=== PATIENT | female | born 1960 | race Caucasian/White ===

== ENCOUNTER 2016-04-20 18:03 | Emergency (ER) | payer SELFPAY ==
[~2016-04-20] VITALS: Ht 180.3 cm; Wt 70.0 kg
[2016-04-20 18:05] VITALS: BP 136/86; PULSE 90; RESP 18; TEMP 98.1; O2SAT 98
--- NOTE | 2016-04-20 19:15 | PD ---
HPI Chief Complaint: Skin Problem Time Seen by Provider: 19:10 Travel History International Travel<30 days: No Contact w/Intl Traveler<30days: No Traveled to known affect area: No History of Present Illness HPI Patient comes in complaining of possible fungal infection that began 4 weeks ago on her thighs while sitting on the ground with rescue cats. Patient's rash is pruritic in nature and has been spreading over both legs onto her right shoulder. Patient tried [id number] rid, nix, and other unknown ointment with no improvement of her symptoms. Patient denies any fevers, nausea, vomiting, abdominal pain, chest pain, shortness of breath, diarrhea, weight loss , or being around anyone else with similar. PFSH Past Medical History Arthritis: Yes Diminished Hearing: No : 1 Social History Alcohol Use: Yes (OCCASIONALLY) Tobacco Use: Yes (<1/2 PPD) Substance Use: No Allergies-Medications (Allergen,Severity, Reaction): Coded Allergies: No Known Allergies (Verified , 04/20/16) Reported Meds & Prescriptions Reported Meds & Active Scripts Active Bactrim DS (Sulfamethoxazole-Trimethoprim) 800-160 Mg Tab 1 Tab PO BID Terbinafine Topical 1 % Cream 1 Applic TOPICAL BID Review of Systems Except as stated in HPI: all other systems reviewed are Neg Physical Exam Narrative GENERAL: Well-developed, well nourished, in no acute distress, and non-ill appearing. SKIN: Warm and dry. Tinea corporis appearing rash noted bilateral lower extremities. There is no induration, fluctuation, or crepitus. There is some excoriation noted from where the patient has been scratching. Rash appears circular, erythematous, scaling patch that spreads centrifugally as well as having some ring-shaped plaques. HEAD: Atraumatic. Normocephalic. EYES: Pupils equal and round. EOMI. No scleral icterus. No injection or drainage. ENT: No nasal bleeding or discharge. Mucous membranes pink and moist. NECK: Trachea midline. Supple. No nuclear rigidity. RESPIRATORY: No accessory muscle use. No respiratory distress. MUSCULOSKELETAL: No obvious deformities. No clubbing. No cyanosis. No edema. Full range of motion. NEUROLOGICAL: Awake and alert. No obvious cranial nerve deficits. Motor grossly within normal limits. Normal speech. PSYCHIATRIC: Appropriate mood and affect; insight and judgment normal. Data Data Last Documented VS Vital Signs Date Time Temp Pulse Resp B/P Pulse Ox O2 Delivery O2 Flow Rate FiO2 04/20/16 18:05 98.1 90 18 136/86 98 MDM Medical Decision Making Medical Screen Exam Complete: Yes Emergency Medical Condition: Yes Differential Diagnosis Abscess, cellulitis, dermatophyte, other Narrative Course There were no blisters or bullae, target lesions, purpura or petechia, nor vesiculobullous or scarlatiniform lesions. The patient looks great and was non- ill appearing. There was no evidence to suggest scabies, cellulitis, folliculitis or abscess, Staph. Scalded Skin Syndrome, Toxic Shock, Toxic Epidermal necrolysis, Kawasakis, Measles, Rubella, cutaneous T cell lymphoma, Erythema Multiforme (minor or major). Plan of care was discussed with the patient and the patient is to follow up with their physician. The patient agreed with plan. This patient on prophylactic antibiotic secondary to excoriation to prevent secondary infection. Patient in no obvious distress upon re-evaluation. Patient was asked if they wanted to speak to my attending, which the patient did not wish to do at this time. Any questions/concerns in reference to patient diagnosis/condition discussed and clarified prior to patient's discharge. Reinforced sheer importance of close follow up with patient's primary physician or primary care clinic. Instructed patient to return to ED immediately, if symptoms return/ worsen. Pt showed understanding of above instructions. Further instructions and recommendations were detailed in discharge paperwork. Pt ambulated without difficulty out of ED at discharge. Diagnosis Primary Impression: Tinea corporis Referrals: [facility] Patient Instructions: General Instructions, Tinea Corporis (ED) Additional Instructions: Follow-up with your primary care physician next week for reevaluation. Take all medication as prescribed. Return to the emergency department if symptoms get worse. Med/Other Pt SpecificInfo: Prescription(s) given Scripts Sulfamethoxazole-Trimethoprim (Bactrim DS)800-160 Mg Tab1 Tab PO BID #14 TAB Ref 0 Prov:Richar Hannah MD 04/20/16 Terbinafine Topical 1 % Cream1 Applic TOPICAL BID #1 TUBE Ref 0 Prov:Richar Hannah MD 04/20/16 Disposition: 01 DISCHARGE HOME Condition: Stable Luis Jurado 9, 2017 19:15
[2016-04-20] MEDS ORDERED: TERB1CRE11 TOPICAL (19:16)
[2016-04-20] MEDS ORDERED: BACT800T5 PO (19:16)
== END 2016-04-20 19:34 | disposition home or self-care (01) ==
LOC: NEPB 18:03
DX: B35.4 Tinea corporis (principal); Z72.0 Tobacco use
CPT/HCPCS: 99283

== ENCOUNTER 2017-02-06 09:28 | Inpatient (IN) | payer SELFPAY ==
[2017-02-06] VITALS (7 sets, daily range): BP systolic 129–150; BP diastolic 81–108; PULSE 70–92; RESP 16–20; TEMP 97.5–98.3; O2SAT 95–100
[~2017-02-06] VITALS: Ht 180.3 cm; Wt 69.1 kg
[~2017-02-06 09:28] MED LIST: BACT800T5 PO; TERB1CRE11 TOPICAL
[2017-02-06] MEDS ORDERED: FAMOTIDINE 20 MG/2 ML VIAL IV PUSH ONE (10:00)
[2017-02-06] MEDS ORDERED: MORPHINE SULFATE 4 MG/ML INJ IV PUSH ONE (10:00)
[2017-02-06] MEDS ORDERED: SODIUM CHLORIDE 0.9% FLUSH 10 ML FLUSH IV FLUSH PRN ×2 (10:00→13:45)
[2017-02-06] MEDS ORDERED: ONDANSETRON HCL 4 MG/2 ML VIAL IVP ONE (10:00)
[2017-02-06 10:23] LABS: AUTOMATED NEUTROPHIL # 4.2 TH/MM3 (1.8-7.7); BASOPHIL % 0.3 % (0.0-2.0); HEMATOCRIT 36.2 % (35.0-46.0); HEMOGLOBIN 12.3 GM/DL (11.6-15.3); LYMPH % 8.2 % (9.0-44.0); LYMPHOCYTE # 0.4 TH/MM3 (1.0-4.8); MEAN CELL VOLUME 107.1 FL (80.0-100.0); MEAN CORPUSCULAR HEMOGLOBIN 36.5 PG (27.0-34.0); MEAN CORPUSCULAR HGB CONC 34.1 % (32.0-36.0); MEAN PLATELET VOLUME 9.6 FL (7.0-11.0); MONOCYTE # 0.3 TH/MM3 (0-0.9); NEUT % 85.5 % (16.0-70.0); PLATELET COUNT 123 TH/MM3 (150-450); RED BLOOD COUNT 3.38 MIL/MM3 (4.00-5.30); RED CELL DISTRIBUTION WIDTH 15.4 % (11.6-17.2); WHITE BLOOD COUNT 4.9 TH/MM3 (4.0-11.0)
[2017-02-06] MEDS ORDERED: MORPHINE SULFATE 2 MG/ML INJ IV PUSH ONE (10:30)
[2017-02-06] MEDS ORDERED: PANTOPRAZOLE INJ 80 MG in SODIUM CHLORIDE 0.9% INJ 35 ML IV ONE (10:30)
[2017-02-06 10:34] LABS: PROTHROMBIN TIME - PATIENT 10.5 SEC (9.8-11.6)
[2017-02-06 10:46] LABS: BICARBONATE 21.9 MEQ/L (21.0-32.0); CALCIUM 8.5 MG/DL (8.5-10.1); CREATININE 0.6 MG/DL (0.50-1.00)
[2017-02-06 11:17] LABS: ALBUMIN 2.7 GM/DL (3.4-5.0); DIRECT BILIRUBIN ADULT 0.3 MG/DL (0.0-0.2)
[2017-02-06 11:19] LABS: INDIRECT BILIRUBIN 0.8 MG/DL (0.0-0.8); TOTAL BILIRUBIN ADULT 1.1 MG/DL (0.2-1.0)
[2017-02-06] MEDS ORDERED: IOHEXOL 350 MG/ML 10 ML VIAL (for RAD DIAG) IVCONTRAST ONE (11:27)
[2017-02-06] MEDS: PANTOPRAZOLE INJ 80 MG in SODIUM CHLORIDE 0.9% INJ 100 ML IV SCH ×2 (11:34→23:19)
--- NOTE | 2017-02-06 11:46 | RADRPT ---
EXAM DATE/TIME: 02/06/2017 11:20 [place] COMPARISON: No previous studies available for comparison. INDICATIONS : Vomiting for 2 days. IV CONTRAST: 70 cc Omnipaque 350 (iohexol) IV ORAL CONTRAST: No oral contrast ingested. RADIATION DOSE: 7.90 CTDIvol (mGy) MEDICAL HISTORY : None SURGICAL HISTORY : None. ENCOUNTER: Initial ACUITY: 2 days PAIN SCALE: 0/10 LOCATION: anterior TECHNIQUE: Volumetric scanning of the abdomen and pelvis was performed. Using automated exposure control and ad justment of the mA and/or kV according to patient size, radiation dose was kept as low as reasonably achievable to obtain optimal diagnostic quality images. DICOM format image data is available electro nically for review and comparison. FINDINGS: LOWER LUNGS: The visualized lower lungs are clear. LIVER: Diffuse diminished attenuation consistent with steatosis. No focal mass or biliary ductal dilatation. SPLEEN: Normal size without lesion. PANCREAS: Within normal limits. KIDNEYS: Normal in size and shape. There is no mass, stone or hydronephrosis. ADRENAL GLANDS: Within normal limits. VASCULAR: There is no aortic aneurysm. BOWEL/MESENTERY: Moderate hiatal hernia. Fluid in the esophagus. The stomach, small bowel, and colon demonstrate no ac rupert abnormality. There is no free intraperitoneal air or fluid. ABDOMINAL WALL: Soft tissue density nodule with in the umbilicus is likely sister Vaishali Jaguar node RETROPERITONEUM: There is no lymphadenopathy. BLADDER: No wall thickening or mass. REPRODUCTIVE: There is a very large complex solid and cystic multilocular mass which appears to arise in the right adnexal region. The mass measures approximately 21 x 15 x 19.5 cm (sagittal x AP x transverse). There are findings of peritoneal carcinomatosis with nodular thickening of the omentum. There is moderate free ascites present INGUINAL: There is no lymphadenopathy or hernia. MUSCULOSKELETAL: Within normal limits for patient age. CONCLUSION: Enormous mass which appears to arise in the right adnexal region. Findings of peritoneal carcinomatos is. Adam Johnston MD on February 06, 2017 at 11:37 Board Certified Radiologist. This report was verified electronically.
[2017-02-06] MEDS ORDERED: METOCLOPRAMIDE INJ 10 MG in SODIUM CHLORIDE 0.9% INJ 50 ML IV ONE (12:00)
[2017-02-06] MEDS ORDERED: OCTREOTIDE INJ 50 MCG/ML AMP SQ ONE (12:15)
--- NOTE | 2017-02-06 12:51 | PD ---
HPI Chief Complaint: GI Complaint Time Seen by Provider: 09:53 Travel History International Travel<30 days: No Contact w/Intl Traveler<30days: No Traveled to known affect area: No History of Present Illness HPI She is a 56-year-old female who comes in complaining of nausea and vomiting and abdominal pain. Says this is been going on for the past 3 days. She reports vomiting dark black material. She says she has pain all over her abdomen. She says she drinks daily, but has not had a drink in 3 days. She denies recent weight loss. She has not noticed blood in her stool, but does report diarrhea. She reports fever. She has not taken anything for her symptoms. Nothing seems to make her symptoms better or worse. [facility] Past Medical History Arthritis: Yes Diminished Hearing: No Immunizations Current: Yes Tetanus Vaccination: > 5 Years Influenza Vaccination: No ?: Not : 1 Past Surgical History Surgical History: No Previous Surgery Social History Alcohol Use: Yes (OCCASIONALLY) Tobacco Use: Yes (<1/2 PPD) Substance Use: No Allergies-Medications (Allergen,Severity, Reaction): Coded Allergies: No Known Allergies (Verified Adverse Reaction, Unknown, 02/06/17) Reported Meds & Prescriptions Reported Meds & Active Scripts Active No Active Prescriptions or Reported Medications Review of Systems Except as stated in HPI: all other systems reviewed are Neg General / Constitutional: Positive: Fever Eyes: No: Blurred Vision HENT: No: Headaches, Lightheadedness Cardiovascular: No: Chest Pain or Discomfort Respiratory: No: Shortness of Breath Gastrointestinal: Positive: Nausea, Vomiting, Diarrhea, Abdominal Pain, Hematemesis Genitourinary: No: Dysuria Musculoskeletal: No: Myalgias, Edema Skin: No Change in Pigmentation Neurologic: No: Weakness, Dizziness Physical Exam Narrative GENERAL: Awake and alert, actively vomiting. SKIN: Focused skin assessment warm/dry. No wounds or signs of infection. HEAD: Atraumatic. Normocephalic. EYES: Pupils equal and round. No scleral icterus. ENT: Mucous membranes pink and moist. NECK: Trachea midline. No JVD. CARDIOVASCULAR: Regular rate and rhythm. No murmur appreciated. RESPIRATORY: No accessory muscle use. Clear to auscultation. Breath sounds equal bilaterally. GASTROINTESTINAL: Abdomen enlarged, diffusely tender to palpation. Ascites present. MUSCULOSKELETAL: No obvious deformities. No clubbing. No cyanosis. No edema. NEUROLOGICAL: Awake and alert. No obvious cranial nerve deficits. Motor grossly within normal limits. Normal speech. PSYCHIATRIC: Appropriate mood and affect; insight and judgment normal. Data Data Last Documented VS Vital Signs Date Time Temp Pulse Resp B/P (MAP) Pulse Ox O2 Delivery O2 Flow Rate FiO2 02/06/17 11:34 74 18 134/83 (100) 100 Room Air 02/06/17 09:43 98.3 Orders Orders Basic Metabolic Panel (Bmp) (02/06/17 09:58) Complete Blood Count With Diff (02/06/17 09:58) Lipase (02/06/17 09:58) Prothrombin Time / Inr (Pt) (02/06/17 09:58) Act Partial Throm Time (Ptt) (02/06/17 09:58) Urinalysis - C+S If Indicated (02/06/17 09:58) Ct Abd/Pel W Iv Contrast(Rout) (02/06/17 09:58) Iv Access Insert/Monitor (02/06/17 09:58) Ecg Monitoring (02/06/17 09:58) Oximetry (02/06/17 09:58) Morphine Inj (Morphine Inj) (02/06/17 10:00) Ondansetron Inj (Zofran Inj) (02/06/17 10:00) Sodium Chloride 0.9% Flush (Ns Flush) (02/06/17 10:00) Famotidine Inj (Pepcid Inj) (02/06/17 10:00) Morphine Inj (Morphine Inj) (02/06/17 10:30) Pantoprazole Inj (Protonix Inj) (02/06/17 10:30) Pantoprazole Inj (Protonix Inj) (02/06/17 10:30) Hepatic Functional Panel (02/06/17 10:28) Iohexol 350 Inj (Omnipaque 350 Inj) (02/06/17 11:27) Metoclopramide Inj (Reglan Inj) (02/06/17 12:00) Ng Gastric Tube Insert/Monitor (02/06/17 12:15) Octreotide Inj (Sandostatin Inj) (02/06/17 12:15) Admit Order (Ed Use Only) (02/06/17 ) Labs Laboratory Tests Test 02/06/17 10:15 White Blood Count 4.9 TH/MM3 Red Blood Count 3.38 MIL/MM3 Hemoglobin 12.3 GM/DL Hematocrit 36.2 % Mean Corpuscular Volume 107.1 FL Mean Corpuscular Hemoglobin 36.5 PG Mean Corpuscular Hemoglobin Concent 34.1 % Red Cell Distribution Width 15.4 % Platelet Count 123 TH/MM3 Mean Platelet Volume 9.6 FL Neutrophils (%) (Auto) 85.5 % Lymphocytes (%) (Auto) 8.2 % Monocytes (%) (Auto) 6.0 % Eosinophils (%) (Auto) 0.0 % Basophils (%) (Auto) 0.3 % Neutrophils # (Auto) 4.2 TH/MM3 Lymphocytes # (Auto) 0.4 TH/MM3 Monocytes # (Auto) 0.3 TH/MM3 Eosinophils # (Auto) 0.0 TH/MM3 Basophils # (Auto) 0.0 TH/MM3 CBC Comment DIFF FINAL Differential Comment Prothrombin Time 10.5 SEC Prothromb Time International Ratio 1.0 RATIO Activated Partial Thromboplast Time 24.3 SEC Blood Urea Nitrogen 10 MG/DL Creatinine 0.60 MG/DL Random Glucose 159 MG/DL Calcium Level 8.5 MG/DL Sodium Level 137 MEQ/L Potassium Level 3.0 MEQ/L Chloride Level 95 MEQ/L Carbon Dioxide Level 21.9 MEQ/L Anion Gap 20 MEQ/L Estimat Glomerular Filtration Rate 103 ML/MIN Total Bilirubin 1.1 MG/DL Direct Bilirubin 0.3 MG/DL Indirect Bilirubin 0.8 MG/DL Aspartate Amino Transf (AST/SGOT) 69 U/L Alanine Aminotransferase (ALT/SGPT) 19 U/L Alkaline Phosphatase 100 U/L Total Protein 8.0 GM/DL Albumin 2.7 GM/DL Lipase 350 U/L [facility] Medical Decision Making Medical Screen Exam Complete: Yes Emergency Medical Condition: Yes Medical Record Reviewed: Yes Differential Diagnosis ascites vs esophageal varices vs PUD vs colitis Narrative Course Patient is a 56 year old female who comes in complaining of nausea, vomiting, abdominal pain. She is actively vomiting coffee ground emesis. IV established , labs sent. Given Zofran, Protonix. Labs show Hgb of 12.3. Given Octreotide and Reglan for continued vomiting. She refused NG tube. CT abd/pelvis performed shows a large pelvic mass. Last 24 hours Impressions Abdomen/Pelvis CT 02/06/17 0958 Signed Impressions: Service Date/Time: Monday, February 06, 2017 11:20 - CONCLUSION: Enormous mass which appears to arise in the right adnexal region. Findings of peritoneal carcinomatosis. Adam Johnston MD Patient informed of these results. Admitted for further management. Diagnosis Primary Impression: Abdominal mass Qualified Codes: R19.07 - Generalized intra-abdominal and pelvic swelling, mass and lump Additional Impressions: Hypokalemia Hematemesis Qualified Codes: K92.0 - Hematemesis Admitting Information Admitting Physician Requests: Admit Scripts No Active Prescriptions or Reported Meds Linda Blake MD Feb 06, 2017 12:50
--- NOTE | 2017-02-06 13:23 | HHI.HP ---
[facility] Service Family Medicine Primary Care Physician No Primary Care Physician Admission Diagnosis GI bleed, abdominal mass Diagnoses: International Travel<30 Days: No Contact w/Intl Traveler<30days: No Known Affected Area: No History of Present Illness Patient is a 56-year-old female who denies any chronic illness who comes in today for vomiting blood. She reports that she's been vomiting for the past 3 days. Just this morning today to transition over to blood. She reports she has vomited approximately 25 times today, which includes spitting up small portions up to "large amounts which only happen a couple times, maybe half a cup ." She' s been unable to keep down food or fluids over these past 3 days. She reports that her abdominal pain as well as her nausea have been greatly improved following administration of medications in the ED. She did not take any medications while at home to aid with her nausea or vomiting, no NSAIDs. Currently endorses lightheadedness, dizziness, abdominal pain, darkened stools. In her stool she has not noted any chad blood, has been normal consistency, no diarrhea, constipation. Denies fevers, chills, chest pain, change in bladder habits other than darker urine. She states she typically drinks 1 pint of vodka a day which has been going on for "months or years" and states the last time she 's been able to drink was the day before she began vomiting. She has had withdrawal symptoms in the past, denies being hospitalized for it, does not believe she is having any similar symptoms at this point. No audio/visual hallucinations at this time. Further, she is curious about the large mass found in her abdomen via CT prior to the interview. She reports she has had approximately 5 pounds of weight loss over the past month, she has limited appetite however reports that she has always eaten very little, no change in bowel or bladder habits than that noted above, no abdominal pain prior to this episode of vomiting. Denies ever having had an EGD or colonoscopy in the past. Review of Systems Constitutional: COMPLAINS OF: Fatigue, Weight loss (5 pounds last month), Dizziness, Change in appetite (less), DENIES: Fever, Chills, Night Sweats Endocrine: DENIES: Polydipsia, Polyuria Eyes: DENIES: Blurred vision, Diplopia, Eye pain, Vision loss, Photosensitivity , Double Vision Ears, nose, mouth, throat: COMPLAINS OF: Throat pain, DENIES: Tinnitus, Hearing loss, Nasal discharge, Hoarseness, Ear Pain, Running Nose, Epistaxis, Sinus Pain, Toothache, Odynophagia Respiratory: COMPLAINS OF: Hemoptysis, DENIES: Apneas, Cough, Snoring, Wheezing , Sputum production, Shortness of breath Cardiovascular: DENIES: Chest pain, Palpitations, Syncope Gastrointestinal: COMPLAINS OF: Abdominal pain, Black stools, Nausea, Vomiting , Difficulty Swallowing, DENIES: Bloody stools, Constipation, Diarrhea Genitourinary: DENIES: Urgency, Hematuria, Dysuria, Nocturia Musculoskeletal: DENIES: Joint pain, Muscle aches, Stiffness Integumentary: COMPLAINS OF: Rash (allergic from cats), DENIES: Abnormal pigmentation Hematologic/lymphatic: DENIES: Bruising, Lymphadenopathy Immunologic/allergic: DENIES: Eczema, Urticaria Neurologic: DENIES: Abnormal gait, Headache, Localized weakness, Paresthesias, Seizures Psychiatric: DENIES: Anxiety, Confusion, Mood changes, Depression, Hallucinations, Suicidal Ideation, Homicidal Ideation Past Family Social History Past Medical History Reports none Past Surgical History No past surgeries Allergies: Coded Allergies: No Known Allergies (Verified Adverse Reaction, Unknown, 02/06/17) Family History Father: from bladder cancer at 41, Mother: alive, single mastectomy Sister: healthy Social History EtOH: Pint a day of vodka Tobacco: 1/2 pack for 10 years Drugs: When younger - cocaine, oxycodone Physical Exam Vital Signs Vital Signs Date Time Temp Pulse Resp B/P (MAP) Pulse Ox O2 Delivery O2 Flow Rate FiO2 02/06/17 11:34 74 18 134/83 (100) 100 Room Air 02/06/17 10:22 97 Room Air 02/06/17 09:43 98.3 78 20 150/108 (122) 100 Room Air Physical Exam GENERAL: This is a thin woman, older than her stated age, in no apparent distress. SKIN: No rashes, ecchymoses or lesions. Cool and dry. HEAD: Atraumatic. Normocephalic. No temporal or scalp tenderness. EYES: Pupils equal round and reactive. Extraocular motions intact. No scleral icterus. No injection or drainage. ENT: Nose without bleeding, purulent drainage or septal hematoma. No dry blood noted in nose. Throat without erythema, tonsillar hypertrophy or exudate. No blood noted in throat. Tongue darker red. Uvula midline. Airway patent. NECK: Trachea midline. No JVD or lymphadenopathy. Supple, nontender, no meningeal signs. CARDIOVASCULAR: Regular rate and rhythm without murmurs, gallops, or rubs. RESPIRATORY: Clear to auscultation. Breath sounds equal bilaterally. No wheezes , rales, or rhonchi. GASTROINTESTINAL: Abdomen soft, however with significant guarding especially on the right side. Mildly tender, mostly on the right. Unable to adequately palpate spleen, liver, other masses due to guarding. MUSCULOSKELETAL: Extremities without clubbing, cyanosis, or edema. No joint tenderness, effusion, or edema noted. No calf tenderness. Negative Homans sign bilaterally. NEUROLOGICAL: Awake and alert. Cranial nerves II through XII intact. Motor and sensory grossly within normal limits. Five out of 5 muscle strength in all muscle groups. Normal speech. Laboratory Laboratory Tests Test 02/06/17 10:15 White Blood Count 4.9 Red Blood Count 3.38 Hemoglobin 12.3 Hematocrit 36.2 Mean Corpuscular Volume 107.1 Mean Corpuscular Hemoglobin 36.5 Mean Corpuscular Hemoglobin Concent 34.1 Red Cell Distribution Width 15.4 Platelet Count 123 Mean Platelet Volume 9.6 Neutrophils (%) (Auto) 85.5 Lymphocytes (%) (Auto) 8.2 Monocytes (%) (Auto) 6.0 Eosinophils (%) (Auto) 0.0 Basophils (%) (Auto) 0.3 Neutrophils # (Auto) 4.2 Lymphocytes # (Auto) 0.4 Monocytes # (Auto) 0.3 Eosinophils # (Auto) 0.0 Basophils # (Auto) 0.0 CBC Comment DIFF FINAL Differential Comment Prothrombin Time 10.5 Prothromb Time International Ratio 1.0 Activated Partial Thromboplast Time 24.3 Blood Urea Nitrogen 10 Creatinine 0.60 Random Glucose 159 Calcium Level 8.5 Sodium Level 137 Potassium Level 3.0 Chloride Level 95 Carbon Dioxide Level 21.9 Anion Gap 20 Estimat Glomerular Filtration Rate 103 Total Bilirubin 1.1 Direct Bilirubin 0.3 Indirect Bilirubin 0.8 Aspartate Amino Transf (AST/SGOT) 69 Alanine Aminotransferase (ALT/SGPT) 19 Alkaline Phosphatase 100 Total Protein 8.0 Albumin 2.7 Lipase 350 Result Diagram: 02/06/17 1015 02/06/17 1015 Imaging Last 24 hours Impressions Abdomen/Pelvis CT 02/06/17 0958 Signed Impressions: Service Date/Time: Monday, February 06, 2017 11:20 - CONCLUSION: Enormous mass which appears to arise in the right adnexal region. Findings of peritoneal carcinomatosis. MD Tad Oliveira VTE Risk Assessment Caprini VTE Risk Assessment: Mod/High Risk (score >= 2) Caprini Risk Assessment Model Point Value = 1 Point Value = 2 Point Value = 3 Point Value = 5 Age 41-60 Minor surgery BMI > 25 kg/m2 Swollen legs Varicose veins or History of unexplained or recurrent spontaneous Oral contraceptives or hormone replacement Sepsis (< 1 month) Serious lung disease, including pneumonia (< 1 month) Abnormal pulmonary function Acute myocardial infarction Congestive heart failure (< 1 month) History of inflammatory bowel disease Medical patient at bed rest Age 61-74 Arthroscopic surgery Major open surgery (> 45 min) Laparoscopic surgery (> 45 min) Malignancy Confined to bed (> 72 hours) Immobilizing plaster cast Central venous access Age >= 75 History of VTE Family history of VTE Factor V Leiden Prothrombin [id number] Lupus anticoagulant Anticardiolipin antibodies Elevated serum homocysteine Heparin-induced thrombocytopenia Other congenital or acquired thrombophilia Stroke (< 1 month) Elective arthroplasty Hip, pelvis, or leg fracture Acute spinal cord injury (< 1 month) Prophylaxis Regimen Total Risk Factor Score Risk Level Prophylaxis Regimen 0-1 Low Early ambulation 2 Moderate Order ONE of the following: *Sequential Compression Device (SCD) *Heparin 5000 units SQ BID 3-4 Higher Order ONE of the following medications: *Heparin 5000 units SQ TID *Enoxaparin/Lovenox 40 mg SQ daily (WT < 150 kg, CrCl > 30 mL/min) *Enoxaparin/Lovenox 30 mg SQ daily (WT < 150 kg, CrCl > 10-29 mL/min) *Enoxaparin/Lovenox 30 mg SQ BID (WT < 150 kg, CrCl > 30 mL/min) AND/OR *Sequential Compression Device (SCD) 5 or more Highest Order ONE of the following medications: *Heparin 5000 units SQ TID (Preferred with Epidurals) *Enoxaparin/Lovenox 40 mg SQ daily (WT < 150 kg, CrCl > 30 mL/min) *Enoxaparin/Lovenox 30 mg SQ daily (WT < 150 kg, CrCl > 10-29 mL/min) *Enoxaparin/Lovenox 30 mg SQ BID (WT < 150 kg, CrCl > 30 mL/min) AND *Sequential Compression Device (SCD) Assessment and Plan Assessment and Plan 56-year-old female with past history of heavy alcohol consumption presenting with hematemesis. Vomiting for 3 days, vomiting blood only on day of admission. Lightheadedness and dizziness, hemoglobin 12.3. Large right abdominal mass 2[address] Problem List: (1) Hematemesis ICD Codes: K92.0 - Hematemesis Plan: Vomiting 3 days, hematemesis 1 day. Admitted without anemia. Well controlled on IV antiemetics. Past history of significant alcohol consumption. GI on consult. -Appreciate GI recommendations * EGD tomorrow * NPO * Serial H/H * Transfuse as needed * Continue Protonix gtt -Zofran when necessary vomiting (2) Abdominal mass ICD Codes: R19.00 - Intra-abdominal and pelvic swelling, mass and lump, unspecified site Plan: Large 865952.5 cm mass originating from the right adnexal area incidentally found on CT. 5 pounds of weight loss over the past month. Low appetite, patient states it's always been low. -Oncology consulted, follow-up recommendations -Observe for additional signs/symptoms, evidence of mass effect (3) Hypokalemia ICD Codes: E87.6 - Hypokalemia Plan: Potassium 3.0 on admission, chloride 95, likely secondary to vomiting. -Monitor and replete as needed (4) ETOH abuse ICD Codes: F10.10 - Alcohol abuse, uncomplicated Plan: States she drinks approximately 1 L of vodka a day. Reports withdrawal symptoms in the past, typically presented themselves within 24 hours. Last drank 3 days prior to admission. -[facility] protocol -Counseled on EtOH abuse (5) FEN Plan: Fluids: -Maintenance fluids at 110 mL per hour Electrolytes: -Monitor and replete as needed Nutrition: Nothing by mouth until GI clearance, likely EGD 02/07 Physician Certification 2 Midnight Certification Type: Admission for Inpatient Services Order for Inpatient Services The services are ordered in accordance with Medicare regulations or non- Medicare payer requirements, as applicable. In the case of services not specified as inpatient-only, they are appropriately provided as inpatient services in accordance with the 2-midnight benchmark. Estimated LOS (days): 2 2 days is the estimated time the patient will need to remain in the hospital, assuming treatment plan goals are met and no additional complications. Post-Hospital Plan: Home Tj Naidu MD R1 Feb 06, 2017 13:23
[2017-02-06] MEDS ORDERED: ONDANSETRON HCL 4 MG/2 ML VIAL IVP PRN (13:45)
[2017-02-06] MEDS ORDERED: SENNOSIDES 8.6 MG TAB PO PRN (13:45)
[2017-02-06] MEDS ORDERED: ACETAMINOPHEN 325 MG TAB PO PRN (13:45)
[2017-02-06] MEDS ORDERED: LORazepam 2 MG/ML VIAL IV PUSH PRN ×4 (13:45)
[2017-02-06] MEDS ORDERED: LORazepam 1 MG TAB PO PRN (13:45)
[2017-02-06] MEDS ORDERED: LACTULOSE SYRUP 20 GM/30 ML CUP PO PRN (13:45)
[2017-02-06] MEDS ORDERED: BISACODYL 10 MG SUPP RECTAL PRN (13:45)
[2017-02-06] MEDS ORDERED: LORazepam 2 MG TAB PO PRN (13:45)
[2017-02-06] MEDS ORDERED: FLUMAZENIL 0.5 MG/5 ML VIAL IV PUSH PRN (13:45)
[2017-02-06] MEDS ORDERED: MAGNESIUM HYDROXIDE SUSP 30 ML CUP PO PRN (13:45)
[2017-02-06] MEDS ORDERED: NALOXONE HCL 0.4 MG/ML AMP IV PUSH PRN (13:45)
--- NOTE | 2017-02-06 14:11 | PD.CONS ---
HPI History of Present Illness This is a 56 year old F patient who arrived to the emergency department today with complaints of multiple episodes of hematemesis that began this morning. She reports vomiting for the past three days, but denies any blood in the vomit until today. States approx 25 episodes since this morning. Denies symptoms of the same in the past. Does report stool has been darker than normal, she is not sure how long it has been like this. Denies BRB in stool. Denies ever having EGD or colonoscopy. Does report heavy ETOH use, approx 3/4 pint of vodka a day for the past ten years. Denies taking blood thinners or NSAID use. She does not follow up with a primary care doctor or GI doctor and she denies ever being diagnosed with any liver issues. Not currently on any home medication. CT scan abdomen/pelvis W IV contrast (02/06) --> Enormous mass which appears to arise in the right adnexal region. Findings of peritoneal carcinomatosis. Pt denies being told this in the past. Family history is significant for bladder cancer, she states her father was diagnosed at a young age, and it metastasized to his colon. (Ellen Wolf) PFSH Past Medical History ETOH abuse Past Surgical History Denies (Ellen Wolf) Coded Allergies: No Known Allergies (Verified Adverse Reaction, Unknown, 02/06/17) Medications Denies any home medication Family History Father-bladder cancer Mother- Mastectomy Social History ETOH- 3/4 pint of vodka a day for the past ten years Nicotine dependence- 1/2 pack of cigarettes a day for the past ten years, reports quitting three days ago when she started vomiting Illicit drug use- denies (Ellen Wolf) Review of Systems Constitutional: COMPLAINS OF: Fatigue, Dizziness Gastrointestinal: COMPLAINS OF: Abdominal pain, Nausea, Vomiting, Swelling of Abdomen, Hematemesis, DENIES: Black stools, Bloody stools, Constipation, Diarrhea, Difficulty Swallowing, Odynophagia (Ellen Wolf) GI Exam Vitals I&O Vital Signs Date Time Temp Pulse Resp B/P (MAP) Pulse Ox O2 Delivery O2 Flow Rate FiO2 02/06/17 11:34 74 18 134/83 (100) 100 Room Air 02/06/17 10:22 97 Room Air 02/06/17 09:43 98.3 78 20 150/108 (122) 100 Room Air Imaging Last Impressions Abdomen/Pelvis CT 02/06/17 0958 Signed Impressions: Service Date/Time: Monday, February 06, 2017 11:20 - CONCLUSION: Enormous mass which appears to arise in the right adnexal region. Findings of peritoneal carcinomatosis. Adam Johnston MD Laboratory Test 02/06/17 10:15 White Blood Count 4.9 TH/MM3 Red Blood Count 3.38 MIL/MM3 Hemoglobin 12.3 GM/DL Hematocrit 36.2 % Mean Corpuscular Volume 107.1 FL Mean Corpuscular Hemoglobin 36.5 PG Mean Corpuscular Hemoglobin Concent 34.1 % Red Cell Distribution Width 15.4 % Platelet Count 123 TH/MM3 Mean Platelet Volume 9.6 FL Neutrophils (%) (Auto) 85.5 % Lymphocytes (%) (Auto) 8.2 % Monocytes (%) (Auto) 6.0 % Eosinophils (%) (Auto) 0.0 % Basophils (%) (Auto) 0.3 % Neutrophils # (Auto) 4.2 TH/MM3 Lymphocytes # (Auto) 0.4 TH/MM3 Monocytes # (Auto) 0.3 TH/MM3 Eosinophils # (Auto) 0.0 TH/MM3 Basophils # (Auto) 0.0 TH/MM3 CBC Comment DIFF FINAL Differential Comment Prothrombin Time 10.5 SEC Prothromb Time International Ratio 1.0 RATIO Activated Partial Thromboplast Time 24.3 SEC Blood Urea Nitrogen 10 MG/DL Creatinine 0.60 MG/DL Random Glucose 159 MG/DL Calcium Level 8.5 MG/DL Sodium Level 137 MEQ/L Potassium Level 3.0 MEQ/L Chloride Level 95 MEQ/L Carbon Dioxide Level 21.9 MEQ/L Anion Gap 20 MEQ/L Estimat Glomerular Filtration Rate 103 ML/MIN Total Bilirubin 1.1 MG/DL Direct Bilirubin 0.3 MG/DL Indirect Bilirubin 0.8 MG/DL Aspartate Amino Transf (AST/SGOT) 69 U/L Alanine Aminotransferase (ALT/SGPT) 19 U/L Alkaline Phosphatase 100 U/L Total Protein 8.0 GM/DL Albumin 2.7 GM/DL Lipase 350 U/L Physical Examination HEENT: Normocephalic; atraumatic CHEST: Even/unlabored CARDIAC: RRR ABDOMEN: Firm, distended, diffuse TTP, bowel sounds active x 4. EXTREMITIES: No clubbing, cyanosis, or edema. SKIN: Normal; no rash; no jaundice. MANAGER FUND: No focal deficits; alert and oriented times three. (Ellen Wolf) Assessment and Plan Plan Assessment - Hematemesis- Vomiting for the past three days, reports noticing blood in vomit starting today. Approx 25 episodes. H/H stable 12.3/36.2. Denies nausea after receiving nausea medication in ER. CT abdomen pelvis W IV contrast (02/06) --> Enormous mass which appears to arise in the right adnexal region. Findings of peritoneal carcinomatosis. Pt denies history of this. Also seen on CT ( liver) --> Diffuse diminished attenuation consistent with steatosis. No focal mass or biliary duct dilation. She does not follow up with family doctor or GI doctor outpatient. Reports ETOH abuse, approx 3/4 pint of vodka a day for the past ten years. Has never been diagnosed with liver issues. Liver enzymes currently AST-69 ALT-19 T bili 1.1 Alk phos-100. Coagulation normal. Albumin 2.7. Octreotide in ER. Currently on Pantoprazole gtt. Plan for EGD tomorrow. - ETOH abuse- 3/4 pint of vodka a day for the past ten years - Nicotine dependence- half a pack a day of cigarettes for the past ten years Plan - EGD tomorrow - Obtain consent - NPO - Serial H/H - Transfuse as needed - NGT to LIWS if vomiting persists - Continue Protonix gtt - Nausea medication PRN - Supportive care - Further recommendations to follow based on results of above Pt has been seen and examined by myself and Dr. Anne and this note is written on his behalf (Ellen Wolf) Physician Comments Seen and examined, plan a above, EGD in AM. (Gustabo Anne MD) Ellen Wolf Feb 06, 2017 14:11 Gustabo Anne MD Feb 06, 2017 14:49
[2017-02-06] MEDS ORDERED: ACETAMINOPHEN/HYDROcodone 325 MG/5 MG TAB PO PRN (15:30)
[2017-02-06] MEDS: ACETAMINOPHEN/HYDROcodone 325 MG/10 MG TAB PO PRN ×2 (16:46→21:22)
[2017-02-06] MEDS: SODIUM CHLOR 0.9% 1000 ML INJ 1,000 ML IV SCH ×2 (16:47→23:06)
[2017-02-06] MEDS: POTASSIUM CHLOR 20 MEQ PREMIX 100 ML IV SCH ×2 (18:03→21:22)
[2017-02-06 19:40] LABS: HEMATOCRIT 36.3 % (35.0-46.0); HEMATOCRIT 36.8 % (35.0-46.0); HEMOGLOBIN 12.2 GM/DL (11.6-15.3)
[2017-02-06] MEDS ORDERED: CHLORHEXIDINE GLUCONATE 2 % 1 PACK (2 CLOTHS) TOPICAL PRN (19:45)
[2017-02-06] MEDS ORDERED: SODIUM CHLORID 0.9% 500 ML IV PRN (19:45)
[2017-02-06] MEDS ORDERED: POVIDONE IODINE 5% (ANTISEPSIS KIT) 4 APPLICATIONS EACH NARE PRN (19:45)
[2017-02-06] MEDS ORDERED: METOPROLOL TARTRATE 25 MG TAB PO PRN (19:45)
[2017-02-06] MEDS ORDERED: INSULIN HUMAN REGULAR 1,000 UNITS/10 ML VIAL SQ PRN (19:45)
[2017-02-06] MEDS ORDERED: LACTATED RINGER'S 1000 ML IV PRN (19:45)
[2017-02-06] MEDS: SODIUM CHLORIDE 0.9% FLUSH 10 ML FLUSH IV FLUSH SCH (21:00)
[2017-02-06] MEDS: DOCUSATE SODIUM 50 MG/SENNA 8.6 MG TAB PO SCH ×2 (21:00→21:22)
[2017-02-07] VITALS: BP 119/81; PULSE 74; RESP 20; TEMP 98.1; O2SAT 97
[2017-02-07] MEDS: ACETAMINOPHEN/HYDROcodone 325 MG/10 MG TAB PO PRN ×5 (01:06→20:15)
[2017-02-07 03:12] LABS: BACTERIA, URINE MANY /hpf; BILIRUBIN, URINE NEG (NEG); BLOOD, URINE TRACE (NEG); GLUCOSE,URINE NEG (NEG); KETONE, URINE 80 mg/dL (NEG); NITRITE,URINE POS (NEG); PH, URINE 7.5 (5.0-8.5); SQUAMOUS EPITHELIAL CELL URINE 3 /hpf (0-5); URINE COLOR YELLOW (YELLW/STRAW); URINE LEUKOCYTE ESTERASE NEG (NEG)
[2017-02-07 03:39] LABS: HEMATOCRIT 34.4 % (35.0-46.0); HEMOGLOBIN 11.5 GM/DL (11.6-15.3)
[2017-02-07 08:00] VITALS: BP 132/80; PULSE 73; RESP 16; RESP 20; TEMP 98.5; O2SAT 96
[2017-02-07] MEDS: SODIUM CHLOR 0.9% 1000 ML INJ 1,000 ML IV SCH ×2 (08:12→17:18)
--- NOTE | 2017-02-07 09:00 | GIPROC ---
[facility] [address] [facility]. [facility], [address] EGD PROCEDURE REPORT EXAM DATE: 02/07/2017 PATIENT NAME: Nikki Gomes MR #: [id number] BIRTHDATE: 1960 ATTENDING: Gustabo Anne MD ORDER #: [id number] WOOL HAT FINISHER: Tammy Nicolas and Haven Quintana STATUS: inpatient INDICATIONS: The patient is a 56 yr old female here for an EGD due to hematemesis PROCEDURE PERFORMED: EGD w/ biopsy MEDICATIONS: None and Per Anesthesia. TOPICAL ANESTHETIC: none CONSENT: The patient understands the risks and benefits of the procedure and understands that these risks include, but are not limited to: sedation, allergic reaction, infection, perforation and/or bleeding. Alternative means of evaluation and treatment include, among others: physical exam, x-rays, and/or surgical intervention. The patient elects to proceed with this endoscopic procedure. medical equipment was checked for proper function. Hand hygiene and appropriate measures for infection prevention was taken. After the risks, benefits and alternatives of the procedure were thoroughly explained, Informed consent was verified, confirmed and timeout was successfully executed by the treatment team. The patient was anesthetized with topical anesthesia and the Pentax [id number] endoscope was introduced through the mouth and advanced to the second portion of the duodenum. Retroflexed views revealed a hiatal hernia The gastroscope was then slowly withdrawn and removed. ESOPHAGUS: Multiple large non-bleeding, irregular shaped and clean-based ulcers were found in the lower third of the esophagus and middle third esophagus. Biopsies were taken at edge of the ulcers and at the center of the ulcers. STOMACH: There was erythematous severe and erosive gastritis in the entire examined stomach. Multiple biopsies were performed using cold forceps. Sample sent for histology. DUODENUM: Mild duodenal inflammation was found in the duodenal bulb. ADVERSE EVENTS: There were no complications. IMPRESSIONS: 1. Multiple large ulcers were found in the lower third of the esophagus and middle third esophagus; biopsies were taken 2. There was erythematous gastritis in the entire examined stomach; multiple biopsies were performed 3. Duodenal inflammation was found in the duodenal bulb 4. Retroflexed views revealed a hiatal hernia RECOMMENDATIONS: 1. Await biopsy results. Biopsy results will not be ready for 7-10 days. If you don't hear from us in two weeks, call our office for biopsy results. 2. Colonoscopy PATIENT CONDITION: stable DISPOSITION: Observation REPEAT EXAM: NONE Gustabo Anne MD eSigned: Gustabo Anne MD 02/07/2017 9:00 AM cc: PATIENT NAME: Nikki Gomes MR#: [id number]
[2017-02-07] MEDS ORDERED: DO NOT ADM ANY ANTICOAGULANT DRUGS PRN (09:03)
[2017-02-07] MEDS: DOCUSATE SODIUM 50 MG/SENNA 8.6 MG TAB PO SCH ×2 (10:55→20:14)
[2017-02-07] MEDS: SODIUM CHLORIDE 0.9% FLUSH 10 ML FLUSH IV FLUSH SCH ×2 (10:55→20:15)
[2017-02-07 12:00] VITALS: BP 138/85; PULSE 69; RESP 16; TEMP 97.5; O2SAT 95
[2017-02-07] MEDS ORDERED: LIDOCAINE HCL 1% PF 5 ML SYRINGE OTHER ONE (12:00)
[2017-02-07] MEDS ORDERED: PROPOFOL 200 MG/20 ML AMP IV ONE (12:00)
[2017-02-07] MEDS ORDERED: ONDANSETRON HCL 4 MG/2 ML VIAL IV PUSH ONE (12:00)
[2017-02-07] MEDS ORDERED: DEXAMETHASONE SOD PHOS 4 MG/ML VIAL IV ONE (12:00)
[2017-02-07] MEDS ORDERED: SUCCINYLCHOLINE CHLORIDE 100 MG/5 ML SYRINGE IV PUSH ONE (12:00)
--- NOTE | 2017-02-07 12:46 | HHI.FPPN ---
Subjective Remarks Patient seen and examined this morning following her EGD. She states that her vomiting has been well controlled on medications in the hospital. No further hematemesis. She continues to have some mild abdominal pain. No fever, chills, shortness of breath, chest pain, change in urinary or bowel habits. Is eager to begin eating food again. (Tj Naidu MD R1) Objective Vitals Vital Signs Date Time Temp Pulse Resp B/P (MAP) Pulse Ox O2 Delivery O2 Flow Rate FiO2 02/07/17 09:45 97.9 66 20 139/68 (91) 91 Nasal Cannula 2 02/07/17 09:30 73 20 137/59 (85) 94 Nasal Cannula 2 02/07/17 09:10 97.9 82 20 130/73 (92) 96 Nasal Cannula 2 02/07/17 08:00 98.5 73 16 132/80 (97) 96 02/07/17 08:00 98.5 73 20 132/80 (97) 96 02/07/17 00:00 98.1 74 20 119/81 (94) 97 02/06/17 20:00 97.5 76 20 129/88 (102) 98 02/06/17 16:00 97.6 70 16 142/81 (101) 99 02/06/17 14:07 02/06/17 13:59 72 18 131/83 (99) 95 Room Air 02/06/17 13:53 92 18 130/83 (99) 97 Room Air I/O 02/06/17 02/06/17 02/06/17 02/07/17 02/07/17 02/07/17 07:00 15:00 23:00 07:00 15:00 23:00 Intake Total 253.6 ml 158.4 ml 600 ml Balance 253.6 ml 158.4 ml 600 ml Intake Oral 0 ml 0 ml IV Total 253.6 ml 158.4 ml Other 600 ml # Voids 1 3 # Bowel Movements 0 (Tj Naidu MD R1) Result Diagram: 02/07/17 0310 02/06/17 1015 Imaging Last 48 hours Impressions Abdomen/Pelvis CT 02/06/17 0958 Signed Impressions: Service Date/Time: Monday, February 06, 2017 11:20 - CONCLUSION: Enormous mass which appears to arise in the right adnexal region. Findings of peritoneal carcinomatosis. Adam Johnston MD Objective Remarks GENERAL: This is a thin woman, older than her stated age, in no apparent distress. SKIN: No rashes, ecchymoses or lesions. Cool and dry. EYES: Pupils equal round and reactive. Extraocular motions intact. No scleral icterus. No injection or drainage. ENT: Nose without bleeding, purulent drainage or septal hematoma. No dry blood noted in nose. Throat without erythema, tonsillar hypertrophy or exudate. No blood noted in throat. Tongue darker red. Uvula midline. Airway patent. NECK: Trachea midline. No JVD or lymphadenopathy. Supple, nontender, no meningeal signs. CARDIOVASCULAR: Regular rate and rhythm without murmurs, gallops, or rubs. RESPIRATORY: Clear to auscultation. Breath sounds equal bilaterally. No wheezes , rales, or rhonchi. GASTROINTESTINAL: Abdomen soft, however with significant guarding especially on the right side. Mildly tender, mostly on the right. Difficult to palpate structures with active gaurding, however it feel as though there is a large mass on the right side. MUSCULOSKELETAL: Extremities without clubbing, cyanosis, or edema. No joint tenderness, effusion, or edema noted. No calf tenderness. Negative Homans sign bilaterally. NEUROLOGICAL: Awake and alert. Motor and sensory grossly within normal limits. Five out of 5 muscle strength in all muscle groups. Normal speech. Procedures EGD 02/07/17 (Tj Naidu MD R1) A/P Assessment and Plan 56-year-old female with past history of heavy alcohol consumption presenting with hematemesis. Vomiting for 3 days, vomiting blood only on day of admission. Lightheadedness and dizziness, hemoglobin 12.3. Large right abdominal mass 2115 19[address]. Discharge Planning Likely following GI clearance (Tj Naidu MD R1) Attending Attestation THIS CASE WAS DISCUSSED WITH THE RESIDENT PHYSICIANS. I HAVE REVIEWED THE RECORD , PATIENT SEEN AND EXAMINED, AND AGREE WITH THE ABOVE NOTE AND PLAN OF CARE WAS DISCUSSED. I HAVE AUTHORIZED THE ORDER FOR ADMISSION TO AN IN-PATIENT STATUS. (Vincent Patton MD) Problem List: (1) Hematemesis ICD Codes: K92.0 - Hematemesis Plan: Vomiting 3 days, hematemesis 1 day. Admitted without anemia. Well controlled on IV antiemetics. Past history of significant alcohol consumption. GI on consult. EGD 02/07. Serial H/H 12.3-->12.2-->11.5. -Decreased hemoglobin possibly secondary to dilution, follow-up morning labs -Follow up GI recommendations following EGD -Appreciate GI recommendations * Transfuse as needed * Continue Protonix gtt -Zofran when necessary for vomiting (2) Abdominal mass ICD Codes: R19.00 - Intra-abdominal and pelvic swelling, mass and lump, unspecified site Plan: Large 500992.5 cm mass originating from the right adnexal area incidentally found on CT. 5 pounds of weight loss over the past month. Low appetite, patient states it's always been low. -Oncology, ASSISTANT HALL DIRECTOR oncology consulted, follow-up recommendations -Observe for additional signs/symptoms, evidence of mass effect (3) Hypokalemia ICD Codes: E87.6 - Hypokalemia Plan: Potassium 3.0 on admission, chloride 95, likely secondary to vomiting. -Monitor and replete as needed (4) ETOH abuse ICD Codes: F10.10 - Alcohol abuse, uncomplicated Plan: States she drinks approximately 1 L of vodka a day. Reports withdrawal symptoms in the past, typically presented themselves within 24 hours. Last drank 3 days prior to admission. -[facility] protocol -Counseled on EtOH abuse (5) FEN Plan: Fluids: -Maintenance fluids at 110 mL per hour Electrolytes: -Monitor and replete as needed Nutrition: Nothing by mouth until GI clearance, likely EGD 02/07 (Tj Naidu MD R1) Problem Qualifiers (1) Hematemesis: Qualified Codes: K92.0 - Hematemesis (2) Abdominal mass: Qualified Codes: R19.07 - Generalized intra-abdominal and pelvic swelling, mass and lump Tj Naidu MD R1 Feb 07, 2017 12:46 Vincent Patton MD Feb 09, 2017 13:33
[2017-02-07] MEDS: PANTOPRAZOLE INJ 80 MG in SODIUM CHLORIDE 0.9% INJ 100 ML IV SCH ×2 (14:31→23:15)
--- NOTE | 2017-02-07 14:49 | EKG ---
Date Performed: 02/06/2017 Time Performed: 20:53:06 PTAGE: 56 years EKG: Sinus rhythm NORMAL ECG PREVIOUS TRACING : 01/29/2014 23.32 DOCTOR: Chico Oropeza Interpretating Date/Time 02/07/2017 14:48:53
[2017-02-07 15:09] LABS: HEMATOCRIT 36.8 % (35.0-46.0); HEMOGLOBIN 12.3 GM/DL (11.6-15.3)
[2017-02-07 15:11] LABS: AUTOMATED NEUTROPHIL # 5.6 TH/MM3 (1.8-7.7); BASOPHIL % 0.1 % (0.0-2.0); HEMATOCRIT 37.2 % (35.0-46.0); HEMOGLOBIN 12.4 GM/DL (11.6-15.3); LYMPH % 6.6 % (9.0-44.0); LYMPHOCYTE # 0.4 TH/MM3 (1.0-4.8); MEAN CELL VOLUME 108.8 FL (80.0-100.0); MEAN CORPUSCULAR HEMOGLOBIN 36.3 PG (27.0-34.0); MEAN CORPUSCULAR HGB CONC 33.3 % (32.0-36.0); MEAN PLATELET VOLUME 9.6 FL (7.0-11.0); MONO % 1.4 % (0.0-8.0); MONOCYTE # 0.1 TH/MM3 (0-0.9); NEUT % 91.9 % (16.0-70.0); PLATELET COUNT 124 TH/MM3 (150-450); RED BLOOD COUNT 3.42 MIL/MM3 (4.00-5.30); RED CELL DISTRIBUTION WIDTH 15.7 % (11.6-17.2); WHITE BLOOD COUNT 6.1 TH/MM3 (4.0-11.0)
[2017-02-07 15:36] LABS: ALBUMIN 2.8 GM/DL (3.4-5.0); ALT (GPT) 14 U/L (10-53); AST (GOT) 41 U/L (15-37); BICARBONATE 26.8 MEQ/L (21.0-32.0); BLOOD UREA NITROGEN 15 MG/DL (7-18); CALCIUM 8.3 MG/DL (8.5-10.1); CHLORIDE 99 MEQ/L (98-107); GLOMERULAR FILTRATION RATE 128 ML/MIN (>89); GLUCOSE,RANDOM 119 MG/DL (74-106); SODIUM (NA) 136 MEQ/L (136-145)
[2017-02-07 15:39] LABS: ALKALINE PHOSPHATASE 81 U/L (45-117); TOTAL BILIRUBIN ADULT 0.8 MG/DL (0.2-1.0); TOTAL PROTEIN 7.6 GM/DL (6.4-8.2)
[2017-02-07 16:00] VITALS: BP 126/82; PULSE 62; RESP 16; TEMP 97.7; O2SAT 93
[2017-02-07] MEDS ORDERED: PEG (High)/E-LYTE SOLN 4000 ML BTL PO ONE (16:00)
[2017-02-07 17:25] VITALS: O2SAT 93
[2017-02-07] MEDS ORDERED: BISACODYL EC 5 MG TABEC PO ONE (18:00)
[2017-02-07 20:00] VITALS: BP 134/93; PULSE 70; RESP 20; TEMP 98.1; O2SAT 97
[2017-02-08] VITALS (7 sets, daily range): BP systolic 99–136; BP diastolic 66–85; PULSE 63–73; RESP 16–20; TEMP 96.2–98.9; O2SAT 93–99
[2017-02-08] MEDS: PANTOPRAZOLE INJ 80 MG in SODIUM CHLORIDE 0.9% INJ 100 ML IV SCH (00:04)
[2017-02-08] MEDS: ACETAMINOPHEN/HYDROcodone 325 MG/10 MG TAB PO PRN ×6 (02:30→23:42)
[2017-02-08] MEDS ORDERED: LACTATED RINGER'S 1000 ML IV PRN (03:45)
[2017-02-08 04:56] LABS: HEMATOCRIT 34.4 % (35.0-46.0); HEMOGLOBIN 11.4 GM/DL (11.6-15.3); MEAN CELL VOLUME 108.6 FL (80.0-100.0); MEAN CORPUSCULAR HGB CONC 33.2 % (32.0-36.0); MEAN PLATELET VOLUME 9.4 FL (7.0-11.0); PLATELET COUNT 116 TH/MM3 (150-450); RED BLOOD COUNT 3.17 MIL/MM3 (4.00-5.30); RED CELL DISTRIBUTION WIDTH 15.3 % (11.6-17.2); WHITE BLOOD COUNT 5.6 TH/MM3 (4.0-11.0)
[2017-02-08 05:19] LABS: BICARBONATE 26.1 MEQ/L (21.0-32.0); CALCIUM 7.9 MG/DL (8.5-10.1); CREATININE 0.39 MG/DL (0.50-1.00)
[2017-02-08] MEDS ORDERED: POTASSIUM CHLORIDE 20 MEQ CONTROLLED RELEASE TAB PO ONE ×2 (05:45→09:00)
--- NOTE | 2017-02-08 08:51 | GIPROC ---
[facility] [address] [facility]. [facility], [address] COLONOSCOPY PROCEDURE REPORT EXAM DATE: 02/08/2017 PATIENT NAME: Nikki Gomes MR #: [id number] BIRTHDATE: 1960 ENDOSCOPIST: Gustabo Anne MD ORDER #: [id number] OPS MANAGER: Haven Quintana and Devora Lee STATUS: inpatient INDICATIONS: The patient is a 56 yr old female here for a colonoscopy due to an abnormal imaging results PROCEDURE PERFORMED: Colonoscopy with biopsy Colonoscopy with polypectomy MEDICATIONS: None and Per Anesthesia. PREP QUALITY: marginal PREP TYPE:GoLytely ESTIMATED BLOOD LOSS: None CONSENT: The patient understands the risks and benefits of the procedure and understands that these risks include, but are not limited to: sedation, allergic reaction, infection, perforation and/or bleeding. Alternative means of evaluation and treatment include, among others: physical exam, x-rays, and/or surgical intervention. The patient elects to proceed with this endoscopic procedure. medical equipment was checked for proper function. Hand hygiene and appropriate measures for infection prevention was taken. After the risks, benefits and alternatives of the procedure were thoroughly explained, Informed consent was verified, confirmed and timeout was successfully executed by the treatment team. A digital exam revealed no abnormalities of the rectum The Pentax [id number] endoscope was introduced through the anus and advanced to the cecum, which was identified by both the appendix and ileocecal valve. The instrument was then slowly withdrawn as the colon was fully examined. COLON FINDINGS: A medium sized patch of colitis was found in the sigmoid colon. The mucosa was erythematous and congested. Multiple biopsies were performed using cold forceps. A smooth sessile polyp ranging between 3-5mm in size was found in the sigmoid colon. A polypectomy was performed with cold forceps. The resection was complete and the polyp tissue was completely retrieved. A smooth sessile polyp ranging between 3-5mm in size was found in the ascending colon. A polypectomy was performed with cold forceps. The resection was complete and the polyp tissue was completely retrieved. Retroflexed views revealed internal hemorrhoids and Retroflexed views revealed medium internal hemorrhoids The scope was then completely withdrawn from the patient and the procedure terminated. PROCEDURE WITHDRAWAL TIME:8minutes ADVERSE EVENTS: There were no complications. IMPRESSIONS: 1. Medium sized colitis was found in the sigmoid colon; The mucosa was erythematous and congested; multiple biopsies were performed using cold forceps 2. A sessile polyp ranging between 3-5mm in size was found in the sigmoid colon; polypectomy was performed with cold forceps 3. A sessile polyp ranging between 3-5mm in size was found in the ascending colon; polypectomy was performed with cold forceps 4. Retroflexed views revealed internal hemorrhoids RECOMMENDATIONS: Await biopsy results. Biopsy results will not be ready for 7-10 days. If you don't hear from us in two weeks, call our office for results. RECALL: Return 1 year Colonoscopy Gustabo Anne MD eSigned: Gustabo Anne MD 02/08/2017 8:51 AM cc: PATIENT NAME: Nikki Gomes MR#: [id number]
[2017-02-08] MEDS: DOCUSATE SODIUM 50 MG/SENNA 8.6 MG TAB PO SCH ×3 (09:00→20:34)
[2017-02-08] MEDS: SODIUM CHLORIDE 0.9% FLUSH 10 ML FLUSH IV FLUSH SCH ×2 (09:00→20:33)
[2017-02-08] MEDS: SODIUM CHLOR 0.9% 1000 ML INJ 1,000 ML IV SCH ×2 (09:15→20:34)
--- NOTE | 2017-02-08 10:56 | HHI.FPPN ---
Subjective Remarks Patient seen and examined today after her colonoscopy. No acute events overnight. She reports feeling somewhat improved today. No vomiting today. Has tried a little food this morning. Endorses some weakness when walking around. Denies any other new symptoms, including fever/chills, chest pain, SOB, leg pain. Objective Vitals Vital Signs Date Time Temp Pulse Resp B/P (MAP) Pulse Ox O2 Delivery O2 Flow Rate FiO2 02/08/17 08:47 98.3 87 20 154/86 (108) 95 02/08/17 08:00 98.9 63 16 123/79 (94) 94 02/08/17 00:00 97.4 68 20 136/75 (95) 97 02/07/17 20:00 98.1 70 20 134/93 (107) 97 02/07/17 17:25 93 Nasal Cannula 2.00 02/07/17 17:24 18 02/07/17 16:00 97.7 62 16 126/82 (97) 93 02/07/17 12:00 97.5 69 16 138/85 (102) 95 I/O 02/07/17 02/07/17 02/07/17 02/08/17 02/08/17 02/08/17 07:00 15:00 23:00 07:00 15:00 23:00 Intake Total 158.4 ml 1040 ml 620 ml 100 ml 600 ml Balance 158.4 ml 1040 ml 620 ml 100 ml 600 ml Intake Oral 0 ml 620 ml 0 ml IV Total 158.4 ml 440 ml 100 ml Other 600 ml 600 ml # Voids 3 3 4 # Bowel Movements 0 4 Result Diagram: 02/08/17 0404 02/08/17 0404 Imaging Last Impressions Abdomen/Pelvis CT 02/06/17 0958 Signed Impressions: Service Date/Time: Monday, February 06, 2017 11:20 - CONCLUSION: Enormous mass which appears to arise in the right adnexal region. Findings of peritoneal carcinomatosis. Adam Johnston MD Objective Remarks GENERAL: This is a thin woman, older than her stated age, in no apparent distress. CARDIOVASCULAR: Regular rate and rhythm without murmurs, gallops, or rubs. RESPIRATORY: Clear to auscultation. Breath sounds equal bilaterally. No wheezes , rales, or rhonchi. GASTROINTESTINAL: Abdomen soft, however with significant guarding especially on the right side. Mildly tender, mostly on the right. Difficult to palpate structures with active gaurding, however it feel as though there is a large mass on the right side. MUSCULOSKELETAL: Extremities without clubbing, cyanosis, or edema. NEUROLOGICAL: Awake and alert. Procedures EGD 02/07/17 A/P Assessment and Plan 56-year-old female with past history of heavy alcohol consumption presenting with hematemesis. Vomiting for 3 days, vomiting blood only on day of admission. Lightheadedness and dizziness, hemoglobin 12.3. Large right abdominal mass 2[address] Discharge Planning After GI clearance and seen by oncology Problem List: (1) Hematemesis ICD Codes: K92.0 - Hematemesis Plan: Vomiting 3 days, hematemesis 1 day on admission. Improving symptoms. EGD & colonoscopy performed. -EGD: large ulcers in esophagus-biopsies pending -Colonoscopy: polpys present, repeat in 1 year -Follow CBC -Appreciate GI recommendations * Transfuse as needed * Continue Protonix gtt -Zofran when necessary for vomiting (2) Abdominal mass ICD Codes: R19.00 - Intra-abdominal and pelvic swelling, mass and lump, unspecified site Plan: Large 851145.5 cm mass originating from the right adnexal area incidentally found on CT. 5 pounds of weight loss over the past month. CA-125 elevated -TECHNICAL SERVICES ANALYST oncology consulted, follow-up recommendations -Observe for additional signs/symptoms, evidence of mass effect (3) Hypokalemia ICD Codes: E87.6 - Hypokalemia Plan: Potassium 3.0 on admission, chloride 95, likely secondary to vomiting. Potassium 2.9 this morning -Given 80meq total over this morning -Repeat BMP at 11 -Monitor and replete as needed (4) ETOH abuse ICD Codes: F10.10 - Alcohol abuse, uncomplicated Plan: States she drinks approximately 1 L of vodka a day. Reports withdrawal symptoms in the past, typically presented themselves within 24 hours. Last drank 3 days prior to admission. -[facility] protocol -Counseled on EtOH abuse (5) FEN Plan: Fluids: -Maintenance fluids at 110 mL per hour Electrolytes: -Monitor and replete as needed Nutrition: heart healthy diet DVT ppx: Lovenox daily Problem Qualifiers (1) Hematemesis: Qualified Codes: K92.0 - Hematemesis (2) Abdominal mass: Qualified Codes: R19.07 - Generalized intra-abdominal and pelvic swelling, mass and lump Layton Man MD, R2 Feb 08, 2017 10:56
[2017-02-08 11:50] LABS: BICARBONATE 27.4 MEQ/L (21.0-32.0); CALCIUM 8.2 MG/DL (8.5-10.1); CREATININE 0.41 MG/DL (0.50-1.00)
[2017-02-08] MEDS ORDERED: ENOXAPARIN SODIUM 40 MG/0.4 ML SYRINGE SQ SCH (12:00)
[2017-02-08] MEDS: POTASSIUM CHLOR 20 MEQ PREMIX 100 ML IV SCH ×2 (16:07→18:24)
[2017-02-08] MEDS: PANTOPRAZOLE SODIUM 40 MG VIAL IV PUSH SCH (16:11)
--- NOTE | 2017-02-08 17:43 | MB ---
cc: TOREY MARES M.D. DATE OF CONSULTATION 02/08/17 [address] Paez CHIEF COMPLAINT Dr. Paez requests a consultation for Ms. Gomes regarding right peritoneal carcinomatosis. HISTORY OF PRESENT ILLNESS Ms. Gomes is a 56-year-old woman with history of alcohol abuse. She drinks one pint of vodka daily for months and years. She lives with a friend and her and were disabled. She comes in with vomiting blood for three days. She denies any NSAID use. She reports abdominal pain and nausea. She had lightheadedness, dizziness, abdominal pain and dark stools. She denies any chad blood. She was found to have abdominal distension. A CT scan of the abdomen and pelvis was coordinated. The findings show a very large complex solid and cystic multi-loculated mass arising in the right adnexal region. It measures 21 x 15 x 19.5 cm. There is finding of peritoneal carcinomatosis with nodular thickening of the omentum. There is also free ascites noted. In light of the mass, Hematology/Oncology is consulted. GI is evaluating the patient for the GI bleed. Endoscopy showed large ulcer is in the lower third of the esophagus and middle third of the esophagus. There is erythematous gastritis. There is duodenal bulb inflammation. There is also a hiatal hernia. She had a decrease in hemoglobin to 11.4, MCV was 108.6. Her liver function on admission shows a slight elevation in AST, total bilirubin was 1.1. Sodium was decreased, potassium of 3.0. PTT was normal. She denies any significant weight loss. She notes the abdominal distension occurring over weeks. She denies any headaches, no vision changes. She reports that she is stopping drinking and smoking at this point. PAST MEDICAL HISTORY Alcoholic liver disease, alcohol abuse. PAST SURGICAL HISTORY None FAMILY HISTORY Father of bladder cancer in his 40s. Mother has a history of breast cancer in her 50s. Mother is doing well. SOCIAL HISTORY She drinks a pint of vodka a day. She smokes half a pack of cigarettes for the left 10 years. She denies any illicit drug use. She has used cocaine and oxycodone in the past. PHYSICAL EXAMINATION VITAL SIGNS: Temperature 97.8, heart rate 73, respiratory rate 16, blood pressure 99/63, saturation 93%. GENERAL: Ms. Gomes is a slender, well-developed woman who looks anxious. HEENT: Her pupils are round, reactive to light and accommodation. Oropharynx is clear. Dentition is poor. NECK: Supple with no adenopathy. LUNGS: Clear. CARDIOVASCULAR: Normal rate, rhythm. ABDOMEN: Distended. There is fluid wave. There is a mass noted in the right side of the abdomen. No inguinal adenopathy. LOWER EXTREMITIES: No edema. NEUROLOGIC: Nonfocal. LABORATORY DATA As described above. IMAGING STUDIES CT scan as described above. ASSESSMENT/PLAN Ms. Gomes is a 56-year-old woman with a history of alcohol abuse, chronic tobacco use. She is admitted with upper GI bleed secondary to ulcers and gastritis. We discussed the CT scan findings of adnexal mass and abdominal carcinomatosis. We discussed the diagnosis being contemplated that of advanced cancer. We discussed the risks and benefits of biopsy to confirm a diagnosis and follow up on outpatient basis. If it turns out to be a gynecologic tumor, she would benefit from consultation with gynecologic oncologist, Dr. Pilar Ortega. I am covering for Dr. Ortega who is out of town today. She is agreeable with the CT-guided biopsy. We will need to hold her low-molecular weight heparin, refer her to interventional radiology for a biopsy. Her CA-125 is elevated. The differential includes other cancer of the GI tract. Further recommendations depending on the results of the biopsy. From oncology standpoint, she may be discharged home and follow up on an outpatient basis once biopsy is performed. She is planning to abstain from alcohol and tobacco. She is encouraged to do so. MD OWEN Keene/ /3:46 PM /5:07 PM
[2017-02-08 20:02] LABS: BICARBONATE 27.8 MEQ/L (21.0-32.0); CALCIUM 8.1 MG/DL (8.5-10.1); CREATININE 0.59 MG/DL (0.50-1.00)
[2017-02-09] VITALS (7 sets, daily range): BP systolic 110–134; BP diastolic 71–77; PULSE 58–70; RESP 14–20; TEMP 96.7–98.3; O2SAT 94–99
[2017-02-09] MEDS: PANTOPRAZOLE SODIUM 40 MG VIAL IV PUSH SCH ×2 (02:34→16:21)
[2017-02-09] MEDS: ACETAMINOPHEN/HYDROcodone 325 MG/10 MG TAB PO PRN ×6 (03:25→20:58)
[2017-02-09] MEDS: SODIUM CHLOR 0.9% 1000 ML INJ 1,000 ML IV SCH ×3 (05:42→17:14)
[2017-02-09] MEDS ORDERED: POTASSIUM CHLORIDE 20 MEQ CONTROLLED RELEASE TAB PO ONE (08:00)
[2017-02-09 08:12] LABS: AUTOMATED NEUTROPHIL # 2.6 TH/MM3 (1.8-7.7); BASOPHIL % 0.5 % (0.0-2.0); EOSINOPHIL # 0.1 TH/MM3 (0-0.4); EOSINOPHIL % 1.5 % (0.0-4.0); HEMATOCRIT 32.9 % (35.0-46.0); HEMOGLOBIN 11.1 GM/DL (11.6-15.3); LYMPHOCYTE # 1.2 TH/MM3 (1.0-4.8); MEAN CORPUSCULAR HEMOGLOBIN 36.6 PG (27.0-34.0); MEAN CORPUSCULAR HGB CONC 33.9 % (32.0-36.0); MEAN PLATELET VOLUME 9.7 FL (7.0-11.0); MONOCYTE # 0.4 TH/MM3 (0-0.9); PLATELET COUNT 127 TH/MM3 (150-450); RED BLOOD COUNT 3.05 MIL/MM3 (4.00-5.30); WHITE BLOOD COUNT 4.3 TH/MM3 (4.0-11.0)
[2017-02-09 08:37] LABS: BICARBONATE 24.9 MEQ/L (21.0-32.0); CREATININE 0.34 MG/DL (0.50-1.00)
[2017-02-09] MEDS: DOCUSATE SODIUM 50 MG/SENNA 8.6 MG TAB PO SCH ×2 (09:09→20:01)
[2017-02-09] MEDS: SODIUM CHLORIDE 0.9% FLUSH 10 ML FLUSH IV FLUSH SCH ×2 (09:10→20:00)
--- NOTE | 2017-02-09 10:27 | HHI.FPPN ---
Subjective Remarks Seen and examined today. She states she is feeling better today. She is able to eat yesterday, believes she is less lightheaded, dizzy, able to ambulate well.. No nausea/vomiting, abdominal pain, chest pain, shortness of breath, change in bowel habits. She notes some mild lower abdominal bloating. She last passed a bowel movement yesterday, soft, brown, no black spots, no blood. No other complaints today. Objective Vitals Vital Signs Date Time Temp Pulse Resp B/P (MAP) Pulse Ox O2 Delivery O2 Flow Rate FiO2 02/09/17 08:58 98 Nasal Cannula 2.00 02/09/17 08:00 98.3 62 16 134/77 (96) 98 02/08/17 23:52 98.7 65 18 134/85 (101) 96 02/08/17 20:23 97 Nasal Cannula 2.00 02/08/17 20:00 96.2 68 18 108/74 (85) 99 02/08/17 16:00 97.5 68 16 124/80 (95) 98 02/08/17 12:00 97.8 73 16 99/66 (77) 93 I/O 02/08/17 02/08/17 02/08/17 02/09/17 02/09/17 02/09/17 07:00 15:00 23:00 07:00 15:00 23:00 Intake Total 100 ml 600 ml 820 ml 360 ml Balance 100 ml 600 ml 820 ml 360 ml Intake Oral 0 ml 720 ml 360 ml IV Total 100 ml 100 ml Other 600 ml # Voids 4 6 3 # Bowel Movements 4 3 0 Result Diagram: 02/09/17 0657 02/09/17 0657 Objective Remarks GENERAL: This is a thin woman, older than her stated age, in no apparent distress. CARDIOVASCULAR: Regular rate and rhythm without murmurs, gallops, or rubs. RESPIRATORY: Clear to auscultation. Breath sounds equal bilaterally. No wheezes , rales, or rhonchi. GASTROINTESTINAL: Abdomen soft, however with significant guarding especially on the right side. Mildly tender, mostly on the right. Difficult to palpate structures with active gaurding, however it feel as though there is a large mass on the right side. MUSCULOSKELETAL: Extremities without clubbing, cyanosis, or edema. NEUROLOGICAL: Awake and alert. Procedures EGD 02/07/17 colonoscopy 02/08 A/P Assessment and Plan 56-year-old female with past history of heavy alcohol consumption presenting with hematemesis. Vomiting for 3 days, vomiting blood only on day of admission. Lightheadedness and dizziness, hemoglobin 12.3. Large right abdominal mass 2[address] Discharge Planning Likely discharged today following biopsy. Problem List: (1) Hematemesis ICD Codes: K92.0 - Hematemesis Plan: Vomiting 3 days, hematemesis 1 day on admission. Improving symptoms. EGD & colonoscopy performed. -EGD: large ulcers in esophagus-biopsies pending -Colonoscopy: polpys present, repeat in 1 year -Follow CBC -Appreciate GI recommendations * Transfuse as needed * Continue Protonix gtt -Zofran when necessary for vomiting (2) Abdominal mass ICD Codes: R19.00 - Intra-abdominal and pelvic swelling, mass and lump, unspecified site Plan: Large 657555.5 cm mass originating from the right adnexal area incidentally found on CT. 5 pounds of weight loss over the past month. CA-125 elevated -FLUX TUBE ATTENDANT oncology consulted, follow-up recommendations * CT-guided biopsy to be performed today * CA-125 elevated, versus GI malignancy * May be discharged home following biopsy -Observe for additional signs/symptoms, evidence of mass effect (3) Hypokalemia ICD Codes: E87.6 - Hypokalemia Plan: Potassium 3.0 on admission, chloride 95, likely secondary to vomiting. Potassium 2.9 this morning -Given 80meq total over this morning -Repeat BMP at 11 -Monitor and replete as needed (4) ETOH abuse ICD Codes: F10.10 - Alcohol abuse, uncomplicated Plan: States she drinks approximately 1 L of vodka a day. Reports withdrawal symptoms in the past, typically presented themselves within 24 hours. Last drank 3 days prior to admission. -[facility] protocol -Counseled on EtOH abuse (5) FEN Plan: Fluids: -Maintenance fluids at 110 mL per hour Electrolytes: -Monitor and replete as needed Nutrition: heart healthy diet DVT ppx: Lovenox daily Problem Qualifiers (1) Hematemesis: Qualified Codes: K92.0 - Hematemesis (2) Abdominal mass: Qualified Codes: R19.07 - Generalized intra-abdominal and pelvic swelling, mass and lump Tj Naidu MD R1 Feb 09, 2017 10:27
--- NOTE | 2017-02-09 11:00 | PD.ONC.PN ---
Subjective Subjective Remarks Afebrile overnight. Patient resting in bed in nad. Eager to have biopsy and then go home. Continuing to have abdominal distension. Objective Data Date Time Temp Pulse Resp B/P (MAP) Pulse Ox O2 Delivery O2 Flow Rate FiO2 02/09/17 08:58 98 Nasal Cannula 2.00 02/09/17 08:00 98.3 62 16 134/77 (96) 98 02/08/17 23:52 98.7 65 18 134/85 (101) 96 02/08/17 20:23 97 Nasal Cannula 2.00 02/08/17 20:00 96.2 68 18 108/74 (85) 99 02/08/17 16:00 97.5 68 16 124/80 (95) 98 02/08/17 12:00 97.8 73 16 99/66 (77) 93 02/09/17 02/09/17 02/09/17 07:00 15:00 23:00 Intake Total 360 ml Balance 360 ml Result Diagram: 02/09/17 0657 02/09/17 0657 Laboratory Results Laboratory Tests Test 02/08/17 11:23 02/08/17 19:20 02/09/17 06:57 Blood Urea Nitrogen 10 MG/DL 8 MG/DL 6 MG/DL Creatinine 0.41 MG/DL 0.59 MG/DL 0.34 MG/DL Random Glucose 105 MG/DL 100 MG/DL 88 MG/DL Calcium Level 8.2 MG/DL 8.1 MG/DL 8.0 MG/DL Sodium Level 135 MEQ/L 133 MEQ/L 135 MEQ/L Potassium Level 3.0 MEQ/L 3.4 MEQ/L 3.3 MEQ/L Chloride Level 97 MEQ/L 97 MEQ/L 99 MEQ/L Carbon Dioxide Level 27.4 MEQ/L 27.8 MEQ/L 24.9 MEQ/L Anion Gap 11 MEQ/L 8 MEQ/L 11 MEQ/L Estimat Glomerular Filtration Rate 160 ML/MIN 105 ML/MIN 199 ML/MIN White Blood Count 4.3 TH/MM3 Red Blood Count 3.05 MIL/MM3 Hemoglobin 11.1 GM/DL Hematocrit 32.9 % Mean Corpuscular Volume 108.0 FL Mean Corpuscular Hemoglobin 36.6 PG Mean Corpuscular Hemoglobin Concent 33.9 % Red Cell Distribution Width 15.0 % Platelet Count 127 TH/MM3 Mean Platelet Volume 9.7 FL Neutrophils (%) (Auto) 61.0 % Lymphocytes (%) (Auto) 28.0 % Monocytes (%) (Auto) 9.0 % Eosinophils (%) (Auto) 1.5 % Basophils (%) (Auto) 0.5 % Neutrophils # (Auto) 2.6 TH/MM3 Lymphocytes # (Auto) 1.2 TH/MM3 Monocytes # (Auto) 0.4 TH/MM3 Eosinophils # (Auto) 0.1 TH/MM3 Basophils # (Auto) 0.0 TH/MM3 CBC Comment DIFF FINAL Differential Comment Culture Results Microbiology Date/Time Source Procedure Growth Status 02/07/17 02:55 Urine Clean Catch Urine Culture - Final Escherichia Coli Complete Administered Medications Medications (Trade) Dose Ordered Sig/Raquel Route PRN Reason Start Time Stop Time Status Last Admin Dose Admin Sodium Chloride 1,000 ml @ 110 mls/hr Q9H6M IV 02/06/17 14:00 02/08/17 20:34 Sodium Chloride (NS Flush) 2 ml BID IV FLUSH 02/06/17 21:00 02/09/17 09:10 Ondansetron HCl (Zofran Inj) 4 mg Q6H PRN IVP NAUSEA OR VOMITING 02/06/17 13:45 02/06/17 16:47 Senna/Docusate Sodium (Eryn-Colace) 1 tab BID PO 02/06/17 21:00 02/09/17 09:09 Acetaminophen/ Hydrocodone Bitart ([place] 10-325 Mg) 1 tab Q4H PRN PO PAIN SCALE 6 TO 10 02/06/17 15:30 02/09/17 09:10 Enoxaparin Sodium (Lovenox Inj) 40 mg Q24H SQ 02/08/17 12:00 Future Hold 02/08/17 14:50 Pantoprazole Sodium (Protonix Inj) 40 mg Q12H IV PUSH 02/08/17 16:00 02/09/17 02:34 Objective Remarks GENERAL: Pleasant middle aged female lying in bed in [facility]. SKIN: Warm and dry. HEAD: Normocephalic. EYES: No injection or drainage. NECK: Supple, trachea midline. CARDIOVASCULAR: Regular rate and rhythm RESPIRATORY: anterior ribeiro with occasional rhonchi. on 2L O2 via nc GASTROINTESTINAL: Abdomen distended, firm. EXTREMITIES: No cyanosis. NEUROLOGICAL: awake and alert, normal speech. moving all extremities. Assessment/Plan Problem List: (1) Abdominal mass ICD Codes: R19.00 - Intra-abdominal and pelvic swelling, mass and lump, unspecified site Plan: --CT abdomen and pelvis +large complex solid and cystic multi-loculated mass arising in the right adnexal region. 21 x 15 x 19.5 cm. +peritoneal carcinomatosis with nodular thickening of the omentum. +free ascites noted. --Endoscopy showed large ulcer in the lower third of the esophagus and middle third of the esophagus. --CA-125 is elevated. (2) Upper GI bleed ICD Codes: K92.2 - Gastrointestinal hemorrhage, unspecified Plan: --secondary to ulcers and gastritis. --GI following Assessment 56y/o female with abdominal mass and peritoneal carcinomatosis. h/o Alcoholic liver disease, alcohol abuse. Plan 1. ok to d/c after biopsy complete 2. face sheet faxed to new patient referrals for follow up after biopsy 3. monitor CBC Problem Qualifiers (1) Abdominal mass: Qualified Codes: R19.07 - Generalized intra-abdominal and pelvic swelling, mass and lump Berkley Álvarez Feb 09, 2017 11:00 Naye Sanders MD Feb 09, 2017 18:06
--- NOTE | 2017-02-09 12:07 | HHI.GIFU ---
Subjective Remarks Pt resting in bed. Waiting on biopsy of adnexal mass. Hungry. Otherwise no GI complaints. (Jannette Romero) Objective Vitals I&O Vital Signs Date Time Temp Pulse Resp B/P (MAP) Pulse Ox O2 Delivery O2 Flow Rate FiO2 02/09/17 08:58 98 Nasal Cannula 2.00 02/09/17 08:00 98.3 62 16 134/77 (96) 98 02/08/17 23:52 98.7 65 18 134/85 (101) 96 02/08/17 20:23 97 Nasal Cannula 2.00 02/08/17 20:00 96.2 68 18 108/74 (85) 99 02/08/17 16:00 97.5 68 16 124/80 (95) 98 I/O 02/08/17 02/08/17 02/08/17 02/09/17 02/09/17 02/09/17 07:00 15:00 23:00 07:00 15:00 23:00 Intake Total 100 ml 600 ml 820 ml 360 ml Balance 100 ml 600 ml 820 ml 360 ml Intake Oral 0 ml 720 ml 360 ml IV Total 100 ml 100 ml Other 600 ml # Voids 4 6 3 # Bowel Movements 4 3 0 Laboratory Laboratory Tests Test 02/08/17 19:20 02/09/17 06:57 Blood Urea Nitrogen 8 6 Creatinine 0.59 0.34 Random Glucose 100 88 Calcium Level 8.1 8.0 Sodium Level 133 135 Potassium Level 3.4 3.3 Chloride Level 97 99 Carbon Dioxide Level 27.8 24.9 Anion Gap 8 11 Estimat Glomerular Filtration Rate 105 199 White Blood Count 4.3 Red Blood Count 3.05 Hemoglobin 11.1 Hematocrit 32.9 Mean Corpuscular Volume 108.0 Mean Corpuscular Hemoglobin 36.6 Mean Corpuscular Hemoglobin Concent 33.9 Red Cell Distribution Width 15.0 Platelet Count 127 Mean Platelet Volume 9.7 Neutrophils (%) (Auto) 61.0 Lymphocytes (%) (Auto) 28.0 Monocytes (%) (Auto) 9.0 Eosinophils (%) (Auto) 1.5 Basophils (%) (Auto) 0.5 Neutrophils # (Auto) 2.6 Lymphocytes # (Auto) 1.2 Monocytes # (Auto) 0.4 Eosinophils # (Auto) 0.1 Basophils # (Auto) 0.0 CBC Comment DIFF FINAL Differential Comment Date/Time Source Procedure Growth Status 02/07/17 02:55 Urine Clean Catch Urine Culture - Final Escherichia Coli Complete Imaging Last Impressions Abdomen/Pelvis CT 02/06/17 0958 Signed Impressions: Service Date/Time: Monday, February 06, 2017 11:20 - CONCLUSION: Enormous mass which appears to arise in the right adnexal region. Findings of peritoneal carcinomatosis. Adam Johnston MD Physical Exam HEENT: PERRL; normocephalic; atraumatic; no jaundice. CHEST: CTA CARDIAC: RRR ABDOMEN: firmness palpated in right quadrants, distended, mild right side TTP; bowel sounds are present in all four quadrants. EXTREMITIES: No clubbing, cyanosis, or edema. SKIN: Normal; no rash; no jaundice. ALLIED HEALTH INSTRUCTOR: No focal deficits; alert and oriented times three. (Jannette Romero [facility]) Assessment and Plan Plan Assessment - Hematemesis- Vomiting for the past three days, reports noticing blood in vomit starting today. Approx 25 episodes. H/H stable 12.3/36.2. Denies nausea after receiving nausea medication in ER. CT abdomen pelvis W IV contrast (02/06) --> Enormous mass which appears to arise in the right adnexal region. Findings of peritoneal carcinomatosis. Pt denies history of this. Also seen on CT ( liver) --> Diffuse diminished attenuation consistent with steatosis. No focal mass or biliary duct dilation. She does not follow up with family doctor or GI doctor outpatient. Reports ETOH abuse, approx 3/4 pint of vodka a day for the past ten years. Has never been diagnosed with liver issues. s/p EGD found mult lg ulcers esophagus, colonoscopy found medium sized colitis , sessile polyp sigmoid and ascending colon. HH stable. - adnexal mass - oncology on case, going for bx today - ETOH abuse- 3/4 pint of vodka a day for the past ten years - Nicotine dependence- half a pack a day of cigarettes for the past ten years Plan - KATIANA after procedure today - await EGD/colonoscopy biopsies - await adnexal mass bx - continue BID protonix - monitor labs - Transfuse as needed - Nausea medication PRN - Supportive care Pt has been seen and examined by myself and Dr. Anne and this note is written on his behalf (Jannette Romero) Physician Comments Seen and examined, plan as above. Will check pathology results. (Gustabo Anne MD) Jannette Romero Feb 09, 2017 12:07 Gustabo Anne MD Feb 09, 2017 14:16
[2017-02-09] MEDS ORDERED: MIDAZOLAM HCL 2 MG/2 ML VIAL ONE (14:07)
[2017-02-09] MEDS ORDERED: LIDOCAINE HCL 1% 20 ML VIAL ONE (14:07)
--- NOTE | 2017-02-09 15:23 | PD.RAD ---
Post CT Procedure Prog Note Pre Procedure Diagnosis: (1) Abdominal mass Post Procedure Diagnosis: (1) Abdominal mass Procedure Date: Feb 09, 2017 Supervising Radiologist: Bar Stringer Anesthesia: Local, Conscious Sedation Plan of Activity Patient to Unit: Nursing Unit Patient Condition: Fair See PACS Report for procedural detail/treatment Biopsy Imaging Guidance: CT Side: Right Biopsy Procedure: Abdominal Mass Specimen: Core Biopsy Bar Stringer MD Feb 09, 2017 15:23
--- NOTE | 2017-02-09 15:42 | RADRPT ---
EXAM DATE/TIME: 02/09/2017 14:52 [facility] COMPARISON: No previous studies available for comparison. INDICATIONS : Abdominal mass. SEDATION TIME: 30 minutes BIOPSY SITE: Right abdomen MEDICATION(S): 1.) 3 mg midazolam (Versed) IV 2.) 150 mcg fentanyl (Sublimaze) IV DEVICE(S): 1.) 18 gauge Temno core biopsy needle 9cm MEDICAL HISTORY : None. SURGICAL HISTORY : None. ENCOUNTER: Initial ACUITY: 1 day PAIN SCORE: 0/10 LOCATION: Right anterior A total of five core specimen(s) were obtained and sent to the laboratory for pathologic evaluation. PROCEDURE: 1. CT guided abdomen biopsy. 2. Conscious sedation with continuous EKG and oximetry monitoring. Prior to the procedure informed consent was obtained. Any appropriate prior imaging studies were rev iewed. Using automated exposure control and adjustment of the mA and/or kV according to patient size, radiat ion dose was kept as low as reasonably achievable to obtain optimal diagnostic quality images. DICOM format image data is available electronically for review and comparison. The site was prepped in a sterile fashion. Full sterile technique was used, including cap, mask, tiffanie rile gloves and gown and a large sterile sheet. Hand hygiene and 2% chlorhexidine and/or betadine/al cohol prep was utilized per protocol for cutaneous antisepsis. The skin and subcutaneous tissues wer e infiltrated with local anesthetic solution. With CT guidance the previously identified target was localized. Biopsy was performed using the presc ribed needle as above. Adequate hemostasis was obtained with compression at the puncture site. Follow-up CT scan reveals no hemorrhage. The patient tolerated the procedure well and there were no complications. The patient was returned to the Radiology Outpatient Unit in stable condition. CONCLUSION: Uncomplicated CT guided biopsy. Bar Stringer MD on February 09, 2017 at 15:40 Board Certified Radiologist. This report was verified electronically.
[2017-02-09] MEDS: NITROFURANTOIN MONOHYD MACROCR 100 MG CAP PO SCH (17:08)
[2017-02-10] VITALS: BP 141/78; PULSE 62; RESP 20; TEMP 96.8; O2SAT 99
[2017-02-10 04:00] VITALS: BP 136/76; PULSE 61; RESP 20; TEMP 97.3; O2SAT 97
[2017-02-10] MEDS: PANTOPRAZOLE SODIUM 40 MG VIAL IV PUSH SCH (04:38)
[2017-02-10] MEDS: ACETAMINOPHEN/HYDROcodone 325 MG/10 MG TAB PO PRN ×3 (05:26→13:12)
[2017-02-10 06:51] LABS: HEMATOCRIT 33.7 % (35.0-46.0); HEMOGLOBIN 11.4 GM/DL (11.6-15.3); MEAN CORPUSCULAR HEMOGLOBIN 36.4 PG (27.0-34.0); MEAN CORPUSCULAR HGB CONC 33.7 % (32.0-36.0); PLATELET COUNT 158 TH/MM3 (150-450); RED BLOOD COUNT 3.12 MIL/MM3 (4.00-5.30)
[2017-02-10 07:19] LABS: BICARBONATE 26.7 MEQ/L (21.0-32.0); CALCIUM 8.2 MG/DL (8.5-10.1); CREATININE 0.5 MG/DL (0.50-1.00)
[2017-02-10 08:00] VITALS: BP 115/68; PULSE 63; RESP 16; TEMP 97.9; O2SAT 96
[2017-02-10] MEDS: NITROFURANTOIN MONOHYD MACROCR 100 MG CAP PO SCH (08:37)
[2017-02-10] MEDS: SODIUM CHLORIDE 0.9% FLUSH 10 ML FLUSH IV FLUSH SCH (08:37)
[2017-02-10] MEDS: SODIUM CHLOR 0.9% 1000 ML INJ 1,000 ML IV SCH (08:38)
[2017-02-10] MEDS: DOCUSATE SODIUM 50 MG/SENNA 8.6 MG TAB PO SCH (08:39)
[2017-02-10 12:00] VITALS: BP 113/71; PULSE 70; RESP 16; TEMP 96; O2SAT 97
[2017-02-10 13:49] VITALS: RESP 18
--- NOTE | 2017-02-10 14:06 | HHI.FPPN ---
Subjective Remarks Patient seen and examined this morning. States she continues to be without vomiting since admission. No nausea. Notes some lower abdominal cramping, more on the right side where her tumor is. She is Notes some mild pain at the location where her biopsy was done. No fever, chills, chest pain, shortness of breath, lightheadedness, dizziness. She is eager to head home. Her alcohol consumption was discussed, she notes she will attempt to continue her current abstinence from alcohol after going home. (Tj Naidu MD R1) Objective Vitals Vital Signs Date Time Temp Pulse Resp B/P (MAP) Pulse Ox O2 Delivery O2 Flow Rate FiO2 02/10/17 13:49 18 02/10/17 12:00 96.0 70 16 113/71 (85) 97 02/10/17 08:00 97.9 63 16 115/68 (84) 96 02/10/17 04:00 97.3 61 20 136/76 (96) 97 02/10/17 00:00 96.8 62 20 141/78 (99) 99 02/09/17 20:00 96.7 70 20 114/75 (88) 99 02/09/17 17:24 98 Nasal Cannula 2.00 02/09/17 15:45 98.0 60 20 113/77 (89) 98 02/09/17 15:30 98.0 65 20 110/75 (87) 94 I/O 02/09/17 02/09/17 02/09/17 02/10/17 02/10/17 02/10/17 07:00 15:00 23:00 07:00 15:00 23:00 Intake Total 360 ml 0 ml Balance 360 ml 0 ml Intake Oral 360 ml 0 ml # Voids 3 3 # Bowel Movements 0 (Tj Naidu MD R1) Result Diagram: 02/10/1744602/10/17446 Objective Remarks GENERAL: This is a thin woman, older than her stated age, in no apparent distress. CARDIOVASCULAR: Regular rate and rhythm without murmurs, gallops, or rubs. RESPIRATORY: Clear to auscultation. Breath sounds equal bilaterally. No wheezes , rales, or rhonchi. GASTROINTESTINAL: Abdomen soft, however with some guarding especially on the right side. Mildly tender, mostly on the right. Difficult to discern individual structures with active guarding, however it feel as though there is a large mass on the right side. MUSCULOSKELETAL: Extremities without clubbing, cyanosis, or edema. NEUROLOGICAL: Awake and alert. Procedures EGD 02/07/17 colonoscopy 02/08 CT-guided biopsy right adnexal mass 02/10 (Tj Naidu MD R1) A/P Assessment and Plan 56-year-old female with past history of heavy alcohol consumption presenting with hematemesis. Vomiting for 3 days, vomiting blood only on day of admission. Lightheadedness and dizziness, hemoglobin 12.3. Large right abdominal mass 2[address] Discharge Planning Likely discharge today following GI clearance (Tj Naidu MD R1) Problem List: (1) Hematemesis ICD Codes: K92.0 - Hematemesis Plan: Vomiting 3 days, hematemesis 1 day on admission. No vomiting since admission. EGD & colonoscopy performed. -EGD: large ulcers in esophagus-biopsies pending -Colonoscopy: polpys present, repeat in 1 year -Follow CBC -Appreciate GI recommendations * Transfuse as needed * Continue Protonix gtt * Awaiting biopsy results -Zofran when necessary for vomiting (2) Abdominal mass ICD Codes: R19.00 - Intra-abdominal and pelvic swelling, mass and lump, unspecified site Plan: Large 953823.5 cm mass originating from the right adnexal area incidentally found on CT. 5 pounds of weight loss over the past month. CA-125 elevated -ELECTRONIC DATA PROCESSING AUDITOR oncology consulted, follow-up recommendations * CT-guided biopsy to be performed today * CA-125 elevated, versus GI malignancy * May be discharged home following biopsy. * Follow-up with ELECTRONIC DATA PROCESSING AUDITOR/ONC outpatient -Observe for additional signs/symptoms, evidence of mass effect (3) Hypokalemia ICD Codes: E87.6 - Hypokalemia Plan: Potassium 3.0 on admission, chloride 95, likely secondary to vomiting. Potassium 3.6 this morning -Monitor and replete as needed (4) ETOH abuse ICD Codes: F10.10 - Alcohol abuse, uncomplicated Plan: States she drinks approximately 1 L of vodka a day. Reports withdrawal symptoms in the past, typically presented themselves within 24 hours. Last drank 3 days prior to admission. -[facility] protocol -Counseled on EtOH abuse, will attempt to continue her current abstinence following discharge (5) FEN Plan: Fluids: By mouth fluids Electrolytes: -Monitor and replete as needed Nutrition: heart healthy diet DVT ppx: Lovenox daily (Tj Naidu MD R1) Problem List: (1) Hematemesis ICD Codes: K92.0 - Hematemesis Plan: Vomiting 3 days, hematemesis 1 day on admission. No vomiting since admission. EGD & colonoscopy performed. -EGD: large ulcers in esophagus-biopsies pending -Colonoscopy: polpys present, repeat in 1 year -Follow CBC -Appreciate GI recommendations * Transfuse as needed * Continue Protonix gtt * Awaiting biopsy results -Zofran when necessary for vomiting (2) Abdominal mass ICD Codes: R19.00 - Intra-abdominal and pelvic swelling, mass and lump, unspecified site Plan: Large 009623.5 cm mass originating from the right adnexal area incidentally found on CT. 5 pounds of weight loss over the past month. CA-125 elevated -ELECTRONIC DATA PROCESSING AUDITOR oncology consulted, follow-up recommendations * CT-guided biopsy to be performed today * CA-125 elevated, versus GI malignancy * May be discharged home following biopsy. * Follow-up with ELECTRONIC DATA PROCESSING AUDITOR/ONC outpatient -Observe for additional signs/symptoms, evidence of mass effect (3) Hypokalemia ICD Codes: E87.6 - Hypokalemia Plan: Potassium 3.0 on admission, chloride 95, likely secondary to vomiting. Potassium 3.6 this morning -Monitor and replete as needed (4) ETOH abuse ICD Codes: F10.10 - Alcohol abuse, uncomplicated Plan: States she drinks approximately 1 L of vodka a day. Reports withdrawal symptoms in the past, typically presented themselves within 24 hours. Last drank 3 days prior to admission. -[facility] protocol -Counseled on EtOH abuse, will attempt to continue her current abstinence following discharge (5) FEN Plan: Fluids: By mouth fluids Electrolytes: -Monitor and replete as needed Nutrition: heart healthy diet DVT ppx: Lovenox daily See the residents documentation for details. I saw and evaluated the patient regarding the lewis portions of this evaluation and agree with the residents findings and plans as written. I have reviewed the patients past medical/surgical and social histories and updated as appropriate. Parts of this note were created using [employer] voice recognition software program. While efforts were made to correct any mistakes made by this software, some mistakes, errors, and omissions may remain in the final note that were not caught when the note was originally created. Plan of care was discussed and agreed upon with the patient as specifically documented in the above note. An opportunity to ask questions with explanation was provided. Patient voiced understanding on all information reviewed and discussed. (Lázaro Farnsworth MD) Problem Qualifiers (1) Hematemesis: Qualified Codes: K92.0 - Hematemesis (2) Abdominal mass: Qualified Codes: R19.07 - Generalized intra-abdominal and pelvic swelling, mass and lump Tj Naidu MD R1 Feb 10, 2017 14:06 Lázaro Farnsworth MD Feb 11, 2017 12:54
[2017-02-10] MEDS ORDERED: HYDR-3516 PO (14:57)
[2017-02-10] MEDS ORDERED: NITR100C4 PO (14:57)
[2017-02-10] MEDS ORDERED: PROT40TA PO (14:57)
--- NOTE | 2017-02-10 14:58 | HHI.DCPOC ---
Discharge Care Plan Diagnosis: (1) Upper GI bleed (2) Hypokalemia (3) Abdominal mass (4) Hematemesis Goals to Promote Your Health * To prevent worsening of your condition and complications * To maintain your health at the optimal level Directions to Meet Your Goals Take your medications as prescribed Follow your dietary instruction Follow activity as directed Keep your appointments as scheduled Take your immunizations and boosters as scheduled If your symptoms worsen call your PCP, if no PCP go to Urgent Care Center or Emergency Room Smoking is Dangerous to Your Health. Avoid second hand smoke Call the 24-hour hour crisis hotline for domestic abuse at See the residents documentation for details. I saw and evaluated the patient regarding the lewis portions of this evaluation and agree with the residents findings and plans as written. I have reviewed the patients past medical/surgical and social histories and updated as appropriate. Parts of this note were created using [employer] voice recognition software program. While efforts were made to correct any mistakes made by this software, some mistakes, errors, and omissions may remain in the final note that were not caught when the note was originally created. Plan of care was discussed and agreed upon with the patient as specifically documented in the above note. An opportunity to ask questions with explanation was provided. Patient voiced understanding on all information reviewed and discussed. Layton Man MD, R2 Feb 10, 2017 14:58 Lázaro Farnsworth MD Feb 11, 2017 12:56
== END 2017-02-10 15:45 | disposition home or self-care (01) | DRG 374 ==
LOC: NEPC 09:28 → NEDA 12:49 → N07A 14:23
PROVIDERS: ADMIT Family Medicine; ATTEND Family Medicine
PROC: 0DB38ZX Excision of Lower Esophagus, Via Natural or Artificial Opening Endoscopic, Diagnostic (ICD-10-PCS; 2017-02-07)
PROC: 0DB68ZX Excision of Stomach, Via Natural or Artificial Opening Endoscopic, Diagnostic (ICD-10-PCS; 2017-02-07)
PROC: 0DB28ZX Excision of Middle Esophagus, Via Natural or Artificial Opening Endoscopic, Diagnostic (ICD-10-PCS; 2017-02-07)
PROC: 0DBN8ZX Excision of Sigmoid Colon, Via Natural or Artificial Opening Endoscopic, Diagnostic (ICD-10-PCS; 2017-02-08)
PROC: 0DBK8ZZ Excision of Ascending Colon, Via Natural or Artificial Opening Endoscopic (ICD-10-PCS; 2017-02-08)
PROC: 0DBN8ZZ Excision of Sigmoid Colon, Via Natural or Artificial Opening Endoscopic (ICD-10-PCS; 2017-02-08)
PROC: 0DBU3ZX Excision of Omentum, Percutaneous Approach, Diagnostic (ICD-10-PCS; principal; 2017-02-09)
DX: C78.6 Secondary malignant neoplasm of retroperitoneum and peritoneum (principal); K29.71 Gastritis, unspecified, with bleeding; K22.11 Ulcer of esophagus with bleeding; R18.8 Other ascites; K70.9 Alcoholic liver disease, unspecified; E87.6 Hypokalemia; C26.9 Malignant neoplasm of ill-defined sites within the digestive system; K44.9 Diaphragmatic hernia without obstruction or gangrene; K52.9 Noninfective gastroenteritis and colitis, unspecified; K64.8 Other hemorrhoids; M19.90 Unspecified osteoarthritis, unspecified site; F10.10 Alcohol abuse, uncomplicated; F17.210 Nicotine dependence, cigarettes, uncomplicated; Z80.3 Family history of malignant neoplasm of breast; Z80.52 Family history of malignant neoplasm of bladder
CPT/HCPCS: 49180; 74177; 77012; 80048; 80053; 80076; 81001; 83690; 85014; 85018; 85025; 85027; 85610; 85730; 86304; 87077; 87086; 87186; 88305; 88307; 88312; 88341; 88342; 93005; 96365; 96368; 96375; 99152; 99153; C9113; J0330; J1100; J1650; J2250; J2270; J2354; J2405; J2765; J3010; J3480; J7030; Q9967

== ENCOUNTER 2017-03-03 14:05 | Inpatient (IN) | payer OTHER ==
[~2017-03-03] VITALS: Ht 177.8 cm; Wt 72.0 kg
[~2017-03-03 14:05] MED LIST changes: -BACT800T5 PO; +HYDR-3516 PO; +NITR100C4 PO; +PROT40TA PO; -TERB1CRE11 TOPICAL
[2017-03-03] MEDS ORDERED: IOHEXOL 350 MG/ML 10 ML VIAL (for RAD DIAG) IVCONTRAST ONE (14:06)
[2017-03-03 14:11] VITALS: BP 132/76; PULSE 105; RESP 20; TEMP 98.5; O2SAT 99
[2017-03-03 14:18] VITALS: BP 132/76; PULSE 105; RESP 20; TEMP 98.5; O2SAT 100
[2017-03-03] MEDS ORDERED: SODIUM CHLOR 0.9% 1000 ML INJ 1,000 ML IV SCH (14:19)
[2017-03-03 14:23] VITALS: O2SAT 100
[2017-03-03] MEDS ORDERED: SODIUM CHLORIDE 0.9% FLUSH 10 ML FLUSH IV FLUSH PRN (14:30)
[2017-03-03] MEDS ORDERED: ONDANSETRON HCL 4 MG/2 ML VIAL IVP ONE (14:30)
[2017-03-03] MEDS ORDERED: MORPHINE SULFATE 2 MG/ML INJ IV PUSH ONE ×2 (14:30)
[2017-03-03] MEDS ORDERED: PANTOPRAZOLE INJ 80 MG in SODIUM CHLORIDE 0.9% INJ 35 ML IV ONE (15:00)
[2017-03-03] MEDS ORDERED: PANTOPRAZOLE INJ 80 MG in SODIUM CHLORIDE 0.9% INJ 100 ML IV SCH (15:00)
[2017-03-03 15:06] LABS: AUTOMATED NEUTROPHIL # 13.7 TH/MM3 (1.8-7.7); BASOPHIL % 0.2 % (0.0-2.0); HEMATOCRIT 32.3 % (35.0-46.0); HEMOGLOBIN 10.8 GM/DL (11.6-15.3); LYMPHOCYTE # 1.3 TH/MM3 (1.0-4.8); MEAN CELL VOLUME 100.9 FL (80.0-100.0); MEAN CORPUSCULAR HEMOGLOBIN 33.9 PG (27.0-34.0); MEAN CORPUSCULAR HGB CONC 33.6 % (32.0-36.0); MEAN PLATELET VOLUME 8.6 FL (7.0-11.0); MONO % 4.8 % (0.0-8.0); MONOCYTE # 0.8 TH/MM3 (0-0.9); PLATELET COUNT 446 TH/MM3 (150-450); RED CELL DISTRIBUTION WIDTH 17.5 % (11.6-17.2); WHITE BLOOD COUNT 15.7 TH/MM3 (4.0-11.0)
[2017-03-03 15:07] LABS: BACTERIA, URINE MANY /hpf; BLOOD, URINE TRACE (NEG); GLUCOSE,URINE NEG (NEG); KETONE, URINE TRACE mg/dL (NEG); MUCUS URINE FEW /lpf (OCC); NITRITE,URINE NEG (NEG); PH, URINE 5.5 (5.0-8.5); SQUAMOUS EPITHELIAL CELL URINE <1 /hpf (0-5); URINE COLOR LIGHT-BROWN (YELLW/STRAW); URINE LEUKOCYTE ESTERASE LARGE (NEG)
[2017-03-03 15:08] LABS: BILIRUBIN, URINE NEG (NEG)
[2017-03-03] MEDS ORDERED: PROCHLORPERAZINE INJ 10 MG/2 ML VIAL IV PUSH ONE (15:15)
[2017-03-03 15:16] LABS: INTERNATIONAL NORMALIZED RATIO 1.1 RATIO; PROTHROMBIN TIME - PATIENT 11.4 SEC (9.8-11.6)
[2017-03-03 15:21] LABS: ALBUMIN 2.5 GM/DL (3.4-5.0); ALT (GPT) 13 U/L (10-53); AST (GOT) 33 U/L (15-37); BICARBONATE 27.8 MEQ/L (21.0-32.0); BLOOD UREA NITROGEN 16 MG/DL (7-18); CALCIUM 8.7 MG/DL (8.5-10.1); CHLORIDE 96 MEQ/L (98-107); CREATININE 0.76 MG/DL (0.50-1.00); GLOMERULAR FILTRATION RATE 79 ML/MIN (>89); GLUCOSE,RANDOM 134 MG/DL (74-106); SODIUM (NA) 133 MEQ/L (136-145)
[2017-03-03 15:23] LABS: ALKALINE PHOSPHATASE 84 U/L (45-117); TOTAL BILIRUBIN ADULT 0.9 MG/DL (0.2-1.0); TOTAL PROTEIN 7.9 GM/DL (6.4-8.2)
[2017-03-03] MEDS: PANTOPRAZOLE INJ 80 MG in SODIUM CHLORIDE 0.9% INJ 100 ML IV SCH (15:31)
[2017-03-03] MEDS ORDERED: cefTRIAXone INJ 1,000 MG in SODIUM CHLORIDE 0.9% INJ 100 ML IV ONE (17:00)
--- NOTE | 2017-03-03 17:05 | RADRPT ---
EXAM DATE/TIME: 03/03/2017 16:24 [facility] COMPARISON: No previous studies available for comparison. INDICATIONS : Altered mental status, general weakness. RADIATION DOSE: 51.23 CTDIvol (mGy) ; Patient motion MEDICAL HISTORY : Inflammatory bowel disease. SURGICAL HISTORY : None. ENCOUNTER: Initial ACUITY: 1 day PAIN SCALE: 0/10 LOCATION: cranial TECHNIQUE: Multiple contiguous axial images were obtained of the head. Using automated exposure control and adj ustment of the mA and/or kV according to patient size, radiation dose was kept as low as reasonably a chievable to obtain optimal diagnostic quality images. DICOM format image data is available electro nically for review and comparison. FINDINGS: CEREBRUM: Large area of low attenuation right parietal lobe. The ventricles are normal for age. No evidence of midline shift, mass lesion or, hemorrhage. No extra-axial fluid collections are seen. POSTERIOR FOSSA: The cerebellum and brainstem are intact. The 4th ventricle is midline. The cerebellopontine angle i s unremarkable. EXTRACRANIAL: The visualized portion of the orbits is intact. SKULL: The calvaria is intact. No evidence of skull fracture. CONCLUSION: Large air low attenuation right frontal lobe could be acute infarct versus edema from underlying mass . Contrast MRI recommended. Harmeet Best MD on March 03, 2017 at 16:57 Board Certified Radiologist. This report was verified electronically.
--- NOTE | 2017-03-03 17:10 | RADRPT ---
EXAM DATE/TIME: 03/03/2017 16:32 [facility] COMPARISON: CT ABDOMEN & PELVIS W CONTRAST, February 06, 2017, 11:20. INDICATIONS : Abdominal pain, vomiting. IV CONTRAST: 90 cc Omnipaque 350 (iohexol) IV ORAL CONTRAST: No oral contrast ingested. RADIATION DOSE: 14.21 CTDIvol (mGy) MEDICAL HISTORY : Irritiable bowel syndrome. SURGICAL HISTORY : None. ENCOUNTER: Initial ACUITY: 1 week PAIN SCALE: 6/10 LOCATION: Right lower quadrant TECHNIQUE: Volumetric scanning of the abdomen and pelvis was performed. Using automated exposure control and ad justment of the mA and/or kV according to patient size, radiation dose was kept as low as reasonably achievable to obtain optimal diagnostic quality images. DICOM format image data is available electro nically for review and comparison. FINDINGS: LOWER LUNGS: The visualized lower lungs are clear. LIVER: Homogeneous density with numerous low-density lesions. Large volume ascites.. There is no dilation o f the biliary tree. No calcified gallstones. SPLEEN: Normal size without lesion. PANCREAS: Within normal limits. KIDNEYS: Normal in size and shape. There is no mass, stone or hydronephrosis. ADRENAL GLANDS: Within normal limits. VASCULAR: There is no aortic aneurysm. BOWEL/MESENTERY: Moderate-sized hiatal hernia. Large amount of ascites. Multiple peritoneal and omental masses are see n. Cystic and solid lesions project from the pelvis. The mass measures approximately 15.5 x 13.8 cm l ikely underestimated. ABDOMINAL WALL: Within normal limits. RETROPERITONEUM: There is no lymphadenopathy. BLADDER: No wall thickening or mass. REPRODUCTIVE: Within normal limits. INGUINAL: There is no lymphadenopathy or hernia. MUSCULOSKELETAL: Within normal limits for patient age. CONCLUSION: 1. Large cystic and solid mass in the pelvis extending into the abdomen could be ovarian carcinoma. T here is peritoneal carcinomatosis and multiple low-density liver lesions likely metastatic disease. 2. Large volume ascites. Harmeet Best MD on March 03, 2017 at 17:05 Board Certified Radiologist. This report was verified electronically.
[2017-03-03] MEDS ORDERED: GADODIAMIDE PF 287 MG/ML 10 ML VIAL (for RAD MRI) IVCONTRAST ONE (18:37)
--- NOTE | 2017-03-03 19:01 | RADRPT ---
EXAM DATE/TIME: 03/03/2017 18:22 [facility] COMPARISON: No previous studies available for comparison. INDICATIONS : Mass. vs CVA CONTRAST: 14 cc Omniscan (gadodiamide) IV MEDICAL HISTORY : Carcinoma, not otherwise specified. SURGICAL HISTORY : None. ENCOUNTER: Initial ACUITY: 1 day PAIN SCORE: 0/10 LOCATION: cranial TECHNIQUE: Multiplanar, multisequence MRI of the brain was performed both prior to and following the administrat ion of paramagnetic contrast. FINDINGS: CEREBRUM: Large area of high flair abnormality within the right temporal and right parietal lobes. Minimal T2 s ignal intensities also seen within the left parietal lobe and right occipital lobe. A few scattered s ignal intensities are seen within the cerebellar hemispheres. The ventricles are normal for age. No evidence of midline shift, mass lesion, hemorrhage or acute infarction. No extraaxial fluid collecti ons are seen. The pituitary gland and suprasellar cistern are normal in configuration. WHITE MATTER: No significant signal abnormalities are seen in the white matter. POSTERIOR FOSSA: The brainstem is intact. The 4th ventricle is midline. The cerebellopontine angle is unremarkable. The cerebellar tonsils are normal in position. DIFFUSION IMAGING: Several focal areas of restricted diffusion are seen consistent with multifocal acute infarcts bilate rally corresponding to the areas of high flair abnormality mentioned above. EXTRACRANIAL: The visualized portions of the orbits and paranasal sinuses are unremarkable. POST-CONTRAST: No abnormal areas of parenchymal or dural enhancement. No evidence of blood-brain barrier breakdown. CONCLUSION: 1. Prominent infarct in the right parietal and right temporal lobe. No midline shift or mass effect. 2. A few scattered foci of acute infarcts are seen within the left parietal, right occipital and both vertebral hemispheres. Embolic source is suggested. Harmeet Best MD on March 03, 2017 at 18:55 Board Certified Radiologist. This report was verified electronically.
--- NOTE | 2017-03-03 19:15 | PD ---
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 She says this started this morning. She has appointments to follow-up for the cancer, but has not been to see the oncologist yet. She was also prescribed Macrobid and Protonix, which she has not been able to fill due to financial reasons. She also reports that when she woke up this morning, she felt like her left arm was "." She denies fever or chills. She does report some abdominal pain. PFSH Past Medical History Arthritis: Yes Cancer: Yes (just recently found mass) Cardiovascular Problems: No Diminished Hearing: No Endocrine: No Gastrointestinal Disorders: Yes Genitourinary: No Immune Disorder: No Musculoskeletal: Yes Neurologic: No Psychiatric: No Reproductive: No Respiratory: No Immunizations Current: Yes Tetanus Vaccination: > 5 Years Influenza Vaccination: No ?: Not : 1 Social History Alcohol Use: No (QUIT 2.5 MONTHS AGO) Tobacco Use: Yes Substance Use: No Allergies-Medications (Allergen,Severity, Reaction): Coded Allergies: No Known Allergies (Verified Allergy, Unknown, 02/14/17) Reported Meds & Prescriptions Reported Meds & Active Scripts Active Hydrocodone-Acetamin 5-325 mg (Hydrocodone/Acetaminophen) 5 Mg-325 Mg Tablet 1 Tab PO Q4H PRN Review of Systems Except as stated in HPI: all other systems reviewed are Neg General / Constitutional: No: Fever, Chills HENT: No: Headaches, Lightheadedness Cardiovascular: No: Chest Pain or Discomfort Respiratory: No: Shortness of Breath Gastrointestinal: Positive: Nausea, Vomiting, Abdominal Pain Musculoskeletal: No: Myalgias Skin: No Rash, No Change in Pigmentation Neurologic: Positive: Weakness, No: Syncope Physical Exam Narrative GENERAL: Awake and alert, in mild distress. SKIN: Focused skin assessment warm/dry. HEAD: Atraumatic. Normocephalic. EYES: Pupils equal and round. No scleral icterus. Extraocular movements intact. ENT: Mucous membranes pink and moist. NECK: Trachea midline. No JVD. CARDIOVASCULAR: Regular rate and rhythm. No murmur appreciated. RESPIRATORY: No accessory muscle use. Clear to auscultation. Breath sounds equal bilaterally. GASTROINTESTINAL: Abdomen soft, nondistended. Abdomen distended, mildly diffusely tender. MUSCULOSKELETAL: No obvious deformities. No clubbing. No cyanosis. No edema. NEUROLOGICAL: Awake and alert. No obvious cranial nerve deficits. Decreased movement of the left arm and leg, some neglect of the left arm. Normal speech. PSYCHIATRIC: Appropriate mood and affect; insight and judgment normal. Data Data Last Documented VS Vital Signs Date Time Temp Pulse Resp B/P (MAP) Pulse Ox O2 Delivery O2 Flow Rate FiO2 03/03/17 14:42 18 03/03/17 14:23 100 Room Air 03/03/17 14:18 98.5 105 Orders Orders Complete Blood Count With Diff (03/03/17 14:19) Comprehensive Metabolic Panel (03/03/17 14:19) Lipase (03/03/17 14:19) Lactic Acid (03/03/17 14:19) Prothrombin Time / Inr (Pt) (03/03/17 14:19) Act Partial Throm Time (Ptt) (03/03/17 14:19) Urinalysis - C+S If Indicated (03/03/17 14:19) Ct Abd/Pel W Iv Contrast(Rout) (03/03/17 14:19) Iv Access Insert/Monitor (03/03/17 14:19) Ecg Monitoring (03/03/17 14:19) Oximetry (03/03/17 14:19) Ondansetron Inj (Zofran Inj) (03/03/17 14:30) Sodium Chlor 0.9% 1000 Ml Inj (Ns 1000 M (03/03/17 14:19) Sodium Chloride 0.9% Flush (Ns Flush) (03/03/17 14:30) Morphine Inj (Morphine Inj) (03/03/17 14:30) Morphine Inj (Morphine Inj) (03/03/17 14:30) Ct Brain W/O Iv Contrast(Rout) (03/03/17 ) Pantoprazole Inj (Protonix Inj) (03/03/17 15:00) Pantoprazole Inj (Protonix Inj) (03/03/17 15:00) Urine Culture (03/03/17 14:33) Prochlorperazine Inj (Compazine Inj) (03/03/17 15:15) Ceftriaxone Inj (Rocephin Inj) (03/03/17 17:00) Iohexol 350 Inj (Omnipaque 350 Inj) (03/03/17 14:06) Mri Brain W&W/O Contrast (03/03/17 ) Admit Order (Ed Use Only) (03/03/17 ) Labs Laboratory Tests Test 03/03/17 14:30 03/03/17 14:33 White Blood Count 15.7 TH/MM3 Red Blood Count 3.20 MIL/MM3 Hemoglobin 10.8 GM/DL Hematocrit 32.3 % Mean Corpuscular Volume 100.9 FL Mean Corpuscular Hemoglobin 33.9 PG Mean Corpuscular Hemoglobin Concent 33.6 % Red Cell Distribution Width 17.5 % Platelet Count 446 TH/MM3 Mean Platelet Volume 8.6 FL Neutrophils (%) (Auto) 87.0 % Lymphocytes (%) (Auto) 8.0 % Monocytes (%) (Auto) 4.8 % Eosinophils (%) (Auto) 0.0 % Basophils (%) (Auto) 0.2 % Neutrophils # (Auto) 13.7 TH/MM3 Lymphocytes # (Auto) 1.3 TH/MM3 Monocytes # (Auto) 0.8 TH/MM3 Eosinophils # (Auto) 0.0 TH/MM3 Basophils # (Auto) 0.0 TH/MM3 CBC Comment DIFF FINAL Differential Comment Prothrombin Time 11.4 SEC Prothromb Time International Ratio 1.1 RATIO Activated Partial Thromboplast Time 28.4 SEC Blood Urea Nitrogen 16 MG/DL Creatinine 0.76 MG/DL Random Glucose 134 MG/DL Total Protein 7.9 GM/DL Albumin 2.5 GM/DL Calcium Level 8.7 MG/DL Alkaline Phosphatase 84 U/L Aspartate Amino Transf (AST/SGOT) 33 U/L Alanine Aminotransferase (ALT/SGPT) 13 U/L Total Bilirubin 0.9 MG/DL Sodium Level 133 MEQ/L Potassium Level 3.9 MEQ/L Chloride Level 96 MEQ/L Carbon Dioxide Level 27.8 MEQ/L Anion Gap 9 MEQ/L Estimat Glomerular Filtration Rate 79 ML/MIN Lactic Acid Level 2.2 mmol/L Lipase 41 U/L Urine Color LIGHT-BROWN Urine Turbidity HAZY Urine pH 5.5 Urine Specific [place] 1.024 Urine Protein 30 mg/dL Urine Glucose (UA) NEG mg/dL Urine Ketones TRACE mg/dL Urine Occult Blood TRACE Urine Nitrite NEG Urine Bilirubin NEG Urine Urobilinogen 2.0 MG/DL Urine Leukocyte Esterase LARGE Urine RBC 2 /hpf Urine WBC 3 /hpf Urine Squamous Epithelial Cells <1 /hpf Urine Bacteria MANY /hpf Urine Mucus FEW /lpf Microscopic Urinalysis Comment CATH-CULTURE IND MDM Medical Decision Making Medical Screen Exam Complete: Yes Emergency Medical Condition: Yes Medical Record Reviewed: Yes Differential Diagnosis Small bowel obstruction versus GI bleed versus intracranial pathology Narrative Course Patient is a 56-year-old female comes in complaining of nausea and vomiting. She is found to have left-sided weakness on exam. She says this was there when she woke up. IV established, labs sent. Labs show an elevated white blood cell count. Urinalysis is positive for UTI. Patient given Rocephin. CT head concerning for infarct versus mass. MRI ordered. Last 24 hours Impressions Abdomen/Pelvis CT 03/03/17 1419 Signed Impressions: Service Date/Time: Friday, March 03, 2017 16:32 - CONCLUSION: 1. Large cystic and solid mass in the pelvis extending into the abdomen could be ovarian carcinoma. There is peritoneal carcinomatosis and multiple low-density liver lesions likely metastatic disease. 2. Large volume ascites. Harmeet Best MD Head CT 03/03/17 0000 Signed Impressions: Service Date/Time: Friday, March 03, 2017 16:24 - CONCLUSION: Large air low attenuation right frontal lobe could be acute infarct versus edema from underlying mass. Contrast MRI recommended. Harmeet Best MD Brain MRI 03/03/17 0000 Signed Impressions: Service Date/Time: Friday, March 03, 2017 18:22 - CONCLUSION: 1. Prominent infarct in the right parietal and right temporal lobe. No midline shift or mass effect. 2. A few scattered foci of acute infarcts are seen within the left parietal, right occipital and both vertebral hemispheres. Embolic source is suggested. Harmeet Best MD Patient given IV fluids, Zofran, Compazine, morphine. Given Protonix due to coffee ground emesis. Neurology consulted. Dr. Montanez suggest an aspirin, echo, MRA brain, carotids , head of bed flat. Patient admitted for further management. Diagnosis Primary Impression: Hematemesis Qualified Codes: K92.0 - Hematemesis Additional Impressions: Upper GI bleed Stroke Qualified Codes: I63.10 - Cerebral infarction due to embolism of unspecified precerebral artery Admitting Information Admitting Physician Requests: it Linda Blake MD Mar 03, 2017 19:15
[2017-03-03 19:19] VITALS: BP 110/68; PULSE 90; RESP 16; O2SAT 98
[2017-03-03] MEDS ORDERED: ASPIRIN 325 MG TAB PO ONE (19:30)
[2017-03-03] MEDS: SODIUM CHLOR 0.9% 1000 ML INJ 1,000 ML IV SCH (19:40)
[2017-03-03] MEDS ORDERED: GLUCAGON 1 MG/ML VIAL OTHER PRN (20:15)
[2017-03-03] MEDS ORDERED: DEXTROSE 50% IN WATER 50 ML VIAL(D50) IV PUSH PRN (20:15)
[2017-03-03 20:20] VITALS: O2SAT 96
[2017-03-03] MEDS: INSULIN ASPART SUPPLEMENTAL SCALE SQ SCH (21:00)
[2017-03-03] MEDS ORDERED: GADODIAMIDE PF 287 MG/ML 20 ML VIAL (for RAD MRI) IVCONTRAST ONE (21:20)
--- NOTE | 2017-03-03 21:52 | RADRPT ---
EXAM DATE/TIME: 03/03/2017 21:13 [facility] COMPARISON: No previous studies available for comparison. INDICATIONS : CVA. MEDICAL HISTORY : Carcinoma, not otherwise specified. SURGICAL HISTORY : None. ENCOUNTER: Initial ACUITY: 1 day PAIN SCORE: 0/10 LOCATION: cranial Please note a normal MRA of the brain does not entirely exclude the possibility of a small aneurysm, nor the possibility of distal intracranial vessel disease. TECHNIQUE: 3D time of flight MRA was performed. Source images, multiplanar STS MIP, and 3D volume MIP reconstru ctions were reviewed. FINDINGS: There is excellent visualization of the major intracranial arteries out to the second-order branch ve ssels. There is no evidence for aneurysm, vessel truncation or stenosis, and no evidence for vascula r malformation. Small anterior to indicating artery. Persistent circulation or posterior cerebr al arteries.. CONCLUSION: 1. No large vessel stenosis or aneurysm. 2. Normal variant as described above. Harmeet Best MD on March 03, 2017 at 21:47 Board Certified Radiologist. This report was verified electronically.
--- NOTE | 2017-03-03 21:53 | RADRPT ---
EXAM DATE/TIME: 03/03/2017 21:13 [facility] COMPARISON: No previous studies available for comparison. INDICATIONS : CVA. CONTRAST: 20 cc Omniscan (gadodiamide) IV MEDICAL HISTORY : Carcinoma, not otherwise specified. SURGICAL HISTORY : None. ENCOUNTER: Initial ACUITY: 1 day PAIN SCORE: 0/10 LOCATION: neck Percent stenosis is calculated using the diameter of the stenotic region over the diameter of the nor mal distal internal carotid artery. TECHNIQUE: Bolus infused MRA of the extracranial circulation was performed using a neurovascular coil. Post pro cessing was performed including rotating subvolume maximum intensity projections of each carotid cecilio ry, rotating full volume maximum intensity projections of both carotid arteries, sagittal and coronal sliding thin slab reformations of each carotid artery, and left oblique sliding thin slab reformatio n through the aortic arch to include the origin of the arch branch vessels. FINDINGS: AORTIC ARCH: There is a three vessel origin of the great vessels from the aorta. No evidence of ostial narrowing. RIGHT CAROTID: The common carotid artery is intact. The carotid bulb has a normal configuration without ulceration or narrowing. The internal carotid artery lumen is smooth without stenosis. The external carotid ar allen is intact. LEFT CAROTID: The common carotid artery is intact. The carotid bulb has a normal configuration without ulceration or narrowing. The internal carotid artery lumen is smooth without stenosis. The external carotid ar allen is intact. VERTEBRALS: The vertebral arteries have a symmetric diameter. No stenotic lesions are seen. CONCLUSION: 1. Multiple carotid arteries. Harmeet Best MD on March 03, 2017 at 21:50 Board Certified Radiologist. This report was verified electronically.
--- NOTE | 2017-03-03 22:07 | HHI.HP ---
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 Patient states for the last 2 days she has been unable to walk she has had multiple falls and has been crawling around her house. Today she felt very nauseous and began to have left upper extremity weakness with confusion. She complains of abdominal pain, dull burning pain 4/10 with no radiation or associated symptoms. She states the pain is not new but has been there since they discovered the mass in her abdomen. She has not followed up with an oncologist yet but states she will after she has the mass removed by her GI physician and then she will begin chemotherapy. Past Family Social History Past Medical History abdominal cancer Arthritis Past Surgical History Patient denies any surgical history Reported Medications Reported Meds & Active Scripts Active Hydrocodone-Acetamin 5-325 mg (Hydrocodone/Acetaminophen) 5 Mg-325 Mg Tablet 1 Tab PO Q4H PRN Allergies: Coded Allergies: No Known Allergies (Verified Allergy, Unknown, 02/14/17) Active Ordered Medications Current Medications Medications (Trade) Dose Ordered Sig/Raquel Route Start Time Stop Time Status Last Admin (NS Flush) 2 ml UNSCH PRN IV FLUSH 03/03/17 14:30 Pantoprazole Sodium 80 mg/ Sodium Chloride 100 ml @ 10 mls/hr Q10H IV 03/03/17 15:00 03/04/17 02:10 Sodium Chloride 1,000 ml @ 70 mls/hr [id number] IV 03/03/17 19:30 03/03/17 19:40 (NS Flush) 2 ml BID IV FLUSH 03/03/17 21:00 (NS Flush) 2 ml UNSCH PRN IV FLUSH 03/03/17 20:15 (Aspirin) 325 mg DAILY PO 03/04/17 09:00 (Pravachol) 40 mg HS PO 03/03/17 21:00 (NovoLOG SUPPLEMENTAL SCALE) 1 ACHS SQ 03/03/17 21:00 (D50w (Vial) Inj) 50 ml UNSCH PRN IV PUSH 03/03/17 20:15 (Glucagon Inj) 1 mg UNSCH PRN OTHER 03/03/17 20:15 Family History Dad: bladder Social History Tobacco use: Quit 2 months ago, 1/2 PPD Alcohol use:Quit 2 months ago, 1 pint a day prior Physical Exam Vital Signs Vital Signs Date Time Temp Pulse Resp B/P (MAP) Pulse Ox O2 Delivery O2 Flow Rate FiO2 03/03/17 20:20 96 03/03/17 19:19 90 16 110/68 (82) 98 Room Air 03/03/17 14:42 18 03/03/17 14:42 18 03/03/17 14:23 100 Room Air 03/03/17 14:18 98.5 105 20 132/76 (94) 100 Room Air 03/03/17 14:18 20 03/03/17 14:11 98.5 105 20 132/76 (94) 99 Physical Exam GENERAL: This is a well-nourished, well-developed patient, unkept patient SKIN: No rashes, ecchymoses or lesions. Cool and dry. HEAD: Atraumatic. Normocephalic. Left sided facial droop EYES: Pupils equal round and reactive. Extraocular motions intact. ENT: Nose without bleeding, purulent drainage or septal hematoma. Airway patent. NECK: Trachea midline. No JVD or lymphadenopathy. CARDIOVASCULAR: Regular rate and rhythm without murmurs, gallops, or rubs. RESPIRATORY: Clear to auscultation. Breath sounds equal bilaterally. No wheezes , rales, or rhonchi. GASTROINTESTINAL: Abdomen soft, non-tender, nondistended. No guarding. MUSCULOSKELETAL: Extremities without clubbing, cyanosis, or edema. No joint tenderness, effusion, or edema noted. No calf tenderness. NEUROLOGICAL: Awake and alert. Bilateral lower extremity flaccid, left upper extremity weaker 4 out of 5. Left upper extremity drift. Normal speech. Laboratory Laboratory Tests Test 03/03/17 14:30 03/03/17 14:33 White Blood Count 15.7 Red Blood Count 3.20 Hemoglobin 10.8 Hematocrit 32.3 Mean Corpuscular Volume 100.9 Mean Corpuscular Hemoglobin 33.9 Mean Corpuscular Hemoglobin Concent 33.6 Red Cell Distribution Width 17.5 Platelet Count 446 Mean Platelet Volume 8.6 Neutrophils (%) (Auto) 87.0 Lymphocytes (%) (Auto) 8.0 Monocytes (%) (Auto) 4.8 Eosinophils (%) (Auto) 0.0 Basophils (%) (Auto) 0.2 Neutrophils # (Auto) 13.7 Lymphocytes # (Auto) 1.3 Monocytes # (Auto) 0.8 Eosinophils # (Auto) 0.0 Basophils # (Auto) 0.0 CBC Comment DIFF FINAL Differential Comment Prothrombin Time 11.4 Prothromb Time International Ratio 1.1 Activated Partial Thromboplast Time 28.4 Blood Urea Nitrogen 16 Creatinine 0.76 Random Glucose 134 Total Protein 7.9 Albumin 2.5 Calcium Level 8.7 Alkaline Phosphatase 84 Aspartate Amino Transf (AST/SGOT) 33 Alanine Aminotransferase (ALT/SGPT) 13 Total Bilirubin 0.9 Sodium Level 133 Potassium Level 3.9 Chloride Level 96 Carbon Dioxide Level 27.8 Anion Gap 9 Estimat Glomerular Filtration Rate 79 Lactic Acid Level 2.2 Lipase 41 Urine Color LIGHT-BROWN Urine Turbidity HAZY Urine pH 5.5 Urine Specific [place] 1.024 Urine Protein 30 Urine Glucose (UA) NEG Urine Ketones TRACE Urine Occult Blood TRACE Urine Nitrite NEG Urine Bilirubin NEG Urine Urobilinogen 2.0 Urine Leukocyte Esterase LARGE Urine RBC 2 Urine WBC 3 Urine Squamous Epithelial Cells <1 Urine Bacteria MANY Urine Mucus FEW Microscopic Urinalysis Comment CATH-CULTURE IND Date/Time Source Procedure Growth Status 03/03/17 14:33 Urine Catheterized Urine Urine Culture Pending Received Result Diagram: 03/03/17 1430 03/03/17 1430 Imaging Last Impressions Abdomen/Pelvis CT 03/03/17 1419 Signed Impressions: Service Date/Time: Friday, March 03, 2017 16:32 - CONCLUSION: 1. Large cystic and solid mass in the pelvis extending into the abdomen could be ovarian carcinoma. There is peritoneal carcinomatosis and multiple low-density liver lesions likely metastatic disease. 2. Large volume ascites. Harmeet Best MD Neck Magnetic Resonance Angiography 03/03/17 0000 Signed Impressions: Service Date/Time: Friday, March 03, 2017 21:13 - CONCLUSION: 1. Multiple carotid arteries. Harmeet Best MD Head Magnetic Resonance Angiography 03/03/17 0000 Signed Impressions: Service Date/Time: Friday, March 03, 2017 21:13 - CONCLUSION: 1. No large vessel stenosis or aneurysm. 2. Normal variant as described above. Harmeet Best MD Head CT 03/03/17 0000 Signed Impressions: Service Date/Time: Friday, March 03, 2017 16:24 - CONCLUSION: Large air low attenuation right frontal lobe could be acute infarct versus edema from underlying mass. Contrast MRI recommended. Harmeet Best MD Brain MRI 03/03/17 0000 Signed Impressions: Service Date/Time: Friday, March 03, 2017 18:22 - CONCLUSION: 1. Prominent infarct in the right parietal and right temporal lobe. No midline shift or mass effect. 2. A few scattered foci of acute infarcts are seen within the left parietal, right occipital and both vertebral hemispheres. Embolic source is suggested. Harmeet Best MD Caprini VTE Risk Assessment Caprini VTE Risk Assessment: Mod/High Risk (score >= 2) VTE Pharm Contraindication: High risk for bleeding Caprini Risk Assessment Model Point Value = 1 Point Value = 2 Point Value = 3 Point Value = 5 Age 41-60 Minor surgery BMI > 25 kg/m2 Swollen legs Varicose veins or History of unexplained or recurrent spontaneous Oral contraceptives or hormone replacement Sepsis (< 1 month) Serious lung disease, including pneumonia (< 1 month) Abnormal pulmonary function Acute myocardial infarction Congestive heart failure (< 1 month) History of inflammatory bowel disease Medical patient at bed rest Age 61-74 Arthroscopic surgery Major open surgery (> 45 min) Laparoscopic surgery (> 45 min) Malignancy Confined to bed (> 72 hours) Immobilizing plaster cast Central venous access Age >= 75 History of VTE Family history of VTE Factor V Leiden Prothrombin [id number] Lupus anticoagulant Anticardiolipin antibodies Elevated serum homocysteine Heparin-induced thrombocytopenia Other congenital or acquired thrombophilia Stroke (< 1 month) Elective arthroplasty Hip, pelvis, or leg fracture Acute spinal cord injury (< 1 month) Prophylaxis Regimen Total Risk Factor Score Risk Level Prophylaxis Regimen 0-1 Low Early ambulation 2 Moderate Order ONE of the following: *Sequential Compression Device (SCD) *Heparin 5000 units SQ BID 3-4 Higher Order ONE of the following medications: *Heparin 5000 units SQ TID *Enoxaparin/Lovenox 40 mg SQ daily (WT < 150 kg, CrCl > 30 mL/min) *Enoxaparin/Lovenox 30 mg SQ daily (WT < 150 kg, CrCl > 10-29 mL/min) *Enoxaparin/Lovenox 30 mg SQ BID (WT < 150 kg, CrCl > 30 mL/min) AND/OR *Sequential Compression Device (SCD) 5 or more Highest Order ONE of the following medications: *Heparin 5000 units SQ TID (Preferred with Epidurals) *Enoxaparin/Lovenox 40 mg SQ daily (WT < 150 kg, CrCl > 30 mL/min) *Enoxaparin/Lovenox 30 mg SQ daily (WT < 150 kg, CrCl > 10-29 mL/min) *Enoxaparin/Lovenox 30 mg SQ BID (WT < 150 kg, CrCl > 30 mL/min) AND *Sequential Compression Device (SCD) Assessment and Plan Problem List: (1) Stroke ICD Code: I63.9 - Cerebral infarction, unspecified Status: Acute (2) Hematemesis ICD Code: K92.0 - Hematemesis (3) Abdominal mass ICD Code: R19.00 - Intra-abdominal and pelvic swelling, mass and lump, unspecified site (4) Upper GI bleed ICD Code: K92.2 - Gastrointestinal hemorrhage, unspecified Assessment and Plan 56-year-old female with a 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 CVA, acute Brain MRI shows prominent infarct in the right parietal and right temporal lobe , no midline shift or mass effect. A few scattered foci of acute infarcts are seen within the left parietal, right occipital and both vertebral hemispheres. -Consult neurology -Head of bed flat -Aspirin 325mg daily -PT/OT/ST ordered -Lipid panel ordered, pravastatin at bedtime -Hemoglobin A1c ordered -2-D echo ordered -MRA of the carotids ordered, no significant Blockage UTI with leukocytosis WBC 15.7, UA with large leukocyte esterase and increase protein -Rocephin daily IV -Urine culture pending Anemia, patient with coffee-ground emesis, questionable GI bleed HGB 10.8 -Protonix IV drip -Consult gastroenterology for recommendations -CBC in a.m. ADENOCARCINOMA, chronic -Patient will need outpatient follow-up with oncology DVT prophylaxis: SCDs Discussed Condition With Patient and RN Physician Certification 2 Midnight Certification Type: Admission for Inpatient Services Order for Inpatient Services The services are ordered in accordance with Medicare regulations or non- Medicare payer requirements, as applicable. In the case of services not specified as inpatient-only, they are appropriately provided as inpatient services in accordance with the 2-midnight benchmark. Estimated LOS (days): 3 days is the estimated time the patient will need to remain in the hospital, assuming treatment plan goals are met and no additional complications. Post-Hospital Plan: Home Problem Qualifiers (1) Stroke: Qualified Codes: I63.10 - Cerebral infarction due to embolism of unspecified precerebral artery (2) Hematemesis: Qualified Codes: K92.0 - Hematemesis Mary Anne Leyva Mar 03, 2017 22:07
[2017-03-03] MEDS: SODIUM CHLORIDE 0.9% FLUSH 10 ML FLUSH IV FLUSH SCH (23:15)
[2017-03-03] MEDS: PRAVASTATIN SOD 40 MG TAB PO SCH (23:16)
[2017-03-03 23:24] VITALS: BP 107/65; PULSE 89; PULSE 91; RESP 18; O2SAT 99
[2017-03-04] VITALS (8 sets, daily range): BP systolic 93–110; BP diastolic 53–70; PULSE 72–83; RESP 16–18; TEMP 97.9–99.4; O2SAT 97–100
[2017-03-04] MEDS: PANTOPRAZOLE INJ 80 MG in SODIUM CHLORIDE 0.9% INJ 100 ML IV SCH ×2 (02:10→23:22)
[2017-03-04 05:37] LABS: CHOLESTEROL/ HDL RATIO 3.82 RATIO; HDL CHOLESTEROL 21.2 MG/DL (40.0-60.0)
[2017-03-04] MEDS ORDERED: PANTOPRAZOLE INJ 80 MG in SODIUM CHLORIDE 0.9% INJ 100 ML IV SCH (07:00)
[2017-03-04] MEDS: ACETAMINOPHEN/HYDROcodone 325 MG/5 MG TAB PO PRN ×3 (07:00→20:24)
[2017-03-04] MEDS: INSULIN ASPART SUPPLEMENTAL SCALE SQ SCH ×4 (08:00→20:30)
[2017-03-04] MEDS: SODIUM CHLORIDE 0.9% FLUSH 10 ML FLUSH IV FLUSH SCH ×2 (09:00→20:24)
--- NOTE | 2017-03-04 11:04 | MB ---
cc: CHRISTIN CALLE M.D. DATE OF CONSULTATION: 03/04/2017. HISTORY OF PRESENT ILLNESS: A 56-year-old right-handed woman with a history of seizures many years ago, she is not sure why. Otherwise, she has been healthy except for the last three months she has had some abdominal distention and was diagnosed with cancer; she is not exactly sure what type, but it was in her abdomen. She woke up yesterday with left-sided weakness and subsequently was brought into the hospital. She has had some adenocarcinoma of the abdomen, had nausea and vomiting. She was on Macrobid and Protonix. MEDICATIONS AT HOME: As noted, also: 1. Oxycodone. 2. She does not take an aspirin a day. ALLERGIES: HYDROCODONE. CURRENT MEDICATIONS: 1. She is on 325 aspirin. 2. Ceftriaxone. 3. Protonix. 4. Some PRN morphine. 5. Hydrocodone. 6. Pravastatin. SOCIAL HISTORY: She quit smoking 2-1/2 months ago, drinking, and then also lives with a friend who she usually takes care of. 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 FAMILY HISTORY: Negative for cancer, seizure or stroke. REVIEW OF SYSTEMS: She had a mild headache but no chest pain or palpitations. She denies any hypertension, diabetes, hypercholesterolemia, myocardial infarction, CABG, cardiac arrhythmia, stents, angioplasty, atrial fibrillation, coumadin, renal, hepatic, or pulmonary disease, thyroid disease, lupus, ulcer or stroke. PHYSICAL EXAMINATION: VITAL SIGNS: No atrial fibrillation overnight according to the nursing staff. 99.2, 80, 16, 94/63 to 110/68. NECK: There are no carotid bruits. HEART: Regular rhythm. I do not detect a murmur. NEUROLOGICAL EXAMINATION: Pupils are equal. Visual ribeiro are actually full. She can count fingers well. Extraocular movements intact without nystagmus. No visual gaze preference. She has a minimal left facial droop, which she moves symmetrically with decreased sensation on the left side compared to the right. Tongue was midline. She had normal strength and right upper and lower extremities. The left upper lobe is about a 2/5. She can wiggle her fingers a little bit. The triceps itself was probably about a 5-/5. She can pick her leg up off the bed minimally on the left, obviously very weak there, I would say overall though probably a 2/5. The left toe was up, the right was down. DTRs are trace throughout. She has a probable what appears to be a left hemisensory loss. She is awake and alert. Speech is fluent. She is not aphasic. In a good mood. LABS: Her white count was 15,000, hematocrit 32, platelet count is 446,000. She had a normal white count on 02/10/17. Urinalysis with large amount of leukocyte esterase, 3 white cells, many squamous cells. Basic metabolic profile: Sodium was 133 (had been 132 at the end of last year). Lactic acid 2.2. Liver function tests normal. LDL cholesterol 44. Her LDL was normal. CA-125 was elevated at the end of last year to 90. Coags normal. IMAGING STUDIES: MRI of the brain shows an acute right posterior middle cerebral artery infarct and multiple bilateral cerebellar small infarcts. There is a moderate-sized right infarct. No hemorrhages noted. No hemorrhage is noted. No enhancement is seen. CT scan of the abdomen and pelvis shows a large cystic and solid mass in the pelvis extending into the abdomen, could be ovarian carcinoma. Multiple likely metastases in the liver. She had an MRA of the [place] and neck which was normal. MRA of the carotids is normal. The vertebrobasilar system looks fine. MRA of the [place] shows some decreased branching on the right. I expect she occluded the posterior branch of the right middle cerebral artery. EKGS: EKG was sinus rhythm. IMPRESSION: Multiple infarcts, likely cardioembolic, probably from a hypercoagulable state. RECOMMENDATIONS / PLAN: 1. At this point, I would recommend her being on coumadin and we can start her on some subcutaneous heparin and coumadin. 2. Will check an echocardiogram and also a troponin, her thyroid. 3. Have physical therapy get her up and ambulating. She is at a fall risk to the left without a doubt. MD MIRELLA Albert/EDILBERTO /10:26 AM /10:44 AM
[2017-03-04] MEDS: SODIUM CHLOR 0.9% 1000 ML INJ 1,000 ML IV SCH (11:27)
[2017-03-04] MEDS: ASPIRIN 325 MG TAB PO SCH (11:29)
--- NOTE | 2017-03-04 12:21 | EKG ---
Date Performed: 03/03/2017 Time Performed: 22:25:28 PTAGE: 56 years EKG: Sinus rhythm NORMAL ECG Since PREVIOUS TRACING , no significant change noted PREVIOUS TRACIN02/06/2017 20.53 DOCTOR: Tdod Marie Interpretating Date/Time 03/04/2017 12:19:58
--- NOTE | 2017-03-04 12:46 | PD.CONS ---
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 Patient was found to have ischemic stroke. Neurology on the case and recommended Coumadin and heparin. GI consulted for hematemesis, coffee ground. She had approx. 3 episodes today, no more episodes. States she has quit smoking and drinking sine last hospital visit. She complains of abdominal pain, dull burning, Ascites noted. Patient is s/p EGD 02/07/17 EGD found multi lg ulcers esophagus , colonoscopy 02/08/17 found medium sized colitis, sessile polyp sigmoid and ascending colon. BX from EGD Demonstrated adenocarcinoma, bx from colon benign. CT of abd/pel 03/03/17 showed large cystic and solid mass in the pelvis extending into the abdomen could be ovarian carcinoma, There is peritoneal carcinomatosis and multiple low density liver lesions like metastatic dx, large volume ascites. Denies melena or hematochezia. Patient demonstrating confusion, she is on a rampage going off the subject and wondering to different topics. (Ed Skaggs) PFSH Past Medical History abdominal cancer Arthritis Past Surgical History Patient denies any surgical history (Ed Skaggs) Coded Allergies: No Known Allergies (Verified Allergy, Unknown, 02/14/17) Medications Current Medications Medications (Trade) Dose Ordered Sig/Raquel Route Start Time Stop Time Status Last Admin (NS Flush) 2 ml UNSCH PRN IV FLUSH 03/03/17 14:30 Sodium Chloride 1,000 ml @ 70 mls/hr [id number] IV 03/03/17 19:30 03/04/17 11:27 (NS Flush) 2 ml BID IV FLUSH 03/03/17 21:00 (NS Flush) 2 ml UNSCH PRN IV FLUSH 03/03/17 20:15 (Aspirin) 325 mg DAILY PO 03/04/17 09:00 03/04/17 11:29 (Pravachol) 40 mg HS PO 03/03/17 21:00 (NovoLOG SUPPLEMENTAL SCALE) 1 ACHS SQ 03/03/17 21:00 (D50w (Vial) Inj) 50 ml UNSCH PRN IV PUSH 03/03/17 20:15 (Glucagon Inj) 1 mg UNSCH PRN OTHER 03/03/17 20:15 Ceftriaxone Sodium 1000 mg/ Sodium Chloride 100 ml @ 200 mls/hr Q24H IV 03/04/17 17:00 Pantoprazole Sodium 80 mg/ Sodium Chloride 100 ml @ 10 mls/hr CONTINUOUS IV 03/04/17 07:00 03/04/17 12:03 (Morphine Inj) 2 mg Q3H PRN IV PUSH 03/04/17 06:45 ([place] 5-325 Mg) 1 tab Q4H PRN PO 03/04/17 06:45 03/04/17 07:00 (Heparin Inj) 5,000 units Q12HR SQ 03/04/17 21:00 (Coumadin) 5 mg DAILY@1600 PO 03/04/17 16:00 Family History Dad: bladder Social History Tobacco use: Quit 2 months ago, 1/2 PPD Alcohol use:Quit 2 months ago, 1 pint a day prior (Ed Skaggs) Review of Systems Constitutional: COMPLAINS OF: Fatigue Endocrine: DENIES: Polyuria Eyes: DENIES: Double Vision Ears, nose, mouth, throat: DENIES: Hoarseness Respiratory: DENIES: Shortness of breath Cardiovascular: DENIES: Lower Extremity Edema Gastrointestinal: COMPLAINS OF: Abdominal pain, Nausea, Vomiting, Swelling of Abdomen, Heartburn, Hematemesis, DENIES: Black stools, Bloody stools, Constipation, Diarrhea, Anorexia, Odynophagia Genitourinary: DENIES: Hematuria Musculoskeletal: DENIES: Neck pain Integumentary: DENIES: Jaundice Immunologic/allergic: DENIES: Eczema Neurologic: COMPLAINS OF: Abnormal gait Psychiatric: COMPLAINS OF: Confusion, DENIES: Anxiety (Ed Skaggs) GI Exam Vitals I&O Vital Signs Date Time Temp Pulse Resp B/P (MAP) Pulse Ox O2 Delivery O2 Flow Rate FiO2 03/04/17 11:15 98.4 72 16 106/56 (73) 03/04/17 08:09 99.1 83 16 93/53 (66) 98 03/04/17 05:44 99.2 80 16 94/63 (73) 99 03/03/17 23:24 91 03/03/17 23:24 89 18 107/65 (79) 99 03/03/17 23:15 03/03/17 20:20 96 03/03/17 19:19 90 16 110/68 (82) 98 Room Air 03/03/17 14:42 18 03/03/17 14:42 18 03/03/17 14:23 100 Room Air 03/03/17 14:18 98.5 105 20 132/76 (94) 100 Room Air 03/03/17 14:18 20 03/03/17 14:11 98.5 105 20 132/76 (94) 99 I/O 03/03/17 03/03/17 03/03/17 03/04/17 03/04/17 03/04/17 07:00 15:00 23:00 07:00 15:00 23:00 Intake Total 1035 ml 1175 ml Balance 1035 ml 1175 ml Intake IV Total 1035 ml 1175 ml # Voids 1 Imaging Last Impressions Abdomen/Pelvis CT 03/03/17 1419 Signed Impressions: Service Date/Time: Friday, March 03, 2017 16:32 - CONCLUSION: 1. Large cystic and solid mass in the pelvis extending into the abdomen could be ovarian carcinoma. There is peritoneal carcinomatosis and multiple low-density liver lesions likely metastatic disease. 2. Large volume ascites. Harmeet Best MD Neck Magnetic Resonance Angiography 03/03/17 0000 Signed Impressions: Service Date/Time: Friday, March 03, 2017 21:13 - CONCLUSION: 1. Multiple carotid arteries. Harmeet Best MD Head Magnetic Resonance Angiography 03/03/17 0000 Signed Impressions: Service Date/Time: Friday, March 03, 2017 21:13 - CONCLUSION: 1. No large vessel stenosis or aneurysm. 2. Normal variant as described above. Harmeet Best MD Head CT 03/03/17 0000 Signed Impressions: Service Date/Time: Friday, March 03, 2017 16:24 - CONCLUSION: Large air low attenuation right frontal lobe could be acute infarct versus edema from underlying mass. Contrast MRI recommended. Harmeet Best MD Brain MRI 03/03/17 0000 Signed Impressions: Service Date/Time: Friday, March 03, 2017 18:22 - CONCLUSION: 1. Prominent infarct in the right parietal and right temporal lobe. No midline shift or mass effect. 2. A few scattered foci of acute infarcts are seen within the left parietal, right occipital and both vertebral hemispheres. Embolic source is suggested. Harmeet Best MD Laboratory Test 03/03/17 14:00 03/03/17 14:30 03/03/17 14:33 03/04/17 03:25 Urine Opiates Screen POS Urine Barbiturates Screen NEG Urine Amphetamines Screen NEG Urine Benzodiazepines Screen POS Urine Cocaine Screen NEG Urine Cannabinoids Screen NEG White Blood Count 15.7 TH/MM3 Red Blood Count 3.20 MIL/MM3 Hemoglobin 10.8 GM/DL Hematocrit 32.3 % Mean Corpuscular Volume 100.9 FL Mean Corpuscular Hemoglobin 33.9 PG Mean Corpuscular Hemoglobin Concent 33.6 % Red Cell Distribution Width 17.5 % Platelet Count 446 TH/MM3 Mean Platelet Volume 8.6 FL Neutrophils (%) (Auto) 87.0 % Lymphocytes (%) (Auto) 8.0 % Monocytes (%) (Auto) 4.8 % Eosinophils (%) (Auto) 0.0 % Basophils (%) (Auto) 0.2 % Neutrophils # (Auto) 13.7 TH/MM3 Lymphocytes # (Auto) 1.3 TH/MM3 Monocytes # (Auto) 0.8 TH/MM3 Eosinophils # (Auto) 0.0 TH/MM3 Basophils # (Auto) 0.0 TH/MM3 CBC Comment DIFF FINAL Differential Comment Prothrombin Time 11.4 SEC Prothromb Time International Ratio 1.1 RATIO Activated Partial Thromboplast Time 28.4 SEC Blood Urea Nitrogen 16 MG/DL Creatinine 0.76 MG/DL Random Glucose 134 MG/DL Total Protein 7.9 GM/DL Albumin 2.5 GM/DL Calcium Level 8.7 MG/DL Alkaline Phosphatase 84 U/L Aspartate Amino Transf (AST/SGOT) 33 U/L Alanine Aminotransferase (ALT/SGPT) 13 U/L Total Bilirubin 0.9 MG/DL Sodium Level 133 MEQ/L Potassium Level 3.9 MEQ/L Chloride Level 96 MEQ/L Carbon Dioxide Level 27.8 MEQ/L Anion Gap 9 MEQ/L Estimat Glomerular Filtration Rate 79 ML/MIN Lactic Acid Level 2.2 mmol/L Lipase 41 U/L Urine Color LIGHT-BROWN Urine Turbidity HAZY Urine pH 5.5 Urine Specific [place] 1.024 Urine Protein 30 mg/dL Urine Glucose (UA) NEG mg/dL Urine Ketones TRACE mg/dL Urine Occult Blood TRACE Urine Nitrite NEG Urine Bilirubin NEG Urine Urobilinogen 2.0 MG/DL Urine Leukocyte Esterase LARGE Urine RBC 2 /hpf Urine WBC 3 /hpf Urine Squamous Epithelial Cells <1 /hpf Urine Bacteria MANY /hpf Urine Mucus FEW /lpf Microscopic Urinalysis Comment CATH-CULTURE IND Triglycerides Level 77 MG/DL Cholesterol Level 81 MG/DL LDL Cholesterol 44 MG/DL HDL Cholesterol 21.2 MG/DL Cholesterol/HDL Ratio 3.82 RATIO Date/Time Source Procedure Growth Status 03/03/17 14:33 Urine Catheterized Urine Urine Culture - Preliminary Gram Negative [facility]esh [employer] D Enterococcus Resulted Physical Examination HEENT: normocephalic; atraumatic; no jaundice. CHEST: Chest is clear to auscultation and percussion. CARDIAC: Regular rate and rhythm with no murmur gallop or rubs. ABDOMEN: Soft, large ascites, bowel sounds are present in all four quadrants. EXTREMITIES: No clubbing, cyanosis, or edema. SKIN: Normal; no rash; no jaundice. TOOL DISPATCHER: alert and oriented. 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 BX from EGD Demonstrated adenocarcinoma, bx from colon benign. CT of abd/pel 03/03/17 showed large cystic and solid mass in the pelvis extending into the abdomen could be ovarian carcinoma, There is peritoneal carcinomatosis and multiple low density liver lesions like metastatic dx, large volume ascites. - Hematemesis/coffee ground emesis- She had approx. 3 episodes today, no more episodes. States she has quit smoking and drinking sine last hospital visit. PPI drip, hh 10.8/32.3. Denies melena or hematochezia - CT above demonstrated cancer with mets to liver and pelvis - Ischemic stroke- Neurology on the case and recommended Coumadin and heparin. - Ascites- no candidate for diuretics now in light of stroke, LFTs wnl Plan: - Diet per attending - EGD once pt is medically stable, for now EGD only on emergent basis - Consult oncology - Cont. PPI Gtt - Monitor hh - Transfuse as needed - Notify GI for active bleed - Poor prognosis - Consider palliative care - Patient seen and examined by Dr. Zaragoza and myself and this note is written on his behalf. (Ed Skaggs) Physician Comments Patient seen and examined Agree with above Continue with current supportive care Monitor labs Await oncology evaluation (Mathieu Zaragoza MD) Ed Skaggs Mar 04, 2017 12:46 Mathieu Zaragoza MD Mar 04, 2017 21:18
[2017-03-04 12:48] LABS: HEMOGLOBIN A1C 5.1 % (4.3-6.0)
--- NOTE | 2017-03-04 13:00 | HHI.PR ---
Subjective Remarks Follow-up multiple infarcts/Hematemesis/adenocarcinoma of GI 03/04/17-patient seen and examined, denies currently any more upper GI bleed. Left-sided weakness with Objective Vitals Vital Signs Date Time Temp Pulse Resp B/P (MAP) Pulse Ox O2 Delivery O2 Flow Rate FiO2 03/04/17 11:15 98.4 72 16 106/56 (73) 03/04/17 08:09 99.1 83 16 93/53 (66) 98 03/04/17 05:44 99.2 80 16 94/63 (73) 99 03/03/17 23:24 91 03/03/17 23:24 89 18 107/65 (79) 99 03/03/17 23:15 03/03/17 20:20 96 03/03/17 19:19 90 16 110/68 (82) 98 Room Air 03/03/17 14:42 18 03/03/17 14:42 18 03/03/17 14:23 100 Room Air 03/03/17 14:18 98.5 105 20 132/76 (94) 100 Room Air 03/03/17 14:18 20 03/03/17 14:11 98.5 105 20 132/76 (94) 99 I/O 03/03/17 03/03/17 03/03/17 03/04/17 03/04/17 03/04/17 07:00 15:00 23:00 07:00 15:00 23:00 Intake Total 1035 ml 1175 ml Balance 1035 ml 1175 ml Intake IV Total 1035 ml 1175 ml # Voids 1 Result Diagram: 03/03/17 1430 03/03/17 1430 Imaging Last Impressions Abdomen/Pelvis CT 03/03/17 1419 Signed Impressions: Service Date/Time: Friday, March 03, 2017 16:32 - CONCLUSION: 1. Large cystic and solid mass in the pelvis extending into the abdomen could be ovarian carcinoma. There is peritoneal carcinomatosis and multiple low-density liver lesions likely metastatic disease. 2. Large volume ascites. Harmeet Best MD Neck Magnetic Resonance Angiography 03/03/17 0000 Signed Impressions: Service Date/Time: Friday, March 03, 2017 21:13 - CONCLUSION: 1. Multiple carotid arteries. Harmeet Best MD Head Magnetic Resonance Angiography 03/03/17 0000 Signed Impressions: Service Date/Time: Friday, March 03, 2017 21:13 - CONCLUSION: 1. No large vessel stenosis or aneurysm. 2. Normal variant as described above. Harmeet Best MD Head CT 03/03/17 0000 Signed Impressions: Service Date/Time: Friday, March 03, 2017 16:24 - CONCLUSION: Large air low attenuation right frontal lobe could be acute infarct versus edema from underlying mass. Contrast MRI recommended. Harmeet Best MD Brain MRI 03/03/17 0000 Signed Impressions: Service Date/Time: Friday, March 03, 2017 18:22 - CONCLUSION: 1. Prominent infarct in the right parietal and right temporal lobe. No midline shift or mass effect. 2. A few scattered foci of acute infarcts are seen within the left parietal, right occipital and both vertebral hemispheres. Embolic source is suggested. Harmeet Best MD Objective Remarks GENERAL: NAD with left sided weakness SKIN: Warm and dry. HEAD: Normocephalic. EYES: No scleral icterus. No injection or drainage. NECK: Supple, trachea midline. No JVD or lymphadenopathy. CARDIOVASCULAR: Regular rate and rhythm without murmurs, gallops, or rubs. RESPIRATORY: Breath sounds equal bilaterally. No accessory muscle use. GASTROINTESTINAL: Abdomen soft, non-tender, nondistended. MUSCULOSKELETAL: No cyanosis, or edema. Left UE hemiparesis BACK: Nontender without obvious deformity. No CVA tenderness. A/P Problem List: (1) Stroke ICD Code: I63.9 - Cerebral infarction, unspecified Status: Acute (2) Hematemesis ICD Code: K92.0 - Hematemesis (3) Abdominal mass ICD Code: R19.00 - Intra-abdominal and pelvic swelling, mass and lump, unspecified site (4) Upper GI bleed ICD Code: K92.2 - Gastrointestinal hemorrhage, unspecified Assessment and Plan 56-year-old female with CVA, acute Brain MRI shows prominent infarct in the right parietal and right temporal lobe , no midline shift or mass effect. A few scattered foci of acute infarcts are seen within the left parietal, right occipital and both vertebral hemispheres. -Appreciate input from neurology -Currently on Heparin subcutaneous bridge and Coumadin -Continue with Pravachol and aspirin -PT/OT/ST -Hemoglobin A1c pending -2-D echo pending and place Holter monitoring -MRA of the carotids ordered, no significant Blockage UTI -Continue with Rocephin daily IV pending urine culture Anemia, patient with coffee-ground emesis, questionable GI bleed HGB 10.8 -Continue with Protonix IV -Appreciate input from gastroenterology pending EGD Although patient has a questionable GI bleed, will continue with aspirin and oral anticoagulation secondary to patient with increased risk of repeat stroke ADENOCARCINOMA, chronic -Consult oncology DVT prophylaxis: SCDs Problem Qualifiers (1) Stroke: Qualified Codes: I63.10 - Cerebral infarction due to embolism of unspecified precerebral artery (2) Hematemesis: Qualified Codes: K92.0 - Hematemesis Harmeet Guillen MD Mar 04, 2017 13:00
[2017-03-04 15:48] LABS: FOLATE 5.3 NG/ML (3.1-17.5); FREE T4 1.26 NG/DL (0.76-1.46); TROPONIN I 0.1 NG/ML (0.02-0.05)
[2017-03-04 15:50] LABS: % SATURATION IRON PROFILE 12.2 % (20-50); IRON (FE) 23 MCG/DL (50-170); TOTAL IRON BINDING CAPACITY 189 MCG/DL (250-450)
[2017-03-04] MEDS: WARFARIN SOD 5 MG TAB PO SCH (16:02)
--- NOTE | 2017-03-04 16:14 | MB ---
cc: MELI SHARPE MD DATE OF CONSULTATION 03/04/2017 DATE OF 1960 CHIEF COMPLAINT 1. Peritoneal carcinomatosis. 2. Ascites. 3. 15.5 x 13.8 cm adnexal mass. HISTORY OF PRESENT ILLNESS Ms. Gomes is a 56-year-old lady with a history of arthritis, past alcohol and tobacco use, alcoholic liver disease who was recently hospitalized in January of 2017. At that point in time she was found to have bloody vomit as well as peritoneal carcinomatosis and large adnexal mass. She underwent endoscopy procedures with an EGD showing duodenal inflammation, erythematous and severe erosive gastritis in the entirety of the stomach. Multiple biopsies were performed using cold forceps. Esophagus with a large, non bleeding, irregular shape, clean based ulcers in the lower third of the esophagus and middle third of the esophagus. Biopsies were taken at the edge of the ulcers and at the center of the ulcer. Colonoscopy also showed medium sized colitis and sessile polyps. These biopsies returned in the colon as two adenomatous polyps and one colonic mucosa without significant histopathologic abnormality. Stomach biopsy showed mild chronic gastritis, negative for H. pylori and esophagus biopsy showed a severe acute ulcerative esophagitis with no fungal organisms. CA-125 is elevated. She is returning to the hospital today with left hand weakness and nausea as well as multiple falls at home that are new over the past few days. Brain MRI with prominent infarct in the right parietal and right temporal lobe with no midline shift or mass effect. She was started on aspirin. Neurology team was consulted and recommended anticoagulation and physical therapy. Thought the stroke was due to multiple infarcts likely cardioembolic in nature. Head MRI with no large vessel stenosis or aneurysm. Neck MRA with normal carotid arteries. Brain MRI with a prominent infarct in the right parietal lobe and right temporal lobe. No midline shift or mass effect. Few scattered foci is acute infarcts are seen within the left parietal and right occipital and both vertebral hemispheres. Embolic source is suggested. The right parietal lobe, right temporal lobe no midline shift or mass effect few scattered phlebitis acute infarcts were seen within the left parietal right occipital lobe for tubal hemisphere is embolic source is suggested. Echocardiogram was ordered and is pending. The patient is currently on heparin. Other studies that are pending include PEEWEE, TSH, free T4, SPEP, vitamin B1, vitamin B12, folate. PAST MEDICAL HISTORY 1. Abdominal malignancy. 2. Arthritis. 3. Past tobacco and alcohol use. PAST SURGICAL HISTORY None. MEDICATIONS None. ALLERGIES No known drug allergies. FAMILY HISTORY Father with history of bladder cancer. Mother with a history of breast cancer. SOCIAL HISTORY The patient reports past tobacco, alcohol use. However, she quit 2 months ago. ROS as in HPI, all others negative PHYSICAL EXAMINATION VITAL SIGNS: Temperature of 98.4, pulse 72, respiratory rate 16, blood pressure 106/56. GENERAL: Thin and chronically ill-appearing lady in no distress. RESPIRATORY: Clear to auscultation bilaterally. CARDIOVASCULAR: Regular rate and rhythm with no murmurs. ABDOMEN: Protuberant. Abdomen soft. Bowel sounds present. EXTREMITIES: No edema of lower or upper extremities. NEUROLOGIC: Minimal left facial droop. ASSESSMENT/PLAN 1. Abdominal malignancy with elevated CA-125 and pathology from biopsy partially necrotic invasive moderately differentiated adenocarcinoma pending consultation workup by gynecologic oncology. While inpatient would consult gynecologic oncology 2. Embolic stroke. Echocardiogram pending currently on heparin converting to warfarin therapy. 3. Anemia. We will check iron profile. We will follow-up results ordered by neurology team. Likely some degree of iron deficiency anemia with ulcers and inflammation with chronic medical conditions contributing. MD MANJIT Killian/PEPE /2:49 PM /3:41 PM MTDNydia
--- NOTE | 2017-03-04 16:21 | ECHRPT ---
Indication: CVA/TIA CONCLUSIONS Normal left ventricular size. Wall thickness is normal. The left ventricular systolic function is normal with an estimated ejection fraction in the range of 55-60%. BP: / HR: Rhythm: Technical Quality:Good FINDINGS LEFT VENTRICLE Normal left ventricular size. Wall thickness is normal. The left ventricular systolic function is normal with an estimated ejection fraction in the range of 55-60%. RIGHT VENTRICLE Normal right ventricular size and systolic function. LEFT ATRIUM The left atrial size is normal. RIGHT ATRIUM The right atrial size is normal. ATRIAL SEPTUM Normal atrial septal thickness without atrial level shunting by limited color doppler interrogation. AORTA The aortic root and proximal ascending aorta are normal in size on limited imaging. MITRAL VALVE Structurally normal mitral valve. No mitral valve stenosis or regurgitation. AORTIC VALVE Trileaflet aortic valve. No aortic valve stenosis or regurgitation. TRICUSPID VALVE Structurally normal tricuspid valve. No tricuspid valve stenosis or regurgitation. PULMONARY VALVE The pulmonary valve is not well visualized. VESSELS The inferior vena cava is normal in size. PERICARDIUM No pericardial effusion. Todd Marie MD (Electronically Signed) Final Date:04 March 2017 16:20
[2017-03-04] MEDS: cefTRIAXone INJ 1,000 MG in SODIUM CHLORIDE 0.9% INJ 100 ML IV SCH (17:21)
[2017-03-04] MEDS: PRAVASTATIN SOD 40 MG TAB PO SCH (20:23)
[2017-03-04] MEDS: HEPARIN SODIUM - SQ 10,000 UNITS/ML VIAL SQ SCH (20:24)
[2017-03-04] MEDS ORDERED: ATORVASTATIN 10 MG TAB PO SCH (21:00)
[2017-03-05] VITALS (13 sets, daily range): BP systolic 100–103; BP diastolic 70–78; PULSE 68–83; RESP 16–18; TEMP 97.9–98.8; O2SAT 97–100
[2017-03-05] MEDS: ACETAMINOPHEN/HYDROcodone 325 MG/5 MG TAB PO PRN (00:59)
[2017-03-05] MEDS: MORPHINE SULFATE 2 MG/ML INJ IV PUSH PRN (03:04)
[2017-03-05] MEDS: ACETAMINOPHEN/HYDROcodone 325 MG/10 MG TAB PO PRN ×4 (05:10→21:00)
[2017-03-05] MEDS: INSULIN ASPART SUPPLEMENTAL SCALE SQ SCH ×4 (08:00→20:59)
--- NOTE | 2017-03-05 08:21 | HHI.PR ---
Objective Vital Signs Date Time Temp Pulse Resp B/P (MAP) Pulse Ox O2 Delivery O2 Flow Rate FiO2 03/05/17 04:17 68 03/05/17 03:11 97.9 72 16 102/73 (83) 100 03/05/17 00:01 74 03/04/17 23:26 99.4 73 18 103/63 (76) 100 03/04/17 22:04 97 21 03/04/17 20:54 83 03/04/17 19:53 97.9 81 18 110/70 (83) 100 03/04/17 15:59 98.5 79 16 103/60 (74) 98 03/04/17 11:15 98.4 72 16 106/56 (73) I/O 03/04/17 03/04/17 03/04/17 03/05/17 03/05/17 03/05/17 06:59 14:59 22:59 06:59 14:59 22:59 Intake Total 1175 ml 480 ml 1060 ml Balance 1175 ml 480 ml 1060 ml Intake Oral 480 ml 120 ml IV Total 1175 ml 940 ml # Voids 1 3 # Bowel Movements 0 Result Diagram: 03/03/17 1430 03/03/17 1430 Objective Remarks awake alert can bulk picker left arm a nd leg Assessment and Plan Assessment and Plan imp bilat cva coumdain echo nl holter pend hypercoag pend follow inr oob CA [place] hypercoag from that Bala Johnson MD Mar 05, 2017 08:21
[2017-03-05 08:50] LABS: INTERNATIONAL NORMALIZED RATIO 1.2 RATIO; PROTHROMBIN TIME - PATIENT 12.2 SEC (9.8-11.6)
[2017-03-05] MEDS: HEPARIN SODIUM - SQ 10,000 UNITS/ML VIAL SQ SCH ×2 (08:58→21:00)
[2017-03-05] MEDS: PANTOPRAZOLE INJ 80 MG in SODIUM CHLORIDE 0.9% INJ 100 ML IV SCH ×2 (08:58→19:26)
[2017-03-05] MEDS: ASPIRIN 325 MG TAB PO SCH (08:58)
[2017-03-05] MEDS: SODIUM CHLORIDE 0.9% FLUSH 10 ML FLUSH IV FLUSH SCH ×2 (08:59→19:29)
--- NOTE | 2017-03-05 09:32 | HHI.PR ---
Subjective Remarks Follow-up for CVA and possible GI bleed Patient denies any GI bleed. She stated that she vomited when she came here but has not had any GI bleeding at all. She stated that she is not concerned. Patient also feels like she is doing better. She stated that she is moving more but she continues to have left-sided deficits. Patient's nurse at the bedside during the interview. She also had no complaints and did not see any GI bleed. Patient stated that she is tolerating oral intake and does not have any pain. She is very talkative and able to answer questions appropriately. She could not tell me the location. She was able to me that she was at [place] but stated that she is in [place]. Patient also able to give me her first and last name. Objective Vitals Vital Signs Date Time Temp Pulse Resp B/P (MAP) Pulse Ox O2 Delivery O2 Flow Rate FiO2 03/05/17 09:10 98.6 82 18 100/78 (85) 100 03/05/17 04:17 68 03/05/17 03:11 97.9 72 16 102/73 (83) 100 03/05/17 00:01 74 03/04/17 23:26 99.4 73 18 103/63 (76) 100 03/04/17 22:04 97 21 03/04/17 20:54 83 03/04/17 19:53 97.9 81 18 110/70 (83) 100 03/04/17 15:59 98.5 79 16 103/60 (74) 98 03/04/17 11:15 98.4 72 16 106/56 (73) I/O 03/04/17 03/04/17 03/04/17 03/05/17 03/05/17 03/05/17 07:00 15:00 23:00 07:00 15:00 23:00 Intake Total 1175 ml 480 ml 1060 ml Balance 1175 ml 480 ml 1060 ml Intake Oral 480 ml 120 ml IV Total 1175 ml 940 ml # Voids 1 3 # Bowel Movements 0 Result Diagram: 03/03/17 1430 03/03/17 1430 Objective Remarks GENERAL: on NAD found sitting in bed. CARDIOVASCULAR: Regular rate and rhythm without murmurs, gallops, or rubs. RESPIRATORY: Breath sounds equal bilaterally. No accessory muscle use. GASTROINTESTINAL: Abdomen soft, non-tender, nondistended. NEURO: 2-3/5 left sided strength. Strength on right side intact. Medications and IVs Current Medications Ondansetron HCl (Zofran Inj) 4 mg ONCE ONCE IVP Last administered on at 14:38; Start 03/03/17 at 14:30; Stop 03/03/17 at 14:31; Status DC Sodium Chloride 1,000 ml @ 1,000 mls/hr Q1H IV Last administered on 03/03/17at 14:37; Start 03/03/17 at 14:19; Stop 03/03/17 at 15:18; Status DC Sodium Chloride (NS Flush) 2 ml UNSCH PRN IV FLUSH FLUSH AFTER USING IV ACCESS ; Start 03/03/17 at 14:30; Stop 03/04/17 at 22:57; Status DC Morphine Sulfate (Morphine Inj) 2 mg ONCE ONCE IV PUSH Last administered on at 14:37; Start 03/03/17 at 14:30; Stop 03/03/17 at 14:31; Status DC Morphine Sulfate (Morphine Inj) 2 mg ONCE ONCE IV PUSH Last administered on at 14:38; Start 03/03/17 at 14:30; Stop 03/03/17 at 14:31; Status DC Pantoprazole Sodium 80 mg/ Sodium Chloride 100 ml @ 10 mls/hr CONTINUOUS IV ; Start 03/03/17 at 15:00; Status Cancel Pantoprazole Sodium 80 mg/ Sodium Chloride 35 ml @ 420 mls/hr BOLUS ONCE IV Last administered on 03/03/17at 15:31; Start 03/03/17 at 15:00; Stop 03/03/17 at 15:04; Status DC Pantoprazole Sodium 80 mg/ Sodium Chloride 100 ml @ 10 mls/hr Q10H IV Last administered on 03/04/17at 02:10; Start 03/03/17 at 15:00; Stop 03/04/17 at 05:39 ; Status DC Prochlorperazine Edisylate (Compazine Inj) 10 mg ONCE ONCE IV PUSH Last administered on 03/03/17at 15:55; Start 03/03/17 at 15:15; Stop 03/03/17 at 15:16 ; Status DC Ceftriaxone Sodium 1000 mg/ Sodium Chloride 100 ml @ 200 mls/hr ONCE ONCE IV Last administered on 03/03/17at 17:39; Start 03/03/17 at 17:00; Stop 03/03/17 at 17:29; Status DC Iohexol (Omnipaque 350 Inj) 90 ml STK-MED ONCE IVCONTRAST Last administered on 03/03/17at 14:06; Start 03/03/17 at 14:06; Stop 03/03/17 at 16:56; Status DC Gadodiamide (Omniscan Pf Inj) 14 ml STK-MED ONCE IVCONTRAST Last administered on 03/03/17at 18:37; Start 03/03/17 at 18:37; Stop 03/03/17 at 18:40; Status DC Aspirin (Aspirin) 325 mg ONCE ONCE PO Last administered on 03/03/17at 19:40; Start 03/03/17 at 19:30; Stop 03/03/17 at 19:31; Status DC Sodium Chloride 1,000 ml @ 70 mls/hr [id number] IV Last administered on at 11:27; Start 03/03/17 at 19:30; Stop 03/04/17 at 12:57; Status DC Sodium Chloride (NS Flush) 2 ml BID IV FLUSH Last administered on 03/05/17at 08: 59; Start 03/03/17 at 21:00 Sodium Chloride (NS Flush) 2 ml UNSCH PRN IV FLUSH FLUSH AFTER USING IV ACCESS ; Start 03/03/17 at 20:15 Aspirin (Aspirin) 325 mg DAILY PO Last administered on 03/05/17at 08:58; Start 03/04/17 at 09:00 Pravastatin Sodium (Pravachol) 40 mg HS PO Last administered on 03/04/17at 20:23 ; Start 03/03/17 at 21:00 Insulin Aspart (NovoLOG SUPPLEMENTAL SCALE) 1 ACHS SQ ; Start 03/03/17 at 21:00 Dextrose (D50w (Vial) Inj) 50 ml UNSCH PRN IV PUSH HYPOGLYCEMIA-SEE COMMENTS; Start 03/03/17 at 20:15 Glucagon (Glucagon Inj) 1 mg UNSCH PRN OTHER HYPOGLYCEMIA-SEE COMMENTS; Start 03/03/17 at 20:15 Gadodiamide (Omniscan Pf Inj) 14 ml STK-MED ONCE IVCONTRAST Last administered on 03/03/17at 21:20; Start 03/03/17 at 21:20; Stop 03/03/17 at 21:21; Status DC Ceftriaxone Sodium 1000 mg/ Sodium Chloride 100 ml @ 200 mls/hr Q24H IV Last administered on 03/04/17at 17:21; Start 03/04/17 at 17:00 Pantoprazole Sodium 80 mg/ Sodium Chloride 100 ml @ 10 mls/hr CONTINUOUS IV Last administered on 03/04/17at 12:03; Start 03/04/17 at 07:00; Stop 03/04/17 at 22:31; Status DC Morphine Sulfate (Morphine Inj) 2 mg Q3H PRN IV PUSH breakthrough Last administered on 03/05/17at 03:04; Start 03/04/17 at 06:45 Acetaminophen/ Hydrocodone Bitart ([place] 5-325 Mg) 1 tab Q4H PRN PO pain 1-5 Last administered on 03/05/17at 00:59; Start 03/04/17 at 06:45 Heparin Sodium (Porcine) (Heparin Inj) 5,000 units Q12HR SQ Last administered on 03/05/17at 08:58; Start 03/04/17 at 21:00 Warfarin Sodium (Coumadin) 5 mg DAILY@1600 PO Last administered on 03/04/17at 16 :02; Start 03/04/17 at 16:00 Atorvastatin Calcium (Lipitor) 10 mg HS PO ; Start 03/04/17 at 21:00; Stop 03/04 at 21:00; Status DC Pantoprazole Sodium 80 mg/ Sodium Chloride 100 ml @ 10 mls/hr Q10H IV Last administered on 03/05/17at 08:58; Start 03/04/17 at 22:45 Acetaminophen/ Hydrocodone Bitart ([place] 10-325 Mg) 1 tab Q4H PRN PO pain 6-10 Last administered on 03/05/17at 05:10; Start 03/05/17 at 03:00 Pharmacy Profile Note 0 ml @ 0 mls/hr UNSCH OTHER ; Start 03/05/17 at 08:30 A/P Problem List: (1) Stroke ICD Code: I63.9 - Cerebral infarction, unspecified Status: Acute (2) Hematemesis ICD Code: K92.0 - Hematemesis (3) Abdominal mass ICD Code: R19.00 - Intra-abdominal and pelvic swelling, mass and lump, unspecified site (4) Upper GI bleed ICD Code: K92.2 - Gastrointestinal hemorrhage, unspecified Assessment and Plan 56-year-old female with CVA, acute Brain MRI shows prominent infarct in the right parietal and right temporal lobe , no midline shift or mass effect. A few scattered foci of acute infarcts are seen within the left parietal, right occipital and both vertebral hemispheres. -Appreciate input from neurology -Currently on Heparin subcutaneous bridge and Coumadin -Continue with Pravachol and aspirin -PT/OT/ST -Hemoglobin A1c 5.1. LDL 44. 2-D echo within normal limits. MRA of the carotids ordered, no significant Blockage -Pending Holter and hypercoagulable workup. UTI -Continue with Rocephin daily IV. Urine culture shows gram-negative clemente and enterococcus so far. Pending sensitivities and final cultures. Anemia, patient with coffee-ground emesis, questionable GI bleed HGB 10.8 -Continue with Protonix IV -Appreciate input from gastroenterology per GI will only scope if it is emergent. -No active GI bleed witnessed as far. Will repeat CBC today to see if hemoglobin dropped. ADENOCARCINOMA, chronic -Pending [facility] consult. DVT prophylaxis: SCDs Discharge Planning Due to the complexity of patient's case she would be a great candidate for inpatient rehabilitation. Discussed case with patient's nurse. Will have case management look into this. Problem Qualifiers (1) Stroke: Qualified Codes: I63.10 - Cerebral infarction due to embolism of unspecified precerebral artery (2) Hematemesis: Qualified Codes: K92.0 - Hematemesis Imelda Wiggins MD Mar 05, 2017 09:32
--- NOTE | 2017-03-05 09:58 | PD.CONS ---
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 MRI of the brain shown a prominent infarct in the right parietal and right temporal lobe. No midline shift or mass effect. She was admitted for further evaluation and treatment. Ms. Gomes was admitted several weeks ago for upper GI bleed and was found to have large complex pelvic mass, carcinomatosis, ascites and elevated CA 125. Oncology was consulted and biopsy obtained shown a moderately differentiated adenocarcinoma of possible GI origin along with other possible primary sites. GI performed BX to esophagus. stomach and colon. Colon polyps were without significant histopathological abnormalities. Stomach biopsy shown gastritis and neg for H pylori, esophagus biopsy shown ulcerative esophagitis. She was instructed to follow up with oncology upon discharge from the hospital but failed to do so. Patient was unable to give me a clear answer as to why she did not follow up as out patient. Patient denies any post menopausal bleeding and she can not clarify how long it has been since her last physical exam. Review of Systems ROS Limitations: Altered Mental Status Gastrointestinal: COMPLAINS OF: Abdominal pain Neurologic: COMPLAINS OF: Abnormal gait, Localized weakness, Poor Balance Psychiatric: COMPLAINS OF: Anxiety, Confusion Except as stated in HPI: all other systems reviewed are Neg Past Family Social History Allergies: Coded Allergies: No Known Allergies (Verified Allergy, Unknown, 02/14/17) Past Medical History alcoholism arthritis mod differentiated adenocarcinoma, DX per BX pelvic mass 01/28 Past Surgical History denies Reported Medications per EMR Active Ordered Medications Current Medications Ondansetron HCl (Zofran Inj) 4 mg ONCE ONCE IVP Last administered on at 14:38; Start 03/03/17 at 14:30; Stop 03/03/17 at 14:31; Status DC Sodium Chloride 1,000 ml @ 1,000 mls/hr Q1H IV Last administered on 03/03/17at 14:37; Start 03/03/17 at 14:19; Stop 03/03/17 at 15:18; Status DC Sodium Chloride (NS Flush) 2 ml UNSCH PRN IV FLUSH FLUSH AFTER USING IV ACCESS ; Start 03/03/17 at 14:30; Stop 03/04/17 at 22:57; Status DC Morphine Sulfate (Morphine Inj) 2 mg ONCE ONCE IV PUSH Last administered on at 14:37; Start 03/03/17 at 14:30; Stop 03/03/17 at 14:31; Status DC Morphine Sulfate (Morphine Inj) 2 mg ONCE ONCE IV PUSH Last administered on at 14:38; Start 03/03/17 at 14:30; Stop 03/03/17 at 14:31; Status DC Pantoprazole Sodium 80 mg/ Sodium Chloride 100 ml @ 10 mls/hr CONTINUOUS IV ; Start 03/03/17 at 15:00; Status Cancel Pantoprazole Sodium 80 mg/ Sodium Chloride 35 ml @ 420 mls/hr BOLUS ONCE IV Last administered on 03/03/17at 15:31; Start 03/03/17 at 15:00; Stop 03/03/17 at 15:04; Status DC Pantoprazole Sodium 80 mg/ Sodium Chloride 100 ml @ 10 mls/hr Q10H IV Last administered on 03/04/17at 02:10; Start 03/03/17 at 15:00; Stop 03/04/17 at 05:39 ; Status DC Prochlorperazine Edisylate (Compazine Inj) 10 mg ONCE ONCE IV PUSH Last administered on 03/03/17at 15:55; Start 03/03/17 at 15:15; Stop 03/03/17 at 15:16 ; Status DC Ceftriaxone Sodium 1000 mg/ Sodium Chloride 100 ml @ 200 mls/hr ONCE ONCE IV Last administered on 03/03/17at 17:39; Start 03/03/17 at 17:00; Stop 03/03/17 at 17:29; Status DC Iohexol (Omnipaque 350 Inj) 90 ml STK-MED ONCE IVCONTRAST Last administered on 03/03/17at 14:06; Start 03/03/17 at 14:06; Stop 03/03/17 at 16:56; Status DC Gadodiamide (Omniscan Pf Inj) 14 ml STK-MED ONCE IVCONTRAST Last administered on 03/03/17at 18:37; Start 03/03/17 at 18:37; Stop 03/03/17 at 18:40; Status DC Aspirin (Aspirin) 325 mg ONCE ONCE PO Last administered on 03/03/17at 19:40; Start 03/03/17 at 19:30; Stop 03/03/17 at 19:31; Status DC Sodium Chloride 1,000 ml @ 70 mls/hr [id number] IV Last administered on at 11:27; Start 03/03/17 at 19:30; Stop 03/04/17 at 12:57; Status DC Sodium Chloride (NS Flush) 2 ml BID IV FLUSH Last administered on 03/05/17at 08: 59; Start 03/03/17 at 21:00 Sodium Chloride (NS Flush) 2 ml UNSCH PRN IV FLUSH FLUSH AFTER USING IV ACCESS ; Start 03/03/17 at 20:15 Aspirin (Aspirin) 325 mg DAILY PO Last administered on 03/05/17at 08:58; Start 03/04/17 at 09:00 Pravastatin Sodium (Pravachol) 40 mg HS PO Last administered on 03/04/17at 20:23 ; Start 03/03/17 at 21:00 Insulin Aspart (NovoLOG SUPPLEMENTAL SCALE) 1 ACHS SQ ; Start 03/03/17 at 21:00 Dextrose (D50w (Vial) Inj) 50 ml UNSCH PRN IV PUSH HYPOGLYCEMIA-SEE COMMENTS; Start 03/03/17 at 20:15 Glucagon (Glucagon Inj) 1 mg UNSCH PRN OTHER HYPOGLYCEMIA-SEE COMMENTS; Start 03/03/17 at 20:15 Gadodiamide (Omniscan Pf Inj) 14 ml STK-MED ONCE IVCONTRAST Last administered on 03/03/17at 21:20; Start 03/03/17 at 21:20; Stop 03/03/17 at 21:21; Status DC Ceftriaxone Sodium 1000 mg/ Sodium Chloride 100 ml @ 200 mls/hr Q24H IV Last administered on 03/04/17at 17:21; Start 03/04/17 at 17:00 Pantoprazole Sodium 80 mg/ Sodium Chloride 100 ml @ 10 mls/hr CONTINUOUS IV Last administered on 03/04/17at 12:03; Start 03/04/17 at 07:00; Stop 03/04/17 at 22:31; Status DC Morphine Sulfate (Morphine Inj) 2 mg Q3H PRN IV PUSH breakthrough Last administered on 03/05/17at 03:04; Start 03/04/17 at 06:45 Acetaminophen/ Hydrocodone Bitart ([place] 5-325 Mg) 1 tab Q4H PRN PO pain 1-5 Last administered on 03/05/17at 00:59; Start 03/04/17 at 06:45 Heparin Sodium (Porcine) (Heparin Inj) 5,000 units Q12HR SQ Last administered on 03/05/17at 08:58; Start 03/04/17 at 21:00 Warfarin Sodium (Coumadin) 5 mg DAILY@1600 PO Last administered on 03/04/17at 16 :02; Start 03/04/17 at 16:00 Atorvastatin Calcium (Lipitor) 10 mg HS PO ; Start 03/04/17 at 21:00; Stop 03/04 at 21:00; Status DC Pantoprazole Sodium 80 mg/ Sodium Chloride 100 ml @ 10 mls/hr Q10H IV Last administered on 03/05/17at 08:58; Start 03/04/17 at 22:45 Acetaminophen/ Hydrocodone Bitart ([place] 10-325 Mg) 1 tab Q4H PRN PO pain 6-10 Last administered on 03/05/17at 05:10; Start 03/05/17 at 03:00 Pharmacy Profile Note 0 ml @ 0 mls/hr UNSCH OTHER ; Start 03/05/17 at 08:30 Social History nulliparas mom lives [place] single Physical Exam Vital Signs Vital Signs Date Time Temp Pulse Resp B/P (MAP) Pulse Ox O2 Delivery O2 Flow Rate FiO2 03/05/17 04:17 68 03/05/17 03:11 97.9 72 16 102/73 (83) 100 03/05/17 00:01 74 03/04/17 23:26 99.4 73 18 103/63 (76) 100 03/04/17 22:04 97 21 03/04/17 20:54 83 03/04/17 19:53 97.9 81 18 110/70 (83) 100 03/04/17 15:59 98.5 79 16 103/60 (74) 98 03/04/17 11:15 98.4 72 16 106/56 (73) Physical Exam GENERAL: Thin patient, in no apparent distress. SKIN: No rashes, ecchymoses or lesions. Cool and dry. HEAD: Atraumatic. Normocephalic. No temporal or scalp tenderness. EYES: Pupils equal round and reactive. Extraocular motions intact. No scleral icterus. No injection or drainage. NECK: Trachea midline. CARDIOVASCULAR: Regular rate and rhythm without murmurs, gallops, or rubs. RESPIRATORY: Clear to auscultation. Breath sounds equal bilaterally. No wheezes , rales, or rhonchi. GASTROINTESTINAL: Abdomen firm and distended, pain to right lower quad MUSCULOSKELETAL: Extremities without clubbing, cyanosis, or edema. weakness to left upper and lower ext NEUROLOGICAL: Awake and alert. confused with flight of ideas, weakness to left upper and lower ext Laboratory Laboratory Tests Test 03/04/17 14:49 03/05/17 05:35 Iron Level 23 Total Iron Binding Capacity 189 Percent Iron Saturation 12.2 Total Creatine Kinase 168 Troponin I 0.10 Total Protein 7.0 Vitamin B12 Level 486 Folate 5.3 Free Thyroxine 1.26 Thyroid Stimulating Hormone 3rd Gen 2.670 Prothrombin Time 12.2 Prothromb Time International Ratio 1.2 Date/Time Source Procedure Growth Status 03/03/17 14:33 Urine Catheterized Urine Urine Culture - Preliminary Gram Negative [facility] D Enterococcus Resulted Result Diagram: 03/03/17 1430 03/03/17 1430 Imaging Last Impressions Abdomen/Pelvis CT 03/03/17 1419 Signed Impressions: Service Date/Time: Friday, March 03, 2017 16:32 - CONCLUSION: 1. Large cystic and solid mass in the pelvis extending into the abdomen could be ovarian carcinoma. There is peritoneal carcinomatosis and multiple low-density liver lesions likely metastatic disease. 2. Large volume ascites. Harmeet Best MD Neck Magnetic Resonance Angiography 03/03/17 0000 Signed Impressions: Service Date/Time: Friday, March 03, 2017 21:13 - CONCLUSION: 1. Multiple carotid arteries. Harmeet Best MD Head Magnetic Resonance Angiography 03/03/17 0000 Signed Impressions: Service Date/Time: Friday, March 03, 2017 21:13 - CONCLUSION: 1. No large vessel stenosis or aneurysm. 2. Normal variant as described above. Harmeet Best MD Head CT 03/03/17 0000 Signed Impressions: Service Date/Time: Friday, March 03, 2017 16:24 - CONCLUSION: Large air low attenuation right frontal lobe could be acute infarct versus edema from underlying mass. Contrast MRI recommended. Harmeet Best MD Brain MRI 03/03/17 0000 Signed Impressions: Service Date/Time: Friday, March 03, 2017 18:22 - CONCLUSION: 1. Prominent infarct in the right parietal and right temporal lobe. No midline shift or mass effect. 2. A few scattered foci of acute infarcts are seen within the left parietal, right occipital and both vertebral hemispheres. Embolic source is suggested. Harmeet Best MD Assessment and Plan Problem List: (1) Abdominal mass ICD Codes: R19.00 - Intra-abdominal and pelvic swelling, mass and lump, unspecified site Plan: BX of abdominal mass performed during prior hospitalization shown moderately differentiated adenocarcinoma. attempted to discuss IV chemotherapy with Ms. Gomes but she seemed confused and unable to concentrate on our discussion having flight of ideas. Ms. Gomes is a poor surgical candidate at this time given recent stroke and extent of disease with mets to liver. I explained to her that no matter what treatment is agreed on that it would be palliative, unlikely curative given the extent of disease with probable mets to the liver. She agreed to Palliative Care consult to help clarify goals, establish DNR status and help with obtaining health care surrogate in case she is unable to make medical decisions for herself. She would have to be cleared from a neurology standpoint to consider IV chemotherapy given her recent stroke with resulting left sided weakness. (2) Stroke ICD Codes: I63.9 - Cerebral infarction, unspecified Status: Acute Plan: neurology following Coumadin PT/OT fall risk (3) ETOH abuse ICD Codes: F10.10 - Alcohol abuse, uncomplicated Plan: patient states that she quit drinking and smoking after her last admission Problem Qualifiers (1) Stroke: Qualified Codes: I63.10 - Cerebral infarction due to embolism of unspecified precerebral artery (2) Abdominal mass: Qualified Codes: R19.07 - Generalized intra-abdominal and pelvic swelling, mass and lump Swapnil Vázquez Mar 05, 2017 09:58
--- NOTE | 2017-03-05 10:40 | PD.ONC.PN ---
Subjective Subjective Remarks Afebrile overnight. Patient resting in room, anxious. reports some improvement in strength of left arm. Endorses abdominal pain. Objective Data Date Time Temp Pulse Resp B/P (MAP) Pulse Ox O2 Delivery O2 Flow Rate FiO2 03/05/17 09:10 98.6 82 18 100/78 (85) 100 03/05/17 04:17 68 03/05/17 03:11 97.9 72 16 102/73 (83) 100 03/05/17 00:01 74 03/04/17 23:26 99.4 73 18 103/63 (76) 100 03/04/17 22:04 97 21 03/04/17 20:54 83 03/04/17 19:53 97.9 81 18 110/70 (83) 100 03/04/17 15:59 98.5 79 16 103/60 (74) 98 03/04/17 11:15 98.4 72 16 106/56 (73) 03/05/17 03/05/17 03/05/17 07:00 15:00 23:00 Intake Total 1060 ml Balance 1060 ml Result Diagram: 03/03/17 1430 03/03/17 1430 Laboratory Results Laboratory Tests Test 03/04/17 14:49 03/05/17 05:35 Iron Level 23 MCG/DL Total Iron Binding Capacity 189 MCG/DL Percent Iron Saturation 12.2 % Total Creatine Kinase 168 U/L Troponin I 0.10 NG/ML Total Protein 7.0 GM/DL Vitamin B12 Level 486 PG/ML Folate 5.3 NG/ML Free Thyroxine 1.26 NG/DL Thyroid Stimulating Hormone 3rd Gen 2.670 uIU/ML Rapid Plasma Reagin NON-REACTIVE Prothrombin Time 12.2 SEC Prothromb Time International Ratio 1.2 RATIO Culture Results Microbiology Date/Time Source Procedure Growth Status 03/03/17 14:33 Urine Catheterized Urine Urine Culture - Preliminary Gram Negative Rajesh Group D Enterococcus Resulted Administered Medications Medications (Trade) Dose Ordered Sig/Raquel Route PRN Reason Start Time Stop Time Status Last Admin Dose Admin Sodium Chloride (NS Flush) 2 ml BID IV FLUSH 03/03/17 21:00 03/05/17 08:59 Aspirin (Aspirin) 325 mg DAILY PO 03/04/17 09:00 03/05/17 08:58 Pravastatin Sodium (Pravachol) 40 mg HS PO 03/03/17 21:00 03/04/17 20:23 Ceftriaxone Sodium 1000 mg/ Sodium Chloride 100 ml @ 200 mls/hr Q24H IV 03/04/17 17:00 03/04/17 17:21 Morphine Sulfate (Morphine Inj) 2 mg Q3H PRN IV PUSH breakthrough 03/04/17 06:45 03/05/17 03:04 Acetaminophen/ Hydrocodone Bitart ([place] 5-325 Mg) 1 tab Q4H PRN PO pain 1-5 03/04/17 06:45 03/05/17 00:59 Heparin Sodium (Porcine) (Heparin Inj) 5,000 units Q12HR SQ 03/04/17 21:00 03/05/17 08:58 Warfarin Sodium (Coumadin) 5 mg DAILY@1600 PO 03/04/17 16:00 03/04/17 16:02 Pantoprazole Sodium 80 mg/ Sodium Chloride 100 ml @ 10 mls/hr Q10H IV 03/04/17 22:45 03/05/17 08:58 Acetaminophen/ Hydrocodone Bitart ([place] 10-325 Mg) 1 tab Q4H PRN PO pain 6-10 03/05/17 03:00 03/05/17 10:24 Objective Remarks GENERAL: chronically ill appearing female, lying in bed resting. SKIN: Warm and dry. HEAD: Normocephalic. EYES: No injection or drainage. NECK: Supple, trachea midline. CARDIOVASCULAR: Regular rate and rhythm RESPIRATORY: Breath sounds equal bilaterally. No accessory muscle use. GASTROINTESTINAL: abdomen is distended, tender to palpation throughout. EXTREMITIES: No cyanosis NEUROLOGICAL: awake and alert, normal speech. left sided weakness. Assessment/Plan Problem List: (1) Stroke ICD Codes: I63.9 - Cerebral infarction, unspecified Status: Acute Plan: --on heparin prophylaxis and coumadin 5mg PO daily --Brain MRI with prominent infarct in the right parietal and right temporal lobe with no midline shift or mass effect. --started on aspirin. --Neurology team recommends anticoagulation and physical therapy. 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 --check CBC today Assessment 56y/o female admitted with embolic stroke. h/o Peritoneal carcinomatosis. Ascites. 15.5 x 13.8 cm adnexal mass. elevated CA 125 h/o alcoholic liver disease Plan 1. consult [facility] oncology 2. check CBC today Attending Statement The exam, history, and the medical decision-making described in the above note were completed with the assistance of the mid-level provider. I reviewed and agree with the findings presented. I attest that I had a [id number] encounter with the patient on the same day, and personally performed and documented my assessment and findings in the medical record. Pt seen and examined. Left sided weakness. Cont on Coumadin as secondary prophylaxis. Pending consult w/ Dr. Ortega. Interested in palliative treatment, discussed that she needs to be relatively strong and fit to benefit from chemo. Noted GI evaluation negative, however, bx of pelvic mass suggest GI primary, does not r/o [facility] origin. Neurology consulting. Defer to Dr. Ortega palliative tx. Problem Qualifiers (1) Stroke: Qualified Codes: I63.10 - Cerebral infarction due to embolism of unspecified precerebral artery Berkley Álvarez Mar 05, 2017 10:40 Malika Jeter MD Mar 05, 2017 17:55
[2017-03-05 11:42] LABS: HEMATOCRIT 24.7 % (35.0-46.0); HEMOGLOBIN 8.4 GM/DL (11.6-15.3); MEAN CELL VOLUME 100.7 FL (80.0-100.0); MEAN CORPUSCULAR HEMOGLOBIN 34.3 PG (27.0-34.0); MEAN CORPUSCULAR HGB CONC 34.1 % (32.0-36.0); MEAN PLATELET VOLUME 8.6 FL (7.0-11.0); PLATELET COUNT 476 TH/MM3 (150-450); RED BLOOD COUNT 2.45 MIL/MM3 (4.00-5.30); RED CELL DISTRIBUTION WIDTH 18.2 % (11.6-17.2); WHITE BLOOD COUNT 8.8 TH/MM3 (4.0-11.0)
--- NOTE | 2017-03-05 11:46 | HHI.GIFU ---
Subjective Remarks Pt resting in bed in NAD, napping with lunch menu. SHe denies any GI bleeding, abd pain, n/v. Goes off on tangents but I was able to converse with her. (Jannette Romero) Objective Vitals I&O Vital Signs Date Time Temp Pulse Resp B/P (MAP) Pulse Ox O2 Delivery O2 Flow Rate FiO2 03/05/17 09:10 98.6 82 18 100/78 (85) 100 03/05/17 04:17 68 03/05/17 03:11 97.9 72 16 102/73 (83) 100 03/05/17 00:01 74 03/04/17 23:26 99.4 73 18 103/63 (76) 100 03/04/17 22:04 97 21 03/04/17 20:54 83 03/04/17 19:53 97.9 81 18 110/70 (83) 100 03/04/17 15:59 98.5 79 16 103/60 (74) 98 I/O 03/04/17 03/04/17 03/04/17 03/05/17 03/05/17 03/05/17 07:00 15:00 23:00 07:00 15:00 23:00 Intake Total 1175 ml 480 ml 1060 ml Balance 1175 ml 480 ml 1060 ml Intake Oral 480 ml 120 ml IV Total 1175 ml 940 ml # Voids 1 3 # Bowel Movements 0 Laboratory Laboratory Tests Test 03/04/17 14:49 03/05/17 05:35 03/05/17 11:15 Iron Level 23 Total Iron Binding Capacity 189 Percent Iron Saturation 12.2 Total Creatine Kinase 168 Troponin I 0.10 Total Protein 7.0 Vitamin B12 Level 486 Folate 5.3 Free Thyroxine 1.26 Thyroid Stimulating Hormone 3rd Gen 2.670 Rapid Plasma Reagin NON-REACTIVE Prothrombin Time 12.2 Prothromb Time International Ratio 1.2 Date/Time Source Procedure Growth Status 03/03/17 14:33 Urine Catheterized Urine Urine Culture - Preliminary Escherichia Coli Group D Enterococcus Resulted Imaging Last Impressions Abdomen/Pelvis CT 03/03/17 4694 Signed Impressions: Service Date/Time: Friday, March 03, 2017 16:32 - CONCLUSION: 1. Large cystic and solid mass in the pelvis extending into the abdomen could be ovarian carcinoma. There is peritoneal carcinomatosis and multiple low-density liver lesions likely metastatic disease. 2. Large volume ascites. Harmeet Best MD Neck Magnetic Resonance Angiography 03/03/17 0000 Signed Impressions: Service Date/Time: Friday, March 03, 2017 21:13 - CONCLUSION: 1. Multiple carotid arteries. Harmeet Best MD Head Magnetic Resonance Angiography 03/03/17 0000 Signed Impressions: Service Date/Time: Friday, March 03, 2017 21:13 - CONCLUSION: 1. No large vessel stenosis or aneurysm. 2. Normal variant as described above. Harmeet Best MD Head CT 03/03/17 0000 Signed Impressions: Service Date/Time: Friday, March 03, 2017 16:24 - CONCLUSION: Large air low attenuation right frontal lobe could be acute infarct versus edema from underlying mass. Contrast MRI recommended. Harmeet Best MD Brain MRI 03/03/17 0000 Signed Impressions: Service Date/Time: Friday, March 03, 2017 18:22 - CONCLUSION: 1. Prominent infarct in the right parietal and right temporal lobe. No midline shift or mass effect. 2. A few scattered foci of acute infarcts are seen within the left parietal, right occipital and both vertebral hemispheres. Embolic source is suggested. Harmeet Best MD Physical Exam HEENT: PERRL; normocephalic; atraumatic; no jaundice. CHEST: expiratory wheezing CARDIAC: RRR ABDOMEN: semifirm, distended, nontender; no hepatosplenomegaly; bowel sounds are present in all four quadrants. EXTREMITIES: No clubbing, cyanosis, or edema. SKIN: Normal; no rash; no jaundice. 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 BX from EGD Demonstrated adenocarcinoma, bx from colon benign. CT of abd/pel 03/03/17 showed large cystic and solid mass in the pelvis extending into the abdomen could be ovarian carcinoma, There is peritoneal carcinomatosis and multiple low density liver lesions like metastatic dx, large volume ascites. - Hematemesis/coffee ground emesis- She had approx. 3 episodes today, no more episodes. States she has quit smoking and drinking sine last hospital visit. PPI drip, hh 10.8/32.3. Denies melena or hematochezia - CT above demonstrated cancer with mets to liver and pelvis - Ischemic stroke- Neurology on the case and recommended Coumadin and heparin. - Ascites- no candidate for diuretics now in light of stroke, LFTs wnl 03/05/17 - no n/v, bleeding today. todays HH is pending. 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 could do palliative chemo if neuro clearance. palliative care has been consulted. has bilat CVA per neurology Plan: - Diet per attending - EGD on emergent basis - protonix gtt - Monitor hh - Transfuse as needed - Notify GI for active bleed - Poor prognosis - Patient seen and examined by Dr. Oates and myself and this note is written on his behalf. (Jannette Romero) Physician Comments Seen and examined with [facility], no active bleeding at this time. Monitor labs. Repeat egd if further bleeding. Last egd showed esophageal ulcers. 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 Protonix. Will follow. (Ben Oates MD) Jannette Romero Mar 05, 2017 11:46 Ben Oates MD Mar 05, 2017 17:35
--- NOTE | 2017-03-05 15:43 | PD.CONS ---
Consult Service Palliative Care . Consult Requested By Dr. Ortega/ EVERTON Watters . Primary Care Physician Unknown . Reason for Consultation a. To assist with evaluation and management of symptoms including: abdominal pain. b. To assist medical decision maker(s) with: better understanding of current medical conditions; weighing benefits/burdens of medical treatment options; making medical treatment decisions. . (JovonClaudia) HPI History of Present Illness Miss Gomes is a 56 year old female with past medical history of seizures, alcoholic liver disease, arthritis and prior alcohol abuse (stopped recently). She was recently admitted for G.I. bleed. 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 GI performed BX to esophagus. stomach and colon. Colon polyps were without significant histopathological abnormalities. Stomach biopsy shown gastritis and neg for H pylori, esophagus biopsy shown ulcerative esophagitis. CA-125 was elevated at 89.8. Patient was discharged with instructions to follow up with oncology, though failed to do so (reasons unclear). She was discharged on Macrobid and Protonix, was unable to fill due to financial reasons. Patient presented to [facility] emergency department on 03/03/17 with left- sided weakness, increasing abdominal pain and vomiting for 3 days. Additional findings: * MRA neck - carotid arteries without stenosis. * MRA head - no large vessel stenosis or aneurysm. * MRI of the brain - prominent infarct in the right parietal and right temporal lobe, no midline shift or mass effect, few scattered foci of acute infarcts are also seen within the left parietal, right occipital and both vertebral hemispheres, embolic source suggested. * CT abdomen/pelvis - large cystic and solid mass (15.5 x 13.8) in the pelvis extending into the abdomen, peritoneal carcinomatosis (multiple peritoneal and elemental masses) and multiple low-density liver lesions likely metastatic disease, large volume ascites. * Echocardiogram - EF 55 60% [address] Montanez, neurologist was consulted for multiple infarcts, likely cardioembolic, probably secondary to hypercoagulable state, recommended Coumadin. Gastroenterology was consulted for abnormal CT findings, vomiting and prior G.I. bleed with recommendations for possible EGD. Medical oncology, Dr. Sanders was consulted for peritoneal carcinomatosis, adnexal mass, ascites with recommendation for [facility] [facility] oncology consultation. [facility] oncology, Dr. Ortega consulted, notes indicate she is not a candidate for surgical resection given recent stroke and advanced disease. She does not appear to be a good candidate for a palliative chemotherapy given recent stroke, social circumstances, inability to afford medication and make follow-up appointments. Palliative care was consulted to assist with further clarification of treatment goals, to establish DNR and healthcare surrogate designation. . Function/Cognitive Trajectory Patient lives with her roommate Hank for the past 17 years. She reports that they take care of each other and make sure they get to their appointments. She has had some ongoing financial issues making obtaining medications difficult. . (Claudia Sigala) Review of Systems Constitutional: COMPLAINS OF: Fatigue, Change in appetite (decreased), Generalized weakness Respiratory: COMPLAINS OF: Shortness of breath Gastrointestinal: COMPLAINS OF: Abdominal pain, Nausea, Vomiting, Anorexia, Dyspepsia or heartburn, Bloating, Vomiting blood Hematologic/Lymphatics: COMPLAINS OF: Bruising Neurologic: COMPLAINS OF: Localized weakness (left-sided weakness) Psychiatric: COMPLAINS OF: Anxiety (Claudia Sigala) Past Family Social History Coded Allergies: No Known Allergies (Verified Allergy, Unknown, 02/14/17) Past Medical History abdominal cancer Arthritis seizures alcohol abuse alcoholic liver disease . Past Surgical History Patient denies any surgical history Reported Medications Reported Meds & Active Scripts Active Hydrocodone-Acetamin 5-325 mg (Hydrocodone/Acetaminophen) 5 Mg-325 Mg Tablet 1 Tab PO Q4H PRN . Current Medications Medications (Trade) Dose Ordered Sig/Raquel Route Start Time Stop Time Status Last Admin (NS Flush) 2 ml BID IV FLUSH 03/03/17 21:00 03/05/17 08:59 (NS Flush) 2 ml UNSCH PRN IV FLUSH 03/03/17 20:15 (Aspirin) 325 mg DAILY PO 03/04/17 09:00 03/05/17 08:58 (Pravachol) 40 mg HS PO 03/03/17 21:00 03/04/17 20:23 (NovoLOG SUPPLEMENTAL SCALE) 1 ACHS SQ 03/03/17 21:00 (D50w (Vial) Inj) 50 ml UNSCH PRN IV PUSH 03/03/17 20:15 (Glucagon Inj) 1 mg UNSCH PRN OTHER 03/03/17 20:15 Ceftriaxone Sodium 1000 mg/ Sodium Chloride 100 ml @ 200 mls/hr Q24H IV 03/04/17 17:00 03/04/17 17:21 (Morphine Inj) 2 mg Q3H PRN IV PUSH 03/04/17 06:45 03/05/17 03:04 (Hamlet 5-325 Mg) 1 tab Q4H PRN PO 03/04/17 06:45 03/05/17 00:59 (Heparin Inj) 5,000 units Q12HR SQ 03/04/17 21:00 03/05/17 08:58 (Coumadin) 5 mg DAILY@1600 PO 03/04/17 16:00 03/04/17 16:02 Pantoprazole Sodium 80 mg/ Sodium Chloride 100 ml @ 10 mls/hr Q10H IV 03/04/17 22:45 03/05/17 08:58 (Hamlet 10-325 Mg) 1 tab Q4H PRN PO 03/05/17 03:00 03/05/17 14:31 Pharmacy Profile Note 0 ml @ 0 mls/hr UNSCH OTHER 03/05/17 08:30 Family History Father with history of bladder cancer. Mother with history of breast cancer, mother is still alive. . Substance Use Tobacco: quit smoking 2 months ago, previously smoked 1/2 PPD. Alcohol: quit drinking 2 months ago, previously drank 1 pint daily. Prescription med abuse: has ordered PRN hydrocodone. Illicits: none. . (Claudia Sigala) Psychosocial History Ms. Gomes is originally from [place], never been and has no children. Mother and sister still live in [place] and remain in contact. Ms. Gomes has lived with her best friend, Hank Conn, for the past 17 years. Reports they took care of one another to ensure they went to their medical appointments. She had a boyfriend on hospice services and reports this was a positive experience for him and for her. States she really enjoyed riding her bicycle when she was still able to do so. . Spiritual/Cultural Factors None known. . (Dacia Ragsdale GROUP THERAPY COUNSELOR, CAR BUILDER) Health Care Surrogate: Copy in medical record Family/friends goals: Patient requested she have time to speak with her mother before palliative care contacts her, agreed we can call her on 03/06/17. . Ethical and Legal Issues Patient is currently capacitated to make her own health care decisions. Should she lose this capacity, patient has designated her mother Ana Laura Dudley as Primary Health Care Surrogate and her friend, Hank Conn as alternate Health Care Surrogate. . (Claudia Sigala) Living Will: Never completed Health Care Surrogate: Copy in medical record Durable Power of Rn Complex Care: Never completed Date completed: 03/05/17 . Health Care Surrogate(s): Primary Health Care Surrogate: Ana Laura Dudley, mother: [phone] Alternate Health Care Surrogate: Hank Conn, friend: [phone] . Today's verbally stated goals: Ms. Gomes would like to hear from oncology team, Dr. Ortega and Swapnil Vázquez regarding her potential ability to tolerate and benefit from possible treatment options. Considering CODE STATUS, will benefit from ongoing conversations and to hear from the medical team on such. Also wishing to speak with her mother to further discuss. . (Dacia Ragsdale GROUP THERAPY COUNSELOR, CAR BUILDER) Physical Exam Vital Signs Date Time Temp Pulse Resp B/P (MAP) Pulse Ox O2 Delivery O2 Flow Rate FiO2 03/05/17 12:44 98.8 74 16 100/70 (80) 100 03/05/17 12:30 83 03/05/17 09:10 98.6 82 18 100/78 (85) 100 03/05/17 04:17 68 03/05/17 03:11 97.9 72 16 102/73 (83) 100 03/05/17 00:01 74 03/04/17 23:26 99.4 73 18 103/63 (76) 100 03/04/17 22:04 97 21 03/04/17 20:54 83 03/04/17 19:53 97.9 81 18 110/70 (83) 100 03/04/17 15:59 98.5 79 16 103/60 (74) 98 Exam CONSTITUTIONAL/GENERAL: This is a thin female patient, somewhat manic in her speech/ though process. TUBES/LINES/DRAINS: PIV. SKIN: No jaundice, rashes, or lesions. Ecchymoses on upper extremities. No wounds seen anteriorly. Skin temperature appropriate. Not diaphoretic. HEAD: Atraumatic. Normocephalic. EYES: Pupils equal and round and reactive. No scleral icterus. No injection or drainage. ENT: Hearing grossly normal. Nose without bleeding or purulent drainage. Throat without visible erythema, exudates, masses, or lesions. NECK: Trachea midline. CARDIOVASCULAR: Regular rate and rhythm without murmurs, gallops, or rubs. No JVD. Peripheral pulses symmetric. RESPIRATORY/CHEST: Symmetric, unlabored respirations. Clear to auscultation. Breath sounds equal bilaterally. No wheezes, rales, or rhonchi. GASTROINTESTINAL: Abdomen firm, tender right LQ and umbilical area, distended. Palpable masses. Bowel sounds present. GENITOURINARY: Without palpable bladder distension. MUSCULOSKELETAL: Left upper extremity weakness, some movement noted of hand, left LE weakness able to move slowing. No mottling or clubbing. NEUROLOGICAL: Awake and alert. Manic. has insight and judgement to illness, able to explain her illness and option of chemo vs hospice. PSYCHIATRIC: Speech rapid. . (Claudia Sigala) Diagnostic Tests Laboratory Laboratory Tests Test 03/03/17 14:00 03/03/17 14:30 03/03/17 14:33 03/04/17 03:25 Urine Opiates Screen POS (NEG) Urine Barbiturates Screen NEG (NEG) Urine Amphetamines Screen NEG (NEG) Urine Benzodiazepines Screen POS (NEG) Urine Cocaine Screen NEG (NEG) Urine Cannabinoids Screen NEG (NEG) White Blood Count 15.7 TH/MM3 (4.0-11.0) Red Blood Count 3.20 MIL/MM3 (4.00-5.30) Hemoglobin 10.8 GM/DL (11.6-15.3) Hematocrit 32.3 % (35.0-46.0) Mean Corpuscular Volume 100.9 FL (80.0-100.0) Mean Corpuscular Hemoglobin 33.9 PG (27.0-34.0) Mean Corpuscular Hemoglobin Concent 33.6 % (32.0-36.0) Red Cell Distribution Width 17.5 % (11.6-17.2) Platelet Count 446 TH/MM3 (150-450) Mean Platelet Volume 8.6 FL (7.0-11.0) Neutrophils (%) (Auto) 87.0 % (16.0-70.0) Lymphocytes (%) (Auto) 8.0 % (9.0-44.0) Monocytes (%) (Auto) 4.8 % (0.0-8.0) Eosinophils (%) (Auto) 0.0 % (0.0-4.0) Basophils (%) (Auto) 0.2 % (0.0-2.0) Neutrophils # (Auto) 13.7 TH/MM3 (1.8-7.7) Lymphocytes # (Auto) 1.3 TH/MM3 (1.0-4.8) Monocytes # (Auto) 0.8 TH/MM3 (0-0.9) Eosinophils # (Auto) 0.0 TH/MM3 (0-0.4) Basophils # (Auto) 0.0 TH/MM3 (0-0.2) CBC Comment DIFF FINAL Differential Comment Prothrombin Time 11.4 SEC (9.8-11.6) Prothromb Time International Ratio 1.1 RATIO Activated Partial Thromboplast Time 28.4 SEC (24.3-30.1) Blood Urea Nitrogen 16 MG/DL (7-18) Creatinine 0.76 MG/DL (0.50-1.00) Random Glucose 134 MG/DL (74-106) Total Protein 7.9 GM/DL (6.4-8.2) Albumin 2.5 GM/DL (3.4-5.0) Calcium Level 8.7 MG/DL (8.5-10.1) Alkaline Phosphatase 84 U/L (45-117) Aspartate Amino Transf (AST/SGOT) 33 U/L (15-37) Alanine Aminotransferase (ALT/SGPT) 13 U/L (10-53) Total Bilirubin 0.9 MG/DL (0.2-1.0) Sodium Level 133 MEQ/L (136-145) Potassium Level 3.9 MEQ/L (3.5-5.1) Chloride Level 96 MEQ/L (98-107) Carbon Dioxide Level 27.8 MEQ/L (21.0-32.0) Anion Gap 9 MEQ/L (5-15) Estimat Glomerular Filtration Rate 79 ML/MIN (>89) Hemoglobin A1c 5.1 % (4.3-6.0) Lactic Acid Level 2.2 mmol/L (0.4-2.0) Lipase 41 U/L (73-393) Urine Color LIGHT-BROWN (YELLW/STRAW) Urine Turbidity HAZY (CLEAR) Urine pH 5.5 (5.0-8.5) Urine Specific [place] 1.024 (1.002-1.035) Urine Protein 30 mg/dL (NEG-TRACE) Urine Glucose (UA) NEG mg/dL (NEG) Urine Ketones TRACE mg/dL (NEG) Urine Occult Blood TRACE (NEG) Urine Nitrite NEG (NEG) Urine Bilirubin NEG (NEG) Urine Urobilinogen 2.0 MG/DL (LESS THAN Urine Leukocyte Esterase LARGE (NEG) Urine RBC 2 /hpf (0-3) Urine WBC 3 /hpf (0-5) Urine Squamous Epithelial Cells <1 /hpf (0-5) Urine Bacteria MANY /hpf (NONE) Urine Mucus FEW /lpf (OCC) Microscopic Urinalysis Comment CATH-CULTURE IND Triglycerides Level 77 MG/DL (42-150) Cholesterol Level 81 MG/DL (120-200) LDL Cholesterol 44 MG/DL (0-99) HDL Cholesterol 21.2 MG/DL (40.0-60.0) Cholesterol/HDL Ratio 3.82 RATIO Test 03/04/17 14:49 03/05/17 05:35 03/05/17 11:15 Iron Level 23 MCG/DL (50-170) Total Iron Binding Capacity 189 MCG/DL (250-450) Percent Iron Saturation 12.2 % (20-50) Total Creatine Kinase 168 U/L (26-192) Troponin I 0.10 NG/ML (0.02-0.05) Total Protein 7.0 GM/DL (6.0-7.6) Vitamin B12 Level 486 PG/ML (193-986) Folate 5.3 NG/ML (3.1-17.5) 5.6 NG/ML (3.1-17.5) Free Thyroxine 1.26 NG/DL (0.76-1.46) Thyroid Stimulating Hormone 3rd Gen 2.670 uIU/ML (0.358-3.740) Rapid Plasma Reagin NON-REACTIVE (NON-REACTVE) Prothrombin Time 12.2 SEC (9.8-11.6) Prothromb Time International Ratio 1.2 RATIO White Blood Count 8.8 TH/MM3 (4.0-11.0) Red Blood Count 2.45 MIL/MM3 (4.00-5.30) Hemoglobin 8.4 GM/DL (11.6-15.3) Hematocrit 24.7 % (35.0-46.0) Mean Corpuscular Volume 100.7 FL (80.0-100.0) Mean Corpuscular Hemoglobin 34.3 PG (27.0-34.0) Mean Corpuscular Hemoglobin Concent 34.1 % (32.0-36.0) Red Cell Distribution Width 18.2 % (11.6-17.2) Platelet Count 476 TH/MM3 (150-450) Mean Platelet Volume 8.6 FL (7.0-11.0) Ferritin 1092 NG/ML (8-252) Beta HCG, Qualitative 62 MIU/ML (0-5) (Claudia Sigala) Result Diagram: 03/05/17 1115 03/03/17 1430 Microbiology Microbiology Date/Time Source Procedure Growth Status 03/03/17 14:33 Urine Catheterized Urine Urine Culture - Preliminary Escherichia Coli Enterococcus Faecalis Resulted Imaging Last Impressions Abdomen/Pelvis CT 03/03/17 1419 Signed Impressions: Service Date/Time: Friday, March 03, 2017 16:32 - CONCLUSION: 1. Large cystic and solid mass in the pelvis extending into the abdomen could be ovarian carcinoma. There is peritoneal carcinomatosis and multiple low-density liver lesions likely metastatic disease. 2. Large volume ascites. Harmeet Best MD Neck Magnetic Resonance Angiography 03/03/17 0000 Signed Impressions: Service Date/Time: Friday, March 03, 2017 21:13 - CONCLUSION: 1. Multiple carotid arteries. Harmeet Best MD Head Magnetic Resonance Angiography 03/03/17 0000 Signed Impressions: Service Date/Time: Friday, March 03, 2017 21:13 - CONCLUSION: 1. No large vessel stenosis or aneurysm. 2. Normal variant as described above. Harmeet Best MD Head CT 03/03/17 0000 Signed Impressions: Service Date/Time: Friday, March 03, 2017 16:24 - CONCLUSION: Large air low attenuation right frontal lobe could be acute infarct versus edema from underlying mass. Contrast MRI recommended. Harmeet Best MD Brain MRI 03/03/17 0000 Signed Impressions: Service Date/Time: Friday, March 03, 2017 18:22 - CONCLUSION: 1. Prominent infarct in the right parietal and right temporal lobe. No midline shift or mass effect. 2. A few scattered foci of acute infarcts are seen within the left parietal, right occipital and both vertebral hemispheres. Embolic source is suggested. Harmeet Best MD (Claudia Sigala) Patient/Family Conference Present at Family Conference: Met with patient, also present Dacia Ragsdale LCSW. . Family Conference Time (mins): 90 Family Conference Location: Bedside Issues Discussed: * Palliative care role, purpose, approach * Additional medical, psychosocial, and spiritual history * Patients general health, functional status, and cognitive changes in the months leading up to the current hospitalization * Patient/family understanding of the current medical problems * Patient/family understanding of prognosis * Patients goals of care as best understood from advance directives and/or conversations and/or values * Current medical treatment options and benefits/burdens of those options * Likely scenarios comparing ongoing aggressive care with a transition to comfort measures only * Questions answered to the best of my ability * Palliative care contact information provided Considering her options, including code status, chemo vs hospice. She needs to speak with her mother, Ana Laura. Patient requests I not call her mother until she has had a chance to speak with her. . (Claudia Sigala) Assessment and Plan Disease Oriented Problem List: (1) Peritoneal carcinomatosis (2) Macrocytic anemia (3) Abdominal mass (4) Stroke Symptom Scale: (1) Abdominal pain 0-10 Scale: 8 Comment: sharp, constant pain in right abdomen "due to tumor" Pertinent Non-Medical Issues Psychosocial: Spiritual: Legal: Ethical issues impacting care: Important Contacts * Primary Health Care Surrogate: Ana Laura Dudley, mother: [phone] * Alternate Health Care Surrogate: Hank Conn, friend: [phone] . Prognosis Overall prognosis is poor given advanced cancer, recent stroke and left sided weakness. . Code Status: Full Code Plan * Decision Maker: Patient appears capacitated to make her healthcare decisions. Completed designation of healthcare surrogate naming her mother, Ana Laura as primary HCS and friend Hank as alternate HCS in the event she loses capacity. * FULL CODE - patient considering code status, would like to speak with her mother prior to making this decision. * Palliative care met with patient. Also present Dacia Ragsdale LCSW. Patient is considering her treatment options, seems like she would consider chemotherapy if doctors could tell her it was going to provide benefit. Alternatively if the oncologist told her that it would not provide any benefit she is also open to hospice services. Patient's boyfriend on [facility] in [facility], she remembers this as positive experience for this patient. SYMPTOMS: Pain: in abdomen due to mets cancer, ascites, large pelvic mass, peritoneal carcinomatosis, liver disease and recent stroke. Has PRN Hydrocodone 10/325 every 4 hours PRN pain available. Has had 3 doses today, will monitor need and effect. No new recommendations at this time. * Palliative care will continue to follow throughout hospital course to assist with symptom management and clarification of goals as needed. (Claudia Sigala) Thank you for the opportunity to participate in the care of Ms. Gomes. (Claudia Sigala) Attestation To help prompt me to consider important information that might be impacting today's encounter and assessment, information from prior notes written by myself or my colleagues may have been "brought forward" into today's note. My signature on this note, however, is an attestation that I personally performed the exam, history, and/or decision-making noted today, and, unless otherwise indicated, the interactions with patient, family, and staff as well as the review of records all occurred today. I also attest that the listed assessment and stated plan reflect my best clinical judgment today based on the combination of historical information, prior notes, and today's exam/ interactions. When time spent is documented, it refers only to time spent today by the signer, or if indicated, combined time spent today by collaborating physician/nurse practitioner. (Claudia Sigala) Claudia Sigala Mar 05, 2017 15:43 Dacia Ragsdale GROUP THERAPY COUNSELOR, CAR BUILDER Mar 05, 2017 15:55
[2017-03-05 16:23] LABS: ANA SCREEN NEG (NEG)
[2017-03-05 16:41] LABS: CARCINOEMBRYONIC ANTIGEN 20.9 NG/ML (0.2-5.0)
[2017-03-05 17:28] LABS: CA 15-3 22.5 U/ML (0.0-32.4)
[2017-03-05] MEDS: cefTRIAXone INJ 1,000 MG in SODIUM CHLORIDE 0.9% INJ 100 ML IV SCH (18:49)
[2017-03-05] MEDS: WARFARIN SOD 5 MG TAB PO SCH (18:49)
--- NOTE | 2017-03-05 19:35 | MB ---
cc: [place] SUBRAMANIAN MD, LYDIA T. MD DEVERAS,TOREY Lane M.D. DATE OF CONSULTATION 03/05/2017 [employer]DEL BUIL[employer]PLAY oncology consult REQUESTING PHYSICIAN Dr. Imelda Wiggins REASON FOR CONSULTATION Intraperitoneal carcinomatosis, multiple masses, ascites, multifocal liver nodules suspicious for metastatic disease. This patient is seen. Her findings are reviewed. She is counseled by me and examined by me in conjunction with our nurse practitioner ( Swapnil Vázquez ) I agree with her findings, assessment and plan of care. This is a 56-year-old female who was admitted due to signs and symptoms of a stroke. Imaging has confirmed stroke and she has left-sided neuromuscular deficit predominately that has shown some improvement by her report since admission but still with marked deficit. Apparently she was seen recently at [facility] where found to have a mass-like effects in the pelvis, abdomen, ascites, intraperitoneal carcinomatosis, omental tumor, liver nodules suspicious for extensive disease and given the pelvic mass (masses) there is concern about possible gynecologic origin of her tumor. She was to followup with me as an outpatient, however, she had not yet made it to our office. She is seen now admitted to the hospital after having acute changes of stroke. She is admitted now for further evaluation and recommendations. Additional information CT scan was repeated abdomen and pelvis which confirms the aforementioned findings. She has also had a central imaging that confirms a recent stroke including a brain MRI which shows a prominent infarct in the right parietal and right temporal lobe. No midline shift or mass effect. There are a few scattered foci of acute infarction seen in the left parietal, right occipital and both vertebral hemispheres embolic source is suggested. LABORATORY DATA None of her tumor markers are profoundly elevated. There is modest elevation of her CEA at 20.9, CA 15-3 is 22.5. CA19-9 pending. Beta hCG modestly elevated 62. CA-125 modest elevation at 80. She reportedly had an upper and lower endoscopy with no overt source of tumor originating in the GI tract, although part of her symptomatology is that of upper GI bleeding as well. She is seen now in consultation. She is admitted to the hospital for further evaluation and management. Biopsy has been obtained via interventional radiology that shows a moderately differentiated adenocarcinoma partially necrotic. PAST MEDICAL HISTORY As documented in the chart. I have no additional information to add to that. PAST SURGICAL HISTORY As documented in the chart. I have no additional information to add to that. MEDICATIONS As documented in the chart. I have no additional information to add to that. ALLERGIES As documented in the chart. I have no additional information to add to that. REVIEW OF SYSTEMS As documented in the chart. I have no additional information to add to that. PHYSICAL EXAMINATION VITAL SIGNS: She is afebrile, pulse ranging 68-83, respirations 16-18, blood pressure 100-102 over 70-78, O2 saturations 100%. GENERAL: She is in bright spirits, has good sense of humor despite how she must be feeling poorly. She has been talkative and a bit pressured in her speech, perhaps manic but seems to understand the pertinent aspects of our discussion and the findings in her case. She can point out the abnormalities in her abdomen and how she is feeling poorly. She can demonstrate the limited motor function on her left side. She can recall the bleeding. She explained how, she shows the scrapes on her knees and lower legs where she was crawling to get help after she had fallen after the stroke and can recall that it was her neighbor's boyfriend that helped her call emergency services demonstrating a fair understanding and recall. PHYSICAL EXAMINATION GENERAL: She is alert, seemingly alert and oriented x3. Pupils equal, round and reactive to light. There is no overt adenopathy. LUNGS: Clear. CARDIOVASCULAR: Regular rate and rhythm. BACK: No CVA tenderness or spinal point tenderness. ABDOMEN: Profoundly abnormal, distended, tense, has a positive fluid wave. There is solid masses palpable in the lower midabdomen also another mass near the umbilicus and nodularity throughout including the epigastrium suggestive of omental tumor. GYNECOLOGIC: Exam is deferred until more optimal setting (but she denies any [employer]DEL [employer]PLAY symptomatology. No bleeding discharge). EXTREMITIES: Are notable for a diminished motor function and coordination in the left upper extremity and left lower extremity. The skin is palpably warm. The peripheral pulses are intact. Motor strength is diminished to perhaps 1-2/5 upper and lower extremity right side seems to be uncompromised. SKIN: Her skin shows some recent scrapes and abrasions on her knees and lower legs as noted above. Time is spent in discussion with her reviewing the findings in her case to date. The reason for [employer] oncology consultation is explained. She is also aware that the biopsies have shown a cancer and she knows the extent of it based on CT scan. I explained that this is not a problem that surgery can fix and if treatment is ever to be considered systemic treatment such as chemotherapy would be recommended. The origin of the cancer is uncertain. There is a large burden of tumor in the pelvis but also throughout the abdomen and within the liver and none of the tumor markers are specific and the pathology and immunohistochemistry are not specific. Whereas this may be a tumor of gynecologic origin based on information we have at the present time, it is most actively described as an adenocarcinoma of uncertain origin. It is hoped that she will improve to the point where she could consider treatment if that is in keeping with her wishes and in our preliminary discussion, she seems to be in favor of considering treatment. She has also been seen by palliative care team and I am very grateful for the excellent medical care and for the input from palliative care. Her case has been discussed also with Dr. Torey Jeter who is familiar with her in seeing her and we will continue to try to evaluate her. If this cannot clearly be delineated as to the site of origin of tumor we may need to continue to classify her as an adenocarcinoma of uncertain origin and Dr. Jeter has graciously agreed to oversee her treatment if she gets to point where she would consider treatment in that situation. Discussion ensued, questions were answered. She expressed good understanding and agreed. ASSESSMENT 1. Extensive intraperitoneal carcinomatosis, ascites, pelvic abdominal tumor, multiple liver nodules suspicious for metastatic disease. 2. 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 3. Recent stroke, GI bleed and other medical issues that need acute attention prior to considering any intervention from an oncology standpoint. PLAN 1. Continue present management to provide supportive care, fix, reverse and improve those problems that can be improved. 2. Ongoing evaluation to consider if she is ever to a point where she may be a candidate for systemic chemotherapy. Thank you for the consultation. We will follow along in her care. MD SASHA Devries/PEPE /6:24 PM /6:53 PM BHAVANA
[2017-03-05] MEDS: PRAVASTATIN SOD 40 MG TAB PO SCH (21:00)
[2017-03-05 21:57] LABS: ALB/GLOB RATIO (SPE) 0.61 (1.39-2.23)
[2017-03-05 23:16] LABS: CA 19-9 18157.8 U/ML (0.0-35.0)
[2017-03-06] VITALS (30 sets, daily range): BP systolic 97–128; BP diastolic 68–81; PULSE 64–84; RESP 16–20; TEMP 97.5–98.7; O2SAT 96–100
[2017-03-06] MEDS: ONDANSETRON HCL 4 MG/2 ML VIAL IV PUSH PRN (02:54)
[2017-03-06] MEDS: PANTOPRAZOLE INJ 80 MG in SODIUM CHLORIDE 0.9% INJ 100 ML IV SCH (05:34)
[2017-03-06 06:48] LABS: HEMOGLOBIN 8.6 GM/DL (11.6-15.3); MEAN CELL VOLUME 99.9 FL (80.0-100.0); MEAN CORPUSCULAR HEMOGLOBIN 34.4 PG (27.0-34.0); MEAN CORPUSCULAR HGB CONC 34.4 % (32.0-36.0); MEAN PLATELET VOLUME 8.6 FL (7.0-11.0); PLATELET COUNT 501 TH/MM3 (150-450); RED CELL DISTRIBUTION WIDTH 18.6 % (11.6-17.2); WHITE BLOOD COUNT 8.6 TH/MM3 (4.0-11.0)
[2017-03-06 06:56] LABS: INTERNATIONAL NORMALIZED RATIO 1.9 RATIO; PROTHROMBIN TIME - PATIENT 19.7 SEC (9.8-11.6)
[2017-03-06 07:11] LABS: BICARBONATE 22.2 MEQ/L (21.0-32.0); CALCIUM 7.7 MG/DL (8.5-10.1); CREATININE 0.5 MG/DL (0.50-1.00)
[2017-03-06] MEDS: INSULIN ASPART SUPPLEMENTAL SCALE SQ SCH ×3 (08:00→16:27)
--- NOTE | 2017-03-06 08:04 | HHI.PR ---
Objective Vital Signs Date Time Temp Pulse Resp B/P (MAP) Pulse Ox O2 Delivery O2 Flow Rate FiO2 03/06/17 07:00 64 03/06/17 05:09 67 03/06/17 05:05 98.5 71 16 104/68 (80) 97 03/06/17 04:01 80 03/06/17 03:03 74 03/06/17 02:04 73 03/06/17 01:04 70 03/06/17 00:34 98.7 75 16 97/73 (81) 99 03/06/17 00:08 77 03/05/17 23:04 75 03/05/17 22:04 71 03/05/17 21:08 77 03/05/17 20:03 78 03/05/17 19:34 98.3 79 16 103/71 (82) 97 03/05/17 19:30 97 21 03/05/17 19:00 80 03/05/17 12:44 98.8 74 16 100/70 (80) 100 03/05/17 12:30 83 03/05/17 09:10 98.6 82 18 100/78 (85) 100 I/O 03/05/17 03/05/17 03/05/17 03/06/17 03/06/17 03/06/17 07:00 15:00 23:00 07:00 15:00 23:00 Intake Total 1060 ml 705 ml 580 ml Output Total 350 ml 250 ml Balance 1060 ml 355 ml 330 ml Intake Oral 120 ml 600 ml 480 ml IV Total 940 ml 105 ml 100 ml Output Urine Total 350 ml 250 ml # Voids 3 # Bowel Movements 0 0 Result Diagram: 03/06/17 0625 03/06/17 0625 Objective Remarks awake alert can pick up worker left arm a nd leg no change Assessment and Plan Assessment and Plan imp bilat cva coumdain echo nl holter pend hypercoag pend inr 1.9 hold coumdain very sensative to it oob CA likley hypercoag from that stable neuro Bala Johnson MD Mar 06, 2017 08:04
[2017-03-06] MEDS: ACETAMINOPHEN/HYDROcodone 325 MG/10 MG TAB PO PRN ×4 (08:23→20:44)
[2017-03-06] MEDS: SODIUM CHLORIDE 0.9% FLUSH 10 ML FLUSH IV FLUSH SCH ×2 (08:40→19:16)
--- NOTE | 2017-03-06 09:22 | PD.ONC.PN ---
Subjective Subjective Remarks Afebrile overnight. Patient has been doing exercises to her left arm, trying to improve her strength. No complaints. Has decided she wants to pursue chemotherapy once she is stronger. Objective Data Date Time Temp Pulse Resp B/P (MAP) Pulse Ox O2 Delivery O2 Flow Rate FiO2 03/06/17 08:31 98.1 75 20 107/74 (85) 100 03/06/17 08:17 98 21 03/06/17 07:00 64 03/06/17 05:09 67 03/06/17 05:05 98.5 71 16 104/68 (80) 97 03/06/17 04:01 80 03/06/17 03:03 74 03/06/17 02:04 73 03/06/17 01:04 70 03/06/17 00:34 98.7 75 16 97/73 (81) 99 03/06/17 00:08 77 03/05/17 23:04 75 03/05/17 22:04 71 03/05/17 21:08 77 03/05/17 20:03 78 03/05/17 19:34 98.3 79 16 103/71 (82) 97 03/05/17 19:30 97 21 03/05/17 19:00 80 03/05/17 12:44 98.8 74 16 100/70 (80) 100 03/05/17 12:30 83 03/06/17 03/06/17 03/06/17 07:00 15:00 23:00 Intake Total 580 ml Output Total 250 ml Balance 330 ml Result Diagram: 03/06/1762403/06/1725 Laboratory Results Laboratory Tests Test 03/05/17 11:15 03/05/17 15:50 03/06/17 06:25 White Blood Count 8.8 TH/MM3 8.6 TH/MM3 Red Blood Count 2.45 MIL/MM3 2.50 MIL/MM3 Hemoglobin 8.4 GM/DL 8.6 GM/DL Hematocrit 24.7 % 25.0 % Mean Corpuscular Volume 100.7 FL 99.9 FL Mean Corpuscular Hemoglobin 34.3 PG 34.4 PG Mean Corpuscular Hemoglobin Concent 34.1 % 34.4 % Red Cell Distribution Width 18.2 % 18.6 % Platelet Count 476 TH/MM3 501 TH/MM3 Mean Platelet Volume 8.6 FL 8.6 FL Ferritin 1092 NG/ML Folate 5.6 NG/ML Beta HCG, Qualitative 62 MIU/ML Carcinoembryonic Antigen 20.9 NG/ML CA 15-3 Antigen 22.5 U/ML CA 19-9 Antigen 37652.8 U/ML Prothrombin Time 19.7 SEC Prothromb Time International Ratio 1.9 RATIO Blood Urea Nitrogen 8 MG/DL Creatinine 0.50 MG/DL Random Glucose 96 MG/DL Calcium Level 7.7 MG/DL Sodium Level 134 MEQ/L Potassium Level 3.7 MEQ/L Chloride Level 103 MEQ/L Carbon Dioxide Level 22.2 MEQ/L Anion Gap 9 MEQ/L Estimat Glomerular Filtration Rate 128 ML/MIN Culture Results Microbiology Date/Time Source Procedure Growth Status 03/03/17 14:33 Urine Catheterized Urine Urine Culture - Final Escherichia Coli Enterococcus Faecalis Complete Administered Medications Medications (Trade) Dose Ordered Sig/Raquel Route PRN Reason Start Time Stop Time Status Last Admin Dose Admin Sodium Chloride (NS Flush) 2 ml BID IV FLUSH 03/03/17 21:00 03/05/17 19:29 Pravastatin Sodium (Pravachol) 40 mg HS PO 03/03/17 21:00 03/05/17 21:00 Ceftriaxone Sodium 1000 mg/ Sodium Chloride 100 ml @ 200 mls/hr Q24H IV 03/04/17 17:00 03/05/17 18:49 Morphine Sulfate (Morphine Inj) 2 mg Q3H PRN IV PUSH breakthrough 03/04/17 06:45 03/05/17 03:04 Acetaminophen/ Hydrocodone Bitart ([place] 5-325 Mg) 1 tab Q4H PRN PO pain 1-5 03/04/17 06:45 03/05/17 00:59 Pantoprazole Sodium 80 mg/ Sodium Chloride 100 ml @ 10 mls/hr Q10H IV 03/04/17 22:45 03/06/17 05:34 Acetaminophen/ Hydrocodone Bitart ([place] 10-325 Mg) 1 tab Q4H PRN PO pain 6-10 03/05/17 03:00 03/06/17 08:23 Ondansetron HCl (Zofran Inj) 4 mg Q6HR PRN IV PUSH NAUSEA OR VOMITING 03/06/17 03:00 03/06/17 02:54 Objective Remarks GENERAL: Pleasant, animated female, sitting up in bed, talking excitedly. SKIN: Warm and dry. HEAD: Normocephalic. EYES: No injection or drainage. NECK: Supple, trachea midline. CARDIOVASCULAR: Regular rate and rhythm RESPIRATORY: Breath sounds equal bilaterally. No accessory muscle use. GASTROINTESTINAL: abdomen distended EXTREMITIES: No cyanosis NEUROLOGICAL: awake and alert, normal speech. +left sided partial paralysis. Assessment/Plan Problem List: (1) Stroke ICD Codes: I63.9 - Cerebral infarction, unspecified Status: Acute Plan: --INR 1.9--coumadin d/c today by neurology --Brain MRI with prominent infarct in the right parietal and right temporal lobe with no midline shift or mass effect. --Neurology team recommends anticoagulation and physical therapy. 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 Assessment 56y/o female admitted with embolic stroke. h/o Peritoneal carcinomatosis. Ascites. 15.5 x 13.8 cm adnexal mass. elevated CA 125 h/o alcoholic liver disease Plan 1. monitor CBC 2. plan for follow up in clinic after rehab--face sheet faxed to new patient referrals. Attending Statement The exam, history, and the medical decision-making described in the above note were completed with the assistance of the mid-level provider. I reviewed and agree with the findings presented. I attest that I had a [id number] encounter with the patient on the same day, and personally performed and documented my assessment and findings in the medical record. Pt with thromboembolic CVA, residual L sided weakness. She needs workup for carcinoma unknown primary, histology suggest GI source. GI workup was neg but increase CA19.9 may suggest biliary or pancreas. Discussed chemotherapy for palliation w/ Carbo/Taxol. Cont w/ Pt assistance application. Complete staging as out pt. Consult w/ General surgery on their thoughts for port placement in lieu recent CVA. Case management consulted pt w/ poor support, friend who she lived with is also in hospital. Appreciate psychiatry consult, pt able to make decision appear to be super motivated. Problem Qualifiers (1) Stroke: Qualified Codes: I63.10 - Cerebral infarction due to embolism of unspecified precerebral artery Berkley Álvarez Mar 06, 2017 09:22 Malika Jeter MD Mar 06, 2017 19:14
--- NOTE | 2017-03-06 11:03 | HHI.PR ---
Subjective Remarks Follow-up for CVA and intraperitoneal carcinomatosis Patient very eccentric. She is very talkative. I spoke to patient and regards to palliative chemotherapy and she stated that she understands and that she wants to pursue therapy Otherwise she has no complaints. Deny any GI bleeding. She feels like she is doing stronger. Objective Vitals Vital Signs Date Time Temp Pulse Resp B/P (MAP) Pulse Ox O2 Delivery O2 Flow Rate FiO2 03/06/17 08:31 98.1 75 20 107/74 (85) 100 03/06/17 08:17 98 21 03/06/17 07:00 64 03/06/17 05:09 67 03/06/17 05:05 98.5 71 16 104/68 (80) 97 03/06/17 04:01 80 03/06/17 03:03 74 03/06/17 02:04 73 03/06/17 01:04 70 03/06/17 00:34 98.7 75 16 97/73 (81) 99 03/06/17 00:08 77 03/05/17 23:04 75 03/05/17 22:04 71 03/05/17 21:08 77 03/05/17 20:03 78 03/05/17 19:34 98.3 79 16 103/71 (82) 97 03/05/17 19:30 97 21 03/05/17 19:00 80 03/05/17 12:44 98.8 74 16 100/70 (80) 100 03/05/17 12:30 83 I/O 03/05/17 03/05/17 03/05/17 03/06/17 03/06/17 03/06/17 07:00 15:00 23:00 07:00 15:00 23:00 Intake Total 1060 ml 705 ml 580 ml Output Total 350 ml 250 ml Balance 1060 ml 355 ml 330 ml Intake Oral 120 ml 600 ml 480 ml IV Total 940 ml 105 ml 100 ml Output Urine Total 350 ml 250 ml # Voids 3 # Bowel Movements 0 0 Result Diagram: 03/06/1762403/06/17624 Objective Remarks GENERAL: on NAD found sitting in bed. CARDIOVASCULAR: Regular rate and rhythm without murmurs, gallops, or rubs. RESPIRATORY: Breath sounds equal bilaterally. No accessory muscle use. GASTROINTESTINAL: Abdomen soft, non-tender, nondistended. NEURO: 1-2/ 5 upper left and 2/5 lower left sided strength. Strength on right side intact. Medications and IVs Current Medications Ondansetron HCl (Zofran Inj) 4 mg ONCE ONCE IVP Last administered on at 14:38; Start 03/03/17 at 14:30; Stop 03/03/17 at 14:31; Status DC Sodium Chloride 1,000 ml @ 1,000 mls/hr Q1H IV Last administered on 03/03/17at 14:37; Start 03/03/17 at 14:19; Stop 03/03/17 at 15:18; Status DC Sodium Chloride (NS Flush) 2 ml UNSCH PRN IV FLUSH FLUSH AFTER USING IV ACCESS ; Start 03/03/17 at 14:30; Stop 03/04/17 at 22:57; Status DC Morphine Sulfate (Morphine Inj) 2 mg ONCE ONCE IV PUSH Last administered on at 14:37; Start 03/03/17 at 14:30; Stop 03/03/17 at 14:31; Status DC Morphine Sulfate (Morphine Inj) 2 mg ONCE ONCE IV PUSH Last administered on at 14:38; Start 03/03/17 at 14:30; Stop 03/03/17 at 14:31; Status DC Pantoprazole Sodium 80 mg/ Sodium Chloride 100 ml @ 10 mls/hr CONTINUOUS IV ; Start 03/03/17 at 15:00; Status Cancel Pantoprazole Sodium 80 mg/ Sodium Chloride 35 ml @ 420 mls/hr BOLUS ONCE IV Last administered on 03/03/17at 15:31; Start 03/03/17 at 15:00; Stop 03/03/17 at 15:04; Status DC Pantoprazole Sodium 80 mg/ Sodium Chloride 100 ml @ 10 mls/hr Q10H IV Last administered on 03/04/17at 02:10; Start 03/03/17 at 15:00; Stop 03/04/17 at 05:39 ; Status DC Prochlorperazine Edisylate (Compazine Inj) 10 mg ONCE ONCE IV PUSH Last administered on 03/03/17at 15:55; Start 03/03/17 at 15:15; Stop 03/03/17 at 15:16 ; Status DC Ceftriaxone Sodium 1000 mg/ Sodium Chloride 100 ml @ 200 mls/hr ONCE ONCE IV Last administered on 03/03/17at 17:39; Start 03/03/17 at 17:00; Stop 03/03/17 at 17:29; Status DC Iohexol (Omnipaque 350 Inj) 90 ml STK-MED ONCE IVCONTRAST Last administered on 03/03/17at 14:06; Start 03/03/17 at 14:06; Stop 03/03/17 at 16:56; Status DC Gadodiamide (Omniscan Pf Inj) 14 ml STK-MED ONCE IVCONTRAST Last administered on 03/03/17at 18:37; Start 03/03/17 at 18:37; Stop 03/03/17 at 18:40; Status DC Aspirin (Aspirin) 325 mg ONCE ONCE PO Last administered on 03/03/17at 19:40; Start 03/03/17 at 19:30; Stop 03/03/17 at 19:31; Status DC Sodium Chloride 1,000 ml @ 70 mls/hr [id number] IV Last administered on at 11:27; Start 03/03/17 at 19:30; Stop 03/04/17 at 12:57; Status DC Sodium Chloride (NS Flush) 2 ml BID IV FLUSH Last administered on 03/05/17at 19: 29; Start 03/03/17 at 21:00 Sodium Chloride (NS Flush) 2 ml UNSCH PRN IV FLUSH FLUSH AFTER USING IV ACCESS ; Start 03/03/17 at 20:15 Aspirin (Aspirin) 325 mg DAILY PO Last administered on 03/05/17at 08:58; Start 03/04/17 at 09:00; Stop 03/06/17 at 08:03; Status DC Pravastatin Sodium (Pravachol) 40 mg HS PO Last administered on 03/05/17at 21:00 ; Start 03/03/17 at 21:00 Insulin Aspart (NovoLOG SUPPLEMENTAL SCALE) 1 ACHS SQ ; Start 03/03/17 at 21:00 Dextrose (D50w (Vial) Inj) 50 ml UNSCH PRN IV PUSH HYPOGLYCEMIA-SEE COMMENTS; Start 03/03/17 at 20:15 Glucagon (Glucagon Inj) 1 mg UNSCH PRN OTHER HYPOGLYCEMIA-SEE COMMENTS; Start 03/03/17 at 20:15 Gadodiamide (Omniscan Pf Inj) 14 ml STK-MED ONCE IVCONTRAST Last administered on 03/03/17at 21:20; Start 03/03/17 at 21:20; Stop 03/03/17 at 21:21; Status DC Ceftriaxone Sodium 1000 mg/ Sodium Chloride 100 ml @ 200 mls/hr Q24H IV Last administered on 03/05/17at 18:49; Start 03/04/17 at 17:00; Stop 03/06/17 at 09:59 ; Status DC Pantoprazole Sodium 80 mg/ Sodium Chloride 100 ml @ 10 mls/hr CONTINUOUS IV Last administered on 03/04/17at 12:03; Start 03/04/17 at 07:00; Stop 03/04/17 at 22:31; Status DC Morphine Sulfate (Morphine Inj) 2 mg Q3H PRN IV PUSH breakthrough Last administered on 03/05/17at 03:04; Start 03/04/17 at 06:45 Acetaminophen/ Hydrocodone Bitart ([place] 5-325 Mg) 1 tab Q4H PRN PO pain 1-5 Last administered on 03/05/17at 00:59; Start 03/04/17 at 06:45 Heparin Sodium (Porcine) (Heparin Inj) 5,000 units Q12HR SQ Last administered on 03/05/17at 21:00; Start 03/04/17 at 21:00; Stop 03/06/17 at 08:03; Status DC Warfarin Sodium (Coumadin) 5 mg DAILY@1600 PO Last administered on 03/05/17at 18 :49; Start 03/04/17 at 16:00; Stop 03/06/17 at 08:03; Status DC Atorvastatin Calcium (Lipitor) 10 mg HS PO ; Start 03/04/17 at 21:00; Stop 03/04 at 21:00; Status DC Pantoprazole Sodium 80 mg/ Sodium Chloride 100 ml @ 10 mls/hr Q10H IV Last administered on 03/06/17at 05:34; Start 03/04/17 at 22:45; Stop 03/06/17 at 09:59 ; Status DC Acetaminophen/ Hydrocodone Bitart ([place] 10-325 Mg) 1 tab Q4H PRN PO pain 6-10 Last administered on 03/06/17at 08:23; Start 03/05/17 at 03:00 Pharmacy Profile Note 0 ml @ 0 mls/hr UNSCH OTHER ; Start 03/05/17 at 08:30; Stop 03/06/17 at 08:39; Status DC Ondansetron HCl (Zofran Inj) 4 mg Q6HR PRN IV PUSH NAUSEA OR VOMITING Last administered on 03/06/17at 02:54; Start 03/06/17 at 03:00 Magnesium Hydroxide (Milk Of [place] Liq) 30 ml DAILY PO ; Start 03/06/17 at 09 :00 Linezolid (Zyvox) 600 mg Q12HR PO ; Start 03/06/17 at 10:30 Amoxicillin/ Clavulanate Potassium (Augmentin) 875 mg Q12HR PO ; Start 03/06/17 at 11:00 Pantoprazole Sodium (Protonix) 40 mg DAILY PO ; Start 03/06/17 at 10:00 A/P Problem List: (1) Stroke ICD Code: I63.9 - Cerebral infarction, unspecified Status: Acute (2) Hematemesis ICD Code: K92.0 - Hematemesis (3) Abdominal mass ICD Code: R19.00 - Intra-abdominal and pelvic swelling, mass and lump, unspecified site (4) Upper GI bleed ICD Code: K92.2 - Gastrointestinal hemorrhage, unspecified Assessment and Plan 56-year-old female with CVA, acute Brain MRI shows prominent infarct in the right parietal and right temporal lobe , no midline shift or mass effect. A few scattered foci of acute infarcts are seen within the left parietal, right occipital and both vertebral hemispheres. -Appreciate input from neurology -Currently on Heparin subcutaneous bridge and Coumadin. INR went from 1.2- 1.9. Coumadin held. Most likely patient is very sensitive to Coumadin. -Continue with Pravachol and aspirin -PT/OT/ST -Hemoglobin A1c 5.1. LDL 44. 2-D echo within normal limits. MRA of the carotids ordered, no significant Blockage -Pending Holter and hypercoagulable workup. UTI -Continue with Rocephin daily IV. urine cultures grew enterococcus facelis and E coli. will d/c Rocephin and start linezolid and augmentin. Anemia, patient with coffee-ground emesis, questionable GI bleed HGB 10.8 -Continue with Protonix IV -Appreciate input from gastroenterology per GI will only scope if it is emergent. -No active bleeding and patient is asymptomatic. Will discontinue protonic gtt and start oral Protonix. ADENOCARCINOMA, chronic -Patient will need rehabilitation prior to getting IV palliative chemotherapy. Discussed case with KERA Kuhn during MDR. DVT prophylaxis: SCDs Discharge Planning Difficult placement since patient is self paid. She will need to be in a rehabilitation facility. Will have PT work with patient every day. Problem Qualifiers (1) Stroke: Qualified Codes: I63.10 - Cerebral infarction due to embolism of unspecified precerebral artery (2) Hematemesis: Qualified Codes: K92.0 - Hematemesis (3) Abdominal mass: Qualified Codes: R19.07 - Generalized intra-abdominal and pelvic swelling, mass and lump Imelda Wiggins MD Mar 06, 2017 11:03
[2017-03-06] MEDS: PANTOPRAZOLE SOD 40 MG DELAYED RELEASE TAB PO SCH (12:03)
[2017-03-06] MEDS: MAGNESIUM HYDROXIDE SUSP 30 ML CUP PO SCH (12:03)
[2017-03-06] MEDS: LINEZOLID 600 MG TAB PO SCH ×2 (12:04→20:43)
[2017-03-06] MEDS: AMOXICILLIN/CLAVULANATE K 875 MG TAB PO SCH ×2 (12:28→20:43)
--- NOTE | 2017-03-06 14:57 | PD.PSY.CON ---
Provisional Diagnosis Admission Date Mar 03, 2017 at 18:05 [place] I. Delirium due to underlying medical conditions, psychological factors affecting a medical condition [place] II. 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 Brain MRI shows prominent infarct in the right parietal and right temporal lobe, no midline shift or mass effect, UTI and peritoneal carcinoma. Consulted to psychiatry for assessment of decision-making capacity. On psychiatric evaluation the patient is calm, cooperative, very pleasant. The patient at times seems to be very histrionic, very talkative and eccentric, but she is not pressured. He is logical, coherent and relevant. Oriented 3. Without any shifting attention or fluctuation of consciousness at this moment. The patient says that she understands that she has cancer, but she is ready to fight for her life and get the treatment. Patient denies that she had ever refuses treatment "that will not be me". Patient says that she is motivated to follow medical direction and to get her treatment as recommended. She reports good mood, denies anhedonia, denies hopelessness, denies helplessness, she denies suicidal and homicidal ideation, she denies visual and auditory hallucinations. Review of Systems Constitutional: DENIES: Diaphoretic episodes, Fatigue, Fever, Weight gain, Weight loss, Chills, Dizziness, Change in appetite, Night Sweats Endocrine: DENIES: Abnorml menstrual pattern, Heat/cold intolerance, Polydipsia , Polyuria, Polyphagia Eyes: DENIES: Blurred vision, Diplopia, Eye inflammation, Eye pain, Vision loss , Photosensitivity, Double Vision Ears, nose, mouth, throat: DENIES: Tinnitus, Hearing loss, Vertigo, Nasal discharge, Oral lesions, Throat pain, Hoarseness, Ear Pain, Running Nose, Epistaxis, Sinus Pain, Toothache, Odynophagia Respiratory: DENIES: Apneas, Cough, Snoring, Wheezing, Hemoptysis, Sputum production, Shortness of breath Cardiovascular: DENIES: Chest pain, Palpitations, Syncope, Dyspnea on Exertion , PND, Lower Extremity Edema, Orthopnea, Claudication Gastrointestinal: DENIES: Abdominal pain, Black stools, Bloody stools, Constipation, Diarrhea, Nausea, Vomiting, Difficulty Swallowing, Anorexia Genitourinary: DENIES: Abnormal vaginal bleeding, Dysmenorrhea, Dyspareunia, Sexual dysfunction, Urinary frequency, Urinary incontinence, Urgency, Hematuria , Dysuria, Nocturia, Vaginal discharge Musculoskeletal: DENIES: Joint pain, Muscle aches, Stiffness, Joint Swelling, Back pain, Neck pain Integumentary: DENIES: Abnormal pigmentation, Pruritus, Rash, Nail changes, Breast masses, Breast skin changes, Nipple discharge Hematologic/lymphatic: DENIES: Bruising, Lymphadenopathy Immunologic/allergic: DENIES: Eczema, Urticaria Neurologic: DENIES: Abnormal gait, Headache, Localized weakness, Paresthesias, Seizures, Speech Problems, Tremor, Poor Balance Psychiatric: DENIES: Anxiety, Confusion, Mood changes, Depression, Hallucinations, Agitation, Suicidal Ideation, Homicidal Ideation, Delusions Past Family Social History Coded Allergies: No Known Allergies (Verified Allergy, Unknown, 02/14/17) Active Scripts Hydrocodone/Acetaminophen (Hydrocodone-Acetamin 5-325 mg) 5 Mg-325 Mg Tablet, 1 TAB PO Q4H Y for PAIN SCALE 1 TO 10, #20 Prov:Layton Man MD 02/10/17 Discontinued Scripts Pantoprazole (Protonix) 40 Mg Tab, 40 MG PO DAILY for Reflux, #30 TAB 0 Refills Prov:Layton Man MD 02/10/17 Nitrofurantoin Monohydrate Macrocrystals (Nitrofurantoin Monohydrate Macrocrystals) 100 Mg Cap, 100 MG PO BIDPC, #18 CAP Prov:Layton Man MD 02/10/17 Current Medications Medications (Trade) Dose Ordered Sig/Raquel Route Start Time Stop Time Status Last Admin (NS Flush) 2 ml BID IV FLUSH 03/03/17 21:00 03/05/17 19:29 (NS Flush) 2 ml UNSCH PRN IV FLUSH 03/03/17 20:15 (Pravachol) 40 mg HS PO 03/03/17 21:00 03/05/17 21:00 (NovoLOG SUPPLEMENTAL SCALE) 1 ACHS SQ 03/03/17 21:00 (D50w (Vial) Inj) 50 ml UNSCH PRN IV PUSH 03/03/17 20:15 (Glucagon Inj) 1 mg UNSCH PRN OTHER 03/03/17 20:15 (Morphine Inj) 2 mg Q3H PRN IV PUSH 03/04/17 06:45 03/05/17 03:04 ([place] 5-325 Mg) 1 tab Q4H PRN PO 03/04/17 06:45 03/05/17 00:59 ([place] 10-325 Mg) 1 tab Q4H PRN PO 03/05/17 03:00 03/06/17 12:15 (Zofran Inj) 4 mg Q6HR PRN IV PUSH 03/06/17 03:00 03/06/17 02:54 (Milk Of Magnesia Liq) 30 ml DAILY PO 03/06/17 09:00 03/06/17 12:03 (Zyvox) 600 mg Q12HR PO 03/06/17 10:30 03/06/17 12:04 (Augmentin) 875 mg Q12HR PO 03/06/17 11:00 03/06/17 12:28 (Protonix) 40 mg DAILY PO 03/06/17 10:00 03/06/17 12:03 Family Psych History She denies family psychiatric history Social History Patient was born and raised in [place], she lives in [place] a friend, single, 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, her highest level of education is high school Physical Exam Vital Signs Vital Signs Date Time Temp Pulse Resp B/P (MAP) Pulse Ox O2 Delivery O2 Flow Rate FiO2 03/06/17 12:16 97.6 77 18 104/81 (89) 96 03/06/17 08:17 21 03/03/17 19:19 Room Air I/O 03/06/17 03/06/17 03/07/17 08:00 16:00 00:00 Intake Total 580 ml 35 ml Output Total 250 ml Balance 330 ml 35 ml Lab Results Test 03/05/17 15:50 03/06/17 06:25 Carcinoembryonic Antigen 20.9 NG/ML CA 15-3 Antigen 22.5 U/ML CA 19-9 Antigen 90323.8 U/ML White Blood Count 8.6 TH/MM3 Red Blood Count 2.50 MIL/MM3 Hemoglobin 8.6 GM/DL Hematocrit 25.0 % Mean Corpuscular Volume 99.9 FL Mean Corpuscular Hemoglobin 34.4 PG Mean Corpuscular Hemoglobin Concent 34.4 % Red Cell Distribution Width 18.6 % Platelet Count 501 TH/MM3 Mean Platelet Volume 8.6 FL Prothrombin Time 19.7 SEC Prothromb Time International Ratio 1.9 RATIO Blood Urea Nitrogen 8 MG/DL Creatinine 0.50 MG/DL Random Glucose 96 MG/DL Calcium Level 7.7 MG/DL Sodium Level 134 MEQ/L Potassium Level 3.7 MEQ/L Chloride Level 103 MEQ/L Carbon Dioxide Level 22.2 MEQ/L Anion Gap 9 MEQ/L Estimat Glomerular Filtration Rate 128 ML/MIN Date/Time Source Procedure Growth Status 03/03/17 14:33 Urine Catheterized Urine Urine Culture - Final Escherichia Coli Enterococcus Faecalis Complete Mental Status Examination Appearance: Appropriate Consciousness: Alert Orientation: x4 Motor Activity: Normal gait Speech: Unremarkable Language: Adequate Fund of Knowledge: Adequate Attention and Concentration: Adequate Memory: Unremarkable Mood: Appropriate Affect: Appropriate Thought Process & Associations: Intact Thought Content: Appropriate Hallucination Type: None Delusion Type: None Suicidal Ideation: No Suicidal Plan: No Suicidal Intention: No Homicidal Ideation: No Homicidal Plan: No Homicidal Intention: No Insight: Adequate Judgment: Adequate Assessment & Plan Problem List: (1) Psychological factors affecting medical condition ICD Codes: F54 - Psychological and behavioral factors associated with disorders or diseases classified elsewhere Assessment & Plan: On psychiatric evaluation today the patient does not present any significant, concerning or acute evidence of subjective or objective symptomatology of depression, anxiety, gissel or psychosis. She denies suicidal and homicidal ideation, she denies visual and auditory hallucinations. Patient is fully oriented 3, without attention deficit, no fluctuation of consciousness, no gross cognitive impairment. She reports that she is motivated to continue her medical treatment, and follow medical recommendations. She seems to have a fair understanding of the nature of her medical condition and prognosis. I did not see any reason to the private the patient of her decision making capacity. Even though, I understand that the patient is a high risk for delirium and altered mental status due to her recent CVA and underlying medical conditions. But, at this point the patient all her decision making capacity. Support, motivation and psychoeducation provided. Consult appreciated. Assessment & Plan Estimated LOS: Nicolas Dietrich MD Mar 06, 2017 14:57
--- NOTE | 2017-03-06 15:41 | HHI.GIFU ---
Subjective Remarks Pt sitting up in bed, visiting with friend. 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 Eating ok. No bleeding. (Jannette Romero) Objective Vitals I&O Vital Signs Date Time Temp Pulse Resp B/P (MAP) Pulse Ox O2 Delivery O2 Flow Rate FiO2 03/06/17 12:16 97.6 77 18 104/81 (89) 96 03/06/17 08:31 98.1 75 20 107/74 (85) 100 03/06/17 08:17 98 21 03/06/17 07:00 64 03/06/17 05:09 67 03/06/17 05:05 98.5 71 16 104/68 (80) 97 03/06/17 04:01 80 03/06/17 03:03 74 03/06/17 02:04 73 03/06/17 01:04 70 03/06/17 00:34 98.7 75 16 97/73 (81) 99 03/06/17 00:08 77 03/05/17 23:04 75 03/05/17 22:04 71 03/05/17 21:08 77 03/05/17 20:03 78 03/05/17 19:34 98.3 79 16 103/71 (82) 97 03/05/17 19:30 97 21 03/05/17 19:00 80 I/O 03/05/17 03/05/17 03/05/17 03/06/17 03/06/17 03/06/17 07:00 15:00 23:00 07:00 15:00 23:00 Intake Total 1060 ml 705 ml 580 ml 35 ml Output Total 350 ml 250 ml Balance 1060 ml 355 ml 330 ml 35 ml Intake Oral 120 ml 600 ml 480 ml IV Total 940 ml 105 ml 100 ml 35 ml Output Urine Total 350 ml 250 ml # Voids 3 # Bowel Movements 0 0 Laboratory Laboratory Tests Test 03/05/17 15:50 03/06/17 06:25 Carcinoembryonic Antigen 20.9 CA 15-3 Antigen 22.5 CA 19-9 Antigen 44677.8 White Blood Count 8.6 Red Blood Count 2.50 Hemoglobin 8.6 Hematocrit 25.0 Mean Corpuscular Volume 99.9 Mean Corpuscular Hemoglobin 34.4 Mean Corpuscular Hemoglobin Concent 34.4 Red Cell Distribution Width 18.6 Platelet Count 501 Mean Platelet Volume 8.6 Prothrombin Time 19.7 Prothromb Time International Ratio 1.9 Blood Urea Nitrogen 8 Creatinine 0.50 Random Glucose 96 Calcium Level 7.7 Sodium Level 134 Potassium Level 3.7 Chloride Level 103 Carbon Dioxide Level 22.2 Anion Gap 9 Estimat Glomerular Filtration Rate 128 Date/Time Source Procedure Growth Status 03/03/17 14:33 Urine Catheterized Urine Urine Culture - Final Escherichia Coli Enterococcus Faecalis Complete Imaging Last Impressions Abdomen/Pelvis CT 03/03/17 1419 Signed Impressions: Service Date/Time: Friday, March 03, 2017 16:32 - CONCLUSION: 1. Large cystic and solid mass in the pelvis extending into the abdomen could be ovarian carcinoma. There is peritoneal carcinomatosis and multiple low-density liver lesions likely metastatic disease. 2. Large volume ascites. Harmeet Best MD Neck Magnetic Resonance Angiography 03/03/17 0000 Signed Impressions: Service Date/Time: Friday, March 03, 2017 21:13 - CONCLUSION: 1. Multiple carotid arteries. Harmeet Best MD Head Magnetic Resonance Angiography 03/03/17 0000 Signed Impressions: Service Date/Time: Friday, March 03, 2017 21:13 - CONCLUSION: 1. No large vessel stenosis or aneurysm. 2. Normal variant as described above. Harmeet Best MD Head CT 03/03/17 0000 Signed Impressions: Service Date/Time: Friday, March 03, 2017 16:24 - CONCLUSION: Large air low attenuation right frontal lobe could be acute infarct versus edema from underlying mass. Contrast MRI recommended. Harmeet Best MD Brain MRI 03/03/17 0000 Signed Impressions: Service Date/Time: Friday, March 03, 2017 18:22 - CONCLUSION: 1. Prominent infarct in the right parietal and right temporal lobe. No midline shift or mass effect. 2. A few scattered foci of acute infarcts are seen within the left parietal, right occipital and both vertebral hemispheres. Embolic source is suggested. Harmeet Best MD Physical Exam HEENT: PERRL; normocephalic; atraumatic; no jaundice. CHEST: expiratory wheezing CARDIAC: RRR ABDOMEN: semifirm, distended, nontender; no hepatosplenomegaly; bowel sounds are present in all four quadrants. EXTREMITIES: No clubbing, cyanosis, or edema. SKIN: Normal; no rash; no jaundice. DIRECTOR OF LAND: alert (Jannette Romero) Assessment and Plan Plan - adenocarcinoma of the abdomen that was just recently diagnosed and she has yet to follow up with an oncologist Patient is s/p EGD 02/07/17 EGD found multi lg ulcers esophagus, colonoscopy 02/08/17 found medium sized colitis, and polyps sessile polyp sigmoid and ascending colon. BX from EGD Demonstrated adenocarcinoma, bx from colon benign. CT of abd/pel 03/03/17 showed large cystic and solid mass in the pelvis extending into the abdomen could be ovarian carcinoma, There is peritoneal carcinomatosis and multiple low density liver lesions like metastatic dx, large volume ascites. - Hematemesis/coffee ground emesis- She had approx. 3 episodes today, no more episodes. States she has quit smoking and drinking sine last hospital visit. PPI drip, hh 10.8/32.3. Denies melena or hematochezia - CT above demonstrated cancer with mets to liver and pelvis - Ischemic stroke- Neurology on the case and recommended Coumadin and heparin. - Ascites- no candidate for diuretics now in light of stroke, LFTs wnl 03/05/17 - no n/v, bleeding today. todays HH is pending. per private pilot onco she is poor surgical candidate. could do palliative chemo if neuro clearance. palliative care has been consulted. has bilat CVA per neurology 03/06/17 - no GI complaints. eating. HH stable. pt desirous of pursuing ca tx. per psych competent to make decisions. Plan: - Diet per attending - EGD on emergent basis - protonix gtt - Monitor hh - Transfuse as needed - Notify GI for active bleed - Patient seen and examined by Dr. Oates and myself and this note is written on his behalf. (Jannette Romero) Physician Comments Seen and examined with LEAF STAMPER, no active bleeding reported. [place] in progress for metastatic Cancer. Gi will sign off. Continue protonix. Thank you (Ben Oates MD) Jannette Romero Mar 06, 2017 15:41 Ben Oates MD Mar 06, 2017 17:29
[2017-03-06 16:17] LABS: CARDIOLIPIN IGG AB <9.4 GPL; CARDIOLIPIN IGM AB <9.4 MPL
--- NOTE | 2017-03-06 16:48 | HHI.HCPN ---
Reason for visit a. To assist with evaluation and management of symptoms including: abdominal pain. b. To assist medical decision maker(s) with: better understanding of current medical conditions; weighing benefits/burdens of medical treatment options; making medical treatment decisions. . Subjective/Interval History Patient seen and examined in room. Also present Dacia Ragsdale LCSW. Patient is awake and alert, seems to remember us from prior visit on 03/05/17. Friends at bedside, who both indicate they have had prior strokes without residual effects with prolonged hospitalizations. Afebrile. Vital signs stable. Labs relatively stable. CEA was 20, CA 15-3 was 22.5, CA 19-9 was 18,157.8. Psychiatry, Dr. Sheffield consulted who agrees patient is incapacitated to make her own health care decisions. Patient is interested in pursuing chemotherapy, rehabilitation hopes that chemotherapy can provide some benefit. She understands she may still be faced with need for hospice in the future if needed. Spoke with nurse to ask if someone could bring her to see her friend/ alternate HCS, Hank Conn in room 248. . Family/friend interactions Friends at bedside. See interval note. . Advance Directives Living Will: Never completed Health Care Surrogate: Copy in medical record Durable Power of Project Product Manager: Never completed Advance Directive Specifics Date completed: Significant change in goals: FULL CODE. Goals remain aggressive, she hopes to pursue rehab and chemotherapy. . Objective Vital Signs Date Time Temp Pulse Resp B/P (MAP) Pulse Ox O2 Delivery O2 Flow Rate FiO2 03/06/17 16:23 97.5 75 20 105/76 (86) 98 03/06/17 16:03 74 03/06/17 15:00 68 03/06/17 14:00 69 03/06/17 13:00 66 03/06/17 12:16 97.6 77 18 104/81 (89) 96 03/06/17 12:00 74 03/06/17 11:00 71 03/06/17 10:00 76 03/06/17 09:00 73 03/06/17 08:31 98.1 75 20 107/74 (85) 100 03/06/17 08:17 98 21 03/06/17 07:00 64 03/06/17 05:09 67 03/06/17 05:05 98.5 71 16 104/68 (80) 97 03/06/17 04:01 80 03/06/17 03:03 74 03/06/17 02:04 73 03/06/17 01:04 70 03/06/17 00:34 98.7 75 16 97/73 (81) 99 03/06/17 00:08 77 03/05/17 23:04 75 03/05/17 22:04 71 03/05/17 21:08 77 03/05/17 20:03 78 03/05/17 19:34 98.3 79 16 103/71 (82) 97 03/05/17 19:30 97 21 03/05/17 19:00 80 Intake & Output 03/06/17 03/06/17 07:00 19:00 Intake Total 685 ml 35 ml Output Total 600 ml Balance 85 ml 35 ml Intake Oral 480 ml IV Total 205 ml 35 ml Output Urine Total 600 ml # Bowel Movements 0 Physical Exam CONSTITUTIONAL/GENERAL: This is a thin female patient, somewhat manic in her speech/ though process. TUBES/LINES/DRAINS: PIV. SKIN: Ecchymoses on upper extremities and bilateral knees. Skin temperature appropriate. ENT: Sore in mouth. CARDIOVASCULAR: Regular rate and rhythm without murmurs, gallops, or rubs. No JVD. Peripheral pulses symmetric. RESPIRATORY/CHEST: Symmetric, unlabored respirations. Clear to auscultation. Breath sounds equal bilaterally. No wheezes, rales, or rhonchi. GASTROINTESTINAL: Abdomen firm, tender right LQ and umbilical area, distended. Palpable masses. Bowel sounds present. GENITOURINARY: Without palpable bladder distension. MUSCULOSKELETAL: Left upper extremity weakness, some movement noted of hand, left LE weakness able to move slowing. No mottling or clubbing. NEUROLOGICAL: Awake and alert. Manic. has insight and judgement to illness, able to explain her illness and option of chemo vs hospice. PSYCHIATRIC: Speech rapid. . Diagnostic Tests Laboratory Laboratory Tests Test 03/04/17 03:25 03/04/17 14:49 03/05/17 05:35 03/05/17 11:15 Triglycerides Level 77 MG/DL (42-150) Cholesterol Level 81 MG/DL (120-200) LDL Cholesterol 44 MG/DL (0-99) HDL Cholesterol 21.2 MG/DL (40.0-60.0) Cholesterol/HDL Ratio 3.82 RATIO Iron Level 23 MCG/DL (50-170) Total Iron Binding Capacity 189 MCG/DL (250-450) Percent Iron Saturation 12.2 % (20-50) Total Creatine Kinase 168 U/L (26-192) Troponin I 0.10 NG/ML (0.02-0.05) Total Protein 7.0 GM/DL (6.0-7.6) Albumin 2.65 GM/DL (3.50-5.00) Albumin/Globulin Ratio 0.61 (1.39-2.23) Ycnrj-6-Altvatlcc 0.55 GM/DL (0.11-0.29) Uuhnf-6-Ipgzbzyza 1.09 GM/DL (0.22-1.00) Beta Globulins 0.97 GM/DL (0.53-1.03) Gamma Globulins 1.76 GM/DL (0.50-1.39) Vitamin B12 Level 486 PG/ML (193-986) Folate 5.3 NG/ML (3.1-17.5) 5.6 NG/ML (3.1-17.5) Free Thyroxine 1.26 NG/DL (0.76-1.46) Thyroid Stimulating Hormone 3rd Gen 2.670 uIU/ML (0.358-3.740) Anti-Nuclear Antibody Screen NEG (NEG) Rapid Plasma Reagin NON-REACTIVE (NON-REACTVE) Prothrombin Time 12.2 SEC (9.8-11.6) Prothromb Time International Ratio 1.2 RATIO White Blood Count 8.8 TH/MM3 (4.0-11.0) Red Blood Count 2.45 MIL/MM3 (4.00-5.30) Hemoglobin 8.4 GM/DL (11.6-15.3) Hematocrit 24.7 % (35.0-46.0) Mean Corpuscular Volume 100.7 FL (80.0-100.0) Mean Corpuscular Hemoglobin 34.3 PG (27.0-34.0) Mean Corpuscular Hemoglobin Concent 34.1 % (32.0-36.0) Red Cell Distribution Width 18.2 % (11.6-17.2) Platelet Count 476 TH/MM3 (150-450) Mean Platelet Volume 8.6 FL (7.0-11.0) Ferritin 1092 NG/ML (8-252) Beta HCG, Qualitative 62 MIU/ML (0-5) Phospholipid IgG Antibody <9.4 GPL Phospholipid IgM Antibody <9.4 MPL Test 03/05/17 15:50 03/06/17 06:25 Carcinoembryonic Antigen 20.9 NG/ML (0.2-5.0) CA 15-3 Antigen 22.5 U/ML (0.0-32.4) CA 19-9 Antigen 98079.8 U/ML (0.0-35.0) White Blood Count 8.6 TH/MM3 (4.0-11.0) Red Blood Count 2.50 MIL/MM3 (4.00-5.30) Hemoglobin 8.6 GM/DL (11.6-15.3) Hematocrit 25.0 % (35.0-46.0) Mean Corpuscular Volume 99.9 FL (80.0-100.0) Mean Corpuscular Hemoglobin 34.4 PG (27.0-34.0) Mean Corpuscular Hemoglobin Concent 34.4 % (32.0-36.0) Red Cell Distribution Width 18.6 % (11.6-17.2) Platelet Count 501 TH/MM3 (150-450) Mean Platelet Volume 8.6 FL (7.0-11.0) Prothrombin Time 19.7 SEC (9.8-11.6) Prothromb Time International Ratio 1.9 RATIO Blood Urea Nitrogen 8 MG/DL (7-18) Creatinine 0.50 MG/DL (0.50-1.00) Random Glucose 96 MG/DL (74-106) Calcium Level 7.7 MG/DL (8.5-10.1) Sodium Level 134 MEQ/L (136-145) Potassium Level 3.7 MEQ/L (3.5-5.1) Chloride Level 103 MEQ/L (98-107) Carbon Dioxide Level 22.2 MEQ/L (21.0-32.0) Anion Gap 9 MEQ/L (5-15) Estimat Glomerular Filtration Rate 128 ML/MIN (>89) Result Diagram: 03/06/1725 03/06/1725 Microbiology Microbiology Date/Time Source Procedure Growth Status 03/03/17 14:33 Urine Catheterized Urine Urine Culture - Final Escherichia Coli Enterococcus Faecalis Complete Imaging Last Impressions Abdomen/Pelvis CT 03/03/17 1419 Signed Impressions: Service Date/Time: Friday, March 03, 2017 16:32 - CONCLUSION: 1. Large cystic and solid mass in the pelvis extending into the abdomen could be ovarian carcinoma. There is peritoneal carcinomatosis and multiple low-density liver lesions likely metastatic disease. 2. Large volume ascites. Harmeet Best MD Neck Magnetic Resonance Angiography 03/03/17 0000 Signed Impressions: Service Date/Time: Friday, March 03, 2017 21:13 - CONCLUSION: 1. Multiple carotid arteries. Harmeet Best MD Head Magnetic Resonance Angiography 03/03/17 0000 Signed Impressions: Service Date/Time: Friday, March 03, 2017 21:13 - CONCLUSION: 1. No large vessel stenosis or aneurysm. 2. Normal variant as described above. Harmeet Best MD Head CT 03/03/17 0000 Signed Impressions: Service Date/Time: Friday, March 03, 2017 16:24 - CONCLUSION: Large air low attenuation right frontal lobe could be acute infarct versus edema from underlying mass. Contrast MRI recommended. Harmeet Best MD Brain MRI 03/03/17 0000 Signed Impressions: Service Date/Time: Friday, March 03, 2017 18:22 - CONCLUSION: 1. Prominent infarct in the right parietal and right temporal lobe. No midline shift or mass effect. 2. A few scattered foci of acute infarcts are seen within the left parietal, right occipital and both vertebral hemispheres. Embolic source is suggested. Harmeet Best MD Assessment and Plan Disease Oriented Problem List: (1) Peritoneal carcinomatosis (2) Macrocytic anemia (3) Abdominal mass (4) Stroke Symptom Scale: (1) Abdominal pain 0-10 Scale: 8 Comment: sharp, constant pain in right abdomen "due to tumor" Pertinent Non-Medical Issues Psychosocial: Single. No children. Lives with roommate, Hank for 17 years. Spiritual: unknown. Legal: Patient appears capacitated to make her healthcare decisions. Completed designation of healthcare surrogate naming her mother, Ana Laura as primary HCS and friend Hank as alternate HCS in the event she loses capacity. Ethical issues impacting care: No known concerns. . Important Contacts * Primary Health Care Surrogate: Ana Laura Dudley, mother: [phone] * Alternate Health Care Surrogate: Hank Conn, friend: [phone] * Sister, Sonal in [place]: [phone] . Prognosis Overall prognosis is poor given advanced cancer, recent stroke and left sided weakness. . Code Status: Full Code Plan * Decision Maker: Patient appears capacitated to make her healthcare decisions. Completed designation of healthcare surrogate naming her mother, Ana Laura as primary HCS and friend Hank as alternate HCS in the event she loses capacity. * FULL CODE * Palliative care met with patient. Also present Dacia Ragsdale LCSW. Patient wants to pursue aggressive care, chemotherapy and rehab. She desires FULL CODE. Open to hospice in future if chemotherapy does not provide benefit. * SYMPTOMS: Pain: in abdomen due to mets cancer, ascites, large pelvic mass, peritoneal carcinomatosis, liver disease and recent stroke. Has PRN Hydrocodone 10/325 every 4 hours PRN pain available. Has had 3 doses today, will monitor need and effect. No new recommendations at this time. * Palliative care will continue to follow throughout hospital course to assist with symptom management and clarification of goals as needed. . Attestation To help prompt me to consider important information that might be impacting today's encounter and assessment, information from prior notes written by myself or my colleagues may have been "brought forward" into today's note. My signature on this note, however, is an attestation that I personally performed the exam, history, and/or decision-making noted today, and, unless otherwise indicated, the interactions with patient, family, and staff as well as the review of records all occurred today. I also attest that the listed assessment and stated plan reflect my best clinical judgment today based on the combination of historical information, prior notes, and today's exam/ interactions. When time spent is documented, it refers only to time spent today by the signer, or if indicated, combined time spent today by collaborating physician/nurse practitioner. Claudia Sigala Mar 06, 2017 16:48
[2017-03-06] MEDS: MORPHINE SULFATE 2 MG/ML INJ IV PUSH PRN (19:15)
[2017-03-06] MEDS: PRAVASTATIN SOD 40 MG TAB PO SCH (20:44)
--- NOTE | 2017-03-06 22:47 | HM ---
Date Performed: 03/04/2017 Time Performed: 16:27:00 HOOKUP DATE: 03/04/17 04:27:00 PM Sun ANALYSIS START TIME: 03/04/2017 4:32:00 PM ANALYSIS END TIME: 03/05/2017 3:56:13 PM PATIENT AGE: 56 PATIENT HEIGHT PATIENT WEIGHT DRUG LIST PATIENT DIAGNOSIS: metastatic cancer TEST NARRATIVE: The patient's average heart rate was 77 BPM. No episodes of tachycardia wer e noted. No episodes of bradycardia were noted. No pauses exceeding 2.0 seconds were noted. 491 ventricular ectopics, which represented 1% of the total beat count, were noted. The highest vent ricular ectopic frequency occurred from 10:00 AM to 11:00 AM Mon. During this time 174 VE(s) occurre d. Ventricular ectopics were observed as 367 isolated beat(s), as 45 couplet(s) and as 11 run(s). S ome of the ventricular beats occurred in bigeminal cycles. 20 supraventricular ectopics, which re presented < 1% of the total beat count, were noted. The highest supraventricular ectopic frequency o ccurred from 06:00 PM to 07:00 PM Sun. During this time 5 SVE(s) occurred. No episodes of ST dep ression (defined as -1.0 mm or more) were noted in channel 1. No episodes of ST depression (defined as -1.0 mm or more) were noted in channel 2. No episodes of ST depression (defined as -1.0 mm or mor e) were noted in channel 3. no diary given to patient POOR QUALITY TRACING TEST INTERPRETATION: Sinus rhythm Reccurent PVCs No pause No vetricular tachycardia No supraventricular tachycardia observed There is no entry to the diary Signed by : Woo Ashby
[2017-03-07] VITALS (26 sets, daily range): BP systolic 103–118; BP diastolic 71–75; PULSE 58–92; RESP 16–20; TEMP 97.2–99.5; O2SAT 95–100
[2017-03-07] MEDS: ACETAMINOPHEN/HYDROcodone 325 MG/10 MG TAB PO PRN ×4 (01:15→13:03)
[2017-03-07 06:41] LABS: HEMATOCRIT 27.6 % (35.0-46.0); HEMOGLOBIN 9.2 GM/DL (11.6-15.3); INTERNATIONAL NORMALIZED RATIO 2.6 RATIO; MEAN CELL VOLUME 100.9 FL (80.0-100.0); MEAN CORPUSCULAR HEMOGLOBIN 33.5 PG (27.0-34.0); MEAN CORPUSCULAR HGB CONC 33.2 % (32.0-36.0); MEAN PLATELET VOLUME 8.4 FL (7.0-11.0); PLATELET COUNT 552 TH/MM3 (150-450); PROTHROMBIN TIME - PATIENT 26.5 SEC (9.8-11.6); RED BLOOD COUNT 2.74 MIL/MM3 (4.00-5.30); RED CELL DISTRIBUTION WIDTH 18.6 % (11.6-17.2); WHITE BLOOD COUNT 9.5 TH/MM3 (4.0-11.0)
--- NOTE | 2017-03-07 07:48 | PD.ONC.PN ---
Subjective Subjective Remarks office asst/onc progress note patient sleeping, awakens to voice no complaints anxious to get stronger and start chemo explained that her CA 19-9 was remarkably elevated this could possibly be malignancy arising from pancreas or biliary origin she will continue under the care of Dr. Jeter Objective Data Date Time Temp Pulse Resp B/P (MAP) Pulse Ox O2 Delivery O2 Flow Rate FiO2 03/07/17 07:04 63 03/07/17 06:04 74 03/07/17 05:00 70 03/07/17 04:27 98.4 76 16 103/71 (82) 96 03/07/17 04:03 73 03/07/17 03:00 68 03/07/17 02:00 75 03/07/17 01:02 78 03/07/17 00:04 74 03/07/17 00:00 16 03/06/17 23:27 98.0 84 18 119/80 (93) 98 03/06/17 23:00 67 03/06/17 22:04 70 03/06/17 21:04 70 03/06/17 20:01 75 03/06/17 19:21 98.0 83 18 128/75 (92) 96 03/06/17 19:03 76 03/06/17 18:00 73 03/06/17 17:00 72 03/06/17 16:23 97.5 75 20 105/76 (86) 98 03/06/17 16:03 74 03/06/17 15:00 68 03/06/17 14:00 69 03/06/17 13:00 66 03/06/17 12:16 97.6 77 18 104/81 (89) 96 03/06/17 12:00 74 03/06/17 11:00 71 03/06/17 10:00 76 03/06/17 09:00 73 03/06/17 08:31 98.1 75 20 107/74 (85) 100 03/06/17 08:17 98 21 03/07/17 03/07/17 03/07/17 07:00 15:00 23:00 Intake Total 480 ml Output Total 400 ml Balance 80 ml Result Diagram: 03/07/17 0540 03/06/17 0625 Laboratory Results Laboratory Tests Test 03/07/17 05:40 White Blood Count 9.5 TH/MM3 Red Blood Count 2.74 MIL/MM3 Hemoglobin 9.2 GM/DL Hematocrit 27.6 % Mean Corpuscular Volume 100.9 FL Mean Corpuscular Hemoglobin 33.5 PG Mean Corpuscular Hemoglobin Concent 33.2 % Red Cell Distribution Width 18.6 % Platelet Count 552 TH/MM3 Mean Platelet Volume 8.4 FL Prothrombin Time 26.5 SEC Prothromb Time International Ratio 2.6 RATIO Administered Medications Medications (Trade) Dose Ordered Sig/Raquel Route PRN Reason Start Time Stop Time Status Last Admin Dose Admin Sodium Chloride (NS Flush) 2 ml BID IV FLUSH 03/03/17 21:00 03/06/17 19:16 Pravastatin Sodium (Pravachol) 40 mg HS PO 03/03/17 21:00 03/06/17 20:44 Morphine Sulfate (Morphine Inj) 2 mg Q3H PRN IV PUSH breakthrough 03/04/17 06:45 03/06/17 19:15 Acetaminophen/ Hydrocodone Bitart ([place] 5-325 Mg) 1 tab Q4H PRN PO pain 1-5 03/04/17 06:45 03/05/17 00:59 Acetaminophen/ Hydrocodone Bitart ([place] 10-325 Mg) 1 tab Q4H PRN PO pain 6-10 03/05/17 03:00 03/07/17 05:14 Ondansetron HCl (Zofran Inj) 4 mg Q6HR PRN IV PUSH NAUSEA OR VOMITING 03/06/17 03:00 03/06/17 02:54 Magnesium Hydroxide (Milk Of Magnesia Liq) 30 ml DAILY PO 03/06/17 09:00 03/06/17 12:03 Linezolid (Zyvox) 600 mg Q12HR PO 03/06/17 10:30 03/06/17 20:43 Amoxicillin/ Clavulanate Potassium (Augmentin) 875 mg Q12HR PO 03/06/17 11:00 03/06/17 20:43 Pantoprazole Sodium (Protonix) 40 mg DAILY PO 03/06/17 10:00 03/06/17 12:03 Objective Remarks GENERAL: thin SKIN: Warm and dry. HEAD: Normocephalic. EYES: No scleral icterus. No injection or drainage. NECK: Supple, CARDIOVASCULAR: Regular rate and rhythm without murmurs. RESPIRATORY: Breath sounds equal bilaterally. No accessory muscle use. GASTROINTESTINAL: Abdomen firm and generalized tenderness EXTREMITIES: No cyanosis, or edema. MUSCULOSKELETAL: Adequate muscle tone. NEUROLOGICAL: left upper and lower ext weakness, Awake, alert, and oriented x3. PSYCHIATRIC: pressed speech, manic in thought Assessment/Plan Problem List: (1) Stroke ICD Codes: I63.9 - Cerebral infarction, unspecified Status: Acute Plan: --INR 1.9--coumadin d/c today by neurology --Brain MRI with prominent infarct in the right parietal and right temporal lobe with no midline shift or mass effect. --Neurology team recommends anticoagulation and physical therapy. 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 Dr. Jeter and Dr. Ortega agree likely cancer of GI/pancreas/ biliary origin with remarkably elevated CA 19-9 Care and treatment will be under the direction of Dr. Jeter Palliative Care following appreciate assistance in care of Ms. Gomes treatment palliative, will most likely need hospice in future (3) Macrocytic anemia ICD Codes: D53.9 - Nutritional anemia, unspecified Plan: --no B12 deficiency --iron studies all low, which is more consistent with anemia of chronic disease , will obtain ferritin as well. Assessment 56y/o female admitted with embolic stroke. h/o Peritoneal carcinomatosis. Ascites. 15.5 x 13.8 cm adnexal mass. elevated CA 125 h/o alcoholic liver disease 03/07/17: elevated CA 19-9 Plan 1. monitor CBC 2. plan for follow up in clinic after rehab--face sheet faxed to new patient referrals. 03/07/17: patient lives with a friend (who is currently in the hospital), little support at home she is planning on rehab and is concerned that she will not have the support she needs during chemotherapy. Problem Qualifiers (1) Stroke: Qualified Codes: I63.10 - Cerebral infarction due to embolism of unspecified precerebral artery Swapnil Vázquez Mar 07, 2017 07:48
--- NOTE | 2017-03-07 08:10 | HHI.PR ---
Objective Vital Signs Date Time Temp Pulse Resp B/P (MAP) Pulse Ox O2 Delivery O2 Flow Rate FiO2 03/07/17 07:04 63 03/07/17 06:04 74 03/07/17 05:00 70 03/07/17 04:27 98.4 76 16 103/71 (82) 96 03/07/17 04:03 73 03/07/17 03:00 68 03/07/17 02:00 75 03/07/17 01:02 78 03/07/17 00:04 74 03/07/17 00:00 16 03/06/17 23:27 98.0 84 18 119/80 (93) 98 03/06/17 23:00 67 03/06/17 22:04 70 03/06/17 21:04 70 03/06/17 20:01 75 03/06/17 19:21 98.0 83 18 128/75 (92) 96 03/06/17 19:03 76 03/06/17 18:00 73 03/06/17 17:00 72 03/06/17 16:23 97.5 75 20 105/76 (86) 98 03/06/17 16:03 74 03/06/17 15:00 68 03/06/17 14:00 69 03/06/17 13:00 66 03/06/17 12:16 97.6 77 18 104/81 (89) 96 03/06/17 12:00 74 03/06/17 11:00 71 03/06/17 10:00 76 03/06/17 09:00 73 03/06/17 08:31 98.1 75 20 107/74 (85) 100 03/06/17 08:17 98 21 I/O 03/06/17 03/06/17 03/06/17 03/07/17 03/07/17 03/07/17 07:00 15:00 23:00 07:00 15:00 23:00 Intake Total 580 ml 35 ml 480 ml 480 ml Output Total 250 ml 100 ml 400 ml Balance 330 ml 35 ml 380 ml 80 ml Intake Oral 480 ml 480 ml 480 ml IV Total 100 ml 35 ml Output Urine Total 250 ml 100 ml 400 ml # Voids 3 1 # Bowel Movements 0 0 Result Diagram: 03/07/17 0540 03/06/17 0625 Objective Remarks awake alert can picker feeder left arm a nd leg no change Assessment and Plan Assessment and Plan imp bilat cva coumdain echo nl holter pend hypercoag pend inr 1.9 hold coumdain very sensative to it ocornelio yepez hypercoag from that stable neuro 03/07/17 inr 2.6 today echo and holter nl 1 mg coumadin today she is ready for rehab neurowise a little down about cancer situation Bala Johnson MD Mar 07, 2017 08:10
--- NOTE | 2017-03-07 08:47 | MB ---
cc: [place] [employer] MD,MELI JESUS,CORNELIA Torres M.D. DATE OF CONSULTATION 03/07/2017 REASON FOR CONSULTATION Dmjccj-H-Pzep placement for metastatic cancer. 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 She has been in the hospital, Dr. Jeter asked me to see her for timing of Npkcxf-F-Nbgc placement. Presently she is in the room comfortable, tolerating a diet. She has a history of ulcers from drinking too much and has some sequelae from her alcohol use. She has had blood transfusions in the past and psychiatric problems. OTHER HISTORY In the computer as she does not appear to be too reliable and is somewhat of a poor historian. PHYSICAL EXAM On exam, she is a thin. She has flight of ideas and it is difficult to hold her down in conversation. NECK: Supple. CHEST: Clear. ABDOMEN: Protuberant. EXTREMITIES: Thin. NEUROLOGIC: She cannot stay on target and has tangential speech. LABORATORY DATA Her white count is 9, H&H of 9 and 27. Coags show an INR of 2.6. Chemistries are essentially normal. Her CEA is 20, CA19-9 is 18,157 and CA 15-3 is 22. Her albumin was 2.6 and LFTs earlier were all normal. IMAGING CT of the abdomen shows a solid mass in the pelvis thought to be ovarian carcinoma with massive ascites. The brain MRI on the shows infarct. ASSESSMENT This is a 56-year-old female with what appears to be ovarian cancer with a previous stroke on Coumadin, elevated INR, anemia. PLAN AT THIS TIME The patient wanted to think about the Pppmag-Y-Mpxt. I talked to her about the Mpoqwq-G-Fmza. I could certainly put it in tomorrow, but she did not want to do that. We need to get her INR in a more normal range. We will stand by when the patient decides she wants me to place an Mjjdhr-B-Cvtt, we certainly can. MD KARLA Grimm/MICHELLE /8:29 AM /8:38 AM
[2017-03-07] MEDS: LINEZOLID 600 MG TAB PO SCH ×2 (08:56→20:18)
[2017-03-07] MEDS: AMOXICILLIN/CLAVULANATE K 875 MG TAB PO SCH ×2 (08:56→20:16)
[2017-03-07] MEDS: PANTOPRAZOLE SOD 40 MG DELAYED RELEASE TAB PO SCH (08:56)
[2017-03-07] MEDS: MAGNESIUM HYDROXIDE SUSP 30 ML CUP PO SCH (08:57)
[2017-03-07] MEDS: SODIUM CHLORIDE 0.9% FLUSH 10 ML FLUSH IV FLUSH SCH ×2 (08:57→20:18)
--- NOTE | 2017-03-07 10:29 | HHI.PR ---
Subjective Remarks Follow up for CVA Patient was not as talkative today. She stated that she does not know if the chemotherapy will help her. Patient also stated that she is very motivated to get better. Patient asked for an x-ray of her left foot. She stated that when she tried to get up and walk she had left foot pain and was told that she was given x-ray. Otherwise patient has no complaints. Patient asking for a rehabilitation facility. Objective Vitals Vital Signs Date Time Temp Pulse Resp B/P (MAP) Pulse Ox O2 Delivery O2 Flow Rate FiO2 03/07/17 10:00 67 03/07/17 09:00 65 03/07/17 08:49 97.2 75 20 118/74 (89) 100 03/07/17 08:00 78 03/07/17 07:04 63 03/07/17 06:04 74 03/07/17 05:00 70 03/07/17 04:27 98.4 76 16 103/71 (82) 96 03/07/17 04:03 73 03/07/17 03:00 68 03/07/17 02:00 75 03/07/17 01:02 78 03/07/17 00:04 74 03/07/17 00:00 16 03/06/17 23:27 98.0 84 18 119/80 (93) 98 03/06/17 23:00 67 03/06/17 22:04 70 03/06/17 21:04 70 03/06/17 20:01 75 03/06/17 19:21 98.0 83 18 128/75 (92) 96 03/06/17 19:03 76 03/06/17 18:00 73 03/06/17 17:00 72 03/06/17 16:23 97.5 75 20 105/76 (86) 98 03/06/17 16:03 74 03/06/17 15:00 68 03/06/17 14:00 69 03/06/17 13:00 66 03/06/17 12:16 97.6 77 18 104/81 (89) 96 03/06/17 12:00 74 03/06/17 11:00 71 I/O 03/06/17 03/06/17 03/06/17 03/07/17 03/07/17 03/07/17 07:00 15:00 23:00 07:00 15:00 23:00 Intake Total 580 ml 35 ml 480 ml 480 ml Output Total 250 ml 100 ml 400 ml Balance 330 ml 35 ml 380 ml 80 ml Intake Oral 480 ml 480 ml 480 ml IV Total 100 ml 35 ml Output Urine Total 250 ml 100 ml 400 ml # Voids 3 1 # Bowel Movements 0 0 Result Diagram: 03/07/17 0540 03/06/17 0625 Objective Remarks GENERAL: on NAD found sitting in bed. CARDIOVASCULAR: Regular rate and rhythm without murmurs, gallops, or rubs. RESPIRATORY: Breath sounds equal bilaterally. No accessory muscle use. GASTROINTESTINAL: Abdomen soft, non-tender, nondistended. NEURO: 5/ 5 upper left and 2/5 lower left sided strength. Strength on right side intact. Medications and IVs Current Medications Ondansetron HCl (Zofran Inj) 4 mg ONCE ONCE IVP Last administered on at 14:38; Start 03/03/17 at 14:30; Stop 03/03/17 at 14:31; Status DC Sodium Chloride 1,000 ml @ 1,000 mls/hr Q1H IV Last administered on 03/03/17at 14:37; Start 03/03/17 at 14:19; Stop 03/03/17 at 15:18; Status DC Sodium Chloride (NS Flush) 2 ml UNSCH PRN IV FLUSH FLUSH AFTER USING IV ACCESS ; Start 03/03/17 at 14:30; Stop 03/04/17 at 22:57; Status DC Morphine Sulfate (Morphine Inj) 2 mg ONCE ONCE IV PUSH Last administered on at 14:37; Start 03/03/17 at 14:30; Stop 03/03/17 at 14:31; Status DC Morphine Sulfate (Morphine Inj) 2 mg ONCE ONCE IV PUSH Last administered on at 14:38; Start 03/03/17 at 14:30; Stop 03/03/17 at 14:31; Status DC Pantoprazole Sodium 80 mg/ Sodium Chloride 100 ml @ 10 mls/hr CONTINUOUS IV ; Start 03/03/17 at 15:00; Status Cancel Pantoprazole Sodium 80 mg/ Sodium Chloride 35 ml @ 420 mls/hr BOLUS ONCE IV Last administered on 03/03/17at 15:31; Start 03/03/17 at 15:00; Stop 03/03/17 at 15:04; Status DC Pantoprazole Sodium 80 mg/ Sodium Chloride 100 ml @ 10 mls/hr Q10H IV Last administered on 03/04/17at 02:10; Start 03/03/17 at 15:00; Stop 03/04/17 at 05:39 ; Status DC Prochlorperazine Edisylate (Compazine Inj) 10 mg ONCE ONCE IV PUSH Last administered on 03/03/17at 15:55; Start 03/03/17 at 15:15; Stop 03/03/17 at 15:16 ; Status DC Ceftriaxone Sodium 1000 mg/ Sodium Chloride 100 ml @ 200 mls/hr ONCE ONCE IV Last administered on 03/03/17at 17:39; Start 03/03/17 at 17:00; Stop 03/03/17 at 17:29; Status DC Iohexol (Omnipaque 350 Inj) 90 ml STK-MED ONCE IVCONTRAST Last administered on 03/03/17at 14:06; Start 03/03/17 at 14:06; Stop 03/03/17 at 16:56; Status DC Gadodiamide (Omniscan Pf Inj) 14 ml STK-MED ONCE IVCONTRAST Last administered on 03/03/17at 18:37; Start 03/03/17 at 18:37; Stop 03/03/17 at 18:40; Status DC Aspirin (Aspirin) 325 mg ONCE ONCE PO Last administered on 03/03/17at 19:40; Start 03/03/17 at 19:30; Stop 03/03/17 at 19:31; Status DC Sodium Chloride 1,000 ml @ 70 mls/hr [id number] IV Last administered on at 11:27; Start 03/03/17 at 19:30; Stop 03/04/17 at 12:57; Status DC Sodium Chloride (NS Flush) 2 ml BID IV FLUSH Last administered on 03/07/17at 08: 57; Start 03/03/17 at 21:00 Sodium Chloride (NS Flush) 2 ml UNSCH PRN IV FLUSH FLUSH AFTER USING IV ACCESS ; Start 03/03/17 at 20:15 Aspirin (Aspirin) 325 mg DAILY PO Last administered on 03/05/17at 08:58; Start 03/04/17 at 09:00; Stop 03/06/17 at 08:03; Status DC Pravastatin Sodium (Pravachol) 40 mg HS PO Last administered on 03/06/17at 20:44 ; Start 03/03/17 at 21:00 Insulin Aspart (NovoLOG SUPPLEMENTAL SCALE) 1 ACHS SQ ; Start 03/03/17 at 21:00 ; Stop 03/06/17 at 19:47; Status DC Dextrose (D50w (Vial) Inj) 50 ml UNSCH PRN IV PUSH HYPOGLYCEMIA-SEE COMMENTS; Start 03/03/17 at 20:15; Stop 03/06/17 at 19:47; Status DC Glucagon (Glucagon Inj) 1 mg UNSCH PRN OTHER HYPOGLYCEMIA-SEE COMMENTS; Start 03/03/17 at 20:15; Stop 03/06/17 at 19:47; Status DC Gadodiamide (Omniscan Pf Inj) 14 ml STK-MED ONCE IVCONTRAST Last administered on 03/03/17at 21:20; Start 03/03/17 at 21:20; Stop 03/03/17 at 21:21; Status DC Ceftriaxone Sodium 1000 mg/ Sodium Chloride 100 ml @ 200 mls/hr Q24H IV Last administered on 03/05/17at 18:49; Start 03/04/17 at 17:00; Stop 03/06/17 at 09:59 ; Status DC Pantoprazole Sodium 80 mg/ Sodium Chloride 100 ml @ 10 mls/hr CONTINUOUS IV Last administered on 03/04/17at 12:03; Start 03/04/17 at 07:00; Stop 03/04/17 at 22:31; Status DC Morphine Sulfate (Morphine Inj) 2 mg Q3H PRN IV PUSH breakthrough Last administered on 03/06/17at 19:15; Start 03/04/17 at 06:45 Acetaminophen/ Hydrocodone Bitart ([place] 5-325 Mg) 1 tab Q4H PRN PO pain 1-5 Last administered on 03/05/17at 00:59; Start 03/04/17 at 06:45 Heparin Sodium (Porcine) (Heparin Inj) 5,000 units Q12HR SQ Last administered on 03/05/17at 21:00; Start 03/04/17 at 21:00; Stop 03/06/17 at 08:03; Status DC Warfarin Sodium (Coumadin) 5 mg DAILY@1600 PO Last administered on 03/05/17at 18 :49; Start 03/04/17 at 16:00; Stop 03/06/17 at 08:03; Status DC Atorvastatin Calcium (Lipitor) 10 mg HS PO ; Start 03/04/17 at 21:00; Stop 03/04 at 21:00; Status DC Pantoprazole Sodium 80 mg/ Sodium Chloride 100 ml @ 10 mls/hr Q10H IV Last administered on 03/06/17at 05:34; Start 03/04/17 at 22:45; Stop 03/06/17 at 09:59 ; Status DC Acetaminophen/ Hydrocodone Bitart ([place] 10-325 Mg) 1 tab Q4H PRN PO pain 6-10 Last administered on 03/07/17at 08:57; Start 03/05/17 at 03:00 Pharmacy Profile Note 0 ml @ 0 mls/hr UNSCH OTHER ; Start 03/05/17 at 08:30; Stop 03/06/17 at 08:39; Status DC Ondansetron HCl (Zofran Inj) 4 mg Q6HR PRN IV PUSH NAUSEA OR VOMITING Last administered on 03/06/17at 02:54; Start 03/06/17 at 03:00 Magnesium Hydroxide (Milk Of Magnesia Liq) 30 ml DAILY PO Last administered on 03/07/17at 08:57; Start 03/06/17 at 09:00 Linezolid (Zyvox) 600 mg Q12HR PO Last administered on 03/07/17at 08:56; Start 03/06/17 at 10:30 Amoxicillin/ Clavulanate Potassium (Augmentin) 875 mg Q12HR PO Last administered on 03/07/17at 08:56; Start 03/06/17 at 11:00 Pantoprazole Sodium (Protonix) 40 mg DAILY PO Last administered on 03/07/17at 08 :56; Start 03/06/17 at 10:00 A/P Problem List: (1) Stroke ICD Code: I63.9 - Cerebral infarction, unspecified Status: Acute (2) Hematemesis ICD Code: K92.0 - Hematemesis (3) Abdominal mass ICD Code: R19.00 - Intra-abdominal and pelvic swelling, mass and lump, unspecified site (4) Upper GI bleed ICD Code: K92.2 - Gastrointestinal hemorrhage, unspecified Assessment and Plan 56-year-old female with CVA, acute Brain MRI shows prominent infarct in the right parietal and right temporal lobe , no midline shift or mass effect. A few scattered foci of acute infarcts are seen within the left parietal, right occipital and both vertebral hemispheres. -Appreciate input from neurology -Currently on Heparin subcutaneous bridge and Coumadin. today INR 2.6. Management per Dr. Johnson. -Continue with Pravachol and aspirin -PT/OT/ST -Hemoglobin A1c 5.1. LDL 44. 2-D echo within normal limits. MRA of the carotids ordered, no significant Blockage -Pending hypercoagulable workup. UTI -Rocephin DC on 03/06. urine cultures grew enterococcus facelis and E coli. on linezolid and augmentin. Left foot pain with ambulation -Will get an x-ray. Anemia, patient with coffee-ground emesis, questionable GI bleed HGB 10.8 -Appreciate input from gastroenterology per GI will only scope if it is emergent. -No active bleeding and patient is asymptomatic. Continue with oral Protonix. ADENOCARCINOMA, chronic - GI/pancreas/biliary origin with remarkably elevated CA 19-9 -Patient will need rehabilitation prior to getting IV palliative chemotherapy. Dr. Jeter will be managing. Gen. surgeon consulted. DVT prophylaxis: SCDs Discharge Planning Difficult placement since patient is self paid. She will need to be in a rehabilitation facility. Order already placed for PT to work with patient every day. Problem Qualifiers (1) Stroke: Qualified Codes: I63.10 - Cerebral infarction due to embolism of unspecified precerebral artery (2) Hematemesis: Qualified Codes: K92.0 - Hematemesis (3) Abdominal mass: Qualified Codes: R19.07 - Generalized intra-abdominal and pelvic swelling, mass and lump Imelda Wiggins MD Mar 07, 2017 10:28
--- NOTE | 2017-03-07 11:18 | RADRPT ---
EXAM DATE/TIME: 03/07/2017 10:36 [facility] COMPARISON: No previous studies available for comparison. INDICATIONS : Left foot pain. MEDICAL HISTORY : None. SURGICAL HISTORY : None. ENCOUNTER: Initial ACUITY: 2 months PAIN SCORE: 4/10 LOCATION: Left anterior foot. FINDINGS: Healing fracture distal fifth metacarpal with some fracture callus. Degenerative changes carpometaca rpal joint. Anatomic alignment. CONCLUSION: Healing fracture distal fifth metacarpal. Low Kenny MD FACR on March 07, 2017 at 11:15 Board Certified Radiologist. This report was verified electronically.
[2017-03-07 11:51] LABS: DRVVT 1:1 MIX ND (CORRECTED); DRVVT CONFIRM NEGATIVE (NEGATIVE); HEXAGONAL PHASE CONFIRM POSITIVE (NEGATIVE)
--- NOTE | 2017-03-07 13:14 | PD.ONC.PN ---
Subjective Subjective Remarks Afebrile overnight. Patient very anxious. She doesn't know if she wants to get any treatment for her cancer. She is worried about where she will go after she leaves the hospital as her roommate is currently in the hospital as well and she has no support system. She has continued pain in her abdomen and states the Lortab is not working. She describes the pain as a pulling sensation. Objective Data Date Time Temp Pulse Resp B/P (MAP) Pulse Ox O2 Delivery O2 Flow Rate FiO2 03/07/17 12:56 98.0 79 18 115/74 (88) 100 03/07/17 12:00 58 03/07/17 11:00 62 03/07/17 10:00 67 03/07/17 09:00 65 03/07/17 08:49 97.2 75 20 118/74 (89) 100 03/07/17 08:00 78 03/07/17 07:04 63 03/07/17 06:04 74 03/07/17 05:00 70 03/07/17 04:27 98.4 76 16 103/71 (82) 96 03/07/17 04:03 73 03/07/17 03:00 68 03/07/17 02:00 75 03/07/17 01:02 78 03/07/17 00:04 74 03/07/17 00:00 16 03/06/17 23:27 98.0 84 18 119/80 (93) 98 03/06/17 23:00 67 03/06/17 22:04 70 03/06/17 21:04 70 03/06/17 20:01 75 03/06/17 19:21 98.0 83 18 128/75 (92) 96 03/06/17 19:03 76 03/06/17 18:00 73 03/06/17 17:00 72 03/06/17 16:23 97.5 75 20 105/76 (86) 98 03/06/17 16:03 74 03/06/17 15:00 68 03/06/17 14:00 69 03/07/17 03/07/17 03/07/17 07:00 15:00 23:00 Intake Total 480 ml Output Total 400 ml Balance 80 ml Result Diagram: 03/07/17 0540 03/06/17 0625 Laboratory Results Laboratory Tests Test 03/07/17 05:40 White Blood Count 9.5 TH/MM3 Red Blood Count 2.74 MIL/MM3 Hemoglobin 9.2 GM/DL Hematocrit 27.6 % Mean Corpuscular Volume 100.9 FL Mean Corpuscular Hemoglobin 33.5 PG Mean Corpuscular Hemoglobin Concent 33.2 % Red Cell Distribution Width 18.6 % Platelet Count 552 TH/MM3 Mean Platelet Volume 8.4 FL Prothrombin Time 26.5 SEC Prothromb Time International Ratio 2.6 RATIO Imaging Studies Last 24 hours Impressions Foot X-Ray 03/07/17 0000 Signed Impressions: Service Date/Time: Tuesday, March 07, 2017 10:36 - CONCLUSION: Healing fracture distal fifth metacarpal. Low Kenny MD FACR Administered Medications Medications (Trade) Dose Ordered Sig/Raquel Route PRN Reason Start Time Stop Time Status Last Admin Dose Admin Sodium Chloride (NS Flush) 2 ml BID IV FLUSH 03/03/17 21:00 03/07/17 08:57 Pravastatin Sodium (Pravachol) 40 mg HS PO 03/03/17 21:00 03/06/17 20:44 Morphine Sulfate (Morphine Inj) 2 mg Q3H PRN IV PUSH breakthrough 03/04/17 06:45 03/06/17 19:15 Acetaminophen/ Hydrocodone Bitart ([place] 5-325 Mg) 1 tab Q4H PRN PO pain 1-5 03/04/17 06:45 03/05/17 00:59 Acetaminophen/ Hydrocodone Bitart ([place] 10-325 Mg) 1 tab Q4H PRN PO pain 6-10 03/05/17 03:00 03/07/17 13:03 Ondansetron HCl (Zofran Inj) 4 mg Q6HR PRN IV PUSH NAUSEA OR VOMITING 03/06/17 03:00 03/06/17 02:54 Magnesium Hydroxide (Milk Of Magnesia Liq) 30 ml DAILY PO 03/06/17 09:00 03/07/17 08:57 Linezolid (Zyvox) 600 mg Q12HR PO 03/06/17 10:30 03/07/17 08:56 Amoxicillin/ Clavulanate Potassium (Augmentin) 875 mg Q12HR PO 03/06/17 11:00 03/07/17 08:56 Pantoprazole Sodium (Protonix) 40 mg DAILY PO 03/06/17 10:00 03/07/17 08:56 Objective Remarks GENERAL: Anxious female, sitting up in bed. SKIN: Warm and dry. HEAD: Normocephalic. EYES: No injection or drainage. NECK: Supple, trachea midline. CARDIOVASCULAR: Regular rate and rhythm RESPIRATORY: Breath sounds equal bilaterally. No accessory muscle use. GASTROINTESTINAL: abdomen distended, tender to palpation. EXTREMITIES: No cyanosis NEUROLOGICAL: awake, alert. normal speech. left sided paralysis. Assessment/Plan Assessment 56y/o female admitted with embolic stroke. h/o Peritoneal carcinomatosis. Ascites. 15.5 x 13.8 cm adnexal mass. elevated CA 125 h/o alcoholic liver disease 03/07/17: elevated CA 19-9 Plan 1. change Hydrocodone to Oxycodone 2. add PRN ativan for anxiety Attending Statement The exam, history, and the medical decision-making described in the above note were completed with the assistance of the mid-level provider. I reviewed and agree with the findings presented. I attest that I had a [id number] encounter with the patient on the same day, and personally performed and documented my assessment and findings in the medical record. PT seen and examined. Appreciate Dr. Barber consult. INR just therapeutic now. Social support poor, pt has not family to help her at home, uninsured to go to rehab. Discussed issue of hospice, from my conversation with pt she is desirous of pursing active treatment, however many barriers to get there. She is not subscribing to the philosophy of hospice at present. Her rapid fire speech and flight of ideas are difficult to follow, it's clear she should like to slow down her cancer. She has insight to know at some point she will need hospice care, she hopes it is not soon. Continue with plans for safe DC - fu in oncology clinic. Berkley Álvarez Mar 07, 2017 13:14 Malika Jeter MD Mar 07, 2017 18:46
[2017-03-07] MEDS ORDERED: LORazepam 2 MG/ML VIAL IV PUSH ONE (13:15)
[2017-03-07 13:27] LABS: METHYLMALONIC ACID 0.16 nmol/mL (<=0.40)
[2017-03-07 17:51] LABS: FACTOR VIII(8) ACTIVITY 157 (50-180)
[2017-03-07 18:57] LABS: PROTEIN C ACTIVITY 42 % (70 - 150); PROTEIN S ACTIVITY 98 % (65 - 160)
[2017-03-07] MEDS: PRAVASTATIN SOD 40 MG TAB PO SCH (20:16)
[2017-03-07 23:51] LABS: ANTI-THROMBIN III ACT 77 (80-120)
[2017-03-08] VITALS (7 sets, daily range): BP systolic 93–114; BP diastolic 58–79; PULSE 71–91; RESP 16–18; TEMP 98–99; O2SAT 95–98
[2017-03-08 06:44] LABS: INTERNATIONAL NORMALIZED RATIO 2.3 RATIO; PROTHROMBIN TIME - PATIENT 23.5 SEC (9.8-11.6)
[2017-03-08] MEDS: PANTOPRAZOLE SOD 40 MG DELAYED RELEASE TAB PO SCH (09:01)
[2017-03-08] MEDS: AMOXICILLIN/CLAVULANATE K 875 MG TAB PO SCH ×2 (09:01→21:05)
[2017-03-08] MEDS: LINEZOLID 600 MG TAB PO SCH (09:01)
[2017-03-08] MEDS: SODIUM CHLORIDE 0.9% FLUSH 10 ML FLUSH IV FLUSH SCH ×2 (09:02→21:08)
[2017-03-08] MEDS: MAGNESIUM HYDROXIDE SUSP 30 ML CUP PO SCH (09:02)
--- NOTE | 2017-03-08 10:15 | PD.ONC.PN ---
Subjective Subjective Remarks Afebrile overnight. Patient reports pain better controlled with oxycodone. she has decided to proceed with port placement. waiting to go to OR. Objective Data Date Time Temp Pulse Resp B/P (MAP) Pulse Ox O2 Delivery O2 Flow Rate FiO2 03/08/17 04:08 98.2 80 16 114/76 (89) 98 03/08/17 00:09 99.0 80 18 107/79 (88) 98 03/07/17 20:42 100 03/07/17 20:15 77 03/07/17 20:15 99.5 92 18 115/75 (88) 100 03/07/17 17:58 67 03/07/17 16:05 97.9 71 18 110/75 (87) 95 03/07/17 16:00 74 03/07/17 15:00 87 03/07/17 14:00 86 03/07/17 13:40 100 03/07/17 13:00 72 03/07/17 12:56 98.0 79 18 115/74 (88) 100 03/07/17 12:00 58 03/07/17 11:00 62 03/08/17 03/08/17 03/08/17 07:00 15:00 23:00 Output Total 400 ml Balance -400 ml Result Diagram: 03/07/17 0540 03/06/17 0625 Laboratory Results Laboratory Tests Test 03/08/17 05:22 Prothrombin Time 23.5 SEC Prothromb Time International Ratio 2.3 RATIO Administered Medications Medications (Trade) Dose Ordered Sig/Raquel Route PRN Reason Start Time Stop Time Status Last Admin Dose Admin Sodium Chloride (NS Flush) 2 ml BID IV FLUSH 03/03/17 21:00 03/08/17 09:02 Pravastatin Sodium (Pravachol) 40 mg HS PO 03/03/17 21:00 03/07/17 20:16 Morphine Sulfate (Morphine Inj) 2 mg Q3H PRN IV PUSH breakthrough 03/04/17 06:45 03/06/17 19:15 Ondansetron HCl (Zofran Inj) 4 mg Q6HR PRN IV PUSH NAUSEA OR VOMITING 03/06/17 03:00 03/06/17 02:54 Magnesium Hydroxide (Milk Of Magnesia Liq) 30 ml DAILY PO 03/06/17 09:00 03/08/17 09:02 Linezolid (Zyvox) 600 mg Q12HR PO 03/06/17 10:30 03/08/17 09:01 Amoxicillin/ Clavulanate Potassium (Augmentin) 875 mg Q12HR PO 03/06/17 11:00 03/08/17 09:01 Pantoprazole Sodium (Protonix) 40 mg DAILY PO 03/06/17 10:00 03/08/17 09:01 Oxycodone HCl (Roxicodone) 10 mg Q4H PRN PO pain1-10 03/07/17 13:15 03/08/17 09:02 Objective Remarks GENERAL: Chronically ill appearing female, supine in bed resting.. SKIN: Warm and dry. HEAD: Normocephalic. EYES: No injection or drainage. NECK: Supple, trachea midline. CARDIOVASCULAR: Regular rate and rhythm RESPIRATORY: Breath sounds equal bilaterally. No accessory muscle use. GASTROINTESTINAL: abdomen distended and ttp, especially in right upper and lower abdomen. EXTREMITIES: No cyanosis NEUROLOGICAL: awake, alert. normal speech. weakness, left arm and leg. Assessment/Plan Problem List: (1) Stroke ICD Codes: I63.9 - Cerebral infarction, unspecified Status: Acute Plan: --Brain MRI with prominent infarct in the right parietal and right temporal lobe with no midline shift or mass effect. --Neurology team recommends anticoagulation and physical therapy. --stroke likely due to multiple infarcts likely cardioembolic in nature Assessment 56y/o female admitted with embolic stroke. h/o Peritoneal carcinomatosis. Ascites. 15.5 x 13.8 cm adnexal mass. elevated CA 125 h/o alcoholic liver disease 03/07/17: elevated CA 19-9 Plan 1. continue Oxycodone. 2. port placement today. 3. once discharged, will plan follow up in the clinic and start chemotherapy in clinic. Attending Statement The exam, history, and the medical decision-making described in the above note were completed with the assistance of the mid-level provider. I reviewed and agree with the findings presented. I attest that I had a [id number] encounter with the patient on the same day, and personally performed and documented my assessment and findings in the medical record. Pending port placement. Making arrangement for home, a family member stepped up to help. L foot in a boot. Intent on continue path for treatment, inquiring about [facility] and [facility] as ways to get to clinic. Problem Qualifiers (1) Stroke: Qualified Codes: I63.10 - Cerebral infarction due to embolism of unspecified precerebral artery Berkley Álvarez Mar 08, 2017 10:15 Malika Jeter MD Mar 08, 2017 19:01
--- NOTE | 2017-03-08 11:15 | HHI.PR ---
Subjective Remarks Follow-up for CVA Patient stated she is in a very good mood today. She stated that when she leaves the hospital that she will be living with her stepson. She stated that she spoke to her mom yesterday and her stepson and they stated that she can come live with him and that he will take care of her. Patient stated that she is so grateful to have help from family. She stated that her foot pain has improved and that she has been moving a lot more. Patient stated that she does her exercises in bed. She did complain of right mid to lower back pain Otherwise she has no other complaints. Objective Vitals Vital Signs Date Time Temp Pulse Resp B/P (MAP) Pulse Ox O2 Delivery O2 Flow Rate FiO2 03/08/17 08:00 98.0 79 18 108/66 (80) 97 03/08/17 04:08 98.2 80 16 114/76 (89) 98 03/08/17 00:09 99.0 80 18 107/79 (88) 98 03/07/17 20:42 100 03/07/17 20:15 77 03/07/17 20:15 99.5 92 18 115/75 (88) 100 03/07/17 17:58 67 03/07/17 16:05 97.9 71 18 110/75 (87) 95 03/07/17 16:00 74 03/07/17 15:00 87 03/07/17 14:00 86 03/07/17 13:40 100 03/07/17 13:00 72 03/07/17 12:56 98.0 79 18 115/74 (88) 100 03/07/17 12:00 58 I/O 03/07/17 03/07/17 03/07/17 03/08/17 03/08/17 03/08/17 07:00 15:00 23:00 07:00 15:00 23:00 Intake Total 480 ml 550 ml Output Total 400 ml 375 ml 400 ml Balance 80 ml 175 ml -400 ml Intake Oral 480 ml 550 ml Output Urine Total 400 ml 375 ml 400 ml # Voids 1 2 # Bowel Movements 0 Result Diagram: 03/07/17 0540 03/06/17 0625 Objective Remarks GENERAL: on NAD found sitting in bed. CARDIOVASCULAR: Regular rate and rhythm without murmurs, gallops, or rubs. RESPIRATORY: Breath sounds equal bilaterally. No accessory muscle use. GASTROINTESTINAL: Abdomen soft, non-tender, nondistended. NEURO: 5/ 5 upper left and 5/5 lower left sided strength. She is grossly moving her left side. Strength on right side intact. Medications and IVs Current Medications Ondansetron HCl (Zofran Inj) 4 mg ONCE ONCE IVP Last administered on at 14:38; Start 03/03/17 at 14:30; Stop 03/03/17 at 14:31; Status DC Sodium Chloride 1,000 ml @ 1,000 mls/hr Q1H IV Last administered on 03/03/17at 14:37; Start 03/03/17 at 14:19; Stop 03/03/17 at 15:18; Status DC Sodium Chloride (NS Flush) 2 ml UNSCH PRN IV FLUSH FLUSH AFTER USING IV ACCESS ; Start 03/03/17 at 14:30; Stop 03/04/17 at 22:57; Status DC Morphine Sulfate (Morphine Inj) 2 mg ONCE ONCE IV PUSH Last administered on at 14:37; Start 03/03/17 at 14:30; Stop 03/03/17 at 14:31; Status DC Morphine Sulfate (Morphine Inj) 2 mg ONCE ONCE IV PUSH Last administered on at 14:38; Start 03/03/17 at 14:30; Stop 03/03/17 at 14:31; Status DC Pantoprazole Sodium 80 mg/ Sodium Chloride 100 ml @ 10 mls/hr CONTINUOUS IV ; Start 03/03/17 at 15:00; Status Cancel Pantoprazole Sodium 80 mg/ Sodium Chloride 35 ml @ 420 mls/hr BOLUS ONCE IV Last administered on 03/03/17at 15:31; Start 03/03/17 at 15:00; Stop 03/03/17 at 15:04; Status DC Pantoprazole Sodium 80 mg/ Sodium Chloride 100 ml @ 10 mls/hr Q10H IV Last administered on 03/04/17at 02:10; Start 03/03/17 at 15:00; Stop 03/04/17 at 05:39 ; Status DC Prochlorperazine Edisylate (Compazine Inj) 10 mg ONCE ONCE IV PUSH Last administered on 03/03/17at 15:55; Start 03/03/17 at 15:15; Stop 03/03/17 at 15:16 ; Status DC Ceftriaxone Sodium 1000 mg/ Sodium Chloride 100 ml @ 200 mls/hr ONCE ONCE IV Last administered on 03/03/17at 17:39; Start 03/03/17 at 17:00; Stop 03/03/17 at 17:29; Status DC Iohexol (Omnipaque 350 Inj) 90 ml STK-MED ONCE IVCONTRAST Last administered on 03/03/17at 14:06; Start 03/03/17 at 14:06; Stop 03/03/17 at 16:56; Status DC Gadodiamide (Omniscan Pf Inj) 14 ml STK-MED ONCE IVCONTRAST Last administered on 03/03/17at 18:37; Start 03/03/17 at 18:37; Stop 03/03/17 at 18:40; Status DC Aspirin (Aspirin) 325 mg ONCE ONCE PO Last administered on 03/03/17at 19:40; Start 03/03/17 at 19:30; Stop 03/03/17 at 19:31; Status DC Sodium Chloride 1,000 ml @ 70 mls/hr [id number] IV Last administered on at 11:27; Start 03/03/17 at 19:30; Stop 03/04/17 at 12:57; Status DC Sodium Chloride (NS Flush) 2 ml BID IV FLUSH Last administered on 03/08/17at 09: 02; Start 03/03/17 at 21:00 Sodium Chloride (NS Flush) 2 ml UNSCH PRN IV FLUSH FLUSH AFTER USING IV ACCESS ; Start 03/03/17 at 20:15 Aspirin (Aspirin) 325 mg DAILY PO Last administered on 03/05/17at 08:58; Start 03/04/17 at 09:00; Stop 03/06/17 at 08:03; Status DC Pravastatin Sodium (Pravachol) 40 mg HS PO Last administered on 03/07/17at 20:16 ; Start 03/03/17 at 21:00 Insulin Aspart (NovoLOG SUPPLEMENTAL SCALE) 1 ACHS SQ ; Start 03/03/17 at 21:00 ; Stop 03/06/17 at 19:47; Status DC Dextrose (D50w (Vial) Inj) 50 ml UNSCH PRN IV PUSH HYPOGLYCEMIA-SEE COMMENTS; Start 03/03/17 at 20:15; Stop 03/06/17 at 19:47; Status DC Glucagon (Glucagon Inj) 1 mg UNSCH PRN OTHER HYPOGLYCEMIA-SEE COMMENTS; Start 03/03/17 at 20:15; Stop 03/06/17 at 19:47; Status DC Gadodiamide (Omniscan Pf Inj) 14 ml STK-MED ONCE IVCONTRAST Last administered on 03/03/17at 21:20; Start 03/03/17 at 21:20; Stop 03/03/17 at 21:21; Status DC Ceftriaxone Sodium 1000 mg/ Sodium Chloride 100 ml @ 200 mls/hr Q24H IV Last administered on 03/05/17at 18:49; Start 03/04/17 at 17:00; Stop 03/06/17 at 09:59 ; Status DC Pantoprazole Sodium 80 mg/ Sodium Chloride 100 ml @ 10 mls/hr CONTINUOUS IV Last administered on 03/04/17at 12:03; Start 03/04/17 at 07:00; Stop 03/04/17 at 22:31; Status DC Morphine Sulfate (Morphine Inj) 2 mg Q3H PRN IV PUSH breakthrough Last administered on 03/06/17at 19:15; Start 03/04/17 at 06:45 Acetaminophen/ Hydrocodone Bitart (Arden 5-325 Mg) 1 tab Q4H PRN PO pain 1-5 Last administered on 03/05/17at 00:59; Start 03/04/17 at 06:45; Stop 03/07/17 at 13:09; Status DC Heparin Sodium (Porcine) (Heparin Inj) 5,000 units Q12HR SQ Last administered on 03/05/17at 21:00; Start 03/04/17 at 21:00; Stop 03/06/17 at 08:03; Status DC Warfarin Sodium (Coumadin) 5 mg DAILY@1600 PO Last administered on 03/05/17at 18 :49; Start 03/04/17 at 16:00; Stop 03/06/17 at 08:03; Status DC Atorvastatin Calcium (Lipitor) 10 mg HS PO ; Start 03/04/17 at 21:00; Stop 03/04 at 21:00; Status DC Pantoprazole Sodium 80 mg/ Sodium Chloride 100 ml @ 10 mls/hr Q10H IV Last administered on 03/06/17 05:34; Start 03/04/17 at 22:45; Stop 03/06/17 at 09:59 ; Status DC Acetaminophen/ Hydrocodone Bitart (Arden 10-325 Mg) 1 tab Q4H PRN PO pain 6-10 Last administered on 03/07/17 13:03; Start 03/05/17 at 03:00; Stop 03/07/17 at 13:09; Status DC Pharmacy Profile Note 0 ml @ 0 mls/hr UNSCH OTHER ; Start 03/05/17 at 08:30; Stop 03/06/17 at 08:39; Status DC Ondansetron HCl (Zofran Inj) 4 mg Q6HR PRN IV PUSH NAUSEA OR VOMITING Last administered on 03/06/17 02:54; Start 03/06/17 at 03:00 Magnesium Hydroxide (Milk Of Magnesia Liq) 30 ml DAILY PO Last administered on 03/08/17 09:02; Start 03/06/17 at 09:00 Linezolid (Zyvox) 600 mg Q12HR PO Last administered on 03/08/17 09:01; Start 03/06/17 at 10:30 Amoxicillin/ Clavulanate Potassium (Augmentin) 875 mg Q12HR PO Last administered on 03/08/17 09:01; Start 03/06/17 at 11:00 Pantoprazole Sodium (Protonix) 40 mg DAILY PO Last administered on 03/08/17 09 :01; Start 03/06/17 at 10:00 Oxycodone HCl (Roxicodone) 10 mg Q4H PRN PO pain1-10 Last administered on 09:02; Start 03/07/17 at 13:15 Lorazepam (Ativan) 0.5 mg Q8H PRN PO anxiety/agitation; Start 03/07/17 at 13:15 Lorazepam (Ativan Inj) 0.5 mg STAT ONCE IV PUSH Last administered on 13:53; Start 03/07/17 at 13:15; Stop 03/07/17 at 13:45; Status DC A/P Problem List: (1) Stroke ICD Code: I63.9 - Cerebral infarction, unspecified Status: Acute (2) Hematemesis ICD Code: K92.0 - Hematemesis (3) Abdominal mass ICD Code: R19.00 - Intra-abdominal and pelvic swelling, mass and lump, unspecified site (4) Upper GI bleed ICD Code: K92.2 - Gastrointestinal hemorrhage, unspecified Assessment and Plan 56-year-old female with CVA, acute Brain MRI shows prominent infarct in the right parietal and right temporal lobe , no midline shift or mass effect. A few scattered foci of acute infarcts are seen within the left parietal, right occipital and both vertebral hemispheres. -Appreciate input from neurology -Currently on Heparin subcutaneous bridge and Coumadin. today INR 2.3. Management per Dr. Johnson. -Continue with Pravachol and aspirin -PT/OT/ST -Hemoglobin A1c 5.1. LDL 44. 2-D echo within normal limits. MRA of the carotids ordered, no significant Blockage -Pending hypercoagulable workup. UTI -Rocephin DC on 03/06. urine cultures grew enterococcus facelis and E coli. on linezolid and augmentin. Discussed case with pharmacist and he stated that Augmentin will cover both species. Will DC the linezolid. Will treat for total 7 days. Left foot pain with ambulation -Foot x-ray shows healing metatarsal. Will give a fracture boot. Anemia, patient with coffee-ground emesis, questionable GI bleed HGB 10.8 -Appreciate input from gastroenterology per GI will only scope if it is emergent. -No active bleeding and patient is asymptomatic. Continue with oral Protonix. ADENOCARCINOMA, chronic - GI/pancreas/biliary origin with remarkably elevated CA 19-9 -Patient will need rehabilitation prior to getting IV palliative chemotherapy. Dr. Jeter will be managing. Gen. surgeon consulted. DVT prophylaxis: SCDs Discharge Planning Difficult placement since patient is self paid. She will need to be in a rehabilitation facility. In terms of strength deficits are improving drastically. Continue with daily PT. [facility] that she will be residing there. Discussed case with case management. Problem Qualifiers (1) Stroke: Qualified Codes: I63.10 - Cerebral infarction due to embolism of unspecified precerebral artery (2) Hematemesis: Qualified Codes: K92.0 - Hematemesis (3) Abdominal mass: Qualified Codes: R19.07 - Generalized intra-abdominal and pelvic swelling, mass and lump Imelda Wiggins MD Mar 08, 2017 11:15
[2017-03-08] MEDS ORDERED: POLYETHYLENE GLYCOL 17 GM PKG PO ONE (11:45)
[2017-03-08] MEDS: DOCUSATE SODIUM 50 MG/SENNA 8.6 MG TAB PO SCH ×2 (12:30→21:05)
[2017-03-08] MEDS ORDERED: PROPOFOL 200 MG/20 ML AMP ONE (13:01)
[2017-03-08] MEDS ORDERED: HEPARIN SODIUM - SQ 10,000 UNITS/ML VIAL ONE (13:15)
[2017-03-08] MEDS ORDERED: SODIUM CHLORIDE 0.9% 20 ML VIAL ONE (13:15)
[2017-03-08] MEDS ORDERED: VANCOMYCIN 500 MG VIAL ONE (13:16)
[2017-03-08] MEDS ORDERED: ceFAZolin INJ 1,000 MG VIAL ONE (13:16)
[2017-03-08] MEDS ORDERED: HEPARIN SODIUM - IV 10,000 UNITS/10 ML VIAL ONE (13:16)
[2017-03-08] MEDS ORDERED: SODIUM BICARBONATE 8.4% INJ 50 MEQ/50 ML SYR ONE (13:16)
[2017-03-08] MEDS ORDERED: LIDOCAINE 2%/EPINEPHrine PF 1:200,000 20ML SDV ONE (13:17)
[2017-03-08] MEDS ORDERED: BUPIVACAINE/EPINEPHRINE 0.25% 50 ML VIAL ONE (13:17)
[2017-03-08] MEDS ORDERED: MIDAZOLAM HCL 2 MG/2 ML VIAL ONE (14:19)
--- NOTE | 2017-03-08 14:27 | HHI.PR ---
cc: Cornelia Jesus MD Subjective Subjective Notes DAILY PROGRESS NOTE FOR SURGICAL ATTENDING, DR. CORNELIA JESUS Patient has decided to proceed with [id number] placement Objective Vitals/I&O Vital Signs Date Time Temp Pulse Resp B/P (MAP) Pulse Ox O2 Delivery O2 Flow Rate FiO2 03/08/17 13:56 98.1 73 18 93/73 (80) 95 03/06/17 08:17 21 Labs Laboratory Tests Test 03/08/17 05:22 Prothrombin Time 23.5 Prothromb Time International Ratio 2.3 Date/Time Source Procedure Growth Status 03/03/17 14:33 Urine Catheterized Urine Urine Culture - Final Escherichia Coli Enterococcus Faecalis Complete Radiology Last Impressions Foot X-Ray 03/07/17 0000 Signed Impressions: Service Date/Time: Tuesday, March 07, 2017 10:36 - CONCLUSION: Healing fracture distal fifth metacarpal. Low Kenny MD FACR Abdomen/Pelvis CT 03/03/17 1419 Signed Impressions: Service Date/Time: Friday, March 03, 2017 16:32 - CONCLUSION: 1. Large cystic and solid mass in the pelvis extending into the abdomen could be ovarian carcinoma. There is peritoneal carcinomatosis and multiple low-density liver lesions likely metastatic disease. 2. Large volume ascites. Harmeet Best MD Neck Magnetic Resonance Angiography 03/03/17 0000 Signed Impressions: Service Date/Time: Friday, March 03, 2017 21:13 - CONCLUSION: 1. Multiple carotid arteries. Harmeet Best MD Head Magnetic Resonance Angiography 03/03/17 0000 Signed Impressions: Service Date/Time: Friday, March 03, 2017 21:13 - CONCLUSION: 1. No large vessel stenosis or aneurysm. 2. Normal variant as described above. Harmeet Best MD Head CT 03/03/17 0000 Signed Impressions: Service Date/Time: Friday, March 03, 2017 16:24 - CONCLUSION: Large air low attenuation right frontal lobe could be acute infarct versus edema from underlying mass. Contrast MRI recommended. Harmeet Best MD Brain MRI 03/03/17 0000 Signed Impressions: Service Date/Time: Friday, March 03, 2017 18:22 - CONCLUSION: 1. Prominent infarct in the right parietal and right temporal lobe. No midline shift or mass effect. 2. A few scattered foci of acute infarcts are seen within the left parietal, right occipital and both vertebral hemispheres. Embolic source is suggested. Harmeet Best MD Cardiovascular: Regular Lungs: Clear Abdomen: Other ( ascites) Extremities: Perfused A/P Problem List: (1) Elevated INR (international normalized ratio) due to prior anticoagulant medication ingestion ICD Codes: R78.89 - Finding of other specified substances, not normally found in blood Status: Acute (2) Poor intravenous access ICD Codes: Z78.9 - Other specified health status Status: Chronic (3) Elevated INR ICD Codes: R79.1 - Abnormal coagulation profile Status: Acute (4) Stroke ICD Codes: I63.9 - Cerebral infarction, unspecified Status: Acute (5) Peritoneal carcinomatosis ICD Codes: C78.6 - Secondary malignant neoplasm of retroperitoneum and peritoneum; C80.1 - Malignant (primary) neoplasm, unspecified (6) Abdominal pain ICD Codes: R10.9 - Unspecified abdominal pain Status: Chronic Assessment and Plan 56-year-old female who is in need of IV access for chemotherapy. Unfortunately her INR is increased from 2 days ago. She was scheduled for placement of [id number] this afternoon but this will need to be rescheduled once her coagulopathy is resolved I have taken the liberty to give her some vitamin K I'll recheck INR tomorrow if okay we may be able to place the port late in the afternoon Attending Statement NOTE FOR SURGICAL ATTENDING, DR. CORNELIA JESUS I attest that I had a [id number] encounter with the patient on the same day, and personally performed and documented my assessment and findings in the medical record. The following services were provided during this hospital visit: Chart data review, vital sign assessments/reviewing monitor data Review of consultations notes if present. Medication orders/review and/or management Ordering and/or reviewing lab tests Ordering and/or interpreting/reviewing x-rays and/or diagnostic studies Care of the patient and discussion of the patient with the care team Documentation time To help prompt me to consider important information that might be impacting today's encounter and assessment, information from prior notes written by myself or my colleagues may have been "brought forward/copy and pasted" into today's note. Problem Qualifiers (1) Stroke: Qualified Codes: I63.10 - Cerebral infarction due to embolism of unspecified precerebral artery (2) Abdominal pain: Qualified Codes: R10.84 - Generalized abdominal pain Cornelia Jesus MD Mar 08, 2017 14:27
--- NOTE | 2017-03-08 15:47 | HHI.HCPN ---
Reason for visit a. To assist with evaluation and management of symptoms including: abdominal pain. b. To assist medical decision maker(s) with: better understanding of current medical conditions; weighing benefits/burdens of medical treatment options; making medical treatment decisions. . Subjective/Interval History Palliative care follow-up for further clarifications of goals of care, assistance with symptom management and emotional support. Also present Dacia Ragsdale LCSW and EVERTON Rivas. Patient resting in bed in moderate distress, anxious. Endorsing abdominal pain, described as intermittent with sharp and crampy characteristics. Pain regimen was changed from hydrocodone to oxycodone yesterday. Patient reports that oxycodone dose is more effective. Ativan was also added for anxiety. Patient tells me that after receiving one dose of Ativan, she got a "funny feeling" and is unsure if she will take it again. UA culture positive for Escherichia coli and enterococcus faecalis. Patient was placed on a course of Augmentin. Patient endorsing constipation, reports her last bowel movement was 5 days ago. Patient was placed on Senna-s and MiraLAX, refused senna-s this morning. However, received a dose of milk of magnesia. Patient endorsing pain to left foot, chest x-ray revealed a healing fracture of distal fifth metacarpal. Patient was placed on a hard boot. Patient remains afebrile, stable hemodynamically. Tolerating room air with oxygen saturation in the mid to high 90s. Reviewed goals of care with patient. Patient receptive to MediPort placement for initiation of palliative chemotherapy. Dr. Barber following, MediPort placement on hold at this time secondary to high INR. Patient on Coumadin. Patient gave verbal [facility] to [facility] to call her mother Ana Laura Dudley in [place] for medical update. Telephone conversation with patient's mother, medical update provided. All questions were answered in great detail. Reviewed with mother that length of hospital stay is unclear at this time, pending clinical course and safe dispo. Palliative care contact information provided. . Family/friend interactions See interval note. . Advance Directives Living Will: Never completed Health Care Surrogate: Copy in medical record Durable Power of Managing Partner [employer]: Never completed Advance Directive Specifics Date completed: 03/05/17. . Health Care Surrogate(s): Patient designating her mother Ana Laura Dudley as healthcare surrogate decision- maker, alternate surrogate his friend Hank Conn. . Significant change in goals: Patient verbalizing aggressive goals to include palliative chemotherapy. . Objective Vital Signs Date Time Temp Pulse Resp B/P (MAP) Pulse Ox O2 Delivery O2 Flow Rate FiO2 03/08/17 13:56 98.1 73 18 93/73 (80) 95 03/08/17 08:45 71 03/08/17 08:00 98.0 79 18 108/66 (80) 97 03/08/17 04:08 98.2 80 16 114/76 (89) 98 03/08/17 00:09 99.0 80 18 107/79 (88) 98 03/07/17 20:42 100 03/07/17 20:15 77 03/07/17 20:15 99.5 92 18 115/75 (88) 100 03/07/17 17:58 67 03/07/17 16:05 97.9 71 18 110/75 (87) 95 03/07/17 16:00 74 Intake & Output 03/08/17 03/08/17 07:00 19:00 Output Total 600 ml Balance -600 ml Output Urine Total 600 ml Physical Exam CONSTITUTIONAL/GENERAL: This is a thin female patient, somewhat manic in her speech/ though process. TUBES/LINES/DRAINS: PIV. Left lower extremity brace/boot. SKIN: Ecchymoses on upper extremities and bilateral knees. Skin temperature appropriate. ENT: Moist oral mucosa. CARDIOVASCULAR: Regular rate and rhythm without murmurs, gallops, or rubs. No JVD. Peripheral pulses symmetric. RESPIRATORY/CHEST: Symmetric, unlabored respirations. Clear to auscultation. Breath sounds equal bilaterally. No wheezes, rales, or rhonchi. GASTROINTESTINAL: Abdomen firm, tender right LQ and umbilical area, distended. multiple palpable masses. Bowel sounds present. GENITOURINARY: Without palpable bladder distension. MUSCULOSKELETAL: Left upper extremity weakness, some movement noted of hand, left LE weakness able to move slowing. No mottling or clubbing. NEUROLOGICAL: Awake and alert. Manic. has insight and judgement to illness. Following simple commands. PSYCHIATRIC: Speech rapid. Anxious. . Diagnostic Tests Laboratory Laboratory Tests Test 03/05/17 15:50 03/06/17 06:25 03/07/17 05:40 1/25/18 05:22 Carcinoembryonic Antigen 20.9 NG/ML (0.2-5.0) CA 15-3 Antigen 22.5 U/ML (0.0-32.4) CA 19-9 Antigen 94500.8 U/ML (0.0-35.0) White Blood Count 8.6 TH/MM3 (4.0-11.0) 9.5 TH/MM3 (4.0-11.0) Red Blood Count 2.50 MIL/MM3 (4.00-5.30) 2.74 MIL/MM3 (4.00-5.30) Hemoglobin 8.6 GM/DL (11.6-15.3) 9.2 GM/DL (11.6-15.3) Hematocrit 25.0 % (35.0-46.0) 27.6 % (35.0-46.0) Mean Corpuscular Volume 99.9 FL (80.0-100.0) 100.9 FL (80.0-100.0) Mean Corpuscular Hemoglobin 34.4 PG (27.0-34.0) 33.5 PG (27.0-34.0) Mean Corpuscular Hemoglobin Concent 34.4 % (32.0-36.0) 33.2 % (32.0-36.0) Red Cell Distribution Width 18.6 % (11.6-17.2) 18.6 % (11.6-17.2) Platelet Count 501 TH/MM3 (150-450) 552 TH/MM3 (150-450) Mean Platelet Volume 8.6 FL (7.0-11.0) 8.4 FL (7.0-11.0) Prothrombin Time 19.7 SEC (9.8-11.6) 26.5 SEC (9.8-11.6) 23.5 SEC (9.8-11.6) Prothromb Time International Ratio 1.9 RATIO 2.6 RATIO 2.3 RATIO Blood Urea Nitrogen 8 MG/DL (7-18) Creatinine 0.50 MG/DL (0.50-1.00) Random Glucose 96 MG/DL (74-106) Calcium Level 7.7 MG/DL (8.5-10.1) Sodium Level 134 MEQ/L (136-145) Potassium Level 3.7 MEQ/L (3.5-5.1) Chloride Level 103 MEQ/L (98-107) Carbon Dioxide Level 22.2 MEQ/L (21.0-32.0) Anion Gap 9 MEQ/L (5-15) Estimat Glomerular Filtration Rate 128 ML/MIN (>89) Result Diagram: 03/07/17 0540 03/06/17 0625 Imaging Last 48 hours Impressions Foot X-Ray 03/07/17 0000 Signed Impressions: Service Date/Time: Tuesday, March 07, 2017 10:36 - CONCLUSION: Healing fracture distal fifth metacarpal. Low Kenny MD FACR Assessment and Plan Disease Oriented Problem List: (1) Peritoneal carcinomatosis (2) Macrocytic anemia (3) Abdominal mass (4) Stroke (5) Delirium Symptom Scale: (1) Abdominal pain 0-10 Scale: 8 Comment: sharp, constant pain in right abdomen "due to tumor" Pertinent Non-Medical Issues Psychosocial: Single. No children. Lives with roommate, Hank for 17 years. Spiritual: unknown. Legal: Patient appears capacitated to make her healthcare decisions. Completed designation of healthcare surrogate naming her mother, Ana Laura as primary HCS and friend Hank as alternate HCS in the event she loses capacity. Ethical issues impacting care: No known concerns. . Important Contacts * Primary Health Care Surrogate: Ana Laura Dudley, mother: [phone] * Alternate Health Care Surrogate: Hank Conn, friend: [phone] * SisterSonal in [place]: [phone] . Prognosis Overall prognosis is poor given advanced metastatic cancer, recent stroke and left sided weakness. Patient at high risk for further complications, clinical decline and . Patient appears hospice appropriate should she elects comfort-directed care. . Code Status: Full Code Plan * Decision Maker: Patient participating in medical decision-making. Has been evaluated by psychiatry on 03/06/17 and deemed capacitated for medical decision- making. Advance directives completed. Patient has designated her mother Ana Laura Dudley as healthcare surrogate decision maker, alternate surrogate is her friend Hank Conn. * FULL CODE * GOALS OF CARE: Patient electing to pursue aggressive care to include palliative chemotherapy and rehab. Hospice philosophy and benefits had been previously discussed at length. Patient appears receptive to hospice should her clinical condition worsen or in the setting of increased symptom burden. * DISPO: Long-term plans for this patient are impacted by her psychosocial situation. She resides with her best friend Hank who is also admitted at the hospital. Patient has no payor source or coverage for rehabilitation. Case management following, looking into [facility]. * SYMPTOMS: =Pain: in abdomen due to mets cancer, ascites, large pelvic mass, peritoneal carcinomatosis, liver disease and recent stroke. Pain regimen change yesterday from hydrocodone to oxycodone 10mg q4hr PRN. Patient reports that oxycodone is more effective for pain control. No additional recommendations at this time. = Anxiety: Exacerbated by pain, underlying psych. Ativan 0.5mg available as needed. * Palliative care contact information has been provided to patient and mother. * Palliative care will continue to follow up as needed throughout hospital course to assist with symptom management and clarification of goals. . Time Spent Total Floor Time (mins): 37 (Total time to include review medical records, physical exam, goals of care conversation with patient, telephone conversation with patient's mother.) >50% Counseling/Coord of Care: Yes Attestation To help prompt me to consider important information that might be impacting today's encounter and assessment, information from prior notes written by myself or my colleagues may have been "brought forward" into today's note. My signature on this note, however, is an attestation that I personally performed the exam, history, and/or decision-making noted today, and, unless otherwise indicated, the interactions with patient, family, and staff as well as the review of records all occurred today. I also attest that the listed assessment and stated plan reflect my best clinical judgment today based on the combination of historical information, prior notes, and today's exam/ interactions. When time spent is documented, it refers only to time spent today by the signer, or if indicated, combined time spent today by collaborating physician/nurse practitioner. Azul Antony Mar 08, 2017 15:47
[2017-03-08] MEDS ORDERED: PHYTONADIONE 10 MG/ML VIAL SQ ONE (16:30)
[2017-03-08] MEDS ORDERED: PHYTONADIONE 5 MG/SWFI 5 ML ORAL SYR PO ONE (16:30)
[2017-03-08] MEDS: METHOCARBAMOL 500 MG TAB PO SCH (21:05)
[2017-03-08] MEDS: PRAVASTATIN SOD 40 MG TAB PO SCH (21:05)
[2017-03-09] VITALS (7 sets, daily range): BP systolic 95–125; BP diastolic 66–87; PULSE 67–95; RESP 15–20; TEMP 97.5–99.2; O2SAT 96–98
[2017-03-09] MEDS ORDERED: POVIDONE IODINE 5% (ANTISEPSIS KIT) 4 APPLICATIONS EACH NARE PRN (05:15)
[2017-03-09] MEDS ORDERED: CHLORHEXIDINE GLUCONATE 2 % 1 PACK (2 CLOTHS) TOPICAL PRN (05:15)
[2017-03-09] MEDS ORDERED: SODIUM CHLORID 0.9% 500 ML IV PRN (05:15)
[2017-03-09] MEDS ORDERED: LACTATED RINGER'S 1000 ML IV PRN (05:15)
[2017-03-09] MEDS: METHOCARBAMOL 500 MG TAB PO SCH (06:05)
[2017-03-09 07:11] LABS: INTERNATIONAL NORMALIZED RATIO 1.4 RATIO; PROTHROMBIN TIME - PATIENT 13.8 SEC (9.8-11.6)
--- NOTE | 2017-03-09 07:56 | HHI.PR ---
Objective Vital Signs Date Time Temp Pulse Resp B/P (MAP) Pulse Ox O2 Delivery O2 Flow Rate FiO2 03/09/17 06:04 98.6 67 20 125/82 (96) 97 03/09/17 00:00 98.0 88 16 95/71 (79) 97 03/08/17 20:00 73 03/08/17 20:00 98.3 91 16 106/58 (74) 96 03/08/17 17:58 98.7 78 18 110/68 (82) 97 03/08/17 13:56 98.1 73 18 93/73 (80) 95 03/08/17 08:45 71 03/08/17 08:00 98.0 79 18 108/66 (80) 97 I/O 03/08/17 03/08/17 03/08/17 03/09/17 03/09/17 03/09/17 07:00 15:00 23:00 07:00 15:00 23:00 Output Total 400 ml Balance -400 ml Output Urine Total 400 ml # Bowel Movements 1 Result Diagram: 03/07/17 0540 03/06/17 0625 Objective Remarks awake alert 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 a 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 no change abd is distended Assessment and Plan Assessment and Plan imp bilat cva coumdain echo nl holter pend hypercoag pend inr 1.9 hold coumdain very sensative to it oob CA likley hypercoag from that stable neuro 03/07/17 inr 2.6 today echo and holter nl 1 mg coumadin today she is ready for rehab neurowise a little down about cancer situation 03/09/17 unfortunately coumadin held and vit k for port placement inr down MED TEAM PLEASE RESTART COUMADIN WHEN ABLE AND GET INR TO 2-2.5 SHE IS VERY SENSITIVE TO IT BUT MAY NEED HIGHER DOSE WITH RECENT VIT K I WILL FU SUNDAY Bala Johnson MD Mar 09, 2017 07:56
[2017-03-09] MEDS: MAGNESIUM HYDROXIDE SUSP 30 ML CUP PO SCH (09:00)
[2017-03-09] MEDS: AMOXICILLIN/CLAVULANATE K 875 MG TAB PO SCH ×3 (09:59→21:52)
[2017-03-09] MEDS: DOCUSATE SODIUM 50 MG/SENNA 8.6 MG TAB PO SCH ×2 (10:00→21:00)
[2017-03-09] MEDS: PANTOPRAZOLE SOD 40 MG DELAYED RELEASE TAB PO SCH (10:00)
[2017-03-09] MEDS: SODIUM CHLORIDE 0.9% FLUSH 10 ML FLUSH IV FLUSH SCH ×2 (10:00→21:56)
--- NOTE | 2017-03-09 10:19 | PD.ONC.PN ---
Subjective Subjective Remarks Afebrile overnight. Patient reports still having breakthrough pain despite the increase in the Oxycodone yesterday. The pain medication wears off before the next dose is due. She describes the pain as cramping. The location is in her abdomen. Pain levels range from 7 to 10 prior to receiving the Oxycodone. Objective Data Date Time Temp Pulse Resp B/P (MAP) Pulse Ox O2 Delivery O2 Flow Rate FiO2 03/09/17 08:00 98.1 84 20 102/74 (83) 98 03/09/17 06:04 98.6 67 20 125/82 (96) 97 03/09/17 00:00 98.0 88 16 95/71 (79) 97 03/08/17 20:00 73 03/08/17 20:00 98.3 91 16 106/58 (74) 96 03/08/17 17:58 98.7 78 18 110/68 (82) 97 03/08/17 13:56 98.1 73 18 93/73 (80) 95 Result Diagram: 03/07/17 0540 03/06/17 0625 Laboratory Results Laboratory Tests Test 03/09/17 06:13 Prothrombin Time 13.8 SEC Prothromb Time International Ratio 1.4 RATIO Administered Medications Medications (Trade) Dose Ordered Sig/Raquel Route PRN Reason Start Time Stop Time Status Last Admin Dose Admin Sodium Chloride (NS Flush) 2 ml BID IV FLUSH 03/03/17 21:00 03/09/17 10:00 Pravastatin Sodium (Pravachol) 40 mg HS PO 03/03/17 21:00 03/08/17 21:05 Morphine Sulfate (Morphine Inj) 2 mg Q3H PRN IV PUSH breakthrough 03/04/17 06:45 03/06/17 19:15 Ondansetron HCl (Zofran Inj) 4 mg Q6HR PRN IV PUSH NAUSEA OR VOMITING 03/06/17 03:00 03/06/17 02:54 Magnesium Hydroxide (Milk Of Magnesia Liq) 30 ml DAILY PO 03/06/17 09:00 03/08/17 09:02 Amoxicillin/ Clavulanate Potassium (Augmentin) 875 mg Q12HR PO 03/06/17 11:00 03/08/17 21:05 Pantoprazole Sodium (Protonix) 40 mg DAILY PO 03/06/17 10:00 03/09/17 10:00 Methocarbamol (Robaxin) 500 mg Q8HR PO 03/08/17 14:00 Future Hold 03/09/17 06:05 Senna/Docusate Sodium (Eryn-Colace) 2 tab BID PO 03/08/17 12:30 03/09/17 10:00 Oxycodone HCl (Roxicodone) 15 mg Q4H PRN PO pain1-10 03/09/17 09:15 03/09/17 10:00 Objective Remarks GENERAL: Chronically ill appearing female, sitting up in bed, complaining of abdominal pain. SKIN: Warm and dry. HEAD: Normocephalic. EYES: No injection or drainage. NECK: Supple, trachea midline. CARDIOVASCULAR: Regular rate and rhythm RESPIRATORY: Breath sounds equal bilaterally. No accessory muscle use. GASTROINTESTINAL: abdomen distended and ttp, especially in right upper and lower abdomen. EXTREMITIES: No cyanosis NEUROLOGICAL: awake and alert. left sided upper and lower extremity weakness. Assessment/Plan Problem List: (1) Stroke ICD Codes: I63.9 - Cerebral infarction, unspecified Status: Acute Plan: --coumadin will be resumed 03/09 after port placement. --Brain MRI with prominent infarct in the right parietal and right temporal lobe with no midline shift or mass effect. --Neurology team recommends anticoagulation and physical therapy. --stroke likely due to multiple infarcts likely cardioembolic in nature Assessment 56y/o female admitted with embolic stroke. h/o Peritoneal carcinomatosis. Ascites. 15.5 x 13.8 cm adnexal mass. elevated CA 125 h/o alcoholic liver disease 03/07/17: elevated CA 19-9 Plan 1. increase Oxycodone to 15mg 2. port placement today. 3. after port placement resume coumadin Attending Statement Agree with above. Preparation for palliative chemo for out pt. Problem Qualifiers (1) Stroke: Qualified Codes: I63.10 - Cerebral infarction due to embolism of unspecified precerebral artery Berkley Álvarez Mar 09, 2017 10:19 Malika Jeter MD Mar 09, 2017 22:28
--- NOTE | 2017-03-09 11:06 | HHI.PR ---
Subjective Remarks Follow-up for CVA and port placement Patient scheduled for port placement at 4 PM today. Patient stated that she feels a little tired today after getting up. She stated that she is doing a lot of her exercises and her coordination has improved with her left arm. Patient stated that she is working with OT and PT. Per MDR meeting prior patient has been refusing PT. Discussed case with patient's nurse. Objective Vitals Vital Signs Date Time Temp Pulse Resp B/P (MAP) Pulse Ox O2 Delivery O2 Flow Rate FiO2 03/09/17 08:00 98.1 84 20 102/74 (83) 98 03/09/17 06:04 98.6 67 20 125/82 (96) 97 03/09/17 00:00 98.0 88 16 95/71 (79) 97 03/08/17 20:00 73 03/08/17 20:00 98.3 91 16 106/58 (74) 96 03/08/17 17:58 98.7 78 18 110/68 (82) 97 03/08/17 13:56 98.1 73 18 93/73 (80) 95 I/O 03/08/17 03/08/17 03/08/17 03/09/17 03/09/17 03/09/17 07:00 15:00 23:00 07:00 15:00 23:00 Output Total 400 ml Balance -400 ml Output Urine Total 400 ml # Bowel Movements 1 Result Diagram: 03/07/17 0540 03/06/17 0625 Objective Remarks GENERAL: on NAD found sitting in bed. CARDIOVASCULAR: Regular rate and rhythm without murmurs, gallops, or rubs. RESPIRATORY: Breath sounds equal bilaterally. No accessory muscle use. GASTROINTESTINAL: Abdomen soft, non-tender, nondistended. NEURO: 5/ 5 upper left and 5/5 lower left sided strength. She is grossly moving her left side. Strength on right side intact. Medications and IVs Current Medications Ondansetron HCl (Zofran Inj) 4 mg ONCE ONCE IVP Last administered on at 14:38; Start 03/03/17 at 14:30; Stop 03/03/17 at 14:31; Status DC Sodium Chloride 1,000 ml @ 1,000 mls/hr Q1H IV Last administered on 03/03/17at 14:37; Start 03/03/17 at 14:19; Stop 03/03/17 at 15:18; Status DC Sodium Chloride (NS Flush) 2 ml UNSCH PRN IV FLUSH FLUSH AFTER USING IV ACCESS ; Start 03/03/17 at 14:30; Stop 03/04/17 at 22:57; Status DC Morphine Sulfate (Morphine Inj) 2 mg ONCE ONCE IV PUSH Last administered on at 14:37; Start 03/03/17 at 14:30; Stop 03/03/17 at 14:31; Status DC Morphine Sulfate (Morphine Inj) 2 mg ONCE ONCE IV PUSH Last administered on at 14:38; Start 03/03/17 at 14:30; Stop 03/03/17 at 14:31; Status DC Pantoprazole Sodium 80 mg/ Sodium Chloride 100 ml @ 10 mls/hr CONTINUOUS IV ; Start 03/03/17 at 15:00; Status Cancel Pantoprazole Sodium 80 mg/ Sodium Chloride 35 ml @ 420 mls/hr BOLUS ONCE IV Last administered on 03/03/17at 15:31; Start 03/03/17 at 15:00; Stop 03/03/17 at 15:04; Status DC Pantoprazole Sodium 80 mg/ Sodium Chloride 100 ml @ 10 mls/hr Q10H IV Last administered on 03/04/17at 02:10; Start 03/03/17 at 15:00; Stop 03/04/17 at 05:39 ; Status DC Prochlorperazine Edisylate (Compazine Inj) 10 mg ONCE ONCE IV PUSH Last administered on 03/03/17at 15:55; Start 03/03/17 at 15:15; Stop 03/03/17 at 15:16 ; Status DC Ceftriaxone Sodium 1000 mg/ Sodium Chloride 100 ml @ 200 mls/hr ONCE ONCE IV Last administered on 03/03/17at 17:39; Start 03/03/17 at 17:00; Stop 03/03/17 at 17:29; Status DC Iohexol (Omnipaque 350 Inj) 90 ml STK-MED ONCE IVCONTRAST Last administered on 03/03/17at 14:06; Start 03/03/17 at 14:06; Stop 03/03/17 at 16:56; Status DC Gadodiamide (Omniscan Pf Inj) 14 ml STK-MED ONCE IVCONTRAST Last administered on 03/03/17at 18:37; Start 03/03/17 at 18:37; Stop 03/03/17 at 18:40; Status DC Aspirin (Aspirin) 325 mg ONCE ONCE PO Last administered on 03/03/17at 19:40; Start 03/03/17 at 19:30; Stop 03/03/17 at 19:31; Status DC Sodium Chloride 1,000 ml @ 70 mls/hr [id number] IV Last administered on at 11:27; Start 03/03/17 at 19:30; Stop 03/04/17 at 12:57; Status DC Sodium Chloride (NS Flush) 2 ml BID IV FLUSH Last administered on 03/09/17at 10: 00; Start 03/03/17 at 21:00 Sodium Chloride (NS Flush) 2 ml UNSCH PRN IV FLUSH FLUSH AFTER USING IV ACCESS ; Start 03/03/17 at 20:15 Aspirin (Aspirin) 325 mg DAILY PO Last administered on 03/05/17at 08:58; Start 03/04/17 at 09:00; Stop 03/06/17 at 08:03; Status DC Pravastatin Sodium (Pravachol) 40 mg HS PO Last administered on 03/08/17at 21:05 ; Start 03/03/17 at 21:00 Insulin Aspart (NovoLOG SUPPLEMENTAL SCALE) 1 ACHS SQ ; Start 03/03/17 at 21:00 ; Stop 03/06/17 at 19:47; Status DC Dextrose (D50w (Vial) Inj) 50 ml UNSCH PRN IV PUSH HYPOGLYCEMIA-SEE COMMENTS; Start 03/03/17 at 20:15; Stop 03/06/17 at 19:47; Status DC Glucagon (Glucagon Inj) 1 mg UNSCH PRN OTHER HYPOGLYCEMIA-SEE COMMENTS; Start 03/03/17 at 20:15; Stop 03/06/17 at 19:47; Status DC Gadodiamide (Omniscan Pf Inj) 14 ml STK-MED ONCE IVCONTRAST Last administered on 03/03/17at 21:20; Start 03/03/17 at 21:20; Stop 03/03/17 at 21:21; Status DC Ceftriaxone Sodium 1000 mg/ Sodium Chloride 100 ml @ 200 mls/hr Q24H IV Last administered on 03/05/17at 18:49; Start 03/04/17 at 17:00; Stop 03/06/17 at 09:59 ; Status DC Pantoprazole Sodium 80 mg/ Sodium Chloride 100 ml @ 10 mls/hr CONTINUOUS IV Last administered on 03/04/17at 12:03; Start 03/04/17 at 07:00; Stop 03/04/17 at 22:31; Status DC Morphine Sulfate (Morphine Inj) 2 mg Q3H PRN IV PUSH breakthrough Last administered on 03/06/17at 19:15; Start 03/04/17 at 06:45 Acetaminophen/ Hydrocodone Bitart ([place] 5-325 Mg) 1 tab Q4H PRN PO pain 1-5 Last administered on 03/05/17at 00:59; Start 03/04/17 at 06:45; Stop 03/07/17 at 13:09; Status DC Heparin Sodium (Porcine) (Heparin Inj) 5,000 units Q12HR SQ Last administered on 03/05/17at 21:00; Start 03/04/17 at 21:00; Stop 03/06/17 at 08:03; Status DC Warfarin Sodium (Coumadin) 5 mg DAILY@1600 PO Last administered on 03/05/17at 18 :49; Start 03/04/17 at 16:00; Stop 03/06/17 at 08:03; Status DC Atorvastatin Calcium (Lipitor) 10 mg HS PO ; Start 03/04/17 at 21:00; Stop 03/04 at 21:00; Status DC Pantoprazole Sodium 80 mg/ Sodium Chloride 100 ml @ 10 mls/hr Q10H IV Last administered on 03/06/17at 05:34; Start 03/04/17 at 22:45; Stop 03/06/17 at 09:59 ; Status DC Acetaminophen/ Hydrocodone Bitart ([place] 10-325 Mg) 1 tab Q4H PRN PO pain 6-10 Last administered on 03/07/17at 13:03; Start 03/05/17 at 03:00; Stop 03/07/17 at 13:09; Status DC Pharmacy Profile Note 0 ml @ 0 mls/hr UNSCH OTHER ; Start 03/05/17 at 08:30; Stop 03/06/17 at 08:39; Status DC Ondansetron HCl (Zofran Inj) 4 mg Q6HR PRN IV PUSH NAUSEA OR VOMITING Last administered on 03/06/17at 02:54; Start 03/06/17 at 03:00 Magnesium Hydroxide (Milk Of Magnesia Liq) 30 ml DAILY PO Last administered on 03/08/17at 09:02; Start 03/06/17 at 09:00 Linezolid (Zyvox) 600 mg Q12HR PO Last administered on 03/08/17at 09:01; Start 03/06/17 at 10:30; Stop 03/08/17 at 11:16; Status DC Amoxicillin/ Clavulanate Potassium (Augmentin) 875 mg Q12HR PO Last administered on 03/08/17at 21:05; Start 03/06/17 at 11:00 Pantoprazole Sodium (Protonix) 40 mg DAILY PO Last administered on 03/09/17at 10 :00; Start 03/06/17 at 10:00 Oxycodone HCl (Roxicodone) 10 mg Q4H PRN PO pain1-10 Last administered on at 06:05; Start 03/07/17 at 13:15; Stop 03/09/17 at 09:04; Status DC Lorazepam (Ativan) 0.5 mg Q8H PRN PO anxiety/agitation; Start 03/07/17 at 13:15 Lorazepam (Ativan Inj) 0.5 mg STAT ONCE IV PUSH Last administered on at 13:53; Start 03/07/17 at 13:15; Stop 03/07/17 at 13:45; Status DC Methocarbamol (Robaxin) 500 mg Q8HR PO Last administered on 03/09/17at 06:05; Start 03/08/17 at 14:00; Status Future Hold Senna/Docusate Sodium (Eryn-Colace) 2 tab BID PO Last administered on at 10:00; Start 03/08/17 at 12:30 Polyethylene Glycol (Miralax) 17 gm ONCE ONCE PO ; Start 03/08/17 at 11:45; Stop 03/08/17 at 12:28; Status DC Propofol (Diprivan 200 Mg/20 ml Inj) 600 mg STK-MED ONCE .ROUTE ; Start at 13:01; Stop 03/08/17 at 13:02; Status DC Heparin Sodium (Porcine) (Heparin Inj) 10,000 units STK-MED ONCE .ROUTE ; Start 03/08/17 at 13:15; Stop 03/08/17 at 13:16; Status DC Sodium Chloride (Sodium Chloride 0.9% Inj) 60 ml STK-MED ONCE .ROUTE ; Start at 13:15; Stop 03/08/17 at 13:16; Status DC Sodium Bicarbonate (Sodium Bicarbonate 8.4% Inj) 50 meq STK-MED ONCE .ROUTE ; Start 03/08/17 at 13:16; Stop 03/08/17 at 13:17; Status DC Heparin Sodium (Porcine) (Heparin Inj) 10,000 units STK-MED ONCE .ROUTE ; Start 03/08/17 at 13:16; Stop 03/08/17 at 13:17; Status DC Vancomycin HCl (Vancomycin Inj) 500 mg STK-MED ONCE .ROUTE ; Start 03/08/17 at 13:16; Stop 03/08/17 at 13:17; Status DC Cefazolin Sodium (Ancef Inj) 1,000 mg STK-MED ONCE .ROUTE ; Start 03/08/17 at 13 :16; Stop 03/08/17 at 13:17; Status DC Bupivacaine HCl/ Epinephrine Bitart (Sensorcaine-Epinephrine 0.25% Inj) 50 ml STK-MED ONCE .ROUTE ; Start 03/08/17 at 13:17; Stop 03/08/17 at 13:18; Status DC Lidocaine/ Epinephrine (Xylocaine-Epi Mpf 2%-1:200,000 Inj) 20 ml STK-MED ONCE .ROUTE ; Start 03/08/17 at 13:17; Stop 03/08/17 at 13:18; Status DC Midazolam HCl (Versed Inj) 2 mg STK-MED ONCE .ROUTE ; Start 03/08/17 at 14:19; Stop 03/08/17 at 14:20; Status DC Fentanyl Citrate (fentaNYL INJ) 100 mcg STK-MED ONCE .ROUTE ; Start 03/08/17 at 14:30; Stop 03/08/17 at 14:31; Status DC Phytonadione (Vitamin K Inj) 10 mg ONCE ONCE SQ Last administered on at 17:53; Start 03/08/17 at 16:30; Stop 03/08/17 at 16:31; Status DC Phytonadione (Mephyton Liq) 5 mg ONCE ONCE PO Last administered on 03/08/17at 21:06; Start 03/08/17 at 16:30; Stop 03/08/17 at 16:31; Status DC Lactated Ringer's 1,000 ml @ 30 mls/hr Q24H PRN IV SEE LABEL COMMENTS; Start at 05:15; Stop 03/12/17 at 05:14 Sodium Chloride 500 ml @ 30 mls/hr [id number] PRN IV SEE LABEL COMMENTS; Start at 05:15; Stop 03/12/17 at 05:14 Povidone Iodine (Betadine 5% Antisepsis Kit) 1 applic ETHOLOGIST PRN EACH NARE SEE LABEL COMMENTS; Start 03/09/17 at 05:15; Stop 03/12/17 at 05:14 Chlorhexidine Gluconate (Chlorhexidine 2% Cloth) 3 pack ETHOLOGIST PRN TOPICAL SEE LABEL COMMENTS; Start 03/09/17 at 05:15; Stop 03/12/17 at 05:14 Oxycodone HCl (Roxicodone) 15 mg Q4H PRN PO pain1-10 Last administered on at 10:00; Start 03/09/17 at 09:15 A/P Problem List: (1) Stroke ICD Code: I63.9 - Cerebral infarction, unspecified Status: Acute (2) Hematemesis ICD Code: K92.0 - Hematemesis (3) Abdominal mass ICD Code: R19.00 - Intra-abdominal and pelvic swelling, mass and lump, unspecified site (4) Upper GI bleed ICD Code: K92.2 - Gastrointestinal hemorrhage, unspecified Assessment and Plan 56-year-old female with CVA, acute Brain MRI shows prominent infarct in the right parietal and right temporal lobe , no midline shift or mass effect. A few scattered foci of acute infarcts are seen within the left parietal, right occipital and both vertebral hemispheres. -Appreciate input from neurology -Currently on Heparin subcutaneous bridge and Coumadin. today INR 1.4. Patient was given vitamin K yesterday due to port placement. After port placement will restart Coumadin as directed by Dr. Johnson. Will monitor clinically. Note that patient is sensitive to Coumadin but she did have a dose of vitamin K so will give Coumadin 5 mg after the procedure. -Continue with Pravachol and aspirin -PT/OT/ST -Hemoglobin A1c 5.1. LDL 44. 2-D echo within normal limits. MRA of the carotids ordered, no significant Blockage -Pending hypercoagulable workup. UTI -Rocephin DC on 03/06. urine cultures grew enterococcus facelis and E coli. on linezolid and augmentin. Discussed case with pharmacist and he stated that Augmentin will cover both species. Will DC the linezolid. Will treat for total 7 days. Left foot pain with ambulation -Foot x-ray shows healing metatarsal. has fracture boot. Anemia, patient with coffee-ground emesis, questionable GI bleed HGB 10.8 -Appreciate input from gastroenterology per GI will only scope if it is emergent. -No active bleeding and patient is asymptomatic. Continue with oral Protonix. ADENOCARCINOMA, chronic - GI/pancreas/biliary origin with remarkably elevated CA 19-9 -Patient will need rehabilitation prior to getting IV palliative chemotherapy. Dr. Jeter will be managing. Gen. surgeon consulted. DVT prophylaxis: SCDs Discharge Planning Difficult placement since patient is self paid. She will need to be in a rehabilitation facility. In terms of strength deficits are improving drastically. Continue with daily PT. Patient may be able to be discharged to her [facility] since she stated that she will be residing there. Discussed case with case management. Problem Qualifiers (1) Stroke: Qualified Codes: I63.10 - Cerebral infarction due to embolism of unspecified precerebral artery (2) Hematemesis: Qualified Codes: K92.0 - Hematemesis (3) Abdominal mass: Qualified Codes: R19.07 - Generalized intra-abdominal and pelvic swelling, mass and lump Imelda Wiggins MD Mar 09, 2017 11:06
[2017-03-09] MEDS ORDERED: LIDOCAINE HCL 1% PF 5 ML SYRINGE OTHER ONE ×2 (12:00)
[2017-03-09] MEDS ORDERED: DEXAMETHASONE SOD PHOS 4 MG/ML VIAL IV ONE (12:00)
[2017-03-09] MEDS ORDERED: PROPOFOL 200 MG/20 ML AMP IV ONE (12:00)
[2017-03-09] MEDS ORDERED: ONDANSETRON HCL 4 MG/2 ML VIAL IV PUSH ONE (12:00)
[2017-03-09] MEDS ORDERED: ceFAZolin INJ 1,000 MG VIAL IV ONE ×3 (12:00→17:27)
[2017-03-09] MEDS ORDERED: BUPIVACAINE/EPINEPHRINE 0.25% 50 ML VIAL ONE (14:35)
[2017-03-09] MEDS ORDERED: HEPARIN SODIUM - SQ 10,000 UNITS/ML VIAL ONE (14:35)
[2017-03-09] MEDS ORDERED: LIDOCAINE 0.5%/EPINEPHrine 1:200,000 SOLN 50 ML VIAL ONE (14:35)
[2017-03-09] MEDS ORDERED: SODIUM CHLORIDE 0.9% 20 ML VIAL ONE (17:21)
--- NOTE | 2017-03-09 17:47 | HHI.PR ---
cc: Jaguar Barber MD Immediate Post Op Note Procedure Date: Mar 09, 2017 Pre Op Diagnosis: (1) Poor intravenous access (2) Abdominal mass (3) Peritoneal carcinomatosis Post Op Diagnosis: (1) Poor intravenous access (2) Poor intravenous access (3) Peritoneal carcinomatosis Surgeon: Jaguar Barber Ribbon Blockmaker(s): See operating room records Procedure: Left-sided [id number] Additional Information: Chest x-ray pending Complications: None Specimen(s) removed: None Estimated blood loss: 10 cc Anesthesia: MAC Drains: None IVF Patient to: PACU Patient Condition: Good Implant/Devices: SEE IMPLANT LOG (if applicable) Date/Time of Procedure: SEE SURGICAL CARE RECORD Jaguar Barber MD Mar 09, 2017 17:47
[2017-03-09] MEDS ORDERED: WARFARIN SOD 5 MG TAB PO ONE (18:00)
--- NOTE | 2017-03-09 18:36 | RADRPT ---
EXAM DATE/TIME: 03/09/2017 18:06 [facility] COMPARISON: No previous studies available for comparison. INDICATIONS : Left side port placement. MEDICAL HISTORY : None. SURGICAL HISTORY : None. ENCOUNTER: Initial ACUITY: 1 day PAIN SCORE: 0/10 LOCATION: Bilateral chest FINDINGS: A single view of the chest demonstrates [id number] in superior vena cava. Minimal basilar atelecta sis. No effusion or pneumothorax. CONCLUSION: 1. No pneumothorax status post port place. Minimal basilar atelectasis. Jaguar Villalobos MD on March 09, 2017 at 18:33 Board Certified Radiologist. This report was verified electronically.
[2017-03-09] MEDS ORDERED: DO NOT ADM ANY ANTICOAGULANT DRUGS PRN (18:45)
[2017-03-09] MEDS: PRAVASTATIN SOD 40 MG TAB PO SCH (21:52)
[2017-03-10] VITALS (10 sets, daily range): BP systolic 103–128; BP diastolic 68–79; PULSE 81–106; RESP 18–24; TEMP 97.5–99.3; O2SAT 96–99
[2017-03-10 06:37] LABS: INTERNATIONAL NORMALIZED RATIO 1.1 RATIO; PROTHROMBIN TIME - PATIENT 11.4 SEC (9.8-11.6)
[2017-03-10] MEDS: MAGNESIUM HYDROXIDE SUSP 30 ML CUP PO SCH (08:58)
[2017-03-10] MEDS: DOCUSATE SODIUM 50 MG/SENNA 8.6 MG TAB PO SCH ×2 (08:58→20:02)
[2017-03-10] MEDS: PANTOPRAZOLE SOD 40 MG DELAYED RELEASE TAB PO SCH (08:58)
[2017-03-10] MEDS: MORPHINE SULFATE 2 MG/ML INJ IV PUSH PRN ×2 (08:59→22:26)
[2017-03-10] MEDS: SODIUM CHLORIDE 0.9% FLUSH 10 ML FLUSH IV FLUSH SCH ×2 (08:59→20:03)
--- NOTE | 2017-03-10 11:43 | HHI.PR ---
Subjective Remarks Follow-up for CVA and port placement Patient has no complaints. She stated that she is doing better per day. Patient stated she is able to walk to the bedside commode with assistance. She says she keeps the boot on for convenience but complains of it being too heavy. Objective Vitals Vital Signs Date Time Temp Pulse Resp B/P (MAP) Pulse Ox O2 Delivery O2 Flow Rate FiO2 03/10/17 10:20 82 03/10/17 08:53 97.5 87 18 115/75 (88) 97 03/10/17 07:41 16 03/10/17 04:40 98.3 88 18 103/72 (82) 96 03/10/17 00:38 99.3 83 18 128/69 (88) 97 03/10/17 00:00 81 03/09/17 21:46 97.5 74 15 119/87 (98) 96 03/09/17 18:15 72 18 108/80 (89) 96 Room Air 03/09/17 18:00 97.2 75 20 103/80 (88) 95 Room Air 03/09/17 16:00 99.2 95 18 95/66 (76) 96 03/09/17 15:00 91 03/09/17 12:40 99.0 76 16 107/67 (80) 96 I/O 03/09/17 03/09/17 03/09/17 03/10/17 03/10/17 03/10/17 07:00 15:00 23:00 07:00 15:00 23:00 Intake Total 700 ml 480 ml Output Total 5 ml 700 ml Balance 695 ml -220 ml Intake Oral 480 ml IV Total 700 ml Output Urine Total 700 ml Estimated Blood Loss 5 ml # Voids 3 # Bowel Movements 0 Result Diagram: 03/07/17 0540 03/06/17 0625 Objective Remarks GENERAL: on NAD found sitting in bed. CARDIOVASCULAR: Regular rate and rhythm without murmurs, gallops, or rubs. RESPIRATORY: Breath sounds equal bilaterally. No accessory muscle use. GASTROINTESTINAL: Abdomen soft, non-tender, nondistended. NEURO: 5/ 5 upper left and 5/5 lower left sided strength. She is grossly moving her left side. Strength on right side intact. Medications and IVs Current Medications Ondansetron HCl (Zofran Inj) 4 mg ONCE ONCE IVP Last administered on at 14:38; Start 03/03/17 at 14:30; Stop 03/03/17 at 14:31; Status DC Sodium Chloride 1,000 ml @ 1,000 mls/hr Q1H IV Last administered on 03/03/17at 14:37; Start 03/03/17 at 14:19; Stop 03/03/17 at 15:18; Status DC Sodium Chloride (NS Flush) 2 ml UNSCH PRN IV FLUSH FLUSH AFTER USING IV ACCESS ; Start 03/03/17 at 14:30; Stop 03/04/17 at 22:57; Status DC Morphine Sulfate (Morphine Inj) 2 mg ONCE ONCE IV PUSH Last administered on at 14:37; Start 03/03/17 at 14:30; Stop 03/03/17 at 14:31; Status DC Morphine Sulfate (Morphine Inj) 2 mg ONCE ONCE IV PUSH Last administered on at 14:38; Start 03/03/17 at 14:30; Stop 03/03/17 at 14:31; Status DC Pantoprazole Sodium 80 mg/ Sodium Chloride 100 ml @ 10 mls/hr CONTINUOUS IV ; Start 03/03/17 at 15:00; Status Cancel Pantoprazole Sodium 80 mg/ Sodium Chloride 35 ml @ 420 mls/hr BOLUS ONCE IV Last administered on 03/03/17at 15:31; Start 03/03/17 at 15:00; Stop 03/03/17 at 15:04; Status DC Pantoprazole Sodium 80 mg/ Sodium Chloride 100 ml @ 10 mls/hr Q10H IV Last administered on 03/04/17at 02:10; Start 03/03/17 at 15:00; Stop 03/04/17 at 05:39 ; Status DC Prochlorperazine Edisylate (Compazine Inj) 10 mg ONCE ONCE IV PUSH Last administered on 03/03/17at 15:55; Start 03/03/17 at 15:15; Stop 03/03/17 at 15:16 ; Status DC Ceftriaxone Sodium 1000 mg/ Sodium Chloride 100 ml @ 200 mls/hr ONCE ONCE IV Last administered on 03/03/17at 17:39; Start 03/03/17 at 17:00; Stop 03/03/17 at 17:29; Status DC Iohexol (Omnipaque 350 Inj) 90 ml STK-MED ONCE IVCONTRAST Last administered on 03/03/17at 14:06; Start 03/03/17 at 14:06; Stop 03/03/17 at 16:56; Status DC Gadodiamide (Omniscan Pf Inj) 14 ml STK-MED ONCE IVCONTRAST Last administered on 03/03/17at 18:37; Start 03/03/17 at 18:37; Stop 03/03/17 at 18:40; Status DC Aspirin (Aspirin) 325 mg ONCE ONCE PO Last administered on 03/03/17at 19:40; Start 03/03/17 at 19:30; Stop 03/03/17 at 19:31; Status DC Sodium Chloride 1,000 ml @ 70 mls/hr [id number] IV Last administered on at 11:27; Start 03/03/17 at 19:30; Stop 03/04/17 at 12:57; Status DC Sodium Chloride (NS Flush) 2 ml BID IV FLUSH Last administered on 03/10/17at 08: 59; Start 03/03/17 at 21:00 Sodium Chloride (NS Flush) 2 ml UNSCH PRN IV FLUSH FLUSH AFTER USING IV ACCESS ; Start 03/03/17 at 20:15 Aspirin (Aspirin) 325 mg DAILY PO Last administered on 03/05/17at 08:58; Start 03/04/17 at 09:00; Stop 03/06/17 at 08:03; Status DC Pravastatin Sodium (Pravachol) 40 mg HS PO Last administered on 03/09/17at 21:52 ; Start 03/03/17 at 21:00 Insulin Aspart (NovoLOG SUPPLEMENTAL SCALE) 1 ACHS SQ ; Start 03/03/17 at 21:00 ; Stop 03/06/17 at 19:47; Status DC Dextrose (D50w (Vial) Inj) 50 ml UNSCH PRN IV PUSH HYPOGLYCEMIA-SEE COMMENTS; Start 03/03/17 at 20:15; Stop 03/06/17 at 19:47; Status DC Glucagon (Glucagon Inj) 1 mg UNSCH PRN OTHER HYPOGLYCEMIA-SEE COMMENTS; Start 03/03/17 at 20:15; Stop 03/06/17 at 19:47; Status DC Gadodiamide (Omniscan Pf Inj) 14 ml STK-MED ONCE IVCONTRAST Last administered on 03/03/17at 21:20; Start 03/03/17 at 21:20; Stop 03/03/17 at 21:21; Status DC Ceftriaxone Sodium 1000 mg/ Sodium Chloride 100 ml @ 200 mls/hr Q24H IV Last administered on 03/05/17at 18:49; Start 03/04/17 at 17:00; Stop 03/06/17 at 09:59 ; Status DC Pantoprazole Sodium 80 mg/ Sodium Chloride 100 ml @ 10 mls/hr CONTINUOUS IV Last administered on 03/04/17at 12:03; Start 03/04/17 at 07:00; Stop 03/04/17 at 22:31; Status DC Morphine Sulfate (Morphine Inj) 2 mg Q3H PRN IV PUSH breakthrough Last administered on 03/10/17at 08:59; Start 03/04/17 at 06:45 Acetaminophen/ Hydrocodone Bitart ([place] 5-325 Mg) 1 tab Q4H PRN PO pain 1-5 Last administered on 03/05/17at 00:59; Start 03/04/17 at 06:45; Stop 03/07/17 at 13:09; Status DC Heparin Sodium (Porcine) (Heparin Inj) 5,000 units Q12HR SQ Last administered on 03/05/17at 21:00; Start 03/04/17 at 21:00; Stop 03/06/17 at 08:03; Status DC Warfarin Sodium (Coumadin) 5 mg DAILY@1600 PO Last administered on 03/05/17at 18 :49; Start 03/04/17 at 16:00; Stop 03/06/17 at 08:03; Status DC Atorvastatin Calcium (Lipitor) 10 mg HS PO ; Start 03/04/17 at 21:00; Stop 03/04 at 21:00; Status DC Pantoprazole Sodium 80 mg/ Sodium Chloride 100 ml @ 10 mls/hr Q10H IV Last administered on 03/06/17at 05:34; Start 03/04/17 at 22:45; Stop 03/06/17 at 09:59 ; Status DC Acetaminophen/ Hydrocodone Bitart ([place] 10-325 Mg) 1 tab Q4H PRN PO pain 6-10 Last administered on 03/07/17at 13:03; Start 03/05/17 at 03:00; Stop 03/07/17 at 13:09; Status DC Pharmacy Profile Note 0 ml @ 0 mls/hr UNSCH OTHER ; Start 03/05/17 at 08:30; Stop 03/06/17 at 08:39; Status DC Ondansetron HCl (Zofran Inj) 4 mg Q6HR PRN IV PUSH NAUSEA OR VOMITING Last administered on 03/06/17at 02:54; Start 03/06/17 at 03:00 Magnesium Hydroxide (Milk Of Magnesia Liq) 30 ml DAILY PO Last administered on 03/10/17at 08:58; Start 03/06/17 at 09:00 Linezolid (Zyvox) 600 mg Q12HR PO Last administered on 03/08/17at 09:01; Start 03/06/17 at 10:30; Stop 03/08/17 at 11:16; Status DC Amoxicillin/ Clavulanate Potassium (Augmentin) 875 mg Q12HR PO Last administered on 03/08/17at 21:05; Start 03/06/17 at 11:00 Pantoprazole Sodium (Protonix) 40 mg DAILY PO Last administered on 03/10/17at 08 :58; Start 03/06/17 at 10:00 Oxycodone HCl (Roxicodone) 10 mg Q4H PRN PO pain1-10 Last administered on at 06:05; Start 03/07/17 at 13:15; Stop 03/09/17 at 09:04; Status DC Lorazepam (Ativan) 0.5 mg Q8H PRN PO anxiety/agitation; Start 03/07/17 at 13:15 Lorazepam (Ativan Inj) 0.5 mg STAT ONCE IV PUSH Last administered on at 13:53; Start 03/07/17 at 13:15; Stop 03/07/17 at 13:45; Status DC Methocarbamol (Robaxin) 500 mg Q8HR PO Last administered on 03/09/17at 06:05; Start 03/08/17 at 14:00; Status Future Hold Senna/Docusate Sodium (Eryn-Colace) 2 tab BID PO Last administered on at 08:58; Start 03/08/17 at 12:30 Polyethylene Glycol (Miralax) 17 gm ONCE ONCE PO ; Start 03/08/17 at 11:45; Stop 03/08/17 at 12:28; Status DC Propofol (Diprivan 200 Mg/20 ml Inj) 600 mg STK-MED ONCE .ROUTE ; Start at 13:01; Stop 03/08/17 at 13:02; Status DC Heparin Sodium (Porcine) (Heparin Inj) 10,000 units STK-MED ONCE .ROUTE ; Start 03/08/17 at 13:15; Stop 03/08/17 at 13:16; Status DC Sodium Chloride (Sodium Chloride 0.9% Inj) 60 ml STK-MED ONCE .ROUTE ; Start at 13:15; Stop 03/08/17 at 13:16; Status DC Sodium Bicarbonate (Sodium Bicarbonate 8.4% Inj) 50 meq STK-MED ONCE .ROUTE ; Start 03/08/17 at 13:16; Stop 03/08/17 at 13:17; Status DC Heparin Sodium (Porcine) (Heparin Inj) 10,000 units STK-MED ONCE .ROUTE ; Start 03/08/17 at 13:16; Stop 03/08/17 at 13:17; Status DC Vancomycin HCl (Vancomycin Inj) 500 mg STK-MED ONCE .ROUTE ; Start 03/08/17 at 13:16; Stop 03/08/17 at 13:17; Status DC Cefazolin Sodium (Ancef Inj) 1,000 mg STK-MED ONCE .ROUTE ; Start 03/08/17 at 13 :16; Stop 03/08/17 at 13:17; Status DC Bupivacaine HCl/ Epinephrine Bitart (Sensorcaine-Epinephrine 0.25% Inj) 50 ml STK-MED ONCE .ROUTE ; Start 03/08/17 at 13:17; Stop 03/08/17 at 13:18; Status DC Lidocaine/ Epinephrine (Xylocaine-Epi Mpf 2%-1:200,000 Inj) 20 ml STK-MED ONCE .ROUTE ; Start 03/08/17 at 13:17; Stop 03/08/17 at 13:18; Status DC Midazolam HCl (Versed Inj) 2 mg STK-MED ONCE .ROUTE ; Start 03/08/17 at 14:19; Stop 03/08/17 at 14:20; Status DC Fentanyl Citrate (fentaNYL INJ) 100 mcg STK-MED ONCE .ROUTE ; Start 03/08/17 at 14:30; Stop 03/08/17 at 14:31; Status DC Phytonadione (Vitamin K Inj) 10 mg ONCE ONCE SQ Last administered on at 17:53; Start 03/08/17 at 16:30; Stop 03/08/17 at 16:31; Status DC Phytonadione (Mephyton Liq) 5 mg ONCE ONCE PO Last administered on 03/08/17at 21:06; Start 03/08/17 at 16:30; Stop 03/08/17 at 16:31; Status DC Lactated Ringer's 1,000 ml @ 30 mls/hr Q24H PRN IV SEE LABEL COMMENTS; Start at 05:15; Stop 03/09/17 at 18:36; Status DC Sodium Chloride 500 ml @ 30 mls/hr [id number] PRN IV SEE LABEL COMMENTS; Start at 05:15; Stop 03/09/17 at 18:36; Status DC Povidone Iodine (Betadine 5% Antisepsis Kit) 1 applic GAS ADJUSTER PRN EACH NARE SEE LABEL COMMENTS; Start 03/09/17 at 05:15; Stop 03/12/17 at 05:14 Chlorhexidine Gluconate (Chlorhexidine 2% Cloth) 3 pack GAS ADJUSTER PRN TOPICAL SEE LABEL COMMENTS; Start 03/09/17 at 05:15; Stop 03/09/17 at 18:36; Status DC Oxycodone HCl (Roxicodone) 15 mg Q4H PRN PO pain1-10 Last administered on at 11:03; Start 03/09/17 at 09:15 Warfarin Sodium (Coumadin) 5 mg ONCE ONCE PO Last administered on 03/09/17at 18 :40; Start 03/09/17 at 18:00; Stop 03/09/17 at 18:01; Status DC Lidocaine/ Epinephrine (Xylocaine-Epi 0.5%-1:200,000 Inj) 50 ml STK-MED ONCE .ROUTE ; Start 03/09/17 at 14:35; Stop 03/09/17 at 14:36; Status DC Heparin Sodium (Porcine) (Heparin Inj) 10,000 units STK-MED ONCE .ROUTE Last administered on 03/09/17at 17:12; Start 03/09/17 at 14:35; Stop 03/09/17 at 14:36 ; Status DC Bupivacaine HCl/ Epinephrine Bitart (Sensorcaine-Epinephrine 0.25% Inj) 50 ml STK-MED ONCE .ROUTE Last administered on 03/09/17at 17:12; Start 03/09/17 at 14: 35; Stop 03/09/17 at 14:36; Status DC Sodium Chloride (Sodium Chloride 0.9% Inj) 20 ml STK-MED ONCE .ROUTE Last administered on 03/09/17at 17:21; Start 03/09/17 at 17:21; Stop 03/09/17 at 17:22 ; Status DC Cefazolin Sodium (Ancef Inj) 1,000 mg ONCE ONCE IV ; Start 03/09/17 at 17:27; Stop 03/09/17 at 18:08; Status DC Cefazolin Sodium (Ancef Inj) 1,000 mg ONCE ONCE IV ; Start 03/09/17 at 17:11; Stop 03/09/17 at 18:08; Status DC Fentanyl Citrate (fentaNYL INJ) 100 mcg STK-MED ONCE .ROUTE ; Start 03/09/17 at 18:02; Stop 03/09/17 at 18:03; Status DC Miscellaneous Information ALL NURSING DEPARTME... UNSCH PRN .XX SEE LABEL COMMENTS; Start 03/09/17 at 18:45; Stop 03/10/17 at 18:44 Warfarin Sodium (Coumadin) 5 mg ONCE ONCE PO ; Start 03/10/17 at 16:00; Stop at 16:01 A/P Problem List: (1) Stroke ICD Code: I63.9 - Cerebral infarction, unspecified Status: Acute (2) Hematemesis ICD Code: K92.0 - Hematemesis (3) Abdominal mass ICD Code: R19.00 - Intra-abdominal and pelvic swelling, mass and lump, unspecified site (4) Upper GI bleed ICD Code: K92.2 - Gastrointestinal hemorrhage, unspecified Assessment and Plan 56-year-old female with CVA, acute Brain MRI shows prominent infarct in the right parietal and right temporal lobe , no midline shift or mass effect. A few scattered foci of acute infarcts are seen within the left parietal, right occipital and both vertebral hemispheres. -Appreciate input from neurology -Currently on Heparin subcutaneous bridge and Coumadin. today INR 1.4. Patient was given vitamin K yesterday due to port placement. After port placement will restart Coumadin as directed by Dr. Johnson. Will monitor clinically. Patient given a dose of Coumadin yesterday 5 mg. Today INR 1.1. Will give another dose of Coumadin 5 mg. Dose daily. Patient is sensitive to Coumadin as demonstrated prior. -Continue with Pravachol and aspirin -PT/OT/ST -Hemoglobin A1c 5.1. LDL 44. 2-D echo within normal limits. MRA of the carotids ordered, no significant Blockage -Pending hypercoagulable workup. UTI -Rocephin DC on 03/06. urine cultures grew enterococcus facelis and E coli. on linezolid and augmentin. Discussed case with pharmacist and he stated that Augmentin will cover both species. DC the linezolid. Will treat for total 7 days. Patient has been treated for total 7 days will discontinue antibiotic. Left foot pain with ambulation -Foot x-ray shows healing metatarsal. has fracture boot. Anemia, patient with coffee-ground emesis, questionable GI bleed HGB 10.8 -Appreciate input from gastroenterology per GI will only scope if it is emergent. -No active bleeding and patient is asymptomatic. Continue with oral Protonix. ADENOCARCINOMA, chronic - GI/pancreas/biliary origin with remarkably elevated CA 19-9 -Patient will need rehabilitation prior to getting IV palliative chemotherapy. Dr. Jeter will be managing. Gen. surgeon consulted. DVT prophylaxis: SCDs Discharge Planning Difficult placement since patient is self paid. She will need to be in a rehabilitation facility. In terms of strength deficits are improving drastically. Continue with daily PT. Patient may be able to be discharged to her [facility] since she stated that she will be residing there. Discussed case with case management. Problem Qualifiers (1) Stroke: Qualified Codes: I63.10 - Cerebral infarction due to embolism of unspecified precerebral artery (2) Hematemesis: Qualified Codes: K92.0 - Hematemesis (3) Abdominal mass: Qualified Codes: R19.07 - Generalized intra-abdominal and pelvic swelling, mass and lump Imelda Wiggins MD Mar 10, 2017 11:43
--- NOTE | 2017-03-10 11:45 | HHI.PR ---
Subjective Subjective Notes sore at surgery site. Very impressed by team and facility. Objective Vitals/I&O Vital Signs Date Time Temp Pulse Resp B/P (MAP) Pulse Ox O2 Delivery O2 Flow Rate FiO2 03/10/17 10:20 82 03/10/17 08:53 97.5 18 115/75 (88) 97 03/09/17 18:15 Room Air 03/06/17 08:17 21 Labs Laboratory Tests Test 03/10/17 04:20 Prothrombin Time 11.4 Prothromb Time International Ratio 1.1 Date/Time Source Procedure Growth Status 03/03/17 14:33 Urine Catheterized Urine Urine Culture - Final Escherichia Coli Enterococcus Faecalis Complete Radiology Last Impressions Foot X-Ray 03/07/17 0000 Signed Impressions: Service Date/Time: Tuesday, March 07, 2017 10:36 - CONCLUSION: Healing fracture distal fifth metacarpal. Low Kenny MD FACR Abdomen/Pelvis CT 03/03/17 1419 Signed Impressions: Service Date/Time: Friday, March 03, 2017 16:32 - CONCLUSION: 1. Large cystic and solid mass in the pelvis extending into the abdomen could be ovarian carcinoma. There is peritoneal carcinomatosis and multiple low-density liver lesions likely metastatic disease. 2. Large volume ascites. Harmeet Best MD Neck Magnetic Resonance Angiography 03/03/17 0000 Signed Impressions: Service Date/Time: Friday, March 03, 2017 21:13 - CONCLUSION: 1. Multiple carotid arteries. Harmeet Best MD Head Magnetic Resonance Angiography 03/03/17 0000 Signed Impressions: Service Date/Time: Friday, March 03, 2017 21:13 - CONCLUSION: 1. No large vessel stenosis or aneurysm. 2. Normal variant as described above. Harmeet Best MD Head CT 03/03/17 0000 Signed Impressions: Service Date/Time: Friday, March 03, 2017 16:24 - CONCLUSION: Large air low attenuation right frontal lobe could be acute infarct versus edema from underlying mass. Contrast MRI recommended. Harmeet Best MD Brain MRI 03/03/17 0000 Signed Impressions: Service Date/Time: Friday, March 03, 2017 18:22 - CONCLUSION: 1. Prominent infarct in the right parietal and right temporal lobe. No midline shift or mass effect. 2. A few scattered foci of acute infarcts are seen within the left parietal, right occipital and both vertebral hemispheres. Embolic source is suggested. Harmeet Best MD Narrative Exam Port site dressing with small amount of bloody drainage. Non tender to touch. No erythema. A/P Problem List: (1) Elevated INR (international normalized ratio) due to prior anticoagulant medication ingestion ICD Codes: R78.89 - Finding of other specified substances, not normally found in blood Status: Acute (2) Poor intravenous access ICD Codes: Z78.9 - Other specified health status Status: Chronic (3) Elevated INR ICD Codes: R79.1 - Abnormal coagulation profile Status: Acute (4) Stroke ICD Codes: I63.9 - Cerebral infarction, unspecified Status: Acute (5) Peritoneal carcinomatosis ICD Codes: C78.6 - Secondary malignant neoplasm of retroperitoneum and peritoneum; C80.1 - Malignant (primary) neoplasm, unspecified (6) Abdominal pain ICD Codes: R10.9 - Unspecified abdominal pain Status: Chronic Assessment and Plan POD 1 s/p port placement. no problems. Dry dressing change. Will sign off, please call if needed. Problem Qualifiers (1) Stroke: Qualified Codes: I63.10 - Cerebral infarction due to embolism of unspecified precerebral artery (2) Abdominal pain: Qualified Codes: R10.84 - Generalized abdominal pain Bala Kinsey MD Mar 10, 2017 11:45
[2017-03-10] MEDS ORDERED: WARFARIN SOD 5 MG TAB PO ONE (16:00)
[2017-03-10] MEDS: PRAVASTATIN SOD 40 MG TAB PO SCH (20:02)
[2017-03-11] VITALS (7 sets, daily range): BP systolic 102–114; BP diastolic 58–81; PULSE 74–92; RESP 16–20; TEMP 98–99; O2SAT 94–97
[2017-03-11] MEDS: MORPHINE SULFATE 2 MG/ML INJ IV PUSH PRN ×3 (02:48→20:59)
[2017-03-11 07:08] LABS: INTERNATIONAL NORMALIZED RATIO 1.2 RATIO; PROTHROMBIN TIME - PATIENT 11.8 SEC (9.8-11.6)
[2017-03-11] MEDS: DOCUSATE SODIUM 50 MG/SENNA 8.6 MG TAB PO SCH ×2 (08:32→20:58)
[2017-03-11] MEDS: PANTOPRAZOLE SOD 40 MG DELAYED RELEASE TAB PO SCH (08:33)
[2017-03-11] MEDS: MAGNESIUM HYDROXIDE SUSP 30 ML CUP PO SCH (08:34)
[2017-03-11] MEDS: SODIUM CHLORIDE 0.9% FLUSH 10 ML FLUSH IV FLUSH SCH ×2 (08:35→21:03)
--- NOTE | 2017-03-11 10:57 | HHI.PR ---
Subjective Remarks Follow-up for CVA and peritoneal cancer Patient will drowsy today but continues to be talkative. She tells me what she does for her physical therapy. She stated that she can get to the commode with assistance. Patient also spit out her coffee during the interview and stated it was too acidic. She then also asked if I thought chemotherapy would help her. Her belly looks little more distended today but soft. When I asked patient how to she fell by her belly she stated that it's the same. No other complaints. Objective Vitals Vital Signs Date Time Temp Pulse Resp B/P (MAP) Pulse Ox O2 Delivery O2 Flow Rate FiO2 03/11/17 09:55 85 03/11/17 08:06 98.6 92 20 108/71 (83) 94 03/11/17 04:12 98.4 90 16 107/75 (86) 97 03/11/17 00:12 98.5 86 18 114/77 (89) 96 03/10/17 21:00 81 03/10/17 20:00 98.0 92 18 108/76 (87) 96 03/10/17 16:12 98.5 86 24 106/68 (81) 99 03/10/17 16:12 97 03/10/17 13:54 98.4 91 20 106/79 (88) 98 03/10/17 13:42 106 I/O 03/10/17 03/10/17 03/10/17 03/11/17 03/11/17 03/11/17 07:00 15:00 23:00 07:00 15:00 23:00 Intake Total 480 ml 480 ml Output Total 700 ml 300 ml Balance -220 ml 180 ml Intake Oral 480 ml 480 ml Output Urine Total 700 ml 300 ml # Voids 2 # Bowel Movements 2 Result Diagram: 03/07/17 0540 Objective Remarks GENERAL: on NAD found sitting in bed and talkative but is a little more drowsy. CARDIOVASCULAR: Regular rate and rhythm without murmurs, gallops, or rubs. RESPIRATORY: Breath sounds equal bilaterally. No accessory muscle use. GASTROINTESTINAL: Abdomen soft and distended. No tenderness palpation. Negative for any peritoneal signs. NEURO: Patient able to lift her left arm and left leg up for me. Medications and IVs Current Medications Ondansetron HCl (Zofran Inj) 4 mg ONCE ONCE IVP Last administered on at 14:38; Start 03/03/17 at 14:30; Stop 03/03/17 at 14:31; Status DC Sodium Chloride 1,000 ml @ 1,000 mls/hr Q1H IV Last administered on 03/03/17at 14:37; Start 03/03/17 at 14:19; Stop 03/03/17 at 15:18; Status DC Sodium Chloride (NS Flush) 2 ml UNSCH PRN IV FLUSH FLUSH AFTER USING IV ACCESS ; Start 03/03/17 at 14:30; Stop 03/04/17 at 22:57; Status DC Morphine Sulfate (Morphine Inj) 2 mg ONCE ONCE IV PUSH Last administered on at 14:37; Start 03/03/17 at 14:30; Stop 03/03/17 at 14:31; Status DC Morphine Sulfate (Morphine Inj) 2 mg ONCE ONCE IV PUSH Last administered on at 14:38; Start 03/03/17 at 14:30; Stop 03/03/17 at 14:31; Status DC Pantoprazole Sodium 80 mg/ Sodium Chloride 100 ml @ 10 mls/hr CONTINUOUS IV ; Start 03/03/17 at 15:00; Status Cancel Pantoprazole Sodium 80 mg/ Sodium Chloride 35 ml @ 420 mls/hr BOLUS ONCE IV Last administered on 03/03/17at 15:31; Start 03/03/17 at 15:00; Stop 03/03/17 at 15:04; Status DC Pantoprazole Sodium 80 mg/ Sodium Chloride 100 ml @ 10 mls/hr Q10H IV Last administered on 03/04/17at 02:10; Start 03/03/17 at 15:00; Stop 03/04/17 at 05:39 ; Status DC Prochlorperazine Edisylate (Compazine Inj) 10 mg ONCE ONCE IV PUSH Last administered on 03/03/17at 15:55; Start 03/03/17 at 15:15; Stop 03/03/17 at 15:16 ; Status DC Ceftriaxone Sodium 1000 mg/ Sodium Chloride 100 ml @ 200 mls/hr ONCE ONCE IV Last administered on 03/03/17at 17:39; Start 03/03/17 at 17:00; Stop 03/03/17 at 17:29; Status DC Iohexol (Omnipaque 350 Inj) 90 ml STK-MED ONCE IVCONTRAST Last administered on 03/03/17at 14:06; Start 03/03/17 at 14:06; Stop 03/03/17 at 16:56; Status DC Gadodiamide (Omniscan Pf Inj) 14 ml STK-MED ONCE IVCONTRAST Last administered on 03/03/17at 18:37; Start 03/03/17 at 18:37; Stop 03/03/17 at 18:40; Status DC Aspirin (Aspirin) 325 mg ONCE ONCE PO Last administered on 03/03/17at 19:40; Start 03/03/17 at 19:30; Stop 03/03/17 at 19:31; Status DC Sodium Chloride 1,000 ml @ 70 mls/hr [id number] IV Last administered on at 11:27; Start 03/03/17 at 19:30; Stop 03/04/17 at 12:57; Status DC Sodium Chloride (NS Flush) 2 ml BID IV FLUSH Last administered on 03/11/17at 08: 35; Start 03/03/17 at 21:00 Sodium Chloride (NS Flush) 2 ml UNSCH PRN IV FLUSH FLUSH AFTER USING IV ACCESS ; Start 03/03/17 at 20:15 Aspirin (Aspirin) 325 mg DAILY PO Last administered on 03/05/17at 08:58; Start 03/04/17 at 09:00; Stop 03/06/17 at 08:03; Status DC Pravastatin Sodium (Pravachol) 40 mg HS PO Last administered on 03/10/17at 20:02 ; Start 03/03/17 at 21:00 Insulin Aspart (NovoLOG SUPPLEMENTAL SCALE) 1 ACHS SQ ; Start 03/03/17 at 21:00 ; Stop 03/06/17 at 19:47; Status DC Dextrose (D50w (Vial) Inj) 50 ml UNSCH PRN IV PUSH HYPOGLYCEMIA-SEE COMMENTS; Start 03/03/17 at 20:15; Stop 03/06/17 at 19:47; Status DC Glucagon (Glucagon Inj) 1 mg UNSCH PRN OTHER HYPOGLYCEMIA-SEE COMMENTS; Start 03/03/17 at 20:15; Stop 03/06/17 at 19:47; Status DC Gadodiamide (Omniscan Pf Inj) 14 ml STK-MED ONCE IVCONTRAST Last administered on 03/03/17at 21:20; Start 03/03/17 at 21:20; Stop 03/03/17 at 21:21; Status DC Ceftriaxone Sodium 1000 mg/ Sodium Chloride 100 ml @ 200 mls/hr Q24H IV Last administered on 03/05/17at 18:49; Start 03/04/17 at 17:00; Stop 03/06/17 at 09:59 ; Status DC Pantoprazole Sodium 80 mg/ Sodium Chloride 100 ml @ 10 mls/hr CONTINUOUS IV Last administered on 03/04/17at 12:03; Start 03/04/17 at 07:00; Stop 03/04/17 at 22:31; Status DC Morphine Sulfate (Morphine Inj) 2 mg Q3H PRN IV PUSH breakthrough Last administered on 03/11/17at 02:48; Start 03/04/17 at 06:45 Acetaminophen/ Hydrocodone Bitart ([place] 5-325 Mg) 1 tab Q4H PRN PO pain 1-5 Last administered on 03/05/17at 00:59; Start 03/04/17 at 06:45; Stop 03/07/17 at 13:09; Status DC Heparin Sodium (Porcine) (Heparin Inj) 5,000 units Q12HR SQ Last administered on 03/05/17at 21:00; Start 03/04/17 at 21:00; Stop 03/06/17 at 08:03; Status DC Warfarin Sodium (Coumadin) 5 mg DAILY@1600 PO Last administered on 03/05/17at 18 :49; Start 03/04/17 at 16:00; Stop 03/06/17 at 08:03; Status DC Atorvastatin Calcium (Lipitor) 10 mg HS PO ; Start 03/04/17 at 21:00; Stop 03/04 at 21:00; Status DC Pantoprazole Sodium 80 mg/ Sodium Chloride 100 ml @ 10 mls/hr Q10H IV Last administered on 03/06/17at 05:34; Start 03/04/17 at 22:45; Stop 03/06/17 at 09:59 ; Status DC Acetaminophen/ Hydrocodone Bitart ([place] 10-325 Mg) 1 tab Q4H PRN PO pain 6-10 Last administered on 03/07/17at 13:03; Start 03/05/17 at 03:00; Stop 03/07/17 at 13:09; Status DC Pharmacy Profile Note 0 ml @ 0 mls/hr UNSCH OTHER ; Start 03/05/17 at 08:30; Stop 03/06/17 at 08:39; Status DC Ondansetron HCl (Zofran Inj) 4 mg Q6HR PRN IV PUSH NAUSEA OR VOMITING Last administered on 03/06/17at 02:54; Start 03/06/17 at 03:00 Magnesium Hydroxide (Milk Of Magnesia Liq) 30 ml DAILY PO Last administered on 03/11/17at 08:34; Start 03/06/17 at 09:00 Linezolid (Zyvox) 600 mg Q12HR PO Last administered on 03/08/17at 09:01; Start 03/06/17 at 10:30; Stop 03/08/17 at 11:16; Status DC Amoxicillin/ Clavulanate Potassium (Augmentin) 875 mg Q12HR PO Last administered on 03/08/17at 21:05; Start 03/06/17 at 11:00; Stop 03/10/17 at 11:44 ; Status DC Pantoprazole Sodium (Protonix) 40 mg DAILY PO Last administered on 03/11/17at 08 :33; Start 03/06/17 at 10:00 Oxycodone HCl (Roxicodone) 10 mg Q4H PRN PO pain1-10 Last administered on at 06:05; Start 03/07/17 at 13:15; Stop 03/09/17 at 09:04; Status DC Lorazepam (Ativan) 0.5 mg Q8H PRN PO anxiety/agitation; Start 03/07/17 at 13:15 Lorazepam (Ativan Inj) 0.5 mg STAT ONCE IV PUSH Last administered on at 13:53; Start 03/07/17 at 13:15; Stop 03/07/17 at 13:45; Status DC Methocarbamol (Robaxin) 500 mg Q8HR PO Last administered on 03/09/17at 06:05; Start 03/08/17 at 14:00; Status Future Hold Senna/Docusate Sodium (Eryn-Colace) 2 tab BID PO Last administered on at 08:32; Start 03/08/17 at 12:30 Polyethylene Glycol (Miralax) 17 gm ONCE ONCE PO ; Start 03/08/17 at 11:45; Stop 03/08/17 at 12:28; Status DC Propofol (Diprivan 200 Mg/20 ml Inj) 600 mg STK-MED ONCE .ROUTE ; Start at 13:01; Stop 03/08/17 at 13:02; Status DC Heparin Sodium (Porcine) (Heparin Inj) 10,000 units STK-MED ONCE .ROUTE ; Start 03/08/17 at 13:15; Stop 03/08/17 at 13:16; Status DC Sodium Chloride (Sodium Chloride 0.9% Inj) 60 ml STK-MED ONCE .ROUTE ; Start at 13:15; Stop 03/08/17 at 13:16; Status DC Sodium Bicarbonate (Sodium Bicarbonate 8.4% Inj) 50 meq STK-MED ONCE .ROUTE ; Start 03/08/17 at 13:16; Stop 03/08/17 at 13:17; Status DC Heparin Sodium (Porcine) (Heparin Inj) 10,000 units STK-MED ONCE .ROUTE ; Start 03/08/17 at 13:16; Stop 03/08/17 at 13:17; Status DC Vancomycin HCl (Vancomycin Inj) 500 mg STK-MED ONCE .ROUTE ; Start 03/08/17 at 13:16; Stop 03/08/17 at 13:17; Status DC Cefazolin Sodium (Ancef Inj) 1,000 mg STK-MED ONCE .ROUTE ; Start 03/08/17 at 13 :16; Stop 03/08/17 at 13:17; Status DC Bupivacaine HCl/ Epinephrine Bitart (Sensorcaine-Epinephrine 0.25% Inj) 50 ml STK-MED ONCE .ROUTE ; Start 03/08/17 at 13:17; Stop 03/08/17 at 13:18; Status DC Lidocaine/ Epinephrine (Xylocaine-Epi Mpf 2%-1:200,000 Inj) 20 ml STK-MED ONCE .ROUTE ; Start 03/08/17 at 13:17; Stop 03/08/17 at 13:18; Status DC Midazolam HCl (Versed Inj) 2 mg STK-MED ONCE .ROUTE ; Start 03/08/17 at 14:19; Stop 03/08/17 at 14:20; Status DC Fentanyl Citrate (fentaNYL INJ) 100 mcg STK-MED ONCE .ROUTE ; Start 03/08/17 at 14:30; Stop 03/08/17 at 14:31; Status DC Phytonadione (Vitamin K Inj) 10 mg ONCE ONCE SQ Last administered on at 17:53; Start 03/08/17 at 16:30; Stop 03/08/17 at 16:31; Status DC Phytonadione (Mephyton Liq) 5 mg ONCE ONCE PO Last administered on 03/08/17at 21:06; Start 03/08/17 at 16:30; Stop 03/08/17 at 16:31; Status DC Lactated Ringer's 1,000 ml @ 30 mls/hr Q24H PRN IV SEE LABEL COMMENTS; Start at 05:15; Stop 03/09/17 at 18:36; Status DC Sodium Chloride 500 ml @ 30 mls/hr [id number] PRN IV SEE LABEL COMMENTS; Start at 05:15; Stop 03/09/17 at 18:36; Status DC Povidone Iodine (Betadine 5% Antisepsis Kit) 1 applic [employer] PRN EACH NARE SEE LABEL COMMENTS; Start 03/09/17 at 05:15; Stop 03/12/17 at 05:14 Chlorhexidine Gluconate (Chlorhexidine 2% Cloth) 3 pack [employer] PRN TOPICAL SEE LABEL COMMENTS; Start 03/09/17 at 05:15; Stop 03/09/17 at 18:36; Status DC Oxycodone HCl (Roxicodone) 15 mg Q4H PRN PO pain1-10 Last administered on at 08:32; Start 03/09/17 at 09:15 Warfarin Sodium (Coumadin) 5 mg ONCE ONCE PO Last administered on 03/09/17at 18 :40; Start 03/09/17 at 18:00; Stop 03/09/17 at 18:01; Status DC Lidocaine/ Epinephrine (Xylocaine-Epi 0.5%-1:200,000 Inj) 50 ml STK-MED ONCE .ROUTE ; Start 03/09/17 at 14:35; Stop 03/09/17 at 14:36; Status DC Heparin Sodium (Porcine) (Heparin Inj) 10,000 units STK-MED ONCE .ROUTE Last administered on 03/09/17at 17:12; Start 03/09/17 at 14:35; Stop 03/09/17 at 14:36 ; Status DC Bupivacaine HCl/ Epinephrine Bitart (Sensorcaine-Epinephrine 0.25% Inj) 50 ml STK-MED ONCE .ROUTE Last administered on 03/09/17at 17:12; Start 03/09/17 at 14: 35; Stop 03/09/17 at 14:36; Status DC Sodium Chloride (Sodium Chloride 0.9% Inj) 20 ml STK-MED ONCE .ROUTE Last administered on 03/09/17at 17:21; Start 03/09/17 at 17:21; Stop 03/09/17 at 17:22 ; Status DC Cefazolin Sodium (Ancef Inj) 1,000 mg ONCE ONCE IV ; Start 03/09/17 at 17:27; Stop 03/09/17 at 18:08; Status DC Cefazolin Sodium (Ancef Inj) 1,000 mg ONCE ONCE IV ; Start 03/09/17 at 17:11; Stop 03/09/17 at 18:08; Status DC Fentanyl Citrate (fentaNYL INJ) 100 mcg STK-MED ONCE .ROUTE ; Start 03/09/17 at 18:02; Stop 03/09/17 at 18:03; Status DC Miscellaneous Information ALL NURSING DEPARTME... UNSCH PRN .XX SEE LABEL COMMENTS; Start 03/09/17 at 18:45; Stop 03/10/17 at 18:44; Status DC Warfarin Sodium (Coumadin) 5 mg ONCE ONCE PO Last administered on 03/10/17at 15 :58; Start 03/10/17 at 16:00; Stop 03/10/17 at 16:01; Status DC Amoxicillin/ Clavulanate Potassium (Augmentin) 875 mg Q12HR PO ; Start 03/11/17 at 12:00 Warfarin Sodium (Coumadin) 5 mg DAILY@1600 PO ; Start 03/11/17 at 16:00 Patient Medication Teaching (Coumadin Booklet) 1 ONCE ONCE OTHER ; Start at 09:00; Stop 03/11/17 at 09:01; Status DC A/P Problem List: (1) Stroke ICD Code: I63.9 - Cerebral infarction, unspecified Status: Acute (2) Hematemesis ICD Code: K92.0 - Hematemesis (3) Abdominal mass ICD Code: R19.00 - Intra-abdominal and pelvic swelling, mass and lump, unspecified site (4) Upper GI bleed ICD Code: K92.2 - Gastrointestinal hemorrhage, unspecified Assessment and Plan 56-year-old female with Mild encephalopathy Patient is a little drowsy today. No new focal neurological deficits or headache. She is still able to have a normal conversation. This may be secondary to advancing of cancer since abdomen does look more distended today. Will get labs and monitor patient clinically. CVA, acute Brain MRI shows prominent infarct in the right parietal and right temporal lobe , no midline shift or mass effect. A few scattered foci of acute infarcts are seen within the left parietal, right occipital and both vertebral hemispheres. -Appreciate input from neurology -Continue with Pravachol and aspirin -PT/OT/ST -Hemoglobin A1c 5.1. LDL 44. 2-D echo within normal limits. MRA of the carotids ordered, no significant Blockage -Pending hypercoagulable workup. -Currently on Heparin subcutaneous bridge and Coumadin. Status post given vitamin K for port placement. Patient is very sensitive to Coumadin. INR today 1.2. Will give Coumadin 5 mg today. Recheck INR tomorrow. Goal is between 2-2.5. UTI -Rocephin DC on 03/06. urine cultures grew enterococcus facelis and E coli. on linezolid and augmentin. Discussed case with pharmacist and he stated that Augmentin will cover both species. DC the linezolid. Will treat for total 7 days. Today will be the last day. Left foot pain with ambulation -Foot x-ray shows healing metatarsal. has fracture boot. Anemia, patient with coffee-ground emesis, questionable GI bleed HGB 10.8 -Appreciate input from gastroenterology per GI will only scope if it is emergent. -No active bleeding and patient is asymptomatic. Continue with oral Protonix. ADENOCARCINOMA, chronic - GI/pancreas/biliary origin with remarkably elevated CA 19-9 -Patient will need rehabilitation prior to getting IV palliative chemotherapy. Dr. Jeter will be managing. Gen. surgeon consulted. DVT prophylaxis: SCDs Discharge Planning Poor prognosis. Difficult placement since patient is self paid. She will need to be in a rehabilitation facility. Continue with daily PT. Patient may be able to be discharged to her [facility] since she stated that she will be residing there. Discussed case with case management. Problem Qualifiers (1) Stroke: Qualified Codes: I63.10 - Cerebral infarction due to embolism of unspecified precerebral artery (2) Hematemesis: Qualified Codes: K92.0 - Hematemesis (3) Abdominal mass: Qualified Codes: R19.07 - Generalized intra-abdominal and pelvic swelling, mass and lump Imelda Wiggins MD Mar 11, 2017 10:57
[2017-03-11] MEDS: AMOXICILLIN/CLAVULANATE K 875 MG TAB PO SCH ×2 (12:00→20:58)
[2017-03-11] MEDS: LORazepam 0.5 MG TAB PO PRN (13:56)
[2017-03-11 14:38] LABS: HEMATOCRIT 30.8 % (35.0-46.0); HEMOGLOBIN 10.2 GM/DL (11.6-15.3); MEAN CELL VOLUME 99.3 FL (80.0-100.0); MEAN CORPUSCULAR HEMOGLOBIN 32.8 PG (27.0-34.0); PLATELET COUNT 343 TH/MM3 (150-450); RED CELL DISTRIBUTION WIDTH 18.6 % (11.6-17.2); WHITE BLOOD COUNT 12.4 TH/MM3 (4.0-11.0)
[2017-03-11 15:10] LABS: CALCIUM 7.9 MG/DL (8.5-10.1); CREATININE 0.58 MG/DL (0.50-1.00)
[2017-03-11] MEDS ORDERED: WARFARIN SOD 5 MG TAB PO SCH (16:00)
[2017-03-11] MEDS: PRAVASTATIN SOD 40 MG TAB PO SCH (20:58)
[2017-03-12] VITALS: BP 110/81; PULSE 88; RESP 16; TEMP 97.8; O2SAT 98
[2017-03-12] MEDS: MORPHINE SULFATE 2 MG/ML INJ IV PUSH PRN (01:13)
[2017-03-12] MEDS: LORazepam 0.5 MG TAB PO PRN ×2 (02:39→12:06)
[2017-03-12 04:10] VITALS: BP 115/76; PULSE 80; RESP 16; TEMP 97; O2SAT 98
[2017-03-12 08:00] VITALS: BP 102/69; PULSE 103; RESP 18; TEMP 98.5; O2SAT 94
--- NOTE | 2017-03-12 08:11 | HHI.PR ---
Subjective Remarks Appears in no acute distress. Sleepy. Noted upset earlier as her friend . With abdominal distention however she denies having any pain at this time. No fever or chills and no nausea or vomiting however she was not able to eat much today. Did not have a bowel movement. Next palpitations or chest pain no shortness of breath. She is saturating well on room air Objective Vitals Vital Signs Date Time Temp Pulse Resp B/P (MAP) Pulse Ox O2 Delivery O2 Flow Rate FiO2 03/12/17 04:10 97.0 80 16 115/76 (89) 98 03/12/17 00:00 97.8 88 16 110/81 (91) 98 03/11/17 20:30 98.0 90 18 112/81 (91) 97 03/11/17 19:08 99.0 74 16 110/58 (75) 94 03/11/17 12:09 98.4 92 18 102/79 (87) 94 03/11/17 09:55 85 I/O 03/11/17 03/11/17 03/11/17 03/12/17 03/12/17 03/12/17 06:59 14:59 22:59 06:59 14:59 22:59 Intake Total 480 ml 840 ml 480 ml Output Total 300 ml 400 ml Balance 180 ml 840 ml 80 ml Intake Oral 480 ml 840 ml 480 ml Output Urine Total 300 ml 400 ml # Voids 5 # Bowel Movements 1 Result Diagram: 03/11/17 1349 03/11/17 1345 Imaging Last Impressions Chest X-Ray 03/09/17 0000 Signed Impressions: Service Date/Time: Thursday, March 09, 2017 18:06 - CONCLUSION: 1. No pneumothorax status post port place. Minimal basilar atelectasis. Jaguar Villalobos MD Foot X-Ray 03/07/17 0000 Signed Impressions: Service Date/Time: Tuesday, March 07, 2017 10:36 - CONCLUSION: Healing fracture distal fifth metacarpal. Low Kenny MD FACR Abdomen/Pelvis CT 03/03/17 1419 Signed Impressions: Service Date/Time: Friday, March 03, 2017 16:32 - CONCLUSION: 1. Large cystic and solid mass in the pelvis extending into the abdomen could be ovarian carcinoma. There is peritoneal carcinomatosis and multiple low-density liver lesions likely metastatic disease. 2. Large volume ascites. Harmeet Best MD Neck Magnetic Resonance Angiography 03/03/17 0000 Signed Impressions: Service Date/Time: Friday, March 03, 2017 21:13 - CONCLUSION: 1. Multiple carotid arteries. Harmeet Best MD Head Magnetic Resonance Angiography 03/03/17 0000 Signed Impressions: Service Date/Time: Friday, March 03, 2017 21:13 - CONCLUSION: 1. No large vessel stenosis or aneurysm. 2. Normal variant as described above. Harmeet Best MD Head CT 03/03/17 0000 Signed Impressions: Service Date/Time: Friday, March 03, 2017 16:24 - CONCLUSION: Large air low attenuation right frontal lobe could be acute infarct versus edema from underlying mass. Contrast MRI recommended. Harmeet Best MD Brain MRI 03/03/17 0000 Signed Impressions: Service Date/Time: Friday, March 03, 2017 18:22 - CONCLUSION: 1. Prominent infarct in the right parietal and right temporal lobe. No midline shift or mass effect. 2. A few scattered foci of acute infarcts are seen within the left parietal, right occipital and both vertebral hemispheres. Embolic source is suggested. Harmeet Best MD Objective Remarks GENERAL: on NAD found sitting in bed and talkative but is a little more drowsy. CARDIOVASCULAR: Regular rate and rhythm without murmurs, gallops, or rubs. RESPIRATORY: Breath sounds equal bilaterally. No accessory muscle use. GASTROINTESTINAL: Abdomen soft and distended. No tenderness palpation. Negative for any peritoneal signs. NEURO: Patient able to lift her left arm and left leg up. A/P Problem List: (1) Stroke ICD Code: I63.9 - Cerebral infarction, unspecified Status: Acute (2) Hematemesis ICD Code: K92.0 - Hematemesis (3) Abdominal mass ICD Code: R19.00 - Intra-abdominal and pelvic swelling, mass and lump, unspecified site (4) Upper GI bleed ICD Code: K92.2 - Gastrointestinal hemorrhage, unspecified Assessment and Plan 56-year-old female with Mild encephalopathy No new focal neurological deficits or headache. She is still able to have a normal conversation. This may be secondary to advancing of cancer since abdomen does look more distended today. Will get labs and monitor patient clinically. CVA, acute Brain MRI shows prominent infarct in the right parietal and right temporal lobe , no midline shift or mass effect. A few scattered foci of acute infarcts are seen within the left parietal, right occipital and both vertebral hemispheres. -Appreciate input from neurology -Continue with Pravachol and aspirin -PT/OT/ST -Hemoglobin A1c 5.1. LDL 44. 2-D echo within normal limits. MRA of the carotids ordered, no significant Blockage -Pending hypercoagulable workup. -Currently on Heparin subcutaneous bridge and Coumadin. Status post given vitamin K for port placement. Patient is very sensitive to Coumadin. INR today 1.2. Will give Coumadin 5 mg today. Recheck INR tomorrow. Goal is between 2-2.5. UTI -Rocephin DC on 03/06. urine cultures grew enterococcus facelis and E coli. on linezolid and augmentin. Discussed case with pharmacist and he stated that Augmentin will cover both species. DC the linezolid. Will treat for total 7 days. Today will be the last day. Left foot pain with ambulation -Foot x-ray shows healing metatarsal. has fracture boot. Anemia, patient with coffee-ground emesis, questionable GI bleed HGB 10.8 -Appreciate input from gastroenterology per GI will only scope if it is emergent. -No active bleeding and patient is asymptomatic. Continue with oral Protonix. ADENOCARCINOMA, chronic - GI/pancreas/biliary origin with remarkably elevated CA 19-9 -Patient will need rehabilitation prior to getting IV palliative chemotherapy. Dr. Jeter will be managing. Gen. surgeon consulted. DVT prophylaxis: SCDs Discharge Planning Poor prognosis. Difficult placement since patient is self paid. She will need to be in a rehabilitation facility. Continue with daily PT. Patient may be able to be discharged to her [facility] since she stated that she will be residing there. Discussed case with case management. Problem Qualifiers (1) Stroke: Qualified Codes: I63.10 - Cerebral infarction due to embolism of unspecified precerebral artery (2) Hematemesis: Qualified Codes: K92.0 - Hematemesis (3) Abdominal mass: Qualified Codes: R19.07 - Generalized intra-abdominal and pelvic swelling, mass and lump Galilea Gomes MD Mar 12, 2017 08:11
--- NOTE | 2017-03-12 09:46 | HHI.PR ---
Subjective Remarks abd hurts her friend she was taking care of Objective Vital Signs Date Time Temp Pulse Resp B/P (MAP) Pulse Ox O2 Delivery O2 Flow Rate FiO2 03/12/17 04:10 97.0 80 16 115/76 (89) 98 03/12/17 00:00 97.8 88 16 110/81 (91) 98 03/11/17 20:30 98.0 90 18 112/81 (91) 97 03/11/17 19:08 99.0 74 16 110/58 (75) 94 03/11/17 12:09 98.4 92 18 102/79 (87) 94 03/11/17 09:55 85 I/O 03/11/17 03/11/17 03/11/17 03/12/17 03/12/17 03/12/17 07:00 15:00 23:00 07:00 15:00 23:00 Intake Total 480 ml 840 ml 480 ml Output Total 300 ml 400 ml Balance 180 ml 840 ml 80 ml Intake Oral 480 ml 840 ml 480 ml Output Urine Total 300 ml 400 ml # Voids 5 # Bowel Movements 1 Result Diagram: 03/11/17 1349 03/11/17 1345 Objective Remarks awake alert can last picker left arm a nd leg no change abd is distended and tight and a little painful Assessment and Plan Assessment and Plan imp bilat cva coumdain echo nl holter pend hypercoag pend inr 1.9 hold coumdain very sensative to it oob CA likley hypercoag from that stable neuro 03/07/17 inr 2.6 today echo and holter nl 1 mg coumadin today she is ready for rehab neurowise a little down about cancer situation 03/09/17 unfortunately coumadin held and vit k for port placement inr down MED TEAM PLEASE RESTART COUMADIN WHEN ABLE AND GET INR TO 2-2.5 SHE IS VERY SENSITIVE TO IT BUT MAY NEED HIGHER DOSE WITH RECENT VIT K I WILL FU Sunday03/12/17 inr low on coumadin her abd some tender and distended ? if some fluid should be taken off of abd? ?paracenthesis? needs done Bala Johnson MD Mar 12, 2017 09:46
--- NOTE | 2017-03-12 09:53 | PD.ONC.PN ---
Subjective Subjective Remarks Afebrile overnight. Patient crying in room. She recently learned that her long time room mate and friend last night. She has friends at the bedside comforting her. She continues to have abdominal pain, improved with oxycodone. Objective Data Date Time Temp Pulse Resp B/P (MAP) Pulse Ox O2 Delivery O2 Flow Rate FiO2 03/12/17 04:10 97.0 80 16 115/76 (89) 98 03/12/17 00:00 97.8 88 16 110/81 (91) 98 03/11/17 20:30 98.0 90 18 112/81 (91) 97 03/11/17 19:08 99.0 74 16 110/58 (75) 94 03/11/17 12:09 98.4 92 18 102/79 (87) 94 03/11/17 09:55 85 03/12/17 03/12/17 03/12/17 07:00 15:00 23:00 Intake Total 480 ml Output Total 400 ml Balance 80 ml Result Diagram: 03/11/17 1349 03/11/17 1345 Laboratory Results Laboratory Tests Test 03/11/17 13:45 03/11/17 13:49 Blood Urea Nitrogen 8 MG/DL Creatinine 0.58 MG/DL Random Glucose 99 MG/DL Calcium Level 7.9 MG/DL Sodium Level 132 MEQ/L Potassium Level 4.4 MEQ/L Chloride Level 96 MEQ/L Carbon Dioxide Level 26.0 MEQ/L Anion Gap 10 MEQ/L Estimat Glomerular Filtration Rate 108 ML/MIN White Blood Count 12.4 TH/MM3 Red Blood Count 3.10 MIL/MM3 Hemoglobin 10.2 GM/DL Hematocrit 30.8 % Mean Corpuscular Volume 99.3 FL Mean Corpuscular Hemoglobin 32.8 PG Mean Corpuscular Hemoglobin Concent 33.0 % Red Cell Distribution Width 18.6 % Platelet Count 343 TH/MM3 Mean Platelet Volume 8.0 FL Administered Medications Medications (Trade) Dose Ordered Sig/Raquel Route PRN Reason Start Time Stop Time Status Last Admin Dose Admin Sodium Chloride (NS Flush) 2 ml BID IV FLUSH 03/03/17 21:00 03/11/17 21:03 Pravastatin Sodium (Pravachol) 40 mg HS PO 03/03/17 21:00 03/11/17 20:58 Morphine Sulfate (Morphine Inj) 2 mg Q3H PRN IV PUSH breakthrough 03/04/17 06:45 03/12/17 01:13 Ondansetron HCl (Zofran Inj) 4 mg Q6HR PRN IV PUSH NAUSEA OR VOMITING 03/06/17 03:00 03/06/17 02:54 Magnesium Hydroxide (Milk Of Magnesia Liq) 30 ml DAILY PO 03/06/17 09:00 03/11/17 08:34 Pantoprazole Sodium (Protonix) 40 mg DAILY PO 03/06/17 10:00 03/11/17 08:33 Lorazepam (Ativan) 0.5 mg Q8H PRN PO anxiety/agitation 03/07/17 13:15 03/12/17 02:39 Methocarbamol (Robaxin) 500 mg Q8HR PO 03/08/17 14:00 Future Hold 03/09/17 06:05 Senna/Docusate Sodium (Eryn-Colace) 2 tab BID PO 03/08/17 12:30 03/11/17 20:58 Oxycodone HCl (Roxicodone) 15 mg Q4H PRN PO pain1-10 03/09/17 09:15 03/12/17 06:32 Amoxicillin/ Clavulanate Potassium (Augmentin) 875 mg Q12HR PO 03/11/17 12:00 03/11/17 20:58 Warfarin Sodium (Coumadin) 5 mg DAILY@1600 PO 03/11/17 16:00 03/11/17 18:50 Objective Remarks GENERAL: Chronically ill appearing female, upright in bed, tearful, upset. SKIN: Warm and dry. HEAD: Normocephalic. EYES: No injection or drainage. NECK: Supple, trachea midline. CARDIOVASCULAR: Regular rate and rhythm RESPIRATORY: Breath sounds equal bilaterally. No accessory muscle use. GASTROINTESTINAL: abdomen distended. EXTREMITIES: No cyanosis NEUROLOGICAL: awake and alert. normal speech. left sided weakness. Assessment/Plan Problem List: (1) Stroke ICD Codes: I63.9 - Cerebral infarction, unspecified Status: Acute Plan: --on coumadin, INR subtherapeutic --Brain MRI with prominent infarct in the right parietal and right temporal lobe with no midline shift or mass effect. --Neurology team recommends anticoagulation and physical therapy. --stroke likely due to multiple infarcts likely cardioembolic in nature Assessment 56y/o female admitted with embolic stroke. h/o Peritoneal carcinomatosis. Ascites. 15.5 x 13.8 cm adnexal mass. elevated CA 125 h/o alcoholic liver disease Plan 1. continue coumadin 2. monitor INR 3. follow up in clinic once discharged. Attending Statement Plan as discussed. Problem Qualifiers (1) Stroke: Qualified Codes: I63.10 - Cerebral infarction due to embolism of unspecified precerebral artery Berkley Álvarez Mar 12, 2017 09:52 Malika Jeter MD Mar 12, 2017 23:56
[2017-03-12] MEDS: MAGNESIUM HYDROXIDE SUSP 30 ML CUP PO SCH (10:02)
[2017-03-12] MEDS: AMOXICILLIN/CLAVULANATE K 875 MG TAB PO SCH ×2 (10:02→21:30)
[2017-03-12] MEDS: PANTOPRAZOLE SOD 40 MG DELAYED RELEASE TAB PO SCH (10:02)
[2017-03-12] MEDS: DOCUSATE SODIUM 50 MG/SENNA 8.6 MG TAB PO SCH ×2 (10:02→20:14)
[2017-03-12] MEDS: SODIUM CHLORIDE 0.9% FLUSH 10 ML FLUSH IV FLUSH SCH ×2 (10:03→21:30)
[2017-03-12 12:00] VITALS: BP 113/71; PULSE 90; RESP 18; TEMP 98; O2SAT 96
--- NOTE | 2017-03-12 13:51 | HHI.HCPN ---
Attempted to see Ms. Gomes for ongoing communication, goals of care, and support. She is asleep upon my arrival to her room. Easily awakens but falls back asleep quickly. Indicates she is "doing ok" but does not engage much in further conversation. Primarily focused on getting her tea heated up. Informed RN. Ms. Gomes received news this morning her roommate and long time friend . Given her lethargy during my visit I did not discuss with her. Will continue to follow for emotional support. Palliative care will continue to follow throughout hospitalization. Dacia Ragsdale, REGISTERED ART THERAPIST Mar 12, 2017 13:51
[2017-03-12 14:37] LABS: INTERNATIONAL NORMALIZED RATIO 1.3 RATIO; PROTHROMBIN TIME - PATIENT 12.7 SEC (9.8-11.6)
[2017-03-12 16:46] VITALS: BP 93/69; PULSE 90; RESP 18; TEMP 97.9; O2SAT 100
[2017-03-12] MEDS: WARFARIN SOD 2.5 MG TAB PO SCH (17:00)
[2017-03-12 20:58] VITALS: BP 114/81; PULSE 90; RESP 18; TEMP 98.6; O2SAT 95
[2017-03-12] MEDS: PRAVASTATIN SOD 40 MG TAB PO SCH (21:30)
[2017-03-13] VITALS (7 sets, daily range): BP systolic 94–121; BP diastolic 56–84; PULSE 81–100; RESP 16–18; TEMP 97.7–98.4; O2SAT 93–96
[2017-03-13] MEDS: MORPHINE SULFATE 2 MG/ML INJ IV PUSH PRN (04:58)
[2017-03-13] MEDS: SODIUM CHLORIDE 0.9% FLUSH 10 ML FLUSH IV FLUSH PRN (05:04)
--- NOTE | 2017-03-13 08:40 | MP ---
cc: CORNELIA BARBER M.D. DATE OF SURGERY 03/09/2017 PREOPERATIVE DIAGNOSIS Metastatic ovarian cancer with poor IV access, in need of chemotherapy. POSTOPERATIVE DIAGNOSIS Metastatic ovarian cancer with poor IV access, in need of chemotherapy. PROCEDURE Placement of left side [id number] under fluoroscopic guidance. ANESTHESIA TIVA. SURGEON Dr. Barber INDICATIONS This is an unfortunate 56-year-old female who has metastatic ovarian cancer. She has poor IV access. She is planning to get some chemotherapy. Plans were made for above. PROCEDURE The patient is taken to the operating room , placed in supine position. After anesthesia, her left shoulder and chest and neck are prepped with Betadine. We do a time-out. She is given Ancef preop. We anesthetized the infraclavicular area with Marcaine solution. The 18-gauge needle is used to cannulate the subclavian vein out laterally. I could not get it to thread. I went a little bit more medial and was able to thread this into the superior vena cava under fluoroscopic guidance. After that was done, we make a subcutaneous pocket. The catheter was cut to size at 21 cm and the introducer/dilator threaded over the guidewire. The dilator was removed. The catheter was then threaded through the introducer so it lays in the superior vena cava. This is all done under fluoroscopic guidance; it aspirates blood quite easily and is flushed with a heparinized saline solution. We secure it to the deep layer with 3-0 Vicryl. The deep layer is closed with 3-0 Vicryl. The skin is closed with 4-0 Vicryl. Steri-Strips applied. Sterile bandage applied. STAT portable chest x-ray is pending at the time of this dictation. Cornelia Barber MD JSRINIVASAN/JOE /5:40 PM /8:32 AM
[2017-03-13] MEDS: SODIUM CHLORIDE 0.9% FLUSH 10 ML FLUSH IV FLUSH SCH ×2 (09:00→20:17)
[2017-03-13] MEDS: AMOXICILLIN/CLAVULANATE K 875 MG TAB PO SCH ×2 (09:20→20:17)
[2017-03-13] MEDS: PANTOPRAZOLE SOD 40 MG DELAYED RELEASE TAB PO SCH (09:21)
[2017-03-13] MEDS: DOCUSATE SODIUM 50 MG/SENNA 8.6 MG TAB PO SCH ×2 (09:21→20:17)
[2017-03-13] MEDS: MAGNESIUM HYDROXIDE SUSP 30 ML CUP PO SCH (09:21)
--- NOTE | 2017-03-13 10:21 | PD.ONC.PN ---
Subjective Subjective Remarks Afebrile overnight. Patient resting in bed in nad. Continuing to have weakness, left arm and left leg. Waiting on placement. Objective Data Date Time Temp Pulse Resp B/P (MAP) Pulse Ox O2 Delivery O2 Flow Rate FiO2 03/13/17 09:28 98.3 95 18 121/84 (96) 03/13/17 07:39 98.3 95 18 121/84 (96) 03/13/17 03:53 97.7 100 18 110/76 (87) 94 03/13/17 00:03 97.8 81 16 101/79 (86) 96 03/12/17 20:58 98.6 90 18 114/81 (92) 95 03/12/17 16:46 97.9 90 18 93/69 (77) 100 03/12/17 12:00 98.0 90 18 113/71 (85) 96 03/13/17 03/13/17 03/13/17 07:00 15:00 23:00 Intake Total 480 ml Output Total 450 ml Balance 30 ml Result Diagram: 03/11/17 1349 03/11/17 1345 Laboratory Results Laboratory Tests Test 03/12/17 13:20 Prothrombin Time 12.7 SEC Prothromb Time International Ratio 1.3 RATIO Administered Medications Medications (Trade) Dose Ordered Sig/Raquel Route PRN Reason Start Time Stop Time Status Last Admin Dose Admin Sodium Chloride (NS Flush) 2 ml BID IV FLUSH 03/03/17 21:00 03/13/17 09:00 Sodium Chloride (NS Flush) 2 ml UNSCH PRN IV FLUSH FLUSH AFTER USING IV ACCESS 03/03/17 20:15 03/13/17 05:04 Pravastatin Sodium (Pravachol) 40 mg HS PO 03/03/17 21:00 03/12/17 21:30 Morphine Sulfate (Morphine Inj) 2 mg Q3H PRN IV PUSH breakthrough 03/04/17 06:45 03/13/17 04:58 Ondansetron HCl (Zofran Inj) 4 mg Q6HR PRN IV PUSH NAUSEA OR VOMITING 03/06/17 03:00 03/06/17 02:54 Magnesium Hydroxide (Milk Of Magnesia Liq) 30 ml DAILY PO 03/06/17 09:00 03/13/17 09:21 Pantoprazole Sodium (Protonix) 40 mg DAILY PO 03/06/17 10:00 03/13/17 09:21 Lorazepam (Ativan) 0.5 mg Q8H PRN PO anxiety/agitation 03/07/17 13:15 03/12/17 12:06 Methocarbamol (Robaxin) 500 mg Q8HR PO 03/08/17 14:00 Future Hold 03/09/17 06:05 Senna/Docusate Sodium (Eryn-Colace) 2 tab BID PO 03/08/17 12:30 03/13/17 09:21 Oxycodone HCl (Roxicodone) 15 mg Q4H PRN PO pain1-10 03/09/17 09:15 03/13/17 09:20 Amoxicillin/ Clavulanate Potassium (Augmentin) 875 mg Q12HR PO 03/11/17 12:00 03/13/17 09:20 Warfarin Sodium (Coumadin) 2.5 mg DAILY@1600 PO 03/12/17 16:00 03/12/17 17:00 Objective Remarks GENERAL: Chronically ill female, sitting up in bed eating breakfast. SKIN: Warm and dry. HEAD: Normocephalic. EYES: No injection or drainage. NECK: Supple, trachea midline. CARDIOVASCULAR: Regular rate and rhythm RESPIRATORY: Breath sounds equal bilaterally. No accessory muscle use. GASTROINTESTINAL: abdomen firm, distended. EXTREMITIES: No cyanosis NEUROLOGICAL: +left sided paresis. Assessment/Plan Problem List: (1) Stroke ICD Codes: I63.9 - Cerebral infarction, unspecified Status: Acute Plan: --on coumadin, INR subtherapeutic --Brain MRI with prominent infarct in the right parietal and right temporal lobe with no midline shift or mass effect. --Neurology team recommends anticoagulation and physical therapy. --stroke likely due to multiple infarcts likely cardioembolic in nature Assessment 56y/o female admitted with embolic stroke. h/o Peritoneal carcinomatosis. Ascites. 15.5 x 13.8 cm adnexal mass. elevated CA 125 h/o alcoholic liver disease Plan 1. monitor CBC, INR 2. follow up in clinic once discharged Attending Statement The exam, history, and the medical decision-making described in the above note were completed with the assistance of the mid-level provider. I reviewed and agree with the findings presented. I attest that I had a [id number] encounter with the patient on the same day, and personally performed and documented my assessment and findings in the medical record. Pt seen and examined. Adjusted L foot boot. Still with weakness on L. Events over the weekend noted. Cont anticoagulation - awaiting placement to start palliative chemotherapy. Problem Qualifiers (1) Stroke: Qualified Codes: I63.10 - Cerebral infarction due to embolism of unspecified precerebral artery Berkley Álvarez Mar 13, 2017 10:21 Malika Jeter MD Mar 13, 2017 17:27
[2017-03-13 11:06] LABS: INTERNATIONAL NORMALIZED RATIO 1.4 RATIO; PROTHROMBIN TIME - PATIENT 13.8 SEC (9.8-11.6)
--- NOTE | 2017-03-13 13:41 | HHI.PR ---
Subjective Remarks In bed , pleasantly confused. No abd pain , belly is distended. No n/v/d/c. Eating fairly well. Objective Vitals Vital Signs Date Time Temp Pulse Resp B/P (MAP) Pulse Ox O2 Delivery O2 Flow Rate FiO2 03/13/17 11:35 97.9 94 18 101/80 (87) 95 03/13/17 09:28 98.3 95 18 121/84 (96) 03/13/17 07:39 98.3 95 18 121/84 (96) 03/13/17 03:53 97.7 100 18 110/76 (87) 94 03/13/17 00:03 97.8 81 16 101/79 (86) 96 03/12/17 20:58 98.6 90 18 114/81 (92) 95 03/12/17 16:46 97.9 90 18 93/69 (77) 100 I/O 03/12/17 03/12/17 03/12/17 03/13/17 03/13/17 03/13/17 07:00 15:00 23:00 07:00 15:00 23:00 Intake Total 480 ml 800 ml 480 ml Output Total 400 ml 900 ml 450 ml Balance 80 ml -100 ml 30 ml Intake Oral 480 ml 800 ml 480 ml Output Urine Total 400 ml 900 ml 450 ml # Voids 1 # Bowel Movements 2 Result Diagram: 03/11/17 1349 03/11/17 1345 Imaging Last Impressions Chest X-Ray 03/09/17 0000 Signed Impressions: Service Date/Time: Thursday, March 09, 2017 18:06 - CONCLUSION: 1. No pneumothorax status post port place. Minimal basilar atelectasis. Jaguar Villalobos MD Foot X-Ray 03/07/17 0000 Signed Impressions: Service Date/Time: Tuesday, March 07, 2017 10:36 - CONCLUSION: Healing fracture distal fifth metacarpal. Low Kenny MD FACR Abdomen/Pelvis CT 03/03/17 1419 Signed Impressions: Service Date/Time: Friday, March 03, 2017 16:32 - CONCLUSION: 1. Large cystic and solid mass in the pelvis extending into the abdomen could be ovarian carcinoma. There is peritoneal carcinomatosis and multiple low-density liver lesions likely metastatic disease. 2. Large volume ascites. Harmeet Best MD Neck Magnetic Resonance Angiography 03/03/17 Signed Impressions: Service Date/Time: Friday, March 03, 2017 21:13 - CONCLUSION: 1. Multiple carotid arteries. Harmeet Best MD Head Magnetic Resonance Angiography 03/03/17 0000 Signed Impressions: Service Date/Time: Friday, March 03, 2017 21:13 - CONCLUSION: 1. No large vessel stenosis or aneurysm. 2. Normal variant as described above. Harmeet Best MD Head CT 03/03/17 Signed Impressions: Service Date/Time: Friday, March 03, 2017 16:24 - CONCLUSION: Large air low attenuation right frontal lobe could be acute infarct versus edema from underlying mass. Contrast MRI recommended. Harmeet Best MD Brain MRI 03/03/17 Signed Impressions: Service Date/Time: Friday, March 03, 2017 18:22 - CONCLUSION: 1. Prominent infarct in the right parietal and right temporal lobe. No midline shift or mass effect. 2. A few scattered foci of acute infarcts are seen within the left parietal, right occipital and both vertebral hemispheres. Embolic source is suggested. Harmeet Best MD Objective Remarks GENERAL: on NAD found sitting in bed and talkative but is a little more drowsy. CARDIOVASCULAR: Regular rate and rhythm without murmurs, gallops, or rubs. RESPIRATORY: Breath sounds equal bilaterally. No accessory muscle use. GASTROINTESTINAL: Abdomen soft and distended. No tenderness palpation. Negative for any peritoneal signs. NEURO: Patient able to lift her left arm and left leg up. A/P Problem List: (1) Stroke ICD Code: I63.9 - Cerebral infarction, unspecified Status: Acute (2) Hematemesis ICD Code: K92.0 - Hematemesis (3) Abdominal mass ICD Code: R19.00 - Intra-abdominal and pelvic swelling, mass and lump, unspecified site (4) Upper GI bleed ICD Code: K92.2 - Gastrointestinal hemorrhage, unspecified Assessment and Plan 56-year-old female with Mild encephalopathy No new focal neurological deficits or headache. She is still able to have a normal conversation. This may be secondary to advancing of cancer since abdomen does look more distended today. Will get labs and monitor patient clinically. CVA, acute Brain MRI shows prominent infarct in the right parietal and right temporal lobe , no midline shift or mass effect. A few scattered foci of acute infarcts are seen within the left parietal, right occipital and both vertebral hemispheres. -Appreciate input from neurology -Continue with Pravachol and aspirin -PT/OT/ST -Hemoglobin A1c 5.1. LDL 44. 2-D echo within normal limits. MRA of the carotids ordered, no significant Blockage -Pending hypercoagulable workup. -Currently on Heparin subcutaneous bridge and Coumadin. Status post given vitamin K for port placement. Patient is very sensitive to Coumadin. INR today 1.2. Will give Coumadin 5 mg today. Recheck INR tomorrow. Goal is between 2-2.5. UTI -Rocephin DC on 03/06. urine cultures grew enterococcus facelis and E coli. on linezolid and augmentin. Discussed case with pharmacist and he stated that Augmentin will cover both species. DC the linezolid. Will treat for total 7 days. Today will be the last day. Left foot pain with ambulation -Foot x-ray shows healing metatarsal. has fracture boot. Anemia, patient with coffee-ground emesis, questionable GI bleed HGB 10.8 -Appreciate input from gastroenterology per GI will only scope if it is emergent. -No active bleeding and patient is asymptomatic. Continue with oral Protonix. ADENOCARCINOMA, chronic - GI/pancreas/biliary origin with remarkably elevated CA 19-9 -Patient will need rehabilitation prior to getting IV palliative chemotherapy. Dr. Jeter will be managing. Gen. surgeon consulted. DVT prophylaxis: SCDs Discharge Planning Poor prognosis. Difficult placement since patient is self paid. She will need to be in a rehabilitation facility. Continue with daily PT. Patient may be able to be discharged to her [facility] since she stated that she will be residing there. Discussed case with case management. Problem Qualifiers (1) Stroke: Qualified Codes: I63.10 - Cerebral infarction due to embolism of unspecified precerebral artery (2) Hematemesis: Qualified Codes: K92.0 - Hematemesis (3) Abdominal mass: Qualified Codes: R19.07 - Generalized intra-abdominal and pelvic swelling, mass and lump Galilea Gomes MD Mar 13, 2017 13:41
--- NOTE | 2017-03-13 14:03 | HHI.HCPN ---
Reason for visit a. To assist with evaluation and management of symptoms including: abdominal pain. b. To assist medical decision maker(s) with: better understanding of current medical conditions; weighing benefits/burdens of medical treatment options; making medical treatment decisions. . Subjective/Interval History Patient seen and examined in room. Also present Maura, [employer] medical student and Dacia Ragsdale LCSW. No family or friends at bedside. Patient arouses easily. She remembers us from prior visits. She is disheveled with spoons, forks, sugar and papers under her sheets. Left port placed on 03/09/17, dressing dry and intact. Vital signs stable. No new labs or imaging. Patient is anxious to have chemotherapy, she tells me she keeps waiting to find out when it will get started. It appears plans to start treatment after discharge. CA 19-9 is markedly elevated at 18,157.8. CA-125 modestly elevated on prior admission at 89.8. When speaking with patient about DC plans, she hopes to return home with the support of her recently friend, Hank's son, Stewart and her , Vel. Dacia Ragsdale LCSW spoke with case management to advise that (Stewart and Vel) they may need to be contacted to confirm they will be able to assist with her care needs upon DC. . Advance Directives Living Will: Never completed Health Care Surrogate: Copy in medical record Durable Power of Insole Reinforcer: Never completed Advance Directive Specifics Date completed: 03/05/17. . Health Care Surrogate(s): Patient designating her mother Ana Laura Dudley as healthcare surrogate decision- maker, alternate surrogate his friend Hank Conn. . Significant change in goals: FULL CODE. Goals remain aggressive. . Objective Vital Signs Date Time Temp Pulse Resp B/P (MAP) Pulse Ox O2 Delivery O2 Flow Rate FiO2 03/13/17 11:35 97.9 94 18 101/80 (87) 95 03/13/17 09:28 98.3 95 18 121/84 (96) 03/13/17 07:39 98.3 95 18 121/84 (96) 03/13/17 03:53 97.7 100 18 110/76 (87) 94 03/13/17 00:03 97.8 81 16 101/79 (86) 96 03/12/17 20:58 98.6 90 18 114/81 (92) 95 03/12/17 16:46 97.9 90 18 93/69 (77) 100 Intake & Output 03/13/17 03/13/17 07:00 19:00 Intake Total 720 ml Output Total 450 ml Balance 270 ml Intake Oral 720 ml Output Urine Total 450 ml # Voids 1 # Bowel Movements 1 Physical Exam CONSTITUTIONAL/GENERAL: This is a thin female patient, somewhat manic in her speech/ though process. TUBES/LINES/DRAINS: Left chest port, dressing in place. PIV. Left lower extremity brace/boot. SKIN: Ecchymoses on upper extremities and bilateral knees. Skin temperature appropriate. ENT: Moist oral mucosa. CARDIOVASCULAR: Regular rate and rhythm. RESPIRATORY/CHEST: Symmetric, unlabored respirations. Clear to auscultation. GASTROINTESTINAL: Abdomen firm, tender right LQ and umbilical area, distended. multiple palpable masses. Bowel sounds present. GENITOURINARY: Without palpable bladder distension. MUSCULOSKELETAL: Left upper extremity weakness, increasing movement noted. NEUROLOGICAL: Awake and alert. Following commands. PSYCHIATRIC: Speech rapid. . Diagnostic Tests Laboratory Laboratory Tests Test 03/11/17 04:07 03/11/17 13:45 03/11/17 13:49 03/12/17 13:20 Prothrombin Time 11.8 SEC (9.8-11.6) 12.7 SEC (9.8-11.6) Prothromb Time International Ratio 1.2 RATIO 1.3 RATIO Blood Urea Nitrogen 8 MG/DL (7-18) Creatinine 0.58 MG/DL (0.50-1.00) Random Glucose 99 MG/DL (74-106) Calcium Level 7.9 MG/DL (8.5-10.1) Sodium Level 132 MEQ/L (136-145) Potassium Level 4.4 MEQ/L (3.5-5.1) Chloride Level 96 MEQ/L (98-107) Carbon Dioxide Level 26.0 MEQ/L (21.0-32.0) Anion Gap 10 MEQ/L (5-15) Estimat Glomerular Filtration Rate 108 ML/MIN (>89) White Blood Count 12.4 TH/MM3 (4.0-11.0) Red Blood Count 3.10 MIL/MM3 (4.00-5.30) Hemoglobin 10.2 GM/DL (11.6-15.3) Hematocrit 30.8 % (35.0-46.0) Mean Corpuscular Volume 99.3 FL (80.0-100.0) Mean Corpuscular Hemoglobin 32.8 PG (27.0-34.0) Mean Corpuscular Hemoglobin Concent 33.0 % (32.0-36.0) Red Cell Distribution Width 18.6 % (11.6-17.2) Platelet Count 343 TH/MM3 (150-450) Mean Platelet Volume 8.0 FL (7.0-11.0) Test 03/13/17 10:40 Prothrombin Time 13.8 SEC (9.8-11.6) Prothromb Time International Ratio 1.4 RATIO Result Diagram: 03/11/17 1349 03/11/17 1345 Microbiology Microbiology Date/Time Source Procedure Growth Status 03/03/17 14:33 Urine Catheterized Urine Urine Culture - Final Escherichia Coli Enterococcus Faecalis Complete . Imaging Last Impressions Chest X-Ray 03/09/17 0000 Signed Impressions: Service Date/Time: Thursday, March 09, 2017 18:06 - CONCLUSION: 1. No pneumothorax status post port place. Minimal basilar atelectasis. Jaguar Villalobos MD Foot X-Ray 03/07/17 0000 Signed Impressions: Service Date/Time: Tuesday, March 07, 2017 10:36 - CONCLUSION: Healing fracture distal fifth metacarpal. Low Kenny MD FACR Abdomen/Pelvis CT 03/03/17 1419 Signed Impressions: Service Date/Time: Friday, March 03, 2017 16:32 - CONCLUSION: 1. Large cystic and solid mass in the pelvis extending into the abdomen could be ovarian carcinoma. There is peritoneal carcinomatosis and multiple low-density liver lesions likely metastatic disease. 2. Large volume ascites. Harmeet Best MD Neck Magnetic Resonance Angiography 03/03/17 0000 Signed Impressions: Service Date/Time: Friday, March 03, 2017 21:13 - CONCLUSION: 1. Multiple carotid arteries. Harmeet Best MD Head Magnetic Resonance Angiography 03/03/17 0000 Signed Impressions: Service Date/Time: Friday, March 03, 2017 21:13 - CONCLUSION: 1. No large vessel stenosis or aneurysm. 2. Normal variant as described above. Harmeet Best MD Head CT 03/03/17 0000 Signed Impressions: Service Date/Time: Friday, March 03, 2017 16:24 - CONCLUSION: Large air low attenuation right frontal lobe could be acute infarct versus edema from underlying mass. Contrast MRI recommended. Harmeet Best MD Brain MRI 03/03/17 0000 Signed Impressions: Service Date/Time: Friday, March 03, 2017 18:22 - CONCLUSION: 1. Prominent infarct in the right parietal and right temporal lobe. No midline shift or mass effect. 2. A few scattered foci of acute infarcts are seen within the left parietal, right occipital and both vertebral hemispheres. Embolic source is suggested. Harmeet Best MD . Assessment and Plan Disease Oriented Problem List: (1) Peritoneal carcinomatosis (2) Macrocytic anemia (3) Abdominal mass (4) Stroke (5) Delirium Symptom Scale: (1) Abdominal pain 0-10 Scale: 8 Comment: sharp, constant pain in right abdomen "due to tumor" Pertinent Non-Medical Issues Psychosocial: Single. No children. Lives with roommate, Hank for 17 years. Spiritual: unknown. Legal: Patient appears capacitated to make her healthcare decisions. Completed designation of healthcare surrogate naming her mother, Ana Laura Dudley as primary HCS and friend Hank Conn (recently ) as alternate HCS in the event she loses capacity. Ethical issues impacting care: No known concerns. . Important Contacts * Primary Health Care Surrogate: Ana Laura Dudley, mother: [phone] * Alternate Health Care Surrogate: Hank Conn, friend: [phone] * SisterSonal in [place]: [phone] * Nasir Hinton spouse: [phone] * Stewart Hank Conn's step-son: [phone] . Prognosis Overall prognosis is poor given advanced metastatic cancer, recent stroke and left sided weakness. Patient at high risk for further complications, clinical decline and . Patient appears hospice appropriate should she elects comfort-directed care. . Code Status: Full Code Plan * Decision Maker: Patient participating in medical decision-making. Has been evaluated by psychiatry on 03/06/17 and deemed capacitated for medical decision- making. Advance directives completed. Patient has designated her mother Ana Laura Dudley as healthcare surrogate decision maker, alternate surrogate is her friend Hank Conn (recently ). * FULL CODE * GOALS OF CARE: Patient electing to pursue aggressive care to include palliative chemotherapy and rehab. Hospice philosophy and benefits had been previously discussed at length. Patient appears receptive to hospice should her clinical condition worsen or in the setting of increased symptom burden. * DISPO: Long-term plans for this patient are impacted by her psychosocial situation. She lived with her best friend Hank who recently. Patient indicates Hank's son, Stewart and her Vel are willing to help her upon DC. Number provided to CM so they can confirm whether or not they are willing to help her. Patient has no payor source or coverage for rehabilitation. Case management following. * SYMPTOMS: = Pain: in abdomen due to mets cancer, ascites, large pelvic mass, peritoneal carcinomatosis, liver disease and recent stroke. Pain regimen change yesterday from hydrocodone to oxycodone 15mg q4hr PRN, has had 6 doses in the past 24 hours. May need to consider long acting meds if need persists. Patient reports that oxycodone is more effective for pain control. No additional recommendations at this time. = Anxiety: Exacerbated by pain, underlying psych. Ativan 0.5mg available every 8 hours as needed, none today. * Palliative care will continue to follow up as needed throughout hospital course to assist with symptom management and clarification of goals. . Attestation To help prompt me to consider important information that might be impacting today's encounter and assessment, information from prior notes written by myself or my colleagues may have been "brought forward" into today's note. My signature on this note, however, is an attestation that I personally performed the exam, history, and/or decision-making noted today, and, unless otherwise indicated, the interactions with patient, family, and staff as well as the review of records all occurred today. I also attest that the listed assessment and stated plan reflect my best clinical judgment today based on the combination of historical information, prior notes, and today's exam/ interactions. When time spent is documented, it refers only to time spent today by the signer, or if indicated, combined time spent today by collaborating physician/nurse practitioner. Claudia Sigala Mar 13, 2017 14:03
[2017-03-13] MEDS: WARFARIN SOD 2.5 MG TAB PO SCH (16:49)
[2017-03-13] MEDS: PRAVASTATIN SOD 40 MG TAB PO SCH (20:17)
[2017-03-14] VITALS (7 sets, daily range): BP systolic 102–115; BP diastolic 47–85; PULSE 89–127; RESP 16–18; TEMP 97.9–98.5; O2SAT 95–100
[2017-03-14] MEDS: PANTOPRAZOLE SOD 40 MG DELAYED RELEASE TAB PO SCH (09:13)
[2017-03-14] MEDS: DOCUSATE SODIUM 50 MG/SENNA 8.6 MG TAB PO SCH ×2 (09:13→20:45)
[2017-03-14] MEDS: SODIUM CHLORIDE 0.9% FLUSH 10 ML FLUSH IV FLUSH SCH ×2 (09:13→20:42)
[2017-03-14] MEDS: MAGNESIUM HYDROXIDE SUSP 30 ML CUP PO SCH (09:13)
[2017-03-14] MEDS: AMOXICILLIN/CLAVULANATE K 875 MG TAB PO SCH ×2 (09:14→20:45)
--- NOTE | 2017-03-14 11:17 | HHI.PR ---
Subjective Remarks Confused at baseline. No fever or chills. no abd pain. Objective Vitals Vital Signs Date Time Temp Pulse Resp B/P (MAP) Pulse Ox O2 Delivery O2 Flow Rate FiO2 03/14/17 09:09 98.5 95 18 102/85 (91) 95 03/14/17 05:30 98.5 93 18 111/79 (90) 95 03/14/17 00:16 98.1 96 16 115/79 (91) 99 03/13/17 20:23 97.9 96 18 94/56 (69) 93 03/13/17 16:26 98.4 97 18 115/79 (91) 03/13/17 11:35 97.9 94 18 101/80 (87) 95 I/O 03/13/17 03/13/17 03/13/17 03/14/17 03/14/17 03/14/17 07:00 15:00 23:00 07:00 15:00 23:00 Intake Total 480 ml 240 ml 480 ml 240 ml Output Total 450 ml 425 ml 200 ml Balance 30 ml 240 ml 55 ml 40 ml Intake Oral 480 ml 240 ml 480 ml 240 ml Output Urine Total 450 ml 425 ml 200 ml Bladder Scan Volume Amount 111 ml # Bowel Movements 0 1 Result Diagram: 03/11/17 1349 03/11/17 1345 Imaging Last Impressions Chest X-Ray 03/09/17 0000 Signed Impressions: Service Date/Time: Thursday, March 09, 2017 18:06 - CONCLUSION: 1. No pneumothorax status post port place. Minimal basilar atelectasis. Jaguar Villalobos MD Foot X-Ray 03/07/17 0000 Signed Impressions: Service Date/Time: Tuesday, March 07, 2017 10:36 - CONCLUSION: Healing fracture distal fifth metacarpal. Low Kenny MD FACR Abdomen/Pelvis CT 03/03/17 1419 Signed Impressions: Service Date/Time: Friday, March 03, 2017 16:32 - CONCLUSION: 1. Large cystic and solid mass in the pelvis extending into the abdomen could be ovarian carcinoma. There is peritoneal carcinomatosis and multiple low-density liver lesions likely metastatic disease. 2. Large volume ascites. Harmeet Best MD Neck Magnetic Resonance Angiography 03/03/17 0000 Signed Impressions: Service Date/Time: Friday, March 03, 2017 21:13 - CONCLUSION: 1. Multiple carotid arteries. Harmeet Best MD Head Magnetic Resonance Angiography 03/03/17 0000 Signed Impressions: Service Date/Time: Friday, March 03, 2017 21:13 - CONCLUSION: 1. No large vessel stenosis or aneurysm. 2. Normal variant as described above. Harmeet Best MD Head CT 03/03/17 0000 Signed Impressions: Service Date/Time: Friday, March 03, 2017 16:24 - CONCLUSION: Large air low attenuation right frontal lobe could be acute infarct versus edema from underlying mass. Contrast MRI recommended. Harmeet Best MD Brain MRI 03/03/17 0000 Signed Impressions: Service Date/Time: Friday, March 03, 2017 18:22 - CONCLUSION: 1. Prominent infarct in the right parietal and right temporal lobe. No midline shift or mass effect. 2. A few scattered foci of acute infarcts are seen within the left parietal, right occipital and both vertebral hemispheres. Embolic source is suggested. Harmeet Best MD Objective Remarks GENERAL: on NAD found sitting in bed and talkative but is a little more drowsy. CARDIOVASCULAR: Regular rate and rhythm without murmurs, gallops, or rubs. RESPIRATORY: Breath sounds equal bilaterally. No accessory muscle use. GASTROINTESTINAL: Abdomen soft and distended. No tenderness palpation. Negative for any peritoneal signs. NEURO: Patient able to lift her left arm and left leg up. A/P Problem List: (1) Stroke ICD Code: I63.9 - Cerebral infarction, unspecified Status: Acute (2) Hematemesis ICD Code: K92.0 - Hematemesis (3) Abdominal mass ICD Code: R19.00 - Intra-abdominal and pelvic swelling, mass and lump, unspecified site (4) Upper GI bleed ICD Code: K92.2 - Gastrointestinal hemorrhage, unspecified Assessment and Plan 56-year-old female with Mild encephalopathy No new focal neurological deficits or headache. She is still able to have a normal conversation. This may be secondary to advancing of cancer since abdomen is distended. Will get labs and monitor patient clinically. Will check ammonia and start lactulose if need CVA, acute Brain MRI shows prominent infarct in the right parietal and right temporal lobe , no midline shift or mass effect. A few scattered foci of acute infarcts are seen within the left parietal, right occipital and both vertebral hemispheres. -Appreciate input from neurology -Continue with Pravachol and aspirin -PT/OT/ST -Hemoglobin A1c 5.1. LDL 44. 2-D echo within normal limits. MRA of the carotids ordered, no significant Blockage -Pending hypercoagulable workup. -Currently on Heparin subcutaneous bridge and Coumadin. Status post given vitamin K for port placement. Patient is very sensitive to Coumadin. INR today 1.2. Will give Coumadin 5 mg today. Recheck INR tomorrow. Goal is between 2-2.5. UTI -Rocephin DC on 03/06. urine cultures grew enterococcus facelis and E coli. on linezolid and augmentin. Discussed case with pharmacist and he stated that Augmentin will cover both species. DC the linezolid. Will treat for total 7 days. Today will be the last day. Left foot pain with ambulation -Foot x-ray shows healing metatarsal. has fracture boot. Anemia, patient with coffee-ground emesis, questionable GI bleed HGB 10.8 -Appreciate input from gastroenterology per GI will only scope if it is emergent. -No active bleeding and patient is asymptomatic. Continue with oral Protonix. ADENOCARCINOMA, chronic - GI/pancreas/biliary origin with remarkably elevated CA 19-9 -Patient will need rehabilitation prior to getting IV palliative chemotherapy. Dr. Jeter will be managing. Gen. surgeon consulted. DVT prophylaxis: SCDs Discharge Planning Poor prognosis. Difficult placement since patient is self paid. She will need to be in a rehabilitation facility. Continue with daily PT. Patient may be able to be discharged to her [facility] since she stated that she will be residing there. Discussed case with case management. Problem Qualifiers (1) Stroke: Qualified Codes: I63.10 - Cerebral infarction due to embolism of unspecified precerebral artery (2) Hematemesis: Qualified Codes: K92.0 - Hematemesis (3) Abdominal mass: Qualified Codes: R19.07 - Generalized intra-abdominal and pelvic swelling, mass and lump Galilea Gomes MD Mar 14, 2017 11:17
[2017-03-14 12:08] LABS: INTERNATIONAL NORMALIZED RATIO 1.5 RATIO; PROTHROMBIN TIME - PATIENT 15.1 SEC (9.8-11.6)
[2017-03-14] MEDS ORDERED: LACTULOSE SYRUP 20 GM/30 ML CUP PO PRN (15:00)
[2017-03-14] MEDS: MORPHINE SULFATE 2 MG/ML INJ IV PUSH PRN (15:54)
[2017-03-14] MEDS: WARFARIN SOD 2.5 MG TAB PO SCH (15:54)
--- NOTE | 2017-03-14 18:37 | PD.ONC.PN ---
Subjective Subjective Remarks Sitting in commode trying to urinate. Residual 250cc, state she does not have to go. Objective Data Date Time Temp Pulse Resp B/P (MAP) Pulse Ox O2 Delivery O2 Flow Rate FiO2 03/14/17 15:51 98.1 127 18 115/85 (95) 100 03/14/17 12:08 97.9 98 18 108/47 (67) 98 03/14/17 09:09 98.5 95 18 102/85 (91) 95 03/14/17 05:30 98.5 93 18 111/79 (90) 95 03/14/17 00:16 98.1 96 16 115/79 (91) 99 03/13/17 20:23 97.9 96 18 94/56 (69) 93 03/14/17 03/14/17 03/14/17 07:00 15:00 23:00 Intake Total 240 ml 580 ml Output Total 200 ml 200 ml Balance 40 ml 380 ml Result Diagram: 03/11/17 1349 03/11/17 1345 Laboratory Results Laboratory Tests Test 03/14/17 10:46 03/14/17 16:40 Prothrombin Time 15.1 SEC Prothromb Time International Ratio 1.5 RATIO Ammonia 20 MCMOL/L Administered Medications Medications (Trade) Dose Ordered Sig/Raquel Route PRN Reason Start Time Stop Time Status Last Admin Dose Admin Sodium Chloride (NS Flush) 2 ml BID IV FLUSH 03/03/17 21:00 03/14/17 09:13 Sodium Chloride (NS Flush) 2 ml UNSCH PRN IV FLUSH FLUSH AFTER USING IV ACCESS 03/03/17 20:15 03/13/17 05:04 Pravastatin Sodium (Pravachol) 40 mg HS PO 03/03/17 21:00 03/13/17 20:17 Morphine Sulfate (Morphine Inj) 2 mg Q3H PRN IV PUSH breakthrough 03/04/17 06:45 03/14/17 15:54 Ondansetron HCl (Zofran Inj) 4 mg Q6HR PRN IV PUSH NAUSEA OR VOMITING 03/06/17 03:00 03/06/17 02:54 Magnesium Hydroxide (Milk Of Magnesia Liq) 30 ml DAILY PO 03/06/17 09:00 03/14/17 09:13 Pantoprazole Sodium (Protonix) 40 mg DAILY PO 03/06/17 10:00 03/14/17 09:13 Lorazepam (Ativan) 0.5 mg Q8H PRN PO anxiety/agitation 03/07/17 13:15 03/12/17 12:06 Methocarbamol (Robaxin) 500 mg Q8HR PO 03/08/17 14:00 Future Hold 03/09/17 06:05 Senna/Docusate Sodium (Eryn-Colace) 2 tab BID PO 03/08/17 12:30 03/14/17 09:13 Oxycodone HCl (Roxicodone) 15 mg Q4H PRN PO pain1-10 03/09/17 09:15 03/14/17 18:03 Amoxicillin/ Clavulanate Potassium (Augmentin) 875 mg Q12HR PO 03/11/17 12:00 03/14/17 09:14 Warfarin Sodium (Coumadin) 2.5 mg DAILY@1600 PO 03/12/17 16:00 03/14/17 15:54 Objective Remarks GENERAL: Chronically ill female, sitting up in bed eating breakfast. SKIN: Warm and dry. HEAD: Normocephalic. EYES: No injection or drainage. L chest wall port healing. NECK: Supple, trachea midline. CARDIOVASCULAR: Regular rate and rhythm RESPIRATORY: Breath sounds equal bilaterally. No accessory muscle use. GASTROINTESTINAL: abdomen firm, distended. EXTREMITIES: No cyanosis NEUROLOGICAL: +left sided paresis. Assessment/Plan Problem List: (1) Stroke ICD Codes: I63.9 - Cerebral infarction, unspecified Status: Acute Plan: --on coumadin, INR subtherapeutic --Brain MRI with prominent infarct in the right parietal and right temporal lobe with no midline shift or mass effect. --Neurology team recommends anticoagulation and physical therapy. --stroke likely due to multiple infarcts likely cardioembolic in nature 03/14/17. Continue secondary prophylaxis with Coumadin. Tolerated interruption for port. Assessment 56y/o female admitted with embolic stroke. h/o Peritoneal carcinomatosis. Ascites. 15.5 x 13.8 cm adnexal mass. elevated CA 125 h/o alcoholic liver disease Plan 1. monitor CBC, INR 2. follow up in clinic once discharged- prefer to have stable out pt situation before committing to chemotherapy which is largely palliative. 3. Case management working on placement 4. Monitor urine output- monitor overnight, ward catheter if can't go. Problem Qualifiers (1) Stroke: Qualified Codes: I63.10 - Cerebral infarction due to embolism of unspecified precerebral artery Malika Jeter MD Mar 14, 2017 18:37
[2017-03-14] MEDS: PRAVASTATIN SOD 40 MG TAB PO SCH (20:42)
[2017-03-15 03:00] VITALS: BP 125/81; PULSE 89; RESP 15; TEMP 98.3; O2SAT 98
[2017-03-15 04:12] LABS: BASOPHIL # 0.1 TH/MM3 (0-0.2); BASOPHIL % 0.7 % (0.0-2.0); EOSINOPHIL # 0.3 TH/MM3 (0-0.4); EOSINOPHIL % 2.3 % (0.0-4.0); HEMATOCRIT 29.7 % (35.0-46.0); HEMOGLOBIN 9.7 GM/DL (11.6-15.3); LYMPH % 10.8 % (9.0-44.0); LYMPHOCYTE # 1.2 TH/MM3 (1.0-4.8); MEAN CELL VOLUME 97.4 FL (80.0-100.0); MEAN CORPUSCULAR HGB CONC 32.8 % (32.0-36.0); MEAN PLATELET VOLUME 8.7 FL (7.0-11.0); MONO % 7.9 % (0.0-8.0); MONOCYTE # 0.9 TH/MM3 (0-0.9); NEUT % 78.3 % (16.0-70.0); PLATELET COUNT 266 TH/MM3 (150-450); RED BLOOD COUNT 3.05 MIL/MM3 (4.00-5.30); RED CELL DISTRIBUTION WIDTH 18.5 % (11.6-17.2); WHITE BLOOD COUNT 11.5 TH/MM3 (4.0-11.0)
[2017-03-15 04:18] LABS: INTERNATIONAL NORMALIZED RATIO 1.7 RATIO; PROTHROMBIN TIME - PATIENT 16.7 SEC (9.8-11.6)
[2017-03-15 04:28] LABS: BICARBONATE 25.9 MEQ/L (21.0-32.0); CALCIUM 7.9 MG/DL (8.5-10.1); CREATININE 0.57 MG/DL (0.50-1.00)
[2017-03-15 08:00] VITALS: BP 95/62; PULSE 77; RESP 18; TEMP 97.9
[2017-03-15] MEDS: MORPHINE SULFATE 2 MG/ML INJ IV PUSH PRN (08:56)
[2017-03-15] MEDS: PANTOPRAZOLE SOD 40 MG DELAYED RELEASE TAB PO SCH (10:01)
[2017-03-15] MEDS: MAGNESIUM HYDROXIDE SUSP 30 ML CUP PO SCH (10:01)
[2017-03-15] MEDS: AMOXICILLIN/CLAVULANATE K 875 MG TAB PO SCH ×2 (10:02→21:05)
[2017-03-15] MEDS: DOCUSATE SODIUM 50 MG/SENNA 8.6 MG TAB PO SCH ×2 (10:02→21:05)
[2017-03-15] MEDS: SODIUM CHLORIDE 0.9% FLUSH 10 ML FLUSH IV FLUSH SCH ×2 (10:02→21:07)
--- NOTE | 2017-03-15 10:03 | RADRPT ---
EXAM DATE/TIME: 03/15/2017 08:49 [facility] COMPARISON: No previous studies available for comparison. INDICATIONS : Left leg swelling. MEDICAL HISTORY : Inflammatory bowel disease. Arthritis. Ulcer. Hematemesis. Adenocarcinoma. SURGICAL HISTORY : Blood transfusions. ENCOUNTER: Initial ACUITY: 1 day PAIN SCORE: Non-responsive LOCATION: Left leg. TECHNIQUE: Venous ultrasound of the leg was performed from the inguinal ligament to the proximal calf. Real-morales e, color Doppler and spectral tracing, compression and augmentation techniques were used. FINDINGS: There is occlusive thrombus involving the proximal superficial femoral vein extending down into the p opliteal vein and involving the peroneal and posterior tibial veins. These veins are noncompressible and demonstrate no venous waveform. The common femoral vein is patent. The greater saphenous vein is patent as well. CONCLUSION: Occlusive thrombus extending from the proximal superficial femoral vein into the calf veins. Tj Aldana MD on March 15, 2017 at 9:59 Board Certified Radiologist. This report was verified electronically.
--- NOTE | 2017-03-15 10:43 | HHI.HCPN ---
Called Stewart Conn, son of her recently friend Hank. He indicates that she will be able to return home and that they will assist with caring for the patient and getting her to her appointments. Provided palliative care number. He expects case management will be in touch with him with more information once DC arrangements needed. . Claudia Sigala Mar 15, 2017 10:43
--- NOTE | 2017-03-15 12:06 | HHI.PR ---
Subjective Remarks In bed pleasantly confused. Denies having any pain . No sob. Eating fairly well , no much appetite. Objective Vitals Vital Signs Date Time Temp Pulse Resp B/P (MAP) Pulse Ox O2 Delivery O2 Flow Rate FiO2 03/15/17 08:15 14 03/15/17 08:00 97.9 77 18 95/62 (73) 03/15/17 03:00 98.3 89 15 125/81 (96) 98 03/14/17 23:32 98.4 94 16 102/78 (86) 99 03/14/17 20:00 98.4 89 16 109/83 (92) 99 03/14/17 15:51 98.1 127 18 115/85 (95) 100 03/14/17 12:08 97.9 98 18 108/47 (67) 98 I/O 03/14/17 03/14/17 03/14/17 03/15/17 03/15/17 03/15/17 07:00 15:00 23:00 07:00 15:00 23:00 Intake Total 240 ml 580 ml 100 ml 0 ml Output Total 200 ml 350 ml 100 ml Balance 40 ml 230 ml 0 ml 0 ml Intake Oral 240 ml 580 ml 100 ml 0 ml Output Urine Total 200 ml 350 ml 100 ml Bladder Scan Volume Amount 273 ml # Bowel Movements 1 2 Result Diagram: 03/15/17 0355 03/15/17 0355 Imaging Last Impressions Lower Extremity Ultrasound 03/15/17 0000 Signed Impressions: Service Date/Time: March 08:49 - CONCLUSION: Occlusive thrombus extending from the proximal superficial femoral vein into the calf veins. Tj Aldana MD Chest X-Ray 03/09/17 0000 Signed Impressions: Service Date/Time: Thursday, March 09, 2017 18:06 - CONCLUSION: 1. No pneumothorax status post port place. Minimal basilar atelectasis. Jaguar Villalobos MD Foot X-Ray 03/07/17 0000 Signed Impressions: Service Date/Time: Tuesday, March 07, 2017 10:36 - CONCLUSION: Healing fracture distal fifth metacarpal. Low Kenny MD FACR Abdomen/Pelvis CT 03/03/17 1419 Signed Impressions: Service Date/Time: Friday, March 03, 2017 16:32 - CONCLUSION: 1. Large cystic and solid mass in the pelvis extending into the abdomen could be ovarian carcinoma. There is peritoneal carcinomatosis and multiple low-density liver lesions likely metastatic disease. 2. Large volume ascites. Harmeet Best MD Neck Magnetic Resonance Angiography 03/03/17 0000 Signed Impressions: Service Date/Time: Friday, March 03, 2017 21:13 - CONCLUSION: 1. Multiple carotid arteries. Harmeet Best MD Head Magnetic Resonance Angiography 03/03/17 0000 Signed Impressions: Service Date/Time: Friday, March 03, 2017 21:13 - CONCLUSION: 1. No large vessel stenosis or aneurysm. 2. Normal variant as described above. Harmeet Best MD Head CT 03/03/17 0000 Signed Impressions: Service Date/Time: Friday, March 03, 2017 16:24 - CONCLUSION: Large air low attenuation right frontal lobe could be acute infarct versus edema from underlying mass. Contrast MRI recommended. Harmeet eBst MD Brain MRI 03/03/17 0000 Signed Impressions: Service Date/Time: Friday, March 03, 2017 18:22 - CONCLUSION: 1. Prominent infarct in the right parietal and right temporal lobe. No midline shift or mass effect. 2. A few scattered foci of acute infarcts are seen within the left parietal, right occipital and both vertebral hemispheres. Embolic source is suggested. Harmeet Best MD Objective Remarks GENERAL: on NAD found sitting in bed and talkative but is a little more drowsy. CARDIOVASCULAR: Regular rate and rhythm without murmurs, gallops, or rubs. RESPIRATORY: Breath sounds equal bilaterally. No accessory muscle use. GASTROINTESTINAL: Abdomen soft and distended. No tenderness palpation. Negative for any peritoneal signs. NEURO: Patient able to lift her left arm and left leg up. A/P Problem List: (1) Stroke ICD Code: I63.9 - Cerebral infarction, unspecified Status: Acute (2) Hematemesis ICD Code: K92.0 - Hematemesis (3) Abdominal mass ICD Code: R19.00 - Intra-abdominal and pelvic swelling, mass and lump, unspecified site (4) Upper GI bleed ICD Code: K92.2 - Gastrointestinal hemorrhage, unspecified Assessment and Plan 56-year-old female with Mild encephalopathy No new focal neurological deficits or headache. She is still able to have a normal conversation. This may be secondary to advancing of cancer since abdomen is distended. Will get labs and monitor patient clinically. Will check ammonia and start lactulose if need CVA, acute Brain MRI shows prominent infarct in the right parietal and right temporal lobe , no midline shift or mass effect. A few scattered foci of acute infarcts are seen within the left parietal, right occipital and both vertebral hemispheres. -Appreciate input from neurology -Continue with Pravachol and aspirin -PT/OT/ST -Hemoglobin A1c 5.1. LDL 44. 2-D echo within normal limits. MRA of the carotids ordered, no significant Blockage -Pending hypercoagulable workup. -Currently on Heparin subcutaneous bridge and Coumadin. Status post given vitamin K for port placement. Patient is very sensitive to Coumadin. INR today 1.2. Will give Coumadin 5 mg today. Recheck INR tomorrow. Goal is between 2-2.5. UTI -Rocephin DC on 03/06. urine cultures grew enterococcus facelis and E coli. on linezolid and augmentin. Discussed case with pharmacist and he stated that Augmentin will cover both species. DC the linezolid. Will treat for total 7 days. Today will be the last day. Left foot pain with ambulation -Foot x-ray shows healing metatarsal. has fracture boot. Anemia, patient with coffee-ground emesis, questionable GI bleed HGB 10.8 -Appreciate input from gastroenterology per GI will only scope if it is emergent. -No active bleeding and patient is asymptomatic. Continue with oral Protonix. LE DVT. on Coumadin started Lovenox bridge as Coumadin is subtherapeutic , pharmacy ff, monitor INR, goal for INR 2-2.5 ADENOCARCINOMA, chronic - GI/pancreas/biliary origin with remarkably elevated CA 19-9 -Patient will need rehabilitation prior to getting IV palliative chemotherapy. Dr. Jeter will be managing. Gen. surgeon consulted. DVT prophylaxis: SCDs Discharge Planning Poor prognosis. Patien tis a poor candidate for chemo Difficult placement since patient is self paid. She will need to be in a rehabilitation facility. Continue with daily PT. Patient may be able to be discharged to her [facility] since she stated that she will be residing there. Discussed case with case management. Discussed with the patient, nurse, Dr Jeter Problem Qualifiers (1) Stroke: Qualified Codes: I63.10 - Cerebral infarction due to embolism of unspecified precerebral artery (2) Hematemesis: Qualified Codes: K92.0 - Hematemesis (3) Abdominal mass: Qualified Codes: R19.07 - Generalized intra-abdominal and pelvic swelling, mass and lump Galilea Gomes MD Mar 15, 2017 12:06
[2017-03-15 12:10] VITALS: BP 124/70; PULSE 74; RESP 20; TEMP 99; O2SAT 96
[2017-03-15 16:00] VITALS: BP 132/84; PULSE 78; RESP 18; TEMP 97.3; O2SAT 96
[2017-03-15] MEDS: WARFARIN SOD 2.5 MG TAB PO SCH (16:03)
[2017-03-15] MEDS: ENOXAPARIN SODIUM 80 MG/0.8 ML SYRINGE SQ SCH (16:04)
[2017-03-15 20:00] VITALS: BP 100/68; PULSE 86; RESP 18; TEMP 97.6; O2SAT 93
[2017-03-15] MEDS: PRAVASTATIN SOD 40 MG TAB PO SCH (21:00)
[2017-03-16 01:00] VITALS: BP 104/85; PULSE 90; RESP 16; TEMP 98; O2SAT 94
[2017-03-16] MEDS: ENOXAPARIN SODIUM 80 MG/0.8 ML SYRINGE SQ SCH ×2 (01:15→13:00)
[2017-03-16 03:44] VITALS: BP 119/91; PULSE 100; RESP 18; TEMP 98; O2SAT 94
[2017-03-16] MEDS: MORPHINE SULFATE 2 MG/ML INJ IV PUSH PRN ×2 (04:02→17:12)
[2017-03-16 06:58] LABS: INTERNATIONAL NORMALIZED RATIO 1.8 RATIO
[2017-03-16 08:00] VITALS: BP 107/72; PULSE 103; RESP 20; TEMP 98.8; O2SAT 94
[2017-03-16] MEDS: MAGNESIUM HYDROXIDE SUSP 30 ML CUP PO SCH (09:57)
[2017-03-16] MEDS: AMOXICILLIN/CLAVULANATE K 875 MG TAB PO SCH ×2 (09:58→22:06)
[2017-03-16] MEDS: DOCUSATE SODIUM 50 MG/SENNA 8.6 MG TAB PO SCH ×2 (09:58→21:00)
[2017-03-16] MEDS: SODIUM CHLORIDE 0.9% FLUSH 10 ML FLUSH IV FLUSH SCH ×2 (09:59→21:00)
[2017-03-16] MEDS: PANTOPRAZOLE SOD 40 MG DELAYED RELEASE TAB PO SCH (09:59)
--- NOTE | 2017-03-16 10:48 | HHI.PR ---
Subjective Remarks Patient in bed appears in nad. Pleasantly confused. Deneis having any pain . No n/v/d/c. Eating fairly well. Belly is distended however says she has no pain Objective Vitals Vital Signs Date Time Temp Pulse Resp B/P (MAP) Pulse Ox O2 Delivery O2 Flow Rate FiO2 03/16/17 03:44 98.0 100 18 119/91 (100) 94 03/16/17 01:00 98.0 90 16 104/85 (91) 94 03/15/17 20:00 97.6 86 18 100/68 (79) 93 03/15/17 16:00 97.3 78 18 132/84 (100) 96 03/15/17 14:24 14 03/15/17 12:10 99.0 74 20 124/70 (88) 96 I/O 03/15/17 03/15/17 03/15/17 03/16/17 03/16/17 03/16/17 07:00 15:00 23:00 07:00 15:00 23:00 Intake Total 100 ml 230 ml Output Total 100 ml 400 ml 450 ml Balance 0 ml -170 ml -450 ml Intake Oral 100 ml 230 ml Output Urine Total 100 ml 400 ml 450 ml # Bowel Movements 1 Result Diagram: 03/15/17 0355 03/15/17 0355 Imaging Last Impressions Lower Extremity Ultrasound 03/15/17 0000 Signed Impressions: Service Date/Time: March 08:49 - CONCLUSION: Occlusive thrombus extending from the proximal superficial femoral vein into the calf veins. Tj Aldana MD Chest X-Ray 03/09/17 0000 Signed Impressions: Service Date/Time: Thursday, March 09, 2017 18:06 - CONCLUSION: 1. No pneumothorax status post port place. Minimal basilar atelectasis. Jaguar Villalobos MD Foot X-Ray 03/07/17 0000 Signed Impressions: Service Date/Time: Tuesday, March 07, 2017 10:36 - CONCLUSION: Healing fracture distal fifth metacarpal. Low Kenny MD FACR Abdomen/Pelvis CT 03/03/17 3849 Signed Impressions: Service Date/Time: Friday, March 03, 2017 16:32 - CONCLUSION: 1. Large cystic and solid mass in the pelvis extending into the abdomen could be ovarian carcinoma. There is peritoneal carcinomatosis and multiple low-density liver lesions likely metastatic disease. 2. Large volume ascites. Harmeet Best MD Neck Magnetic Resonance Angiography 03/03/17 0000 Signed Impressions: Service Date/Time: Friday, March 03, 2017 21:13 - CONCLUSION: 1. Multiple carotid arteries. Harmeet Best MD Head Magnetic Resonance Angiography 03/03/17 0000 Signed Impressions: Service Date/Time: Friday, March 03, 2017 21:13 - CONCLUSION: 1. No large vessel stenosis or aneurysm. 2. Normal variant as described above. Harmeet Best MD Head CT 03/03/17 0000 Signed Impressions: Service Date/Time: Friday, March 03, 2017 16:24 - CONCLUSION: Large air low attenuation right frontal lobe could be acute infarct versus edema from underlying mass. Contrast MRI recommended. Harmeet Best MD Brain MRI 03/03/17 0000 Signed Impressions: Service Date/Time: Friday, March 03, 2017 18:22 - CONCLUSION: 1. Prominent infarct in the right parietal and right temporal lobe. No midline shift or mass effect. 2. A few scattered foci of acute infarcts are seen within the left parietal, right occipital and both vertebral hemispheres. Embolic source is suggested. Harmeet Best MD Objective Remarks GENERAL: on NAD found sitting in bed and talkative but is a little more drowsy. CARDIOVASCULAR: Regular rate and rhythm without murmurs, gallops, or rubs. RESPIRATORY: Breath sounds equal bilaterally. No accessory muscle use. GASTROINTESTINAL: Abdomen soft and distended. No tenderness palpation. Negative for any peritoneal signs. NEURO: Patient able to lift her left arm and left leg up. A/P Problem List: (1) Stroke ICD Code: I63.9 - Cerebral infarction, unspecified Status: Acute (2) Hematemesis ICD Code: K92.0 - Hematemesis (3) Abdominal mass ICD Code: R19.00 - Intra-abdominal and pelvic swelling, mass and lump, unspecified site (4) Upper GI bleed ICD Code: K92.2 - Gastrointestinal hemorrhage, unspecified Assessment and Plan 56-year-old female with Mild encephalopathy No new focal neurological deficits or headache. She is still able to have a normal conversation. This may be secondary to advancing of cancer since abdomen is distended. Will get labs and monitor patient clinically. Will check ammonia and start lactulose if need CVA, acute Brain MRI shows prominent infarct in the right parietal and right temporal lobe , no midline shift or mass effect. A few scattered foci of acute infarcts are seen within the left parietal, right occipital and both vertebral hemispheres. -Appreciate input from neurology -Continue with Pravachol and aspirin -PT/OT/ST -Hemoglobin A1c 5.1. LDL 44. 2-D echo within normal limits. MRA of the carotids ordered, no significant Blockage -Pending hypercoagulable workup. -Currently on Heparin subcutaneous bridge and Coumadin. Status post given vitamin K for port placement. Patient is very sensitive to Coumadin. INR today 1.2. Will give Coumadin 5 mg today. Recheck INR tomorrow. Goal is between 2-2.5. UTI -Rocephin DC on 03/06. urine cultures grew enterococcus facelis and E coli. on linezolid and augmentin. Discussed case with pharmacist and he stated that Augmentin will cover both species. DC the linezolid. Will treat for total 7 days. Today will be the last day. Left foot pain with ambulation -Foot x-ray shows healing metatarsal. has fracture boot. Anemia, patient with coffee-ground emesis, questionable GI bleed HGB 10.8 -Appreciate input from gastroenterology per GI will only scope if it is emergent. -No active bleeding and patient is asymptomatic. Continue with oral Protonix. LE DVT. on Coumadin started Lovenox bridge as Coumadin is subtherapeutic , pharmacy ff, monitor INR, goal for INR 2-2.5 ADENOCARCINOMA, chronic - GI/pancreas/biliary origin with remarkably elevated CA 19-9 -Patient will need rehabilitation prior to getting IV palliative chemotherapy. Dr. Jeter will be managing. Gen. surgeon consulted. DVT prophylaxis: SCDs Discharge Planning Poor prognosis. Patien tis a poor candidate for chemo Difficult placement since patient is self paid. She will need to be in a rehabilitation facility. Continue with daily PT. Patient may be able to be discharged to her [facility] since she stated that she will be residing there. Discussed case with case management. Also pending SSI. Difficult discharge. Discussed with the patient, nurse, Dr Jeter Problem Qualifiers (1) Stroke: Qualified Codes: I63.10 - Cerebral infarction due to embolism of unspecified precerebral artery (2) Hematemesis: Qualified Codes: K92.0 - Hematemesis (3) Abdominal mass: Qualified Codes: R19.07 - Generalized intra-abdominal and pelvic swelling, mass and lump Galilea Gomes MD Mar 16, 2017 10:48
--- NOTE | 2017-03-16 11:24 | PD.ONC.PN ---
Subjective Subjective Remarks Afebrile overnight. Patient resting in room without complaint. Tolerating Lovenox injections. Abdominal pain controlled with Oxycodone. Objective Data Date Time Temp Pulse Resp B/P (MAP) Pulse Ox O2 Delivery O2 Flow Rate FiO2 03/16/17 03:44 98.0 100 18 119/91 (100) 94 03/16/17 01:00 98.0 90 16 104/85 (91) 94 03/15/17 20:00 97.6 86 18 100/68 (79) 93 03/15/17 16:00 97.3 78 18 132/84 (100) 96 03/15/17 14:24 14 03/15/17 12:10 99.0 74 20 124/70 (88) 96 03/16/17 03/16/17 03/16/17 07:00 15:00 23:00 Output Total 450 ml Balance -450 ml Result Diagram: 03/15/17 0355 03/15/17 0355 Laboratory Results Laboratory Tests Test 03/16/17 05:51 Prothrombin Time 18.0 SEC Prothromb Time International Ratio 1.8 RATIO Administered Medications Medications (Trade) Dose Ordered Sig/Raquel Route PRN Reason Start Time Stop Time Status Last Admin Dose Admin Sodium Chloride (NS Flush) 2 ml BID IV FLUSH 03/03/17 21:00 03/16/17 09:59 Sodium Chloride (NS Flush) 2 ml UNSCH PRN IV FLUSH FLUSH AFTER USING IV ACCESS 03/03/17 20:15 03/13/17 05:04 Pravastatin Sodium (Pravachol) 40 mg HS PO 03/03/17 21:00 03/15/17 21:00 Morphine Sulfate (Morphine Inj) 2 mg Q3H PRN IV PUSH breakthrough 03/04/17 06:45 03/16/17 04:02 Ondansetron HCl (Zofran Inj) 4 mg Q6HR PRN IV PUSH NAUSEA OR VOMITING 03/06/17 03:00 03/06/17 02:54 Magnesium Hydroxide (Milk Of Magnesia Liq) 30 ml DAILY PO 03/06/17 09:00 03/16/17 09:57 Pantoprazole Sodium (Protonix) 40 mg DAILY PO 03/06/17 10:00 03/16/17 09:59 Lorazepam (Ativan) 0.5 mg Q8H PRN PO anxiety/agitation 03/07/17 13:15 03/12/17 12:06 Methocarbamol (Robaxin) 500 mg Q8HR PO 03/08/17 14:00 Future Hold 03/09/17 06:05 Senna/Docusate Sodium (Eryn-Colace) 2 tab BID PO 03/08/17 12:30 03/16/17 09:58 Oxycodone HCl (Roxicodone) 15 mg Q4H PRN PO pain1-10 03/09/17 09:15 03/16/17 09:59 Amoxicillin/ Clavulanate Potassium (Augmentin) 875 mg Q12HR PO 03/11/17 12:00 03/16/17 09:58 Warfarin Sodium (Coumadin) 2.5 mg DAILY@1600 PO 03/12/17 16:00 03/15/17 16:03 Enoxaparin Sodium (Lovenox Inj) 70 mg Q12H SQ 03/15/17 13:00 03/16/17 01:15 Objective Remarks GENERAL: Chronically ill female upright in bed, chatting happily SKIN: Warm and dry. HEAD: Normocephalic. EYES: No injection or drainage. NECK: Supple, trachea midline. CARDIOVASCULAR: Regular rate and rhythm RESPIRATORY: Breath sounds equal bilaterally. No accessory muscle use. GASTROINTESTINAL: abdomen distended, firm to palpation. EXTREMITIES: No cyanosis NEUROLOGICAL: +left sided weakness Assessment/Plan Problem List: (1) Stroke ICD Codes: I63.9 - Cerebral infarction, unspecified Status: Acute Plan: --on Lovenox/coumadin --Brain MRI with prominent infarct in the right parietal and right temporal lobe with no midline shift or mass effect. --Neurology team recommends anticoagulation and physical therapy. Assessment 56y/o female admitted with embolic stroke. h/o Peritoneal carcinomatosis. Ascites. 15.5 x 13.8 cm adnexal mass. elevated CA 125 h/o alcoholic liver disease Plan 1. clear for discharge 2. follow up in clinic Attending Statement The exam, history, and the medical decision-making described in the above note were completed with the assistance of the mid-level provider. I reviewed and agree with the findings presented. I attest that I had a [id number] encounter with the patient on the same day, and personally performed and documented my assessment and findings in the medical record. Confused, angry, undressed completely during evening rounds, she was sitting up trying to get comfortable. Grieving loss of her friend Hank Conn- who she lived with. Hank apparently was the one to call her mother Ana Laura in [place]. Patient and Mother have not seen each other for over 20 years, they talk on the phone. Mother is 81 y/o with h/o of cancer pending a staging scan on Sunday. Discussed with Ana Laura that she is the next of kin and if patient is unable to make decisions for her self, she would be the designee parent. Unless patient names someone else- so far she has not. Performance status and confusion has worsen over the past week, as she recovered from CVA. Course further complicated by LLE DVT. Unable to offer palliative chemotherapy given her KPS and confusion. Problem Qualifiers (1) Stroke: Qualified Codes: I63.10 - Cerebral infarction due to embolism of unspecified precerebral artery Berkley Álvarez Mar 16, 2017 11:24 Malika Jeter MD Mar 16, 2017 18:44
[2017-03-16 14:15] VITALS: BP 116/84; PULSE 99; RESP 20; TEMP 97.8; O2SAT 97
[2017-03-16 17:09] VITALS: BP 116/78; PULSE 94; RESP 20; TEMP 97.8; O2SAT 95
[2017-03-16] MEDS: WARFARIN SOD 2.5 MG TAB PO SCH (17:12)
[2017-03-16 20:00] VITALS: BP 107/71; PULSE 89; RESP 18; TEMP 98.4; O2SAT 99
[2017-03-16] MEDS: PRAVASTATIN SOD 40 MG TAB PO SCH (21:00)
[2017-03-17 00:10] VITALS: BP 110/73; PULSE 92; RESP 18; O2SAT 94
[2017-03-17] MEDS: MORPHINE SULFATE 2 MG/ML INJ IV PUSH PRN (00:12)
[2017-03-17] MEDS: ENOXAPARIN SODIUM 80 MG/0.8 ML SYRINGE SQ SCH ×2 (00:13→12:34)
[2017-03-17 04:05] VITALS: BP 113/78; PULSE 90; RESP 16; O2SAT 99
[2017-03-17 07:23] LABS: INTERNATIONAL NORMALIZED RATIO 1.9 RATIO; PROTHROMBIN TIME - PATIENT 19.3 SEC (9.8-11.6)
[2017-03-17 08:17] VITALS: BP 114/78; PULSE 84; RESP 16; TEMP 97.8; O2SAT 96
--- NOTE | 2017-03-17 08:21 | HHI.PR ---
Subjective Remarks The patient is seen none bed she is pleasantly confused. Denies having any pain in her leg. No fever or chills, no abdominal pain. She is breathing well on room air. Belly is distended but nonpainful. No chest pain or shortness of breath. Objective Vitals Vital Signs Date Time Temp Pulse Resp B/P (MAP) Pulse Ox O2 Delivery O2 Flow Rate FiO2 03/17/17 04:19 16 03/17/17 04:05 90 16 113/78 (90) 99 03/17/17 00:18 16 03/17/17 00:10 92 18 110/73 (85) 94 03/16/17 20:00 98.4 89 18 107/71 (83) 99 03/16/17 17:09 97.8 94 20 116/78 (91) 95 03/16/17 14:15 97.8 99 20 116/84 (95) 97 I/O 03/16/17 03/16/17 03/16/17 03/17/17 03/17/17 03/17/17 07:00 15:00 23:00 07:00 15:00 23:00 Intake Total 480 ml 480 ml Output Total 450 ml 302 ml Balance -450 ml 480 ml 178 ml Intake Oral 480 ml 480 ml Output Urine Total 450 ml 300 ml Stool Total 2 ml # Voids 3 # Bowel Movements 1 1 Result Diagram: 03/15/17 0355 03/15/17 0355 Imaging Last Impressions Lower Extremity Ultrasound 03/15/17 0000 Signed Impressions: Service Date/Time: March 08:49 - CONCLUSION: Occlusive thrombus extending from the proximal superficial femoral vein into the calf veins. Tj Aldana MD Chest X-Ray 03/09/17 0000 Signed Impressions: Service Date/Time: Thursday, March 09, 2017 18:06 - CONCLUSION: 1. No pneumothorax status post port place. Minimal basilar atelectasis. Jaguar Villalobos MD Foot X-Ray 03/07/17 0000 Signed Impressions: Service Date/Time: Tuesday, March 07, 2017 10:36 - CONCLUSION: Healing fracture distal fifth metacarpal. Low Kenny MD FACR Abdomen/Pelvis CT 03/03/17 1419 Signed Impressions: Service Date/Time: Friday, March 03, 2017 16:32 - CONCLUSION: 1. Large cystic and solid mass in the pelvis extending into the abdomen could be ovarian carcinoma. There is peritoneal carcinomatosis and multiple low-density liver lesions likely metastatic disease. 2. Large volume ascites. Harmeet Best MD Neck Magnetic Resonance Angiography 03/03/17 0000 Signed Impressions: Service Date/Time: Friday, March 03, 2017 21:13 - CONCLUSION: 1. Multiple carotid arteries. Harmeet Best MD Head Magnetic Resonance Angiography 03/03/17 0000 Signed Impressions: Service Date/Time: Friday, March 03, 2017 21:13 - CONCLUSION: 1. No large vessel stenosis or aneurysm. 2. Normal variant as described above. Harmeet Best MD Head CT 03/03/17 0000 Signed Impressions: Service Date/Time: Friday, March 03, 2017 16:24 - CONCLUSION: Large air low attenuation right frontal lobe could be acute infarct versus edema from underlying mass. Contrast MRI recommended. Harmeet Best MD Brain MRI 03/03/17 0000 Signed Impressions: Service Date/Time: Friday, March 03, 2017 18:22 - CONCLUSION: 1. Prominent infarct in the right parietal and right temporal lobe. No midline shift or mass effect. 2. A few scattered foci of acute infarcts are seen within the left parietal, right occipital and both vertebral hemispheres. Embolic source is suggested. Harmeet Best MD Objective Remarks GENERAL: on NAD found sitting in bed and talkative but is a little more drowsy. CARDIOVASCULAR: Regular rate and rhythm without murmurs, gallops, or rubs. RESPIRATORY: Breath sounds equal bilaterally. No accessory muscle use. GASTROINTESTINAL: Abdomen soft and distended. No tenderness palpation. Negative for any peritoneal signs. NEURO: Patient able to lift her left arm and left leg up. A/P Problem List: (1) Stroke ICD Code: I63.9 - Cerebral infarction, unspecified Status: Acute (2) Hematemesis ICD Code: K92.0 - Hematemesis (3) Abdominal mass ICD Code: R19.00 - Intra-abdominal and pelvic swelling, mass and lump, unspecified site (4) Upper GI bleed ICD Code: K92.2 - Gastrointestinal hemorrhage, unspecified Assessment and Plan 56-year-old female with Mild encephalopathy No new focal neurological deficits or headache. She is still able to have a normal conversation. This may be secondary to advancing of cancer since abdomen is distended. Will get labs and monitor patient clinically. Will check ammonia and start lactulose if need CVA, acute Brain MRI shows prominent infarct in the right parietal and right temporal lobe , no midline shift or mass effect. A few scattered foci of acute infarcts are seen within the left parietal, right occipital and both vertebral hemispheres. -Appreciate input from neurology -Continue with Pravachol and aspirin -PT/OT/ST -Hemoglobin A1c 5.1. LDL 44. 2-D echo within normal limits. MRA of the carotids ordered, no significant Blockage -Pending hypercoagulable workup. -Currently on Heparin subcutaneous bridge and Coumadin. Status post given vitamin K for port placement. Patient is very sensitive to Coumadin. INR today 1.2. Will give Coumadin 5 mg today. Recheck INR tomorrow. Goal is between 2-2.5. UTI -Rocephin DC on 03/06. urine cultures grew enterococcus facelis and E coli. on linezolid and augmentin. Discussed case with pharmacist and he stated that Augmentin will cover both species. DC the linezolid. Will treat for total 7 days. Today will be the last day. Left foot pain with ambulation -Foot x-ray shows healing metatarsal. has fracture boot. Anemia, patient with coffee-ground emesis, questionable GI bleed HGB 10.8 -Appreciate input from gastroenterology per GI will only scope if it is emergent. -No active bleeding and patient is asymptomatic. Continue with oral Protonix. LE DVT. on Coumadin started Lovenox bridge as Coumadin is subtherapeutic , pharmacy ff, monitor INR, goal for INR 2-2.5 ADENOCARCINOMA, chronic - GI/pancreas/biliary origin with remarkably elevated CA 19-9 -Patient will need rehabilitation prior to getting IV palliative chemotherapy. Dr. Jeter will be managing. Gen. surgeon consulted. DVT prophylaxis: SCDs Discharge Planning Poor prognosis. Patien tis a poor candidate for chemo Difficult placement since patient is self paid. She will need to be in a rehabilitation facility. Continue with daily PT. Patient may be able to be discharged to her [facility] since she stated that she will be residing there. Discussed case with case management. Also pending SSI. Difficult discharge. Discussed with the patient, nurse Problem Qualifiers (1) Stroke: Qualified Codes: I63.10 - Cerebral infarction due to embolism of unspecified precerebral artery (2) Hematemesis: Qualified Codes: K92.0 - Hematemesis (3) Abdominal mass: Qualified Codes: R19.07 - Generalized intra-abdominal and pelvic swelling, mass and lump Galilea Gomes MD Mar 17, 2017 08:21
[2017-03-17] MEDS: SODIUM CHLORIDE 0.9% FLUSH 10 ML FLUSH IV FLUSH SCH ×2 (08:27→19:54)
[2017-03-17] MEDS: PANTOPRAZOLE SOD 40 MG DELAYED RELEASE TAB PO SCH (08:27)
[2017-03-17] MEDS: DOCUSATE SODIUM 50 MG/SENNA 8.6 MG TAB PO SCH ×2 (08:27→19:53)
[2017-03-17] MEDS: MAGNESIUM HYDROXIDE SUSP 30 ML CUP PO SCH (08:28)
[2017-03-17] MEDS: AMOXICILLIN/CLAVULANATE K 875 MG TAB PO SCH ×2 (08:28→19:53)
[2017-03-17 12:26] VITALS: BP 119/81; PULSE 75; RESP 16; TEMP 97.7; O2SAT 99
[2017-03-17] MEDS: WARFARIN SOD 2.5 MG TAB PO SCH (16:19)
[2017-03-17 16:30] VITALS: BP 111/87; PULSE 87; RESP 16; TEMP 97.5; O2SAT 96
[2017-03-17] MEDS: PRAVASTATIN SOD 40 MG TAB PO SCH (19:53)
[2017-03-17 20:00] VITALS: BP 111/78; PULSE 83; RESP 16; TEMP 97.8; O2SAT 99
[2017-03-18 00:25] VITALS: BP 109/80; PULSE 88; RESP 16; TEMP 97.3; O2SAT 100
[2017-03-18] MEDS: ENOXAPARIN SODIUM 80 MG/0.8 ML SYRINGE SQ SCH ×2 (00:53→12:37)
[2017-03-18 04:42] VITALS: BP 120/71; PULSE 81; RESP 18; TEMP 97.8; O2SAT 97
[2017-03-18 06:46] LABS: INTERNATIONAL NORMALIZED RATIO 2.3 RATIO; PROTHROMBIN TIME - PATIENT 23.5 SEC (9.8-11.6)
--- NOTE | 2017-03-18 07:03 | HHI.PR ---
Subjective Remarks Patient in nad. Pleasantly confused, with hallucinations. No n/v/d/c. Denies chest pain or sob. No abd pain .No fever or chills. Objective Vitals Vital Signs Date Time Temp Pulse Resp B/P (MAP) Pulse Ox O2 Delivery O2 Flow Rate FiO2 03/18/17 04:42 97.8 81 18 120/71 (87) 97 03/18/17 00:25 97.3 88 16 109/80 (90) 100 03/17/17 20:00 97.8 83 16 111/78 (89) 99 03/17/17 16:30 97.5 87 16 111/87 (95) 96 03/17/17 12:26 97.7 75 16 119/81 (94) 99 03/17/17 08:17 97.8 84 16 114/78 (90) 96 I/O 03/17/17 03/17/17 03/17/17 03/18/17 03/18/17 03/18/17 07:00 15:00 23:00 07:00 15:00 23:00 Intake Total 480 ml 840 ml 480 ml Output Total 302 ml 350 ml 1500 ml Balance 178 ml 490 ml -1020 ml Intake Oral 480 ml 840 ml 480 ml Output Urine Total 300 ml 350 ml 1500 ml Stool Total 2 ml # Bowel Movements 0 Result Diagram: 03/15/17 0355 03/15/17 0355 Imaging Last Impressions Lower Extremity Ultrasound 03/15/17 0000 Signed Impressions: Service Date/Time: March 08:49 - CONCLUSION: Occlusive thrombus extending from the proximal superficial femoral vein into the calf veins. Tj Aldana MD Chest X-Ray 03/09/17 0000 Signed Impressions: Service Date/Time: Thursday, March 09, 2017 18:06 - CONCLUSION: 1. No pneumothorax status post port place. Minimal basilar atelectasis. Jaguar Villalobos MD Foot X-Ray 03/07/17 0000 Signed Impressions: Service Date/Time: Tuesday, March 07, 2017 10:36 - CONCLUSION: Healing fracture distal fifth metacarpal. Low Kenny MD FACR Abdomen/Pelvis CT 03/03/17 1419 Signed Impressions: Service Date/Time: Friday, March 03, 2017 16:32 - CONCLUSION: 1. Large cystic and solid mass in the pelvis extending into the abdomen could be ovarian carcinoma. There is peritoneal carcinomatosis and multiple low-density liver lesions likely metastatic disease. 2. Large volume ascites. Harmeet Best MD Neck Magnetic Resonance Angiography 03/03/17 0000 Signed Impressions: Service Date/Time: Friday, March 03, 2017 21:13 - CONCLUSION: 1. Multiple carotid arteries. Harmeet Best MD Head Magnetic Resonance Angiography 03/03/17 0000 Signed Impressions: Service Date/Time: Friday, March 03, 2017 21:13 - CONCLUSION: 1. No large vessel stenosis or aneurysm. 2. Normal variant as described above. Harmeet Best MD Head CT 03/03/17 0000 Signed Impressions: Service Date/Time: Friday, March 03, 2017 16:24 - CONCLUSION: Large air low attenuation right frontal lobe could be acute infarct versus edema from underlying mass. Contrast MRI recommended. Harmeet Best MD Brain MRI 03/03/17 0000 Signed Impressions: Service Date/Time: Friday, March 03, 2017 18:22 - CONCLUSION: 1. Prominent infarct in the right parietal and right temporal lobe. No midline shift or mass effect. 2. A few scattered foci of acute infarcts are seen within the left parietal, right occipital and both vertebral hemispheres. Embolic source is suggested. Harmeet Best MD Objective Remarks GENERAL: on NAD found sitting in bed and talkative but is a little more drowsy. CARDIOVASCULAR: Regular rate and rhythm without murmurs, gallops, or rubs. RESPIRATORY: Breath sounds equal bilaterally. No accessory muscle use. GASTROINTESTINAL: Abdomen soft and distended. No tenderness palpation. Negative for any peritoneal signs. NEURO: Patient able to lift her left arm and left leg up. A/P Problem List: (1) Stroke ICD Code: I63.9 - Cerebral infarction, unspecified Status: Acute (2) Hematemesis ICD Code: K92.0 - Hematemesis (3) Abdominal mass ICD Code: R19.00 - Intra-abdominal and pelvic swelling, mass and lump, unspecified site (4) Upper GI bleed ICD Code: K92.2 - Gastrointestinal hemorrhage, unspecified Assessment and Plan 56-year-old female with Mild encephalopathy No new focal neurological deficits or headache. She is still able to have a normal conversation. This may be secondary to advancing of cancer since abdomen is distended. Will get labs and monitor patient clinically. Will check ammonia and start lactulose if need CVA, acute Brain MRI shows prominent infarct in the right parietal and right temporal lobe , no midline shift or mass effect. A few scattered foci of acute infarcts are seen within the left parietal, right occipital and both vertebral hemispheres. -Appreciate input from neurology -Continue with Pravachol and aspirin -PT/OT/ST -Hemoglobin A1c 5.1. LDL 44. 2-D echo within normal limits. MRA of the carotids ordered, no significant Blockage -Pending hypercoagulable workup. -Currently on Heparin subcutaneous bridge and Coumadin. Status post given vitamin K for port placement. Patient is very sensitive to Coumadin. INR today 1.2. Will give Coumadin 5 mg today. Recheck INR tomorrow. Goal is between 2-2.5. UTI -Rocephin DC on 03/06. urine cultures grew enterococcus facelis and E coli. on linezolid and augmentin. Discussed case with pharmacist and he stated that Augmentin will cover both species. DC the linezolid. Will treat for total 7 days. Today will be the last day. Left foot pain with ambulation -Foot x-ray shows healing metatarsal. has fracture boot. Anemia, patient with coffee-ground emesis, questionable GI bleed HGB 10.8 -Appreciate input from gastroenterology per GI will only scope if it is emergent. -No active bleeding and patient is asymptomatic. Continue with oral Protonix. LE DVT. on Coumadin started Lovenox bridge as Coumadin is subtherapeutic , pharmacy ff, monitor INR, goal for INR 2-2.5 ADENOCARCINOMA, chronic - GI/pancreas/biliary origin with remarkably elevated CA 19-9 -Patient will need rehabilitation prior to getting IV palliative chemotherapy. Dr. Jeter will be managing. Gen. surgeon consulted. DVT prophylaxis: SCDs Discharge Planning Poor prognosis. Patien tis a poor candidate for chemo Difficult placement since patient is self paid. She will need to be in a rehabilitation facility. Continue with daily PT. Patient may be able to be discharged to her [facility] since she stated that she will be residing there. Discussed case with case management. Also pending SSI. Difficult discharge. Discussed with the patient, nurse Problem Qualifiers (1) Stroke: Qualified Codes: I63.10 - Cerebral infarction due to embolism of unspecified precerebral artery (2) Hematemesis: Qualified Codes: K92.0 - Hematemesis (3) Abdominal mass: Qualified Codes: R19.07 - Generalized intra-abdominal and pelvic swelling, mass and lump Galilea Gomes MD Mar 18, 2017 07:03
[2017-03-18 08:19] VITALS: BP 126/80; PULSE 92; RESP 16; TEMP 99.1; O2SAT 96
[2017-03-18] MEDS: MAGNESIUM HYDROXIDE SUSP 30 ML CUP PO SCH (08:26)
[2017-03-18] MEDS: PANTOPRAZOLE SOD 40 MG DELAYED RELEASE TAB PO SCH (08:27)
[2017-03-18] MEDS: DOCUSATE SODIUM 50 MG/SENNA 8.6 MG TAB PO SCH ×2 (08:27→20:04)
[2017-03-18] MEDS: SODIUM CHLORIDE 0.9% FLUSH 10 ML FLUSH IV FLUSH SCH ×2 (08:28→20:04)
[2017-03-18] MEDS: AMOXICILLIN/CLAVULANATE K 875 MG TAB PO SCH ×2 (09:25→20:03)
[2017-03-18 12:26] VITALS: BP 106/77; PULSE 93; RESP 16; TEMP 97.5; O2SAT 97
[2017-03-18 15:38] VITALS: BP 94/72; PULSE 83; RESP 16; TEMP 98.2; O2SAT 100
[2017-03-18] MEDS: WARFARIN SOD 2.5 MG TAB PO SCH (15:45)
[2017-03-18 19:48] VITALS: BP 114/81; PULSE 94; RESP 16; TEMP 98.5; O2SAT 96
[2017-03-18] MEDS: PRAVASTATIN SOD 40 MG TAB PO SCH (20:04)
[2017-03-19] VITALS (8 sets, daily range): BP systolic 95–117; BP diastolic 63–91; PULSE 77–91; RESP 16–18; TEMP 97.6–98.6; O2SAT 94–99
[2017-03-19] MEDS: ENOXAPARIN SODIUM 80 MG/0.8 ML SYRINGE SQ SCH ×2 (00:19→14:10)
--- NOTE | 2017-03-19 09:10 | HHI.PR ---
Subjective Remarks Tried to walk i the morning and fell on her buttocks. Patient is able to walk with help to the bed. She did not hit her head. No bruises, denies having any pain . No n/v/d/c. Objective Vitals Vital Signs Date Time Temp Pulse Resp B/P (MAP) Pulse Ox O2 Delivery O2 Flow Rate FiO2 03/19/17 06:35 97.9 84 16 113/74 (87) 94 03/19/17 03:54 98.6 91 16 95/63 (74) 95 03/19/17 00:15 97.6 88 18 100/91 (94) 95 03/18/17 19:48 98.5 94 16 114/81 (92) 96 03/18/17 15:38 98.2 83 16 94/72 (79) 100 03/18/17 12:26 97.5 93 16 106/77 (87) 97 I/O 03/18/17 03/18/17 03/18/17 03/19/17 03/19/17 03/19/17 07:00 15:00 23:00 07:00 15:00 23:00 Intake Total 480 ml 960 ml 240 ml Output Total 1500 ml 650 ml 1100 ml Balance -1020 ml 310 ml -860 ml Intake Oral 480 ml 960 ml 240 ml Output Urine Total 1500 ml 650 ml 1100 ml # Bowel Movements 2 2 Result Diagram: 03/15/17 0355 03/15/17 0355 Imaging Last Impressions Lower Extremity Ultrasound 03/15/17 0000 Signed Impressions: Service Date/Time: March 08:49 - CONCLUSION: Occlusive thrombus extending from the proximal superficial femoral vein into the calf veins. Tj Aldana MD Chest X-Ray 03/09/17 0000 Signed Impressions: Service Date/Time: Thursday, March 09, 2017 18:06 - CONCLUSION: 1. No pneumothorax status post port place. Minimal basilar atelectasis. Jaguar Villalobos MD Foot X-Ray 03/07/17 0000 Signed Impressions: Service Date/Time: Tuesday, March 07, 2017 10:36 - CONCLUSION: Healing fracture distal fifth metacarpal. Low Kenny MD FACR Abdomen/Pelvis CT 03/03/17 1419 Signed Impressions: Service Date/Time: Friday, March 03, 2017 16:32 - CONCLUSION: 1. Large cystic and solid mass in the pelvis extending into the abdomen could be ovarian carcinoma. There is peritoneal carcinomatosis and multiple low-density liver lesions likely metastatic disease. 2. Large volume ascites. Harmeet Best MD Neck Magnetic Resonance Angiography 03/03/17 0000 Signed Impressions: Service Date/Time: Friday, March 03, 2017 21:13 - CONCLUSION: 1. Multiple carotid arteries. Harmeet Best MD Head Magnetic Resonance Angiography 03/03/17 0000 Signed Impressions: Service Date/Time: Friday, March 03, 2017 21:13 - CONCLUSION: 1. No large vessel stenosis or aneurysm. 2. Normal variant as described above. Harmeet Best MD Head CT 03/03/17 0000 Signed Impressions: Service Date/Time: Friday, March 03, 2017 16:24 - CONCLUSION: Large air low attenuation right frontal lobe could be acute infarct versus edema from underlying mass. Contrast MRI recommended. Harmeet Best MD Brain MRI 03/03/17 0000 Signed Impressions: Service Date/Time: Friday, March 03, 2017 18:22 - CONCLUSION: 1. Prominent infarct in the right parietal and right temporal lobe. No midline shift or mass effect. 2. A few scattered foci of acute infarcts are seen within the left parietal, right occipital and both vertebral hemispheres. Embolic source is suggested. Harmeet Best MD Objective Remarks GENERAL: on NAD found sitting in bed and talkative but is a little more drowsy. CARDIOVASCULAR: Regular rate and rhythm without murmurs, gallops, or rubs. RESPIRATORY: Breath sounds equal bilaterally. No accessory muscle use. GASTROINTESTINAL: Abdomen soft and distended. No tenderness palpation. Negative for any peritoneal signs. NEURO: Patient able to lift her left arm and left leg up. A/P Problem List: (1) Stroke ICD Code: I63.9 - Cerebral infarction, unspecified Status: Acute (2) Hematemesis ICD Code: K92.0 - Hematemesis (3) Abdominal mass ICD Code: R19.00 - Intra-abdominal and pelvic swelling, mass and lump, unspecified site (4) Upper GI bleed ICD Code: K92.2 - Gastrointestinal hemorrhage, unspecified Assessment and Plan 56-year-old female with Mild encephalopathy No new focal neurological deficits or headache. She is still able to have a normal conversation. This may be secondary to advancing of cancer since abdomen is distended. Will get labs and monitor patient clinically. Will check ammonia and start lactulose if need CVA, acute Brain MRI shows prominent infarct in the right parietal and right temporal lobe , no midline shift or mass effect. A few scattered foci of acute infarcts are seen within the left parietal, right occipital and both vertebral hemispheres. -Appreciate input from neurology -Continue with Pravachol and aspirin -PT/OT/ST -Hemoglobin A1c 5.1. LDL 44. 2-D echo within normal limits. MRA of the carotids ordered, no significant Blockage -Pending hypercoagulable workup. -Currently on Heparin subcutaneous bridge and Coumadin. Status post given vitamin K for port placement. Patient is very sensitive to Coumadin. INR today 1.2. Will give Coumadin 5 mg today. Recheck INR tomorrow. Goal is between 2-2.5. UTI -Rocephin DC on 03/06. urine cultures grew enterococcus facelis and E coli. on linezolid and augmentin. Discussed case with pharmacist and he stated that Augmentin will cover both species. DC the linezolid. Will treat for total 7 days. Today will be the last day. Left foot pain with ambulation -Foot x-ray shows healing metatarsal. has fracture boot. Anemia, patient with coffee-ground emesis, questionable GI bleed HGB 10.8 -Appreciate input from gastroenterology per GI will only scope if it is emergent. -No active bleeding and patient is asymptomatic. Continue with oral Protonix. LE DVT. on Coumadin started Lovenox bridge as Coumadin is subtherapeutic , pharmacy ff, monitor INR, goal for INR 2-2.5 ADENOCARCINOMA, chronic - GI/pancreas/biliary origin with remarkably elevated CA 19-9 -Patient will need rehabilitation prior to getting IV palliative chemotherapy. Dr. Jeter will be managing. Gen. surgeon consulted. DVT prophylaxis: SCDs Discharge Planning Poor prognosis. Patien tis a poor candidate for chemo Difficult placement since patient is self paid. She will need to be in a rehabilitation facility. Continue with daily PT. Patient may be able to be discharged to her [facility] since she stated that she will be residing there. Discussed case with case management. Also pending SSI. Difficult discharge. Discussed with the patient, nurse Problem Qualifiers (1) Stroke: Qualified Codes: I63.10 - Cerebral infarction due to embolism of unspecified precerebral artery (2) Hematemesis: Qualified Codes: K92.0 - Hematemesis (3) Abdominal mass: Qualified Codes: R19.07 - Generalized intra-abdominal and pelvic swelling, mass and lump Galilea Gomes MD Mar 19, 2017 09:10
[2017-03-19] MEDS: MAGNESIUM HYDROXIDE SUSP 30 ML CUP PO SCH (09:44)
[2017-03-19] MEDS: DOCUSATE SODIUM 50 MG/SENNA 8.6 MG TAB PO SCH ×2 (09:44→21:00)
[2017-03-19] MEDS: PANTOPRAZOLE SOD 40 MG DELAYED RELEASE TAB PO SCH (09:44)
[2017-03-19] MEDS: AMOXICILLIN/CLAVULANATE K 875 MG TAB PO SCH ×2 (09:45→21:18)
[2017-03-19] MEDS: SODIUM CHLORIDE 0.9% FLUSH 10 ML FLUSH IV FLUSH SCH ×2 (09:45→21:19)
[2017-03-19] MEDS: ONDANSETRON HCL 4 MG/2 ML VIAL IV PUSH PRN (18:21)
[2017-03-19] MEDS: PRAVASTATIN SOD 40 MG TAB PO SCH (21:19)
[2017-03-20 00:27] VITALS: BP 104/63; PULSE 93; RESP 16; TEMP 98.3; O2SAT 96
[2017-03-20] MEDS: ENOXAPARIN SODIUM 80 MG/0.8 ML SYRINGE SQ SCH (00:31)
[2017-03-20 03:23] VITALS: BP 111/76; PULSE 82; RESP 16; TEMP 98.4; O2SAT 98
[2017-03-20 06:52] LABS: INTERNATIONAL NORMALIZED RATIO 2.3 RATIO; PROTHROMBIN TIME - PATIENT 23.2 SEC (9.8-11.6)
[2017-03-20 08:00] VITALS: BP 117/72; PULSE 97; RESP 18; TEMP 98; O2SAT 94
--- NOTE | 2017-03-20 08:45 | HHI.PR ---
Subjective Remarks abd hurts less Objective Vital Signs Date Time Temp Pulse Resp B/P (MAP) Pulse Ox O2 Delivery O2 Flow Rate FiO2 03/20/17 03:23 98.4 82 16 111/76 (88) 98 03/20/17 00:27 98.3 93 16 104/63 (77) 96 03/19/17 20:55 98.1 84 16 117/84 (95) 98 03/19/17 16:00 98.5 87 18 104/78 (87) 96 03/19/17 15:23 98.5 87 18 104/78 (87) 96 03/19/17 11:54 97.9 77 16 112/75 (87) 99 03/19/17 09:24 98.3 84 16 112/78 (89) 97 I/O 03/19/17 03/19/17 03/19/17 03/20/17 03/20/17 03/20/17 07:00 15:00 23:00 07:00 15:00 23:00 Intake Total 240 ml 600 ml 480 ml Output Total 1100 ml 601 ml 350 ml Balance -860 ml -1 ml 130 ml Intake Oral 240 ml 600 ml 480 ml Output Urine Total 1100 ml 600 ml 350 ml Stool Total 1 ml # Bowel Movements 2 1 Objective Remarks awake alert can corn picker left arm better a nd leg no change abd is distended and tight Assessment and Plan Assessment and Plan imp bilat cva AND DVT coumdain echo nl holter pend hypercoag pend inr 1.9 hold coumdain very sensative to it oob CA likley hypercoag from that stable neuro 03/07/17 inr 2.6 today echo and holter nl 1 mg coumadin today she is ready for rehab neurowise a little down about cancer situation 03/09/17 unfortunately coumadin held and vit k for port placement inr down MED TEAM PLEASE RESTART COUMADIN WHEN ABLE AND GET INR TO 2-2.5 SHE IS VERY SENSITIVE TO IT BUT MAY NEED HIGHER DOSE WITH RECENT VIT K I WILL FU Sunday03/12/17 inr low on coumadin her abd some tender and distended ? if some fluid should be taken off of abd? ?paracenthesis? needs done 03/20/17 inr ok still on lovenox THIS SHOULD BE STOPPED DOLORES? NEURO CEE STABLE SR her protein c low and antithrombin 3 low so may be hypercoagulable and should be anticoagulated indefinitely WILL SIGN OFF // Bala Johnson MD Mar 20, 2017 08:45
[2017-03-20] MEDS: MAGNESIUM HYDROXIDE SUSP 30 ML CUP PO SCH (09:00)
[2017-03-20] MEDS ORDERED: SODIUM CHLORIDE 0.9% FLUSH 10 ML FLUSH IV FLUSH PRN (09:00)
[2017-03-20] MEDS: DOCUSATE SODIUM 50 MG/SENNA 8.6 MG TAB PO SCH ×2 (09:00→19:24)
[2017-03-20] MEDS: PANTOPRAZOLE SOD 40 MG DELAYED RELEASE TAB PO SCH (09:28)
[2017-03-20] MEDS: AMOXICILLIN/CLAVULANATE K 875 MG TAB PO SCH (09:28)
[2017-03-20] MEDS: SODIUM CHLORIDE 0.9% FLUSH 10 ML FLUSH IV FLUSH SCH ×2 (09:28→22:01)
--- NOTE | 2017-03-20 09:47 | HHI.PR ---
Subjective Remarks Patient in nad, in bed . She is pleasantly confused. NO n/v/d/c. Denies chest pain or sob. Belly is distended however nonpainful. Need new boot as patient urinated on the boot. Consult certified orthotic fitter Objective Vitals Vital Signs Date Time Temp Pulse Resp B/P (MAP) Pulse Ox O2 Delivery O2 Flow Rate FiO2 03/20/17 03:23 98.4 82 16 111/76 (88) 98 03/20/17 00:27 98.3 93 16 104/63 (77) 96 03/19/17 20:55 98.1 84 16 117/84 (95) 98 03/19/17 16:00 98.5 87 18 104/78 (87) 96 03/19/17 15:23 98.5 87 18 104/78 (87) 96 03/19/17 11:54 97.9 77 16 112/75 (87) 99 I/O 03/19/17 03/19/17 03/19/17 03/20/17 03/20/17 03/20/17 07:00 15:00 23:00 07:00 15:00 23:00 Intake Total 240 ml 600 ml 480 ml Output Total 1100 ml 601 ml 350 ml Balance -860 ml -1 ml 130 ml Intake Oral 240 ml 600 ml 480 ml Output Urine Total 1100 ml 600 ml 350 ml Stool Total 1 ml # Bowel Movements 2 1 Imaging Last Impressions Lower Extremity Ultrasound 03/15/17 0000 Signed Impressions: Service Date/Time: March 08:49 - CONCLUSION: Occlusive thrombus extending from the proximal superficial femoral vein into the calf veins. Tj Aldana MD Chest X-Ray 03/09/17 0000 Signed Impressions: Service Date/Time: Thursday, March 09, 2017 18:06 - CONCLUSION: 1. No pneumothorax status post port place. Minimal basilar atelectasis. Jaguar Villalobos MD Foot X-Ray 03/07/17 0000 Signed Impressions: Service Date/Time: Tuesday, March 07, 2017 10:36 - CONCLUSION: Healing fracture distal fifth metacarpal. Low Kenny MD FACR Abdomen/Pelvis CT 03/03/17 1419 Signed Impressions: Service Date/Time: Friday, March 03, 2017 16:32 - CONCLUSION: 1. Large cystic and solid mass in the pelvis extending into the abdomen could be ovarian carcinoma. There is peritoneal carcinomatosis and multiple low-density liver lesions likely metastatic disease. 2. Large volume ascites. Harmeet Best MD Neck Magnetic Resonance Angiography 03/03/17 0000 Signed Impressions: Service Date/Time: Friday, March 03, 2017 21:13 - CONCLUSION: 1. Multiple carotid arteries. Harmeet Best MD Head Magnetic Resonance Angiography 03/03/17 0000 Signed Impressions: Service Date/Time: Friday, March 03, 2017 21:13 - CONCLUSION: 1. No large vessel stenosis or aneurysm. 2. Normal variant as described above. Harmeet Best MD Head CT 03/03/17 0000 Signed Impressions: Service Date/Time: Friday, March 03, 2017 16:24 - CONCLUSION: Large air low attenuation right frontal lobe could be acute infarct versus edema from underlying mass. Contrast MRI recommended. Harmeet Best MD Brain MRI 03/03/17 0000 Signed Impressions: Service Date/Time: Friday, March 03, 2017 18:22 - CONCLUSION: 1. Prominent infarct in the right parietal and right temporal lobe. No midline shift or mass effect. 2. A few scattered foci of acute infarcts are seen within the left parietal, right occipital and both vertebral hemispheres. Embolic source is suggested. Harmeet Best MD Objective Remarks GENERAL: on NAD found sitting in bed and talkative but is a little more drowsy. CARDIOVASCULAR: Regular rate and rhythm without murmurs, gallops, or rubs. RESPIRATORY: Breath sounds equal bilaterally. No accessory muscle use. GASTROINTESTINAL: Abdomen soft and distended. No tenderness palpation. Negative for any peritoneal signs. NEURO: Patient able to lift her left arm and left leg up. A/P Problem List: (1) Stroke ICD Code: I63.9 - Cerebral infarction, unspecified Status: Acute (2) Hematemesis ICD Code: K92.0 - Hematemesis (3) Abdominal mass ICD Code: R19.00 - Intra-abdominal and pelvic swelling, mass and lump, unspecified site (4) Upper GI bleed ICD Code: K92.2 - Gastrointestinal hemorrhage, unspecified Assessment and Plan 56-year-old female with Mild encephalopathy No new focal neurological deficits or headache. She is still able to have a normal conversation. This may be secondary to advancing of cancer since abdomen is distended. Will get labs and monitor patient clinically. Will check ammonia and start lactulose if need CVA, acute Brain MRI shows prominent infarct in the right parietal and right temporal lobe , no midline shift or mass effect. A few scattered foci of acute infarcts are seen within the left parietal, right occipital and both vertebral hemispheres. -Appreciate input from neurology -Continue with Pravachol and aspirin -PT/OT/ST -Hemoglobin A1c 5.1. LDL 44. 2-D echo within normal limits. MRA of the carotids ordered, no significant Blockage -Pending hypercoagulable workup. -Currently on Heparin subcutaneous bridge and Coumadin. Status post given vitamin K for port placement. Patient is very sensitive to Coumadin. INR today 1.2. Will give Coumadin 5 mg today. Recheck INR tomorrow. Goal is between 2-2.5. UTI -Rocephin DC on 03/06. urine cultures grew enterococcus facelis and E coli. on linezolid and augmentin. Discussed case with pharmacist and he stated that Augmentin will cover both species. DC the linezolid. Will treat for total 7 days. Today will be the last day. Left foot pain with ambulation -Foot x-ray shows healing metatarsal. has fracture boot. Anemia, patient with coffee-ground emesis, questionable GI bleed HGB 10.8 -Appreciate input from gastroenterology per GI will only scope if it is emergent. -No active bleeding and patient is asymptomatic. Continue with oral Protonix. LE DVT. on Coumadin with Lovenox bridge as Coumadin was noted subtherapeutic , pharmacy ff, monitor INR, goal for INR 2-2.5. Hold lovenox as INR is in therapeutic range, discussed with Miss Prado from pharmacy, appreciate input. ADENOCARCINOMA, chronic - GI/pancreas/biliary origin with remarkably elevated CA 19-9 -Patient will need rehabilitation prior to getting IV palliative chemotherapy. Dr. Jeter will be managing. Gen. surgeon consulted. DVT prophylaxis: SCDs Discharge Planning Poor prognosis. Patien tis a poor candidate for chemo Difficult placement since patient is self paid. She will need to be in a rehabilitation facility. Continue with daily PT. Patient may be able to be discharged to her [facility] since she stated that she will be residing there. Discussed case with case management. Also pending SSI. Difficult discharge. Discussed with the patient, nurse, [facility]. Problem Qualifiers (1) Stroke: Qualified Codes: I63.10 - Cerebral infarction due to embolism of unspecified precerebral artery (2) Hematemesis: Qualified Codes: K92.0 - Hematemesis (3) Abdominal mass: Qualified Codes: R19.07 - Generalized intra-abdominal and pelvic swelling, mass and lump Galilea Gomes MD Mar 20, 2017 9:47 am
--- NOTE | 2017-03-20 09:52 | PD.ONC.PN ---
Subjective Subjective Remarks Afebrile overnight. Patient disorganized and talking excitedly. She is sitting on the bed, naked, with her hospital gown disheveled on the bed bedside her and the door open. She has been seen talking to herself when no one is in room. She denies pain at present. Objective Data Date Time Temp Pulse Resp B/P (MAP) Pulse Ox O2 Delivery O2 Flow Rate FiO2 03/20/17 03:23 98.4 82 16 111/76 (88) 98 03/20/17 00:27 98.3 93 16 104/63 (77) 96 03/19/17 20:55 98.1 84 16 117/84 (95) 98 03/19/17 16:00 98.5 87 18 104/78 (87) 96 03/19/17 15:23 98.5 87 18 104/78 (87) 96 03/19/17 11:54 97.9 77 16 112/75 (87) 99 03/20/17 03/20/17 03/20/17 07:00 15:00 23:00 Intake Total 480 ml Output Total 350 ml Balance 130 ml Laboratory Results Laboratory Tests Test 03/20/17 05:30 Prothrombin Time 23.2 SEC Prothromb Time International Ratio 2.3 RATIO Administered Medications Medications (Trade) Dose Ordered Sig/Raquel Route PRN Reason Start Time Stop Time Status Last Admin Dose Admin Sodium Chloride (NS Flush) 2 ml BID IV FLUSH 03/03/17 21:00 03/20/17 09:28 Sodium Chloride (NS Flush) 2 ml UNSCH PRN IV FLUSH FLUSH AFTER USING IV ACCESS 03/03/17 20:15 03/13/17 05:04 Pravastatin Sodium (Pravachol) 40 mg HS PO 03/03/17 21:00 03/19/17 21:19 Morphine Sulfate (Morphine Inj) 2 mg Q3H PRN IV PUSH breakthrough 03/04/17 06:45 03/17/17 00:12 Ondansetron HCl (Zofran Inj) 4 mg Q6HR PRN IV PUSH NAUSEA OR VOMITING 03/06/17 03:00 03/19/17 18:21 Magnesium Hydroxide (Milk Of Magnesia Liq) 30 ml DAILY PO 03/06/17 09:00 03/19/17 09:44 Pantoprazole Sodium (Protonix) 40 mg DAILY PO 03/06/17 10:00 03/20/17 09:28 Lorazepam (Ativan) 0.5 mg Q8H PRN PO anxiety/agitation 03/07/17 13:15 03/12/17 12:06 Methocarbamol (Robaxin) 500 mg Q8HR PO 03/08/17 14:00 Future Hold 03/09/17 06:05 Senna/Docusate Sodium (Eryn-Colace) 2 tab BID PO 03/08/17 12:30 03/19/17 09:44 Oxycodone HCl (Roxicodone) 15 mg Q4H PRN PO pain1-10 03/09/17 09:15 03/20/17 06:39 Amoxicillin/ Clavulanate Potassium (Augmentin) 875 mg Q12HR PO 03/11/17 12:00 03/20/17 09:28 Warfarin Sodium (Coumadin) 2.5 mg DAILY@1600 PO 03/12/17 16:00 Future Hold 03/18/17 15:45 Enoxaparin Sodium (Lovenox Inj) 70 mg Q12H SQ 03/15/17 13:00 03/20/17 00:31 Objective Remarks GENERAL: Chronically ill female, disheveled, sitting up in bed, naked with blanket wrapped around her, talking excitedly. SKIN: Warm and dry. HEAD: Normocephalic. EYES: No injection or drainage. NECK: Supple, trachea midline. CARDIOVASCULAR: Regular rate and rhythm RESPIRATORY: Breath sounds equal bilaterally. No accessory muscle use. GASTROINTESTINAL: abdomen distended, firm to palpation. EXTREMITIES: No cyanosis NEUROLOGICAL: +left sided weakness Assessment/Plan Problem List: (1) Stroke ICD Codes: I63.9 - Cerebral infarction, unspecified Status: Acute Plan: --on coumdain --Brain MRI with prominent infarct in the right parietal and right temporal lobe with no midline shift or mass effect. --Neurology team recommends anticoagulation and physical therapy. Assessment 56y/o female admitted with embolic stroke. h/o Peritoneal carcinomatosis. Ascites. 15.5 x 13.8 cm adnexal mass. elevated CA 125 h/o alcoholic liver disease Plan 1. consult psychiatry for medication recommendations 2. recommend long term acute care registered nurse care placement upon discharge Attending Statement The exam, history, and the medical decision-making described in the above note were completed with the assistance of the mid-level provider. I reviewed and agree with the findings presented. I attest that I had a [id number] encounter with the patient on the same day, and personally performed and documented my assessment and findings in the medical record. Cooperative but flighty and tangential in response. Believes she will go home and her friend's and son will take care of her. Case management learned different opinion. Lovenox stopped today. Continue Coumadin goal INR 2-3. L leg swelling in boot still prominent. Option of chemotherapy is palliative, will not cure her cancer. Therefore care is considered before initiating a treatment with a great deal of potential toxicity. Patient has some level of confusion, able to direct At present, in light of multiple comorbidities, complex social situation, confusion, decrease KPS - hospice would be more appropriate. Problem Qualifiers (1) Stroke: Qualified Codes: I63.10 - Cerebral infarction due to embolism of unspecified precerebral artery Berkley Álvarez Mar 20, 2017 09:52 Malika Jeter MD Mar 20, 2017 19:50
[2017-03-20 12:00] VITALS: BP 102/69; PULSE 76; RESP 18; TEMP 98.4; O2SAT 95
[2017-03-20] MEDS: WARFARIN SOD 2 MG TAB PO SCH ×2 (15:40→19:20)
[2017-03-20 19:24] VITALS: BP 108/75; PULSE 96; RESP 18; TEMP 98.1; O2SAT 95
[2017-03-20] MEDS: PRAVASTATIN SOD 40 MG TAB PO SCH (21:59)
[2017-03-20 23:53] VITALS: BP 112/77; PULSE 98; RESP 18; TEMP 97.6; O2SAT 94
[2017-03-21 04:00] VITALS: BP 108/77; PULSE 90; RESP 18; TEMP 98.3; O2SAT 96
[2017-03-21] MEDS: SODIUM CHLORIDE 0.9% FLUSH 10 ML FLUSH IV FLUSH PRN (04:15)
[2017-03-21 05:29] LABS: AUTOMATED NEUTROPHIL # 6.9 TH/MM3 (1.8-7.7); BASOPHIL % 0.5 % (0.0-2.0); EOSINOPHIL # 0.4 TH/MM3 (0-0.4); EOSINOPHIL % 4.1 % (0.0-4.0); HEMATOCRIT 28.4 % (35.0-46.0); HEMOGLOBIN 9.4 GM/DL (11.6-15.3); LYMPH % 19.4 % (9.0-44.0); MEAN CELL VOLUME 94.5 FL (80.0-100.0); MEAN CORPUSCULAR HEMOGLOBIN 31.4 PG (27.0-34.0); MEAN CORPUSCULAR HGB CONC 33.2 % (32.0-36.0); MEAN PLATELET VOLUME 8.3 FL (7.0-11.0); MONO % 9.5 % (0.0-8.0); NEUT % 66.5 % (16.0-70.0); PLATELET COUNT 263 TH/MM3 (150-450); RED BLOOD COUNT 3.01 MIL/MM3 (4.00-5.30); RED CELL DISTRIBUTION WIDTH 18.8 % (11.6-17.2); WHITE BLOOD COUNT 10.3 TH/MM3 (4.0-11.0)
[2017-03-21 05:40] LABS: INTERNATIONAL NORMALIZED RATIO 2.1 RATIO; PROTHROMBIN TIME - PATIENT 21.2 SEC (9.8-11.6)
[2017-03-21 05:53] LABS: BICARBONATE 25.2 MEQ/L (21.0-32.0); CREATININE 0.58 MG/DL (0.50-1.00)
[2017-03-21 08:14] VITALS: BP 107/71; PULSE 92; RESP 18; TEMP 97.8; O2SAT 96
[2017-03-21] MEDS: PANTOPRAZOLE SOD 40 MG DELAYED RELEASE TAB PO SCH (08:27)
[2017-03-21] MEDS: DOCUSATE SODIUM 50 MG/SENNA 8.6 MG TAB PO SCH ×2 (08:27→21:50)
[2017-03-21] MEDS: MAGNESIUM HYDROXIDE SUSP 30 ML CUP PO SCH (08:28)
[2017-03-21] MEDS: SODIUM CHLORIDE 0.9% FLUSH 10 ML FLUSH IV FLUSH SCH ×2 (08:28→21:51)
[2017-03-21 12:23] VITALS: BP 111/79; PULSE 88; RESP 18; TEMP 97.8; O2SAT 100
--- NOTE | 2017-03-21 12:34 | HHI.PYPN ---
Subjective Remarks Patient was seen today for psychiatric reevaluation. Chart was reviewed. Case discussed with nursing charge. Patient was reconsulted to me due to acute symptoms of gissel and psychosis. On psychiatric evaluation the patient is found very hyperactive, talkative, kind of restless, but redirectable. The patient seems to be internally preoccupied, however, she reports good mood, she says that she has been sleeping on and off, denies pain, denies distress, she says that she wants to go home, he says that she has a lot of family waiting for her. I asked her where does family members, she says "the same that are out here waiting"when there is no really nobody here. The patient is partially oriented, she knows that she is in the hospital, disoriented in time. She denies suicidal and homicidal ideation, she denies visual and auditory hallucinations. As per nursing charge, the patient has been screaming, talking to herself, disorganized, yesterday she was trying to walk naked out of the room. Review of Systems Neurologic: COMPLAINS OF: Abnormal gait, Headache, DENIES: Localized weakness, Paresthesias, Seizures, Speech Problems, Tremor, Poor Balance Psychiatric: COMPLAINS OF: Anxiety, Mood changes, Agitation, Delusions, DENIES : Confusion, Hallucinations, Suicidal Ideation, Homicidal Ideation Mental Status Examination Appearance: Appropriate Consciousness: Alert Orientation: Person, Place Motor Activity: Normal gait Speech: Unremarkable Language: Adequate Fund of Knowledge: Adequate Attention and Concentration: Adequate Memory: Unremarkable Mood: Irritable Affect: Irritable Thought Process & Associations: Loose associations, Disorganized Thought Content: Bizarre thinking, Delusional Hallucination Type: Auditory, Visual Delusion Type: Bizarre, Paranoid Suicidal Ideation: No Suicidal Plan: No Suicidal Intention: No Homicidal Ideation: No Homicidal Plan: No Homicidal Intention: No Insight: Fair Judgment: Impulsive Results Labs Test 03/21/17 04:15 White Blood Count 10.3 TH/MM3 Red Blood Count 3.01 MIL/MM3 Hemoglobin 9.4 GM/DL Hematocrit 28.4 % Mean Corpuscular Volume 94.5 FL Mean Corpuscular Hemoglobin 31.4 PG Mean Corpuscular Hemoglobin Concent 33.2 % Red Cell Distribution Width 18.8 % Platelet Count 263 TH/MM3 Mean Platelet Volume 8.3 FL Neutrophils (%) (Auto) 66.5 % Lymphocytes (%) (Auto) 19.4 % Monocytes (%) (Auto) 9.5 % Eosinophils (%) (Auto) 4.1 % Basophils (%) (Auto) 0.5 % Neutrophils # (Auto) 6.9 TH/MM3 Lymphocytes # (Auto) 2.0 TH/MM3 Monocytes # (Auto) 1.0 TH/MM3 Eosinophils # (Auto) 0.4 TH/MM3 Basophils # (Auto) 0.0 TH/MM3 CBC Comment DIFF FINAL Differential Comment Prothrombin Time 21.2 SEC Prothromb Time International Ratio 2.1 RATIO Blood Urea Nitrogen 5 MG/DL Creatinine 0.58 MG/DL Random Glucose 101 MG/DL Calcium Level 8.0 MG/DL Sodium Level 127 MEQ/L Potassium Level 4.0 MEQ/L Chloride Level 93 MEQ/L Carbon Dioxide Level 25.2 MEQ/L Anion Gap 9 MEQ/L Estimat Glomerular Filtration Rate 108 ML/MIN Date/Time Source Procedure Growth Status 03/03/17 14:33 Urine Catheterized Urine Urine Culture - Final Escherichia Coli Enterococcus Faecalis Complete Vitals/IOs Vital Signs Date Time Temp Pulse Resp B/P (MAP) Pulse Ox O2 Delivery O2 Flow Rate FiO2 03/21/17 12:23 97.8 88 18 111/79 (90) 100 Intake and Output 03/21/17 03/21/17 03/22/17 08:00 16:00 00:00 Intake Total 240 ml Output Total 300 ml Balance -60 ml Assessment & Plan Problem List: (1) Psychological factors affecting medical condition ICD Codes: F54 - Psychological and behavioral factors associated with disorders or diseases classified elsewhere (2) Unspecified psychosis ICD Codes: F29 - Unspecified psychosis not due to a substance or known physiological condition Assessment & Plan: On psychiatric evaluation today the patient presents with manic-like, psychotic symptoms. She is talkative, kind of hyperactive, disorganized, tangential and confused. I will start Seroquel 25 mg twice a day. Psychosis could be related with hepatic encephalopathy also would recent treatment with steroids. Labs reviewed. I will follow up. Assessment & Plan Estimated LOS: days Justification for Cont. Inpt. No indication for psychiatric admission at this moment. Nicolas Sheffield MD Mar 21, 2017 12:34
--- NOTE | 2017-03-21 13:31 | PD.ONC.PN ---
Subjective Subjective Remarks Afebrile overnight. Patient seen at 10AM. Late entry. Patient very talkative again today, but in good spirits. she has no specific complaint. per nursing staff, she was talking to herself again this AM. Objective Data Date Time Temp Pulse Resp B/P (MAP) Pulse Ox O2 Delivery O2 Flow Rate FiO2 03/21/17 12:23 97.8 88 18 111/79 (90) 100 03/21/17 08:14 97.8 92 18 107/71 (83) 96 03/21/17 04:00 98.3 90 18 108/77 (87) 96 03/20/17 23:53 97.6 98 18 112/77 (89) 94 03/20/17 19:24 98.1 96 18 108/75 (86) 95 03/21/17 03/21/17 03/21/17 07:00 15:00 23:00 Intake Total 480 ml Output Total 600 ml Balance -120 ml Result Diagram: 03/21/17 0415 03/21/17 0415 Laboratory Results Laboratory Tests Test 03/21/17 04:15 White Blood Count 10.3 TH/MM3 Red Blood Count 3.01 MIL/MM3 Hemoglobin 9.4 GM/DL Hematocrit 28.4 % Mean Corpuscular Volume 94.5 FL Mean Corpuscular Hemoglobin 31.4 PG Mean Corpuscular Hemoglobin Concent 33.2 % Red Cell Distribution Width 18.8 % Platelet Count 263 TH/MM3 Mean Platelet Volume 8.3 FL Neutrophils (%) (Auto) 66.5 % Lymphocytes (%) (Auto) 19.4 % Monocytes (%) (Auto) 9.5 % Eosinophils (%) (Auto) 4.1 % Basophils (%) (Auto) 0.5 % Neutrophils # (Auto) 6.9 TH/MM3 Lymphocytes # (Auto) 2.0 TH/MM3 Monocytes # (Auto) 1.0 TH/MM3 Eosinophils # (Auto) 0.4 TH/MM3 Basophils # (Auto) 0.0 TH/MM3 CBC Comment DIFF FINAL Differential Comment Prothrombin Time 21.2 SEC Prothromb Time International Ratio 2.1 RATIO Blood Urea Nitrogen 5 MG/DL Creatinine 0.58 MG/DL Random Glucose 101 MG/DL Calcium Level 8.0 MG/DL Sodium Level 127 MEQ/L Potassium Level 4.0 MEQ/L Chloride Level 93 MEQ/L Carbon Dioxide Level 25.2 MEQ/L Anion Gap 9 MEQ/L Estimat Glomerular Filtration Rate 108 ML/MIN Administered Medications Medications (Trade) Dose Ordered Sig/Raquel Route PRN Reason Start Time Stop Time Status Last Admin Dose Admin Sodium Chloride (NS Flush) 2 ml BID IV FLUSH 03/03/17 21:00 03/21/17 08:28 Sodium Chloride (NS Flush) 2 ml UNSCH PRN IV FLUSH FLUSH AFTER USING IV ACCESS 03/03/17 20:15 03/21/17 04:15 Pravastatin Sodium (Pravachol) 40 mg HS PO 03/03/17 21:00 03/20/17 21:59 Morphine Sulfate (Morphine Inj) 2 mg Q3H PRN IV PUSH breakthrough 03/04/17 06:45 03/17/17 00:12 Ondansetron HCl (Zofran Inj) 4 mg Q6HR PRN IV PUSH NAUSEA OR VOMITING 03/06/17 03:00 03/19/17 18:21 Magnesium Hydroxide (Milk Of Magnesia Liq) 30 ml DAILY PO 03/06/17 09:00 03/19/17 09:44 Pantoprazole Sodium (Protonix) 40 mg DAILY PO 03/06/17 10:00 03/21/17 08:27 Lorazepam (Ativan) 0.5 mg Q8H PRN PO anxiety/agitation 03/07/17 13:15 03/12/17 12:06 Methocarbamol (Robaxin) 500 mg Q8HR PO 03/08/17 14:00 Future Hold 03/09/17 06:05 Senna/Docusate Sodium (Eryn-Colace) 2 tab BID PO 03/08/17 12:30 03/21/17 08:27 Oxycodone HCl (Roxicodone) 15 mg Q4H PRN PO pain1-10 03/09/17 09:15 03/21/17 12:33 Sodium Chloride (NS Flush) 5 ml UNSCH PRN IV FLUSH SEE PROTOCOL TABLE 03/20/17 09:00 03/21/17 04:15 Heparin Sodium (Porcine) (Heparin Central Flush) 250 units UNSCH PRN IV FLUSH SEE PROTOCOL TABLE 03/20/17 09:00 03/21/17 04:15 Warfarin Sodium (Coumadin) 2 mg DAILY@1600 PO 03/20/17 16:00 03/20/17 19:20 Objective Remarks GENERAL: Chronically ill female, sitting up on hospital, in hospital gown, trying to call someone on the hospital telephone. she is talkative and excited, but in nad. SKIN: Warm and dry. HEAD: Normocephalic. EYES: No injection or drainage. NECK: Supple, trachea midline. CARDIOVASCULAR: Regular rate and rhythm RESPIRATORY: Breath sounds equal bilaterally. No accessory muscle use. GASTROINTESTINAL: abdomen distended and mildly tender to palpation. EXTREMITIES: No cyanosis NEUROLOGICAL: +left hemiparesis. Assessment/Plan Problem List: (1) Stroke ICD Codes: I63.9 - Cerebral infarction, unspecified Status: Acute Plan: --on coumdain --Brain MRI with prominent infarct in the right parietal and right temporal lobe with no midline shift or mass effect. --Neurology team recommends anticoagulation and physical therapy. Assessment 56y/o female admitted with embolic stroke. h/o Peritoneal carcinomatosis. Ascites. 15.5 x 13.8 cm adnexal mass. elevated CA 125 h/o alcoholic liver disease Plan 1. appreciate psychiatry recommendations. patient started on Seroquel today 2. plan to give chemotherapy in clinic upon discharge. recommend discharge to longterm care. Attending Statement The exam, history, and the medical decision-making described in the above note were completed with the assistance of the mid-level provider. I reviewed and agree with the findings presented. I attest that I had a [id number] encounter with the patient on the same day, and personally performed and documented my assessment and findings in the medical record. Noted delirium, confusion, more calm according to nurses. Psychiatry recommendations reviewed for manic symptom and delirium, seroquel to start tomorrow. Unfortunately, delirium in part due to disease progression and liver disease. Poor KPS is not a candidate for palliative chemotherapy. Supportive treatment continue. Will follow peripherally to see if change in neuropsychiatric status. Problem Qualifiers (1) Stroke: Qualified Codes: I63.10 - Cerebral infarction due to embolism of unspecified precerebral artery Berkley Álvarez Mar 21, 2017 13:31 Malika Jeter MD Mar 21, 2017 19:25
[2017-03-21] MEDS: WARFARIN SOD 2 MG TAB PO SCH (15:50)
[2017-03-21 15:52] VITALS: BP 112/80; PULSE 84; RESP 18; TEMP 98; O2SAT 98
--- NOTE | 2017-03-21 16:04 | HHI.PR ---
Subjective Remarks Mental status is not improving. Patient is unable to cooperate with physical therapy and is a fall risk due to lack of ability to follow instructions. She has no new complaints and will like to discharge home but encephalopathy is present. Objective Vital Signs Date Time Temp Pulse Resp B/P (MAP) Pulse Ox O2 Delivery O2 Flow Rate FiO2 03/21/17 12:23 97.8 88 18 111/79 (90) 100 03/21/17 08:14 97.8 92 18 107/71 (83) 96 03/21/17 04:00 98.3 90 18 108/77 (87) 96 03/20/17 23:53 97.6 98 18 112/77 (89) 94 03/20/17 19:24 98.1 96 18 108/75 (86) 95 I/O 03/20/17 03/20/17 03/20/17 03/21/17 03/21/17 03/21/17 07:00 15:00 23:00 07:00 15:00 23:00 Intake Total 480 ml 960 ml 480 ml Output Total 350 ml 900 ml 600 ml Balance 130 ml 60 ml -120 ml Intake Oral 480 ml 960 ml 480 ml Output Urine Total 350 ml 900 ml 600 ml # Bowel Movements 1 Result Diagram: 03/21/17 0415 03/21/17 0415 Objective Remarks GENERAL: NAD, A&Ox1 HEAD: Normocephalic. NECK: Supple, trachea midline. No lymphadenopathy. EYES: No scleral icterus. No injection or drainage. CARDIOVASCULAR: Regular rate and rhythm without murmurs, gallops, or rubs. RESPIRATORY: Breath sounds equal bilaterally. No accessory muscle use. GASTROINTESTINAL: Abdomen soft, non-tender, nondistended. MUSCULOSKELETAL: No cyanosis, or edema. SKIN: Warm and dry. NEURO: No focal neurological deficitis. A/P Problem List: (1) Unspecified psychosis ICD Code: F29 - Unspecified psychosis not due to a substance or known physiological condition (2) Delirium ICD Code: R41.0 - Disorientation, unspecified (3) Peritoneal carcinomatosis ICD Code: C78.6 - Secondary malignant neoplasm of retroperitoneum and peritoneum; C80.1 - Malignant (primary) neoplasm, unspecified (4) Psychological factors affecting medical condition ICD Code: F54 - Psychological and behavioral factors associated with disorders or diseases classified elsewhere (5) Abdominal pain ICD Code: R10.9 - Unspecified abdominal pain Status: Chronic Assessment and Plan 56-year-old female admitted secondary to metastatic cancer with delirium/ encephalopathy. Encephalopathy related to cancer Delirium related to cancer Ammonia levels have been normal No evidence of metastasis to the brain Acute CVA could be contributory Continue to follow clinically Acute CVA Neurology following Continue Pravachol Continue aspirin Continue physical therapy as tolerated Continue occupational therapy Continue speech therapy Continue Coumadin Follow INR UTI Treatment completed on 03/06/17 Subacute left metatarsal fracture Continue fracture boot Anemia GI bleed history GI bleed resolved Continue Protonix LE DVT Continue Coumadin Follow INR Adenocarcinoma Elevated CA 19-9 Oncology following Surgery following Palliative care following Source may be pancreatic or biliary in origin DVT prophylaxis SCDs Discharge Planning Poor prognosis Condition may be progressive Continue supportive care Currently patient is a poor candidate for chemotherapy Patient is self-pay which prohibits full options for rehabilitation care facility Problem Qualifiers (1) Abdominal pain: Qualified Codes: R10.84 - Generalized abdominal pain Chandana Almaraz MD Mar 21, 2017 16:04
[2017-03-21 21:45] VITALS: BP 117/81; PULSE 104; RESP 16; TEMP 97.5; O2SAT 100
[2017-03-21] MEDS: PRAVASTATIN SOD 40 MG TAB PO SCH (21:50)
[2017-03-21] MEDS: ONDANSETRON HCL 4 MG/2 ML VIAL IV PUSH PRN (21:51)
[2017-03-22 00:04] VITALS: BP 116/78; PULSE 91; RESP 18; TEMP 98; O2SAT 94
[2017-03-22 04:32] VITALS: BP 110/76; PULSE 87; RESP 18; TEMP 97.5; O2SAT 98
[2017-03-22 05:57] LABS: AUTOMATED NEUTROPHIL # 8.6 TH/MM3 (1.8-7.7); BASOPHIL # 0.2 TH/MM3 (0-0.2); BASOPHIL % 1.7 % (0.0-2.0); EOSINOPHIL # 0.4 TH/MM3 (0-0.4); EOSINOPHIL % 3.4 % (0.0-4.0); HEMATOCRIT 28.9 % (35.0-46.0); HEMOGLOBIN 9.6 GM/DL (11.6-15.3); LYMPH % 14.9 % (9.0-44.0); LYMPHOCYTE # 1.8 TH/MM3 (1.0-4.8); MEAN CELL VOLUME 94.5 FL (80.0-100.0); MEAN CORPUSCULAR HEMOGLOBIN 31.4 PG (27.0-34.0); MEAN CORPUSCULAR HGB CONC 33.2 % (32.0-36.0); MEAN PLATELET VOLUME 8.2 FL (7.0-11.0); PLATELET COUNT 245 TH/MM3 (150-450); RED BLOOD COUNT 3.06 MIL/MM3 (4.00-5.30); WHITE BLOOD COUNT 11.9 TH/MM3 (4.0-11.0)
[2017-03-22 06:06] LABS: INTERNATIONAL NORMALIZED RATIO 2.6 RATIO; PROTHROMBIN TIME - PATIENT 26.4 SEC (9.8-11.6)
[2017-03-22 06:12] LABS: ALT (GPT) 7 U/L (10-53); AST (GOT) 21 U/L (15-37); BICARBONATE 25.1 MEQ/L (21.0-32.0); BLOOD UREA NITROGEN 7 MG/DL (7-18); CHLORIDE 91 MEQ/L (98-107); CREATININE 0.67 MG/DL (0.50-1.00); GLOMERULAR FILTRATION RATE 91 ML/MIN (>89); GLUCOSE,RANDOM 102 MG/DL (74-106); SODIUM (NA) 125 MEQ/L (136-145)
[2017-03-22 06:14] LABS: ALKALINE PHOSPHATASE 139 U/L (45-117); TOTAL BILIRUBIN ADULT 0.5 MG/DL (0.2-1.0)
[2017-03-22 08:05] VITALS: BP 117/79; PULSE 88; RESP 18; TEMP 98; O2SAT 95
[2017-03-22] MEDS: MAGNESIUM HYDROXIDE SUSP 30 ML CUP PO SCH (08:11)
[2017-03-22] MEDS: PANTOPRAZOLE SOD 40 MG DELAYED RELEASE TAB PO SCH (08:11)
[2017-03-22] MEDS: QUEtiapine FUMARATE 25 MG TAB PO SCH ×2 (08:11→12:28)
[2017-03-22] MEDS: SODIUM CHLORIDE 0.9% FLUSH 10 ML FLUSH IV FLUSH SCH ×2 (08:11→21:12)
[2017-03-22] MEDS: DOCUSATE SODIUM 50 MG/SENNA 8.6 MG TAB PO SCH ×2 (08:11→21:11)
[2017-03-22 11:53] VITALS: PULSE 105; RESP 18; TEMP 97.8; O2SAT 95
--- NOTE | 2017-03-22 13:43 | HHI.HCPN ---
Reason for visit a. To assist with evaluation and management of symptoms including: abdominal pain. b. To assist medical decision maker(s) with: better understanding of current medical conditions; weighing benefits/burdens of medical treatment options; making medical treatment decisions. . Subjective/Interval History Patient seen and examined in room. Also present Dacia Ragsdale LCSW. No family or friends at bedside. Patient is sitting in bed, lethargic, having difficulty communicating. She is moaning, reports pain in abdomen and back. Unable to rate pain. Abdomen is distended. Eating only bites and sips. She appears cachectic. She has declined significantly since my last visit. She is not capacitated to make her own decisions. Tachycardic. Labs stable. Patient is not a candidate for chemotherapy. She does not have an accepting facility for DC. . Family/friend interactions Spoke with mother/ Ana Laura LANDAVERDE via telephone. Medical update provided. Reviewed my concerns of significant decline, including minimal oral intake. She elects NO CODE. She is appropriately tearful. She desires comfort focused care with hospice support. Patient is appropriate for care center placement for management of pain, mother would like her to go to care center. PPS 20. I anticipate continued rapid decline. Mother wants patient cremated. . Advance Directives Living Will: Never completed Health Care Surrogate: Copy in medical record Durable Power of Full Decator Operator: Never completed Advance Directive Specifics Date completed: 03/05/17. . Health Care Surrogate(s): Decision Maker: Patient is no longer capacitated to make her own decisions. Has been evaluated by psychiatry deemed incapacitated for medical decision-making. Advance directives completed. Patient has designated her mother Ana Laura Dudley as healthcare surrogate decision maker, alternate surrogate is her friend Stewart Conn. . Significant change in goals: NO CODE. Spoke with mother/ Ana Laura LANDAVERDE via telephone. Medical update provided. Reviewed my concerns of significant decline, including minimal oral intake. She elects NO CODE. She is appropriately tearful. She desires comfort focused care with hospice support. Patient is appropriate for care center placement for management of pain, mother would like her to go to care center. PPS 20. I anticipate continued rapid decline. Mother wants patient cremated. Objective Vital Signs Date Time Temp Pulse Resp B/P (MAP) Pulse Ox O2 Delivery O2 Flow Rate FiO2 03/22/17 11:53 97.8 105 18 95 03/22/17 08:05 98.0 88 18 117/79 (92) 95 03/22/17 04:32 97.5 87 18 110/76 (87) 98 03/22/17 00:04 98.0 91 18 116/78 (91) 94 03/21/17 21:45 97.5 104 16 117/81 (93) 100 03/21/17 15:52 98.0 84 18 112/80 (91) 98 Intake & Output 03/22/17 03/22/17 07:00 19:00 Intake Total 240 ml Output Total 200 ml Balance 40 ml Intake Oral 240 ml Output Urine Total 200 ml Physical Exam CONSTITUTIONAL/GENERAL: This is a thin female patient, lethargic. TUBES/LINES/DRAINS: Left chest port, left lower extremity brace/boot. SKIN: Ecchymoses on upper extremities and bilateral knees. Skin temperature appropriate. ENT: dry oral mucosa. CARDIOVASCULAR: Regular rate and rhythm. RESPIRATORY/CHEST: Clear to auscultation. GASTROINTESTINAL: Abdomen firm, tender right LQ and umbilical area, distended. multiple palpable masses. Bowel sounds present. GENITOURINARY: Without palpable bladder distension. MUSCULOSKELETAL: Left upper extremity weakness, increasing movement noted. NEUROLOGICAL: Lethargic, confused. PSYCHIATRIC: confused. Diagnostic Tests Laboratory Laboratory Tests Test 03/20/17 05:30 03/21/17 04:15 03/22/17 04:35 Prothrombin Time 23.2 SEC (9.8-11.6) 21.2 SEC (9.8-11.6) 26.4 SEC (9.8-11.6) Prothromb Time International Ratio 2.3 RATIO 2.1 RATIO 2.6 RATIO White Blood Count 10.3 TH/MM3 (4.0-11.0) 11.9 TH/MM3 (4.0-11.0) Red Blood Count 3.01 MIL/MM3 (4.00-5.30) 3.06 MIL/MM3 (4.00-5.30) Hemoglobin 9.4 GM/DL (11.6-15.3) 9.6 GM/DL (11.6-15.3) Hematocrit 28.4 % (35.0-46.0) 28.9 % (35.0-46.0) Mean Corpuscular Volume 94.5 FL (80.0-100.0) 94.5 FL (80.0-100.0) Mean Corpuscular Hemoglobin 31.4 PG (27.0-34.0) 31.4 PG (27.0-34.0) Mean Corpuscular Hemoglobin Concent 33.2 % (32.0-36.0) 33.2 % (32.0-36.0) Red Cell Distribution Width 18.8 % (11.6-17.2) 19.0 % (11.6-17.2) Platelet Count 263 TH/MM3 (150-450) 245 TH/MM3 (150-450) Mean Platelet Volume 8.3 FL (7.0-11.0) 8.2 FL (7.0-11.0) Neutrophils (%) (Auto) 66.5 % (16.0-70.0) 72.0 % (16.0-70.0) Lymphocytes (%) (Auto) 19.4 % (9.0-44.0) 14.9 % (9.0-44.0) Monocytes (%) (Auto) 9.5 % (0.0-8.0) 8.0 % (0.0-8.0) Eosinophils (%) (Auto) 4.1 % (0.0-4.0) 3.4 % (0.0-4.0) Basophils (%) (Auto) 0.5 % (0.0-2.0) 1.7 % (0.0-2.0) Neutrophils # (Auto) 6.9 TH/MM3 (1.8-7.7) 8.6 TH/MM3 (1.8-7.7) Lymphocytes # (Auto) 2.0 TH/MM3 (1.0-4.8) 1.8 TH/MM3 (1.0-4.8) Monocytes # (Auto) 1.0 TH/MM3 (0-0.9) 1.0 TH/MM3 (0-0.9) Eosinophils # (Auto) 0.4 TH/MM3 (0-0.4) 0.4 TH/MM3 (0-0.4) Basophils # (Auto) 0.0 TH/MM3 (0-0.2) 0.2 TH/MM3 (0-0.2) CBC Comment DIFF FINAL DIFF FINAL Differential Comment Blood Urea Nitrogen 5 MG/DL (7-18) 7 MG/DL (7-18) Creatinine 0.58 MG/DL (0.50-1.00) 0.67 MG/DL (0.50-1.00) Random Glucose 101 MG/DL (74-106) 102 MG/DL (74-106) Calcium Level 8.0 MG/DL (8.5-10.1) 8.0 MG/DL (8.5-10.1) Sodium Level 127 MEQ/L (136-145) 125 MEQ/L (136-145) Potassium Level 4.0 MEQ/L (3.5-5.1) 4.1 MEQ/L (3.5-5.1) Chloride Level 93 MEQ/L (98-107) 91 MEQ/L (98-107) Carbon Dioxide Level 25.2 MEQ/L (21.0-32.0) 25.1 MEQ/L (21.0-32.0) Anion Gap 9 MEQ/L (5-15) 9 MEQ/L (5-15) Estimat Glomerular Filtration Rate 108 ML/MIN (>89) 91 ML/MIN (>89) Total Protein 7.0 GM/DL (6.4-8.2) Albumin 2.0 GM/DL (3.4-5.0) Alkaline Phosphatase 139 U/L (45-117) Aspartate Amino Transf (AST/SGOT) 21 U/L (15-37) Alanine Aminotransferase (ALT/SGPT) 7 U/L (10-53) Total Bilirubin 0.5 MG/DL (0.2-1.0) Result Diagram: 03/22/17 0435 03/22/17 0435 Microbiology Microbiology Date/Time Source Procedure Growth Status 03/03/17 14:33 Urine Catheterized Urine Urine Culture - Final Escherichia Coli Enterococcus Faecalis Complete Imaging Last Impressions Lower Extremity Ultrasound 03/15/17 0000 Signed Impressions: Service Date/Time: March 08:49 - CONCLUSION: Occlusive thrombus extending from the proximal superficial femoral vein into the calf veins. Tj Aldana MD Chest X-Ray 03/09/17 0000 Signed Impressions: Service Date/Time: Thursday, March 09, 2017 18:06 - CONCLUSION: 1. No pneumothorax status post port place. Minimal basilar atelectasis. Jaguar Villalobos MD Foot X-Ray 03/07/17 0000 Signed Impressions: Service Date/Time: Tuesday, March 07, 2017 10:36 - CONCLUSION: Healing fracture distal fifth metacarpal. Low Kenny MD FACR Abdomen/Pelvis CT 03/03/17 1419 Signed Impressions: Service Date/Time: Friday, March 03, 2017 16:32 - CONCLUSION: 1. Large cystic and solid mass in the pelvis extending into the abdomen could be ovarian carcinoma. There is peritoneal carcinomatosis and multiple low-density liver lesions likely metastatic disease. 2. Large volume ascites. Harmeet Best MD Neck Magnetic Resonance Angiography 03/03/17 0000 Signed Impressions: Service Date/Time: Friday, March 03, 2017 21:13 - CONCLUSION: 1. Multiple carotid arteries. Harmeet Best MD Head Magnetic Resonance Angiography 03/03/17 0000 Signed Impressions: Service Date/Time: Friday, March 03, 2017 21:13 - CONCLUSION: 1. No large vessel stenosis or aneurysm. 2. Normal variant as described above. Harmeet Best MD Head CT 03/03/17 0000 Signed Impressions: Service Date/Time: Friday, March 03, 2017 16:24 - CONCLUSION: Large air low attenuation right frontal lobe could be acute infarct versus edema from underlying mass. Contrast MRI recommended. Harmeet Best MD Brain MRI 03/03/17 0000 Signed Impressions: Service Date/Time: Friday, March 03, 2017 18:22 - CONCLUSION: 1. Prominent infarct in the right parietal and right temporal lobe. No midline shift or mass effect. 2. A few scattered foci of acute infarcts are seen within the left parietal, right occipital and both vertebral hemispheres. Embolic source is suggested. Harmeet Best MD Assessment and Plan Disease Oriented Problem List: (1) Peritoneal carcinomatosis (2) Macrocytic anemia (3) Abdominal mass (4) Stroke (5) Delirium Symptom Scale: (1) Abdominal pain 0-10 Scale: 8 Comment: sharp, constant pain in right abdomen "due to tumor" Pertinent Non-Medical Issues Psychosocial: Single. No children. Lives with roommate, Hank for 17 years. Spiritual: unknown. Legal: Patient is no longer capacitated to make her own decisions. Has been evaluated by psychiatry deemed incapacitated for medical decision-making. Advance directives completed. Patient has designated her mother Ana Laura Dudley as healthcare surrogate decision maker, alternate surrogate is her friend Stewart Conn. Ethical issues impacting care: No known concerns. . Important Contacts * Primary Health Care Surrogate: Ana Laura Dudley, mother: [phone] * Alternate Health Care Surrogate: Hank Tomas's step-son: [phone] * SisterSonal in [place]: [phone] * Nasir Hinton spouse: [phone] . Prognosis Overall prognosis is poor given advanced metastatic cancer, recent stroke and left sided weakness. Patient at high risk for further complications, clinical decline and . Patient appears hospice appropriate should she elects comfort-directed care. . Code Status: No Code Plan * Decision Maker: Patient is no longer capacitated to make her own decisions. Has been evaluated by psychiatry deemed incapacitated for medical decision- making. Advance directives completed. Patient has designated her mother Ana Laura Dudley as healthcare surrogate decision maker, alternate surrogate is her friend Stewart Conn. * NO CODE (DNR/DNI) * 03/22/17 - Spoke with mother/ Ana Laura LANDAVERDE via telephone. Medical update provided. Reviewed my concerns of significant decline, including minimal oral intake. She elects NO CODE. She is appropriately tearful. She desires comfort focused care with hospice support. Patient is appropriate for care center placement for management of pain, mother would like her to go to care center. PPS 20. I anticipate continued rapid decline. Mother wants patient cremated. * Hospice consulted. * SYMPTOMS: = Pain: in abdomen due to mets cancer, ascites, large pelvic mass, peritoneal carcinomatosis, liver disease and recent stroke. Pain regimen change yesterday from hydrocodone to oxycodone 15mg q4hr PRN, has had 6 doses in the past 24 hours. = Anxiety: Exacerbated by pain, underlying psych. Ativan 0.5mg available every 8 hours as needed, none today. Medication adjustments per hospice, might consider Methadone upon transfer to care center. * Palliative care will continue to follow up as needed throughout hospital course to assist with symptom management and clarification of goals. . Attestation To help prompt me to consider important information that might be impacting today's encounter and assessment, information from prior notes written by myself or my colleagues may have been "brought forward" into today's note. My signature on this note, however, is an attestation that I personally performed the exam, history, and/or decision-making noted today, and, unless otherwise indicated, the interactions with patient, family, and staff as well as the review of records all occurred today. I also attest that the listed assessment and stated plan reflect my best clinical judgment today based on the combination of historical information, prior notes, and today's exam/ interactions. When time spent is documented, it refers only to time spent today by the signer, or if indicated, combined time spent today by collaborating physician/nurse practitioner. . Claudia Sigala Mar 22, 2017 13:43
--- NOTE | 2017-03-22 14:27 | HHI.PR ---
Subjective Remarks Mental status is not improving. Slight downward trend in sodium. No new complaints from the patient. Objective Vital Signs Date Time Temp Pulse Resp B/P (MAP) Pulse Ox O2 Delivery O2 Flow Rate FiO2 03/22/17 11:53 97.8 105 18 95 03/22/17 08:05 98.0 88 18 117/79 (92) 95 03/22/17 04:32 97.5 87 18 110/76 (87) 98 03/22/17 00:04 98.0 91 18 116/78 (91) 94 03/21/17 21:45 97.5 104 16 117/81 (93) 100 03/21/17 15:52 98.0 84 18 112/80 (91) 98 I/O 03/21/17 03/21/17 03/21/17 03/22/17 03/22/17 03/22/17 07:00 15:00 23:00 07:00 15:00 23:00 Intake Total 480 ml 100 ml 240 ml Output Total 600 ml 350 ml 200 ml Balance -120 ml -250 ml 40 ml Intake Oral 480 ml 100 ml 240 ml Output Urine Total 600 ml 350 ml 200 ml Stool Total 0 ml # Voids 2 Result Diagram: 03/22/17 0435 03/22/17 0435 Objective Remarks GENERAL: NAD, A&Ox1 HEAD: Normocephalic. NECK: Supple, trachea midline. No lymphadenopathy. EYES: No scleral icterus. No injection or drainage. CARDIOVASCULAR: Regular rate and rhythm without murmurs, gallops, or rubs. RESPIRATORY: Breath sounds equal bilaterally. No accessory muscle use. GASTROINTESTINAL: Abdomen soft, non-tender, nondistended. MUSCULOSKELETAL: No cyanosis, or edema. SKIN: Warm and dry. NEURO: No focal neurological deficitis. A/P Problem List: (1) Unspecified psychosis ICD Code: F29 - Unspecified psychosis not due to a substance or known physiological condition (2) Delirium ICD Code: R41.0 - Disorientation, unspecified (3) Peritoneal carcinomatosis ICD Code: C78.6 - Secondary malignant neoplasm of retroperitoneum and peritoneum; C80.1 - Malignant (primary) neoplasm, unspecified (4) Psychological factors affecting medical condition ICD Code: F54 - Psychological and behavioral factors associated with disorders or diseases classified elsewhere (5) Abdominal pain ICD Code: R10.9 - Unspecified abdominal pain Status: Chronic Assessment and Plan 56-year-old female admitted secondary to metastatic cancer with delirium/ encephalopathy. Labs reviewed. Sodium has a downward trend. Consider Salt Tabs if downward trend continues through tomorrow. Continue to monitor sodium levels. Labs ordered for further monitoring. Encephalopathy related to cancer Delirium related to cancer Ammonia levels have been normal No evidence of metastasis to the brain Acute CVA could be contributory Continue to follow clinically Acute CVA Neurology following Continue Pravachol Continue aspirin Continue physical therapy as tolerated Continue occupational therapy Continue speech therapy Continue Coumadin Follow INR UTI Treatment completed on 03/06/17 Subacute left metatarsal fracture Continue fracture boot Anemia GI bleed history GI bleed resolved Continue Protonix LE DVT Continue Coumadin Follow INR Adenocarcinoma Elevated CA 19-9 Oncology following Surgery following Palliative care following Source may be pancreatic or biliary in origin DVT prophylaxis SCDs Discharge Planning Poor prognosis Condition may be progressive Continue supportive care Currently patient is a poor candidate for chemotherapy Patient is self-pay which prohibits full options for rehabilitation care facility Problem Qualifiers (1) Abdominal pain: Qualified Codes: R10.84 - Generalized abdominal pain Chandana Almaraz MD Mar 22, 2017 14:27
[2017-03-22 15:43] VITALS: BP 96/77; PULSE 103; RESP 18; TEMP 97.4; O2SAT 94
--- NOTE | 2017-03-22 18:37 | HHI.DS ---
Discharge Summary Admission Date Mar 03, 2017 at 18:05 Discharge Date: Mar 22, 2017 Admitting Diagnosis metastatic cancer, vomiting, new brain mass (1) Stroke ICD Code: I63.9 - Cerebral infarction, unspecified Diagnosis: Principal Status: Acute (2) Hematemesis ICD Code: K92.0 - Hematemesis Diagnosis: Principal (3) Abdominal mass ICD Code: R19.00 - Intra-abdominal and pelvic swelling, mass and lump, unspecified site Diagnosis: Principal (4) Upper GI bleed ICD Code: K92.2 - Gastrointestinal hemorrhage, unspecified Diagnosis: Principal Procedures catheter placement Brief History - From Admission 56-year-old female with a 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 Patient states for the last 2 days she has been unable to walk she has had multiple falls and has been crawling around her house. Today she felt very nauseous and began to have left upper extremity weakness with confusion. She complains of abdominal pain, dull burning pain 4/10 with no radiation or associated symptoms. She states the pain is not new but has been there since they discovered the mass in her abdomen. She has not followed up with an oncologist yet but states she will after she has the mass removed by her GI physician and then she will begin chemotherapy. CBC/BMP: 03/22/17 0435 03/22/17 0435 Significant Findings Laboratory Tests Test 03/20/17 05:30 03/21/17 04:15 03/22/17 04:35 Prothrombin Time 23.2 SEC (9.8-11.6) 21.2 SEC (9.8-11.6) 26.4 SEC (9.8-11.6) Red Blood Count 3.01 MIL/MM3 (4.00-5.30) 3.06 MIL/MM3 (4.00-5.30) Hemoglobin 9.4 GM/DL (11.6-15.3) 9.6 GM/DL (11.6-15.3) Hematocrit 28.4 % (35.0-46.0) 28.9 % (35.0-46.0) Red Cell Distribution Width 18.8 % (11.6-17.2) 19.0 % (11.6-17.2) Monocytes (%) (Auto) 9.5 % (0.0-8.0) Eosinophils (%) (Auto) 4.1 % (0.0-4.0) Monocytes # (Auto) 1.0 TH/MM3 (0-0.9) 1.0 TH/MM3 (0-0.9) Blood Urea Nitrogen 5 MG/DL (7-18) Calcium Level 8.0 MG/DL (8.5-10.1) 8.0 MG/DL (8.5-10.1) Sodium Level 127 MEQ/L (136-145) 125 MEQ/L (136-145) Chloride Level 93 MEQ/L (98-107) 91 MEQ/L (98-107) White Blood Count 11.9 TH/MM3 (4.0-11.0) Neutrophils (%) (Auto) 72.0 % (16.0-70.0) Neutrophils # (Auto) 8.6 TH/MM3 (1.8-7.7) Albumin 2.0 GM/DL (3.4-5.0) Alkaline Phosphatase 139 U/L (45-117) Alanine Aminotransferase (ALT/SGPT) 7 U/L (10-53) PE at Discharge GENERAL: on NAD found sitting in bed and talkative but is a little more drowsy. CARDIOVASCULAR: Regular rate and rhythm without murmurs, gallops, or rubs. RESPIRATORY: Breath sounds equal bilaterally. No accessory muscle use. GASTROINTESTINAL: Abdomen soft and distended. No tenderness palpation. Negative for any peritoneal signs. NEURO: Patient able to lift her left arm and left leg up. Hospital Course Mrs. Gomes is a 56 year old female. She was admitted with weakness and nausea. 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 While here she has been declining despite medical care and support. Mental status has evolved into an encephalopathy related to her carcinomatosis (negative work up for other modalities to explain her mental status decline). At this point she is not eating adequately. The patient has been evaluated by psychiatry and determined to not have any mental capacity to make her own choices or consent. Palliative care has discussed this situation with her mother Ana Laura, who is her medical decision maker. Her mother and family are choosing comfort measures and have requested inpatient hospice, for which the patient has been accepted. She is appropriate for discharge to hospice when bed available. Pt Condition on Discharge: Deteriorating Discharge Disposition: Hospice/Med Facility Discharge Time: <= 30 minutes Discharge Instructions DIET: Follow Instructions for: As Tolerated, No Restrictions Speech Therapy-Diet Recommends: Mechanical Soft, Chopped Meat w/Gravy Activities you can perform: Continue Bedrest Follow up Referrals: Appointment for Follow Up - As Per Protocol Discontinued Medications: Hydrocodone/Acetaminophen (Hydrocodone-Acetamin 5-325 mg) 5 Mg-325 Mg Tablet 1 TAB PO Q4H PRN for PAIN SCALE 1 TO 10, #20 Chandana Almaraz MD Mar 22, 2017 18:37
[2017-03-22 20:53] VITALS: BP 114/84; PULSE 99; RESP 18; TEMP 97.6; O2SAT 100
[2017-03-22] MEDS ORDERED: SODIUM CHLORIDE 1 GRAM TAB PO SCH (21:00)
[2017-03-22] MEDS: PRAVASTATIN SOD 40 MG TAB PO SCH (21:12)
[2017-03-23] MEDS ORDERED: WARFARIN SOD 1 MG TAB PO SCH (16:00)
== END 2017-03-22 22:38 | disposition hospice, inpatient (51) | DRG 64 ==
LOC: NEPE 14:05 → NEDA 18:05 → HCIN 23:15
PROVIDERS: ADMIT Hospitalist; ATTEND Hospitalist
PROC: 02HV33Z Insertion of Infusion Device into Superior Vena Cava, Percutaneous Approach (ICD-10-PCS; 2017-03-09)
PROC: 0JH60WZ Insertion of Totally Implantable Vascular Access Device into Chest Subcutaneous Tissue and Fascia, Open Approach (ICD-10-PCS; principal; 2017-03-09 16:50)
DX: I63.40 Cerebral infarction due to embolism of unspecified cerebral artery (principal); G93.49 Other encephalopathy; K92.0 Hematemesis; R18.8 Other ascites; I82.412 Acute embolism and thrombosis of left femoral vein; C78.6 Secondary malignant neoplasm of retroperitoneum and peritoneum; F05 Delirium due to known physiological condition; N39.0 Urinary tract infection, site not specified; G81.94 Hemiplegia, unspecified affecting left nondominant side; C80.1 Malignant (primary) neoplasm, unspecified; B95.2 Enterococcus as the cause of diseases classified elsewhere; D50.9 Iron deficiency anemia, unspecified; B96.20 Unspecified Escherichia coli [E. coli] as the cause of diseases classified elsewhere; G89.3 Neoplasm related pain (acute) (chronic); Z66 Do not resuscitate; Z51.5 Encounter for palliative care; S92.352A Displaced fracture of fifth metatarsal bone, left foot, initial encounter for closed fracture; Z91.81 History of falling; K76.89 Other specified diseases of liver; Z87.891 Personal history of nicotine dependence
CPT/HCPCS: 70450; 70544; 70548; 70553; 71045; 73630; 74177; 77001; 80048; 80053; 80061; 80307; 81001; 81240; 81241; 82140; 82378; 82550; 82607; 82728; 82746; 82948; 83036; 83540; 83550; 83605; 83690; 83921; 84165; 84425; 84439; 84443; 84484; 84703; 85025; 85027; 85240; 85300; 85303; 85306; 85597; 85598; 85610; 85613; 85670; 85730; 86038; 86147; 86300; 86301; 86592; 87077; 87086; 87186; 93005; 93225; 93226; 93306; 93971; 96361; 96365; 96367; 96375; 99211; A9579; C1788; C9113; G0463; J0690; J0696; J0780; J1100; J1642; J1644; J1650; J2060; J2250; J2270; J2405; J3010; J3370; J3430; J7030; L2114; Q9967